=== PATIENT | male | born 1950 | race Caucasian/White ===

== ENCOUNTER → 2017-09-07 | Outpatient (CLI) | payer MEDICARE, BC ==
[2017-09-07 12:09] LABS: Blood Urea Nitrogen 14 mg/dL (9-20); Non-African American GFR(MDRD) >60 (>60 ml/min/1.73 sqM)
--- NOTE | 2017-09-07 15:54 | CT ---
EXAMINATION TYPE: CT ChestAbdPelvis w con DATE OF EXAM: 09/07/2017 COMPARISON: CT chest 07/02/2017 HISTORY: 67-year-old male follow up for lung cancer, patient coughing TECHNIQUE: Contiguous axial scanning of the test, abdomen, and pelvis performed with IV Contrast, pat ient injected with 100 mL of Omnipaque 300. Delayed images through the kidneys were obtained. Coronal /sagittal reconstructions performed. CT DLP: 1027 mGycm Automated exposure control for dose reduction was used. FINDINGS: CHEST: The heart is normal size with similar small pericardial effusion. Along the left side of the heart, t his measures 1.4 cm thick. Cardiac vessel calcifications are present and a marker for coronary artery disease. Mild to moderate atherosclerotic arch calcifications. Conventional arterial supply to anatomy. Small mediastinal lymph nodes though with a borderline enlarged 1 cm precarinal lymph node, unchanged from prior. There is moderate emphysema. In the right midlung, right lower lobe along the major fissure, there is a 1.2 cm spiculated nodule m easuring 1.0 cm, previously. Just below in the peripheral right lower lobe also abutting the major fissure, there is a spiculated 3.0 cm mass that shows significant interval decrease in size, previously measuring up to 5.3 cm. And central cavitation is present. Minimal peripheral right basilar nodularity in the subpleural region measuring 6 mm could represent s ome subpleural atelectasis and should be reassessed at follow-up. Some interstitial changes in peripheral in the right lower lobe could relate to posttreatment change. Resolution of previous right pleural effusion. The large left pleural effusion shows interval decrease in size. A small left pleural effusion remain s. 3 mm peripheral left lower lobe pulmonary nodule axial image 47. Some minimal patchy subpleural opaci ty peripheral left lower lobe, axial image 39. There seems to be persistent inferior lingular collaps e. ABDOMEN: Tiny hiatal hernia. No focal liver lesion or biliary ductal dilatation. Portal venous system is patent cholecystectomy cl ips are present. Similar mild diffuse thickening of the left adrenal gland without discrete nodularity. Kidneys, splee n, and pancreas show no gross abnormal body. Retroaortic left renal vein. Moderate atherosclerotic calcifications throughout the abdominal aorta a nd iliac arteries. No dilated small bowel, free fluid, or free air. No mesenteric or retroperitoneal lymphadenopathy jose ntified. Moderate stool in the right hemicolon. Pelvis: Mild circumference of bladder wall thickening. This could represent chronic bladder wall hypertrophy or cystitis. Clinically correlate. Prostate gland mildly enlarged at 4.5 cm wide. Pelvic phlebolith a re noted. Prominent stool in the rectum which is distended up to 5.1 cm wide. No abnormal fluid colle ction in the pelvis or pelvic lymphadenopathy seen. Bones: Degenerative changes lower lumbar spine. There is a focal lucent lesion within the T9 vertebral body. This shows a slightly sclerotic rim and is unchanged from 07/02/2017. A hemangioma is possible. There is new minimal superior endplate compression deformity at T4 as compared to 06/30/2017. No paraverteb ral soft tissue abnormality. No osseous destructive process seen. IMPRESSION: 1. RESOLUTION OF PREVIOUS RIGHT PLEURAL EFFUSION. THERE IS RESIDUAL SMALL LEFT PLEURAL EFFUSION. 2. THE DOMINANT RIGHT LOWER LOBE MASS HAS DECREASED IN SIZE FROM 5.3 CM NOW AT 3.0 CM. THE ADJACENT C ONTIGUOUS MASS HAS DRAMATICALLY DECREASED IN SIZE NOW MEASURING ONLY 1.2 CM. 3. NONSPECIFIC 6 MM SUBPLEURAL NODULARITY AT THE RIGHT BASE COULD REPRESENT SOME NODULAR ATELECTASIS AND CAN BE REASSESSED AT FOLLOW-UP. 4. ON THE LEFT, NONSPECIFIC TINY 3 MM PULMONARY NODULE AND SOME VAGUE PATCHY SUBPLEURAL DENSITY IN TH E LEFT LOWER LOBE CAN ALSO BE REASSESSED AT FOLLOW-UP. 5. CONTINUED SEGMENTAL INFERIOR LINGULAR COLLAPSE. 6. STABLE 1 CM PRECARINAL LYMPH NODE. 7. A ROUND LUCENT LESION WITHIN T9 VERTEBRAL BODY IS ALSO UNCHANGED. THIS MAY REPRESENT A HEMANGIOMA RATHER THAN A LYTIC METASTASIS.
== END | disposition home or self-care (01) ==
LOC: RADCTMAIN 11:39
PROVIDERS: ATTEND Internal Medicine Hematology & Oncology
DX: C34.31 Malignant neoplasm of lower lobe, right bronchus or lung (principal); J90 Pleural effusion, not elsewhere classified; J98.19 Other pulmonary collapse
CPT/HCPCS: 82565; 84520; 71260; 74177; 36415; Q9967

== ENCOUNTER 2017-10-07 07:09 | Day surgery (SDC) | payer MEDICARE, BC ==
[2017-10-05 10:07] VITALS: BMI 18.5
[~2017-10-07 07:09] MED LIST: LACTATED RINGERS 1,000 ML IV SCH; Pre Op ABX Message 1 EACH MISC MISCELLANE ONE
[2017-10-07 07:19] VITALS: RESP 18; TEMP 98.1
[2017-10-07] MEDS ORDERED: LACTATED RINGERS 1,000 ML IV ONE (07:19)
[2017-10-07] MEDS ORDERED: LIDOCAINE 1% 20 ML VIAL (10MG/ML) FOR IV START INTRADERMA ONE (07:26)
[2017-10-07] MEDS ORDERED: fentaNYL (PF) 50 MCG/ML 2 ML AMP ONE (07:34)
[2017-10-07] MEDS ORDERED: PROPOFOL 10 MG/ML 20 ML VIAL IV ONE (07:34)
[2017-10-07] MEDS ORDERED: LIDOCAINE 1% INJ 10MG/ML (20 ML MDV) ONE (07:34)
[2017-10-07] MEDS ORDERED: MIDAZOLAM 2 MG/2 ML VIAL ONE (07:34)
[2017-10-07 08:37] VITALS: BP 140/60; PULSE 108
[2017-10-07 08:55] LABS: Anisocytosis Slight; Basophils % (A) 1 %; Eosinophils # (A) 0.4 k/uL (0-0.7); Eosinophils % (A) 5 %; HCT 23.9 % (39.0-53.0); HGB 7.4 gm/dL (13.0-17.5); Hypochromasia Slight; Lymphocytes # (A) 1.1 k/uL (1.0-4.8); Lymphocytes % (A) 15 %; MCH 29.2 pg (25.0-35.0); MCHC 31.1 g/dL (31.0-37.0); MCV 93.9 fL (80.0-100.0); Mean Platelet Volume 6.8; Monocytes # (A) 0.3 k/uL (0-1.0); Monocytes % (A) 5 %; Neutrophils % (A) 72 %; Platelet Count 308 k/uL (150-450); RBC 2.54 m/uL (4.30-5.90); RDW 16.9 % (11.5-15.5); WBC 6.9 k/uL (3.8-10.6)
--- NOTE | 2017-10-07 09:05 | PCN ---
PROCEDURE NOTE DATE OF PROCEDURE: 10/07/2017 PREOPERATIVE DIAGNOSIS: Lung cancer and multiple myeloma. POSTOPERATIVE DIAGNOSIS: Lung cancer and multiple myeloma. ANESTHESIA: Local with IV sedation. DETAILS: Utilizing a sterile technique, the skin overlying the right iliac crest was prepared with Betadine and alcohol. After adequate sterile draping, systemic sedation and local anesthesia with 1% lidocaine, a size 11, 4 inch mySocietyshidi needle was utilized to access the periosteum with ease. A total of 14 mL of aspirate as well as 5 mm core biopsy were obtained. The patient tolerated the procedure very well. There was no immediate procedure related complications. Total blood loss less than 1 mL. RESULTS: Pending. MMODL / IJN: [id number] /
== END 2017-10-07 09:03 | disposition home or self-care (01) ==
LOC: OR 07:09
PROVIDERS: ATTEND Internal Medicine Hematology & Oncology
DX: C90.00 Multiple myeloma not having achieved remission (principal); C34.31 Malignant neoplasm of lower lobe, right bronchus or lung; D64.81 Anemia due to antineoplastic chemotherapy; J43.9 Emphysema, unspecified; E78.5 Hyperlipidemia, unspecified; I10 Essential (primary) hypertension; Z79.51 Long term (current) use of inhaled steroids; Z79.52 Long term (current) use of systemic steroids; Z79.899 Other long term (current) drug therapy; Z87.891 Personal history of nicotine dependence; Z80.0 Family history of malignant neoplasm of digestive organs
CPT/HCPCS: 85025; 38221; G0364; J2250; J2001; J3010; J2704

== ENCOUNTER 2017-10-27 15:12 | Inpatient (IN) | payer BC, MEDICARE ==
[2017-10-27] MEDS ORDERED: SODIUM CHLORIDE 0.9% 1,000 ML IV STA (15:27)
--- NOTE | 2017-10-27 15:52 | ED ---
General Adult HPI - General Chief complaint: Fall Stated complaint: Fall Time Seen by Provider: 10/27/17 15:15 Source: patient, EMS, RN notes reviewed Mode of arrival: EMS Limitations: no limitations - History of Present Illness Initial comments: 67-year-old male presents to the emergency department with a chief complaint of syncopal episode. Patient states that he got lightheaded and dizzy and the next thing he knows he was on the ground. Patient has blood cancer he also has a history of blood cancer. He states he wears oxygen. He states he does have faint seems to sometimes to time. He states he didn't hit his head. She denies any headache he denies any vomiting or nausea. He also admits to left shoulder pain. He denies any use of blood thinners. He denies any chest pain or shortness of breath. It is much like his typical syncopal episodes that he has been getting worse since he was diagnosed with the cancer. Patient denies any fever chills with this. Patient denies any recent fever, chills, shortness of breath, chest pain, back pain, abdominal pain, nausea vomiting, numbness or tingling, dysuria or hematuria, constipation or diarrhea, headaches or visual changes, or any other current symptoms. - Related Data Home Medications Medication Instructions Recorded Confirmed Atorvastatin [Lipitor] 20 mg PO DAILY 06/29/17 10/27/17 Fluticasone/Salmeterol [Advair 1 puff INHALATION RT-BID 06/29/17 10/27/17 500-50 Diskus] amLODIPine [Norvasc] 10 mg PO DAILY 06/29/17 10/27/17 Acyclovir 400 mg PO BID 10/27/17 10/27/17 Albuterol Inhaler [Ventolin Hfa 2 puff INHALATION RT-Q6H PRN 10/27/17 10/27/17 Inhaler] Bisacodyl [Dulcolax] 5 mg PO BID PRN 10/27/17 10/27/17 Citalopram Hydrobromide [CeleXA] 20 mg PO DAILY 10/27/17 10/27/17 Dexamethasone [Hexadrol] 20 mg PO Q7D 10/27/17 10/27/17 Folic Acid 1 mg PO DAILY 10/27/17 10/27/17 Multivitamins, Thera [Multivitamin 1 tab PO DAILY 10/27/17 10/27/17 (formulary)] Omeprazole [PriLOSEC] 20 mg PO DAILY 10/27/17 10/27/17 Potassium Chloride [Klor-Con 10] 10 meq PO DAILY 10/27/17 10/27/17 Tamsulosin [Flomax] 0.4 mg PO DAILY 10/27/17 10/27/17 Thiamine [Vitamin B-1] 100 mg PO DAILY 10/27/17 10/27/17 Previous Rx's Medication Instructions Recorded Ipratropium-Albuterol Nebulize 3 ml INHALATION RT-QID #120 09/13/17 [Duoneb 0.5 mg-3 mg/3 ml Soln] ampul.neb Sodium Bicarbonate Tab 650 mg PO DAILY #30 tab 09/13/17 Allergies Allergy/AdvReac Type Severity Reaction Status Date / Time Iodinated Contrast- Oral and Allergy Unknown Verified 10/27/17 16:12 IV Dye Review of Systems ROS Statement: Those systems with pertinent positive or pertinent negative responses have been documented in the HPI. ROS Other: All systems not noted in ROS Statement are negative. Past Medical History Past Medical History: Cancer, COPD, GERD/Reflux, Hyperlipidemia, Hypertension Additional Past Medical History / Comment(s): adenocarcinoma of the lung diagnosed in March 2017, restless leg, History of Any Multi-Drug Resistant Organisms: None Reported Past Surgical History: Cholecystectomy Additional Past Surgical History / Comment(s): CYST REMOVED FROM RT KNEE Past Anesthesia/Blood Transfusion Reactions: No Reported Reaction Past Psychological History: No Psychological Hx Reported Smoking Status: Former smoker Past Alcohol Use History: Occasional Past Drug Use History: None Reported - Past Family History Mother Family Medical History: COPD, Hypertension General Exam - General Exam Comments Initial Comments: General: The patient is awake and alert, in no distress, and does not appear acutely ill. Head: Patient is appear to have a 2-1/2 cm laceration to the left side of the forehead. Eye: Pupils are equal, round and reactive to light, extra-ocular movements are intact; there is normal conjunctiva bilaterally. No signs of icterus. Ears, nose, mouth and throat: There are moist mucous membranes. Neck: The neck is supple, there is no tenderness. Cardiovascular: There is a regular rate and rhythm. No murmur, rub or gallop is appreciated. Respiratory: Lungs are clear to auscultation, respirations are non-labored, breath sounds are equal. No wheezes, stridor, rales, or rhonchi. Gastrointestinal: Soft, non-distended, non-tender abdomen without masses or organomegaly noted. There is no rebound or guarding present. No CVA tenderness. Bowel sounds are unremarkable. Back: There is no tenderness to palpation in the midline. There is no obvious deformity. No rashes noted. Musculoskeletal: Normal ROM, mild tenderness to palpation in the outside of the left arm. There is no pedal edema. There is no calf tenderness or swelling. Sensation intact. Pulses equal bilaterally 2+. Neurological: CN II-XII intact, There are no obvious motor or sensory deficits. Coordination appears grossly intact. Speech is normal. Skin: Skin is warm and dry and no rashes or lesions are noted. Psychiatric: Cooperative, appropriate mood & affect, normal judgment. Limitations: no limitations Course Vital Signs 10/27/17 15:14 Temperature 98.5 F Pulse Rate 102 H Respiratory 20 Rate Blood Pressure 157/73 O2 Sat by Pulse 97 Oximetry EKG Findings - EKG Comments: EKG Findings:: Sinus tachycardia, possible left atrial enlargement, left ventricular hypertrophy, ventricular rate 103, RI interval 152, QS duration 98 Procedures - Procedures Initial comment: The skin was anesthetized with 1% lidocaine. The laceration was then cleansed with Betadine and irrigated with normal saline. The wound was inspected, and there was no evidence of injury to deep structures. No foreign body was noted in the wound. A total of 7 skin sutures were placed utilizing 6-0 nylon to a left forehead laceration of 4 cm - Orthopedic Splinting/Casting Injury #1 Side: left Upper Extremity Injury Location: shoulder Upper Extremity Immobilizer: sling/shoulder immobilizer Medical Decision Making - Medical Decision Making 67-year-old male presents to the emergency department with a chief complaint of syncopal that with head injury and fall. On further history the patient states that he receive chemo injection yesterday. He was informed he could've lightheadedness dizziness following this. He states he also does have multiple syncopal episodes due to his lung cancer and blood cancer as well. He states he does not want to stay in the hospital. He states this happens. He has no chest pain or shortness of breath. At this time he underwent suture. Care we discussed his left humerus fracture and appropriate follow-up for this and care as well. We did discuss the risk of going home. We discussed the could lead to as well as other issues. We discussed return parameters. Patient stated that he understood but he would like to leave. This time he will be leaving AGAINST MEDICAL ADVICE. He stated that he understood the risks of this. - Lab Data Result diagrams: 10/27/17 15:50 10/27/17 15:50 Lab Results 10/27/17 10/27/17 10/27/17 Range/Units 15:50 15:50 15:50 WBC 9.2 (3.8-10.6) k/uL RBC 2.50 L (4.30-5.90) m/uL Hgb 7.2 L (13.0-17.5) gm/dL Hct 23.0 L (39.0-53.0) % MCV 92.1 (80.0-100.0) fL MCH 29.0 (25.0-35.0) pg MCHC 31.5 (31.0-37.0) g/dL RDW 17.3 H (11.5-15.5) % Plt Count 293 (150-450) k/uL Neutrophils % 78 % Lymphocytes % 13 % Monocytes % 6 % Eosinophils % 1 % Basophils % 0 % Neutrophils # 7.1 (1.3-7.7) k/uL Lymphocytes # 1.2 (1.0-4.8) k/uL Monocytes # 0.5 (0-1.0) k/uL Eosinophils # 0.1 (0-0.7) k/uL Basophils # 0.0 (0-0.2) k/uL Anisocytosis Slight PT (9.0-12.0) sec INR (<1.2) APTT (22.0-30.0) sec Sodium 136 L (137-145) mmol/L Potassium 4.3 (3.5-5.1) mmol/L Chloride 103 (98-107) mmol/L Carbon Dioxide 16 L (22-30) mmol/L Anion Gap 17 mmol/L BUN 34 H (9-20) mg/dL Creatinine 1.86 H (0.66-1.25) mg/dL Est GFR (MDRD) Af Amer 44 (>60 ml/min/1.73 sqM) Est GFR (MDRD) Non-Af 37 (>60 ml/min/1.73 sqM) Glucose 71 L (74-99) mg/dL Calcium 9.3 (8.4-10.2) mg/dL Magnesium 1.8 (1.6-2.3) mg/dL Total Bilirubin 0.2 (0.2-1.3) mg/dL AST 42 (17-59) U/L ALT 34 (21-72) U/L Alkaline Phosphatase 67 (38-126) U/L Total Creatine Kinase 106 (55-170) U/L CK-MB (CK-2) 2.8 H* (0.0-2.4) ng/mL CK-MB (CK-2) Rel Index 2.6 Troponin I <0.012 (0.000-0.034) ng/mL Total Protein 10.4 H (6.3-8.2) g/dL Albumin 3.6 (3.5-5.0) g/dL 10/27/17 Range/Units 15:50 WBC (3.8-10.6) k/uL RBC (4.30-5.90) m/uL Hgb (13.0-17.5) gm/dL Hct (39.0-53.0) % MCV (80.0-100.0) fL MCH (25.0-35.0) pg MCHC (31.0-37.0) g/dL RDW (11.5-15.5) % Plt Count (150-450) k/uL Neutrophils % % Lymphocytes % % Monocytes % % Eosinophils % % Basophils % % Neutrophils # (1.3-7.7) k/uL Lymphocytes # (1.0-4.8) k/uL Monocytes # (0-1.0) k/uL Eosinophils # (0-0.7) k/uL Basophils # (0-0.2) k/uL Anisocytosis PT 10.6 (9.0-12.0) sec INR 1.1 (<1.2) APTT 19.3 L (22.0-30.0) sec Sodium (137-145) mmol/L Potassium (3.5-5.1) mmol/L Chloride (98-107) mmol/L Carbon Dioxide (22-30) mmol/L Anion Gap mmol/L BUN (9-20) mg/dL Creatinine (0.66-1.25) mg/dL Est GFR (MDRD) Af Amer (>60 ml/min/1.73 sqM) Est GFR (MDRD) Non-Af (>60 ml/min/1.73 sqM) Glucose (74-99) mg/dL Calcium (8.4-10.2) mg/dL Magnesium (1.6-2.3) mg/dL Total Bilirubin (0.2-1.3) mg/dL AST (17-59) U/L ALT (21-72) U/L Alkaline Phosphatase (38-126) U/L Total Creatine Kinase (55-170) U/L CK-MB (CK-2) (0.0-2.4) ng/mL CK-MB (CK-2) Rel Index Troponin I (0.000-0.034) ng/mL Total Protein (6.3-8.2) g/dL Albumin (3.5-5.0) g/dL Disposition Clinical Impression: Syncope, Laceration of forehead without complication, Scalp contusion, Fracture of neck of left humerus Disposition: Left Against Medical Advice Instructions: Syncope (ED), Laceration (ED) Additional Instructions: Please use medication as discussed. Please follow up with family doctor if symptoms have not improved over the next two days. Please return to the emergency room if your symptoms increase or worsen or for any other concerns. Please return to the emergency room in 5 days to have sutures removed. Please leave wound covered for the first 24-48 hours and then leave open to air after that time. Please use clean soap and water to clean the suture area to prevent scabbing over the top of your sutures. Please watch for any signs of infection which may include but not limited to increased pain, swelling, redness, fever or chills. Please return to the emergency room if any signs of infection do occur. Please return to the emergency room for any other concerns or complications. Referrals: Kenny Sepulveda DO [Doctor of Osteopathic Medicine] - 1-2 days Mahendra Tripathi MD [REFERRING] - 1-2 days Time of Disposition: 17:28
[2017-10-27 16:07] LABS: Anisocytosis Slight; Basophils % (A) 0 %; Eosinophils # (A) 0.1 k/uL (0-0.7); Eosinophils % (A) 1 %; HGB 7.2 gm/dL (13.0-17.5); Lymphocytes # (A) 1.2 k/uL (1.0-4.8); Lymphocytes % (A) 13 %; MCHC 31.5 g/dL (31.0-37.0); MCV 92.1 fL (80.0-100.0); Mean Platelet Volume 7.7; Monocytes # (A) 0.5 k/uL (0-1.0); Monocytes % (A) 6 %; Neutrophils # (A) 7.1 k/uL (1.3-7.7); Neutrophils % (A) 78 %; Platelet Count 293 k/uL (150-450); RDW 17.3 % (11.5-15.5); WBC 9.2 k/uL (3.8-10.6)
[2017-10-27 16:24] LABS: Albumin 3.6 g/dL (3.5-5.0); Calcium 9.3 mg/dL (8.4-10.2); Magnesium 1.8 mg/dL (1.6-2.3); Potassium 4.3 mmol/L (3.5-5.1); Total Bilirubin 0.2 mg/dL (0.2-1.3); Total Protein 10.4 g/dL (6.3-8.2)
--- NOTE | 2017-10-27 16:31 | CT ---
EXAMINATION TYPE: CT brain wo con DATE OF EXAM: 10/27/2017 COMPARISON: NONE INDICATION: Fall today, +LOC, left frontal injury. DLP: 943.80 mGycm, Automated exposure control for dose reduction was used. CONTRAST: None CT of the brain is performed utilizing 3 mm thick sections through the posterior fossa and 3 mm thick sections through the remaining calvarium. Study is performed within 24 hours of arrival to the hosp [facility]. No abnormal hyperdensity is present to suggest an acute intracranial hemorrhage. No mass lesion is evident. No acute infarcts are evident. Ventricles and sulci are appropriate for the patient age. Paranasal sinuses and mastoid air cells within the [id number] are clear. Subtle soft tissue swelling may be along the frontal parietal region on the left. IMPRESSIONS: 1. Air-fluid level within the right maxillary sinus. This can be posttraumatic in nature or due to acute sinusitis. 2. No acute intracranial process. 3. There may be some mild soft tissue swelling left frontal parietal region which could correspond to the location of the patient's trauma.
[2017-10-27 16:35] LABS: INR 1.1 (<1.2); Prothrombin Time 10.6 sec (9.0-12.0)
[2017-10-27 16:37] LABS: Creatine Kinase 106 U/L (55-170)
[2017-10-27 16:38] LABS: Partial Thromboplastin Time 19.3 sec (22.0-30.0)
--- NOTE | 2017-10-27 16:47 | XR ---
EXAMINATION TYPE: XR chest 2V DATE OF EXAM: 10/27/2017 COMPARISON: 09/13/2017 HISTORY: Pain TECHNIQUE: Frontal and lateral views of the chest are obtained. FINDINGS: There is some blunting of the costophrenic angles. Pulmonary vascular congestion. Heart is slightly enlarged. There are chest leads. There is some patchy infiltrate in the left lower lobe. IMPRESSION: Congestive heart failure with pleural effusions. There is some clearing of bilateral low er lobe pneumonia compared to last exam.
[2017-10-27 16:49] LABS: Troponin I <0.012 ng/mL (0.000-0.034)
--- NOTE | 2017-10-27 16:49 | XR ---
EXAMINATION TYPE: XR humerus LT DATE OF EXAM: 10/27/2017 COMPARISON: NONE HISTORY: Pain TECHNIQUE: 3 views FINDINGS: There is a slightly impacted comminuted transverse fracture of the left humeral neck. There is no dislocation. Elbow joint appears intact. IMPRESSION: Humeral neck fracture.
[2017-10-27 16:55] LABS: Creatine Kinase MB 2.8 ng/mL (0.0-2.4)
[2017-10-27] MEDS ORDERED: ONDANSETRON 4 MG/2 ML VIAL IVP PRN (17:56)
[2017-10-27] MEDS ORDERED: NALOXONE 0.4 MG/ML 1 ML VIAL IV PRN (17:56)
--- NOTE | 2017-10-27 17:56 | ED ---
Medical Decision Making - Medical Decision Making At this time patient patient has changes mind and he will be admitted to the hospital. We contacted Josephtanyatanisha who does agree to the admission. Syncope we will be admitting the patient for continued observation. Patient is cleared from the head injury by a negative CAT scan and no symptomology at this time. - Lab Data Result diagrams: 10/27/17 15:50 10/27/17 15:50 Lab Results 10/27/17 10/27/17 10/27/17 Range/Units 15:50 15:50 15:50 WBC 9.2 (3.8-10.6) k/uL RBC 2.50 L (4.30-5.90) m/uL Hgb 7.2 L (13.0-17.5) gm/dL Hct 23.0 L (39.0-53.0) % MCV 92.1 (80.0-100.0) fL MCH 29.0 (25.0-35.0) pg MCHC 31.5 (31.0-37.0) g/dL RDW 17.3 H (11.5-15.5) % Plt Count 293 (150-450) k/uL Neutrophils % 78 % Lymphocytes % 13 % Monocytes % 6 % Eosinophils % 1 % Basophils % 0 % Neutrophils # 7.1 (1.3-7.7) k/uL Lymphocytes # 1.2 (1.0-4.8) k/uL Monocytes # 0.5 (0-1.0) k/uL Eosinophils # 0.1 (0-0.7) k/uL Basophils # 0.0 (0-0.2) k/uL Anisocytosis Slight PT (9.0-12.0) sec INR (<1.2) APTT (22.0-30.0) sec Sodium 136 L (137-145) mmol/L Potassium 4.3 (3.5-5.1) mmol/L Chloride 103 (98-107) mmol/L Carbon Dioxide 16 L (22-30) mmol/L Anion Gap 17 mmol/L BUN 34 H (9-20) mg/dL Creatinine 1.86 H (0.66-1.25) mg/dL Est GFR (MDRD) Af Amer 44 (>60 ml/min/1.73 sqM) Est GFR (MDRD) Non-Af 37 (>60 ml/min/1.73 sqM) Glucose 71 L (74-99) mg/dL Calcium 9.3 (8.4-10.2) mg/dL Magnesium 1.8 (1.6-2.3) mg/dL Total Bilirubin 0.2 (0.2-1.3) mg/dL AST 42 (17-59) U/L ALT 34 (21-72) U/L Alkaline Phosphatase 67 (38-126) U/L Total Creatine Kinase 106 (55-170) U/L CK-MB (CK-2) 2.8 H* (0.0-2.4) ng/mL CK-MB (CK-2) Rel Index 2.6 Troponin I <0.012 (0.000-0.034) ng/mL Total Protein 10.4 H (6.3-8.2) g/dL Albumin 3.6 (3.5-5.0) g/dL 10/27/17 Range/Units 15:50 WBC (3.8-10.6) k/uL RBC (4.30-5.90) m/uL Hgb (13.0-17.5) gm/dL Hct (39.0-53.0) % MCV (80.0-100.0) fL MCH (25.0-35.0) pg MCHC (31.0-37.0) g/dL RDW (11.5-15.5) % Plt Count (150-450) k/uL Neutrophils % % Lymphocytes % % Monocytes % % Eosinophils % % Basophils % % Neutrophils # (1.3-7.7) k/uL Lymphocytes # (1.0-4.8) k/uL Monocytes # (0-1.0) k/uL Eosinophils # (0-0.7) k/uL Basophils # (0-0.2) k/uL Anisocytosis PT 10.6 (9.0-12.0) sec INR 1.1 (<1.2) APTT 19.3 L (22.0-30.0) sec Sodium (137-145) mmol/L Potassium (3.5-5.1) mmol/L Chloride (98-107) mmol/L Carbon Dioxide (22-30) mmol/L Anion Gap mmol/L BUN (9-20) mg/dL Creatinine (0.66-1.25) mg/dL Est GFR (MDRD) Af Amer (>60 ml/min/1.73 sqM) Est GFR (MDRD) Non-Af (>60 ml/min/1.73 sqM) Glucose (74-99) mg/dL Calcium (8.4-10.2) mg/dL Magnesium (1.6-2.3) mg/dL Total Bilirubin (0.2-1.3) mg/dL AST (17-59) U/L ALT (21-72) U/L Alkaline Phosphatase (38-126) U/L Total Creatine Kinase (55-170) U/L CK-MB (CK-2) (0.0-2.4) ng/mL CK-MB (CK-2) Rel Index Troponin I (0.000-0.034) ng/mL Total Protein (6.3-8.2) g/dL Albumin (3.5-5.0) g/dL - Radiology Data Radiology results: report reviewed, image reviewed Disposition Clinical Impression: Syncope, Laceration of forehead without complication, Scalp contusion, Fracture of neck of left humerus Disposition: ADMITTED IP TO THIS [facility] Condition: Stable Instructions: Laceration (ED), Syncope (ED) Additional Instructions: Please use medication as discussed. Please follow up with family doctor if symptoms have not improved over the next two days. Please return to the emergency room if your symptoms increase or worsen or for any other concerns. Please return to the emergency room in 5 days to have sutures removed. Please leave wound covered for the first 24-48 hours and then leave open to air after that time. Please use clean soap and water to clean the suture area to prevent scabbing over the top of your sutures. Please watch for any signs of infection which may include but not limited to increased pain, swelling, redness, fever or chills. Please return to the emergency room if any signs of infection do occur. Please return to the emergency room for any other concerns or complications. Referrals: Mahendra Tripathi MD [REFERRING] - 1-2 days Kenny Sepulveda DO [Doctor of Osteopathic Medicine] - 1-2 days Decision Date: 10/27/17 Decision Time: 17:56
[2017-10-27] MEDS ORDERED: BISACODYL 5 MG TABLET.DR PO PRN (17:57)
[2017-10-27] MEDS ORDERED: ALBUTEROL NEBULIZED 2.5 MG/3 ML INHALATION PRN (17:57)
[2017-10-27] MEDS: SYMBICORT 160-4.5 MCG INHALER INHALATION SCH (20:37)
[2017-10-27] MEDS: IPRATROPIUM-ALBUTEROL 3 ML NEB INHALATION SCH (20:37)
[2017-10-27] MEDS: HYDROcodone/APAP 5-325MG 1 EACH TAB PO PRN (21:17)
[2017-10-27] MEDS: ACYCLOVIR 200 MG CAP PO SCH (21:19)
[2017-10-27 22:34] LABS: Troponin I 0.017 ng/mL (0.000-0.034)
[2017-10-28 03:58] LABS: Albumin 3.2 g/dL (3.5-5.0); Calcium 8.5 mg/dL (8.4-10.2); Potassium 5.2 mmol/L (3.5-5.1); Total Bilirubin 0.1 mg/dL (0.2-1.3); Total Protein 9.7 g/dL (6.3-8.2)
[2017-10-28 03:59] LABS: Creatine Kinase 127 U/L (55-170)
[2017-10-28 04:00] LABS: Anisocytosis Slight; Basophils % (A) 0 %; Eosinophils # (A) 0.1 k/uL (0-0.7); Eosinophils % (A) 2 %; HCT 20.1 % (39.0-53.0); Hypochromasia Slight; Lymphocytes # (A) 0.7 k/uL (1.0-4.8); Lymphocytes % (A) 9 %; MCH 28.7 pg (25.0-35.0); MCHC 31.2 g/dL (31.0-37.0); MCV 91.9 fL (80.0-100.0); Mean Platelet Volume 7.3; Monocytes # (A) 0.4 k/uL (0-1.0); Monocytes % (A) 4 %; Neutrophils # (A) 6.9 k/uL (1.3-7.7); Neutrophils % (A) 83 %; Platelet Count 255 k/uL (150-450); RBC 2.18 m/uL (4.30-5.90); RDW 17.3 % (11.5-15.5); WBC 8.2 k/uL (3.8-10.6)
[2017-10-28 04:03] LABS: HGB 6.3 gm/dL (13.0-17.5)
[2017-10-28 04:12] LABS: Troponin I <0.012 ng/mL (0.000-0.034)
[2017-10-28 04:14] LABS: Creatine Kinase MB 2.6 ng/mL (0.0-2.4)
[2017-10-28] MEDS: HYDROcodone/APAP 5-325MG 1 EACH TAB PO PRN ×2 (05:06→10:59)
[2017-10-28] MEDS: IPRATROPIUM-ALBUTEROL 3 ML NEB INHALATION SCH ×2 (06:59→12:53)
[2017-10-28] MEDS: SYMBICORT 160-4.5 MCG INHALER INHALATION SCH (06:59)
[2017-10-28] MEDS ORDERED: PANTOPRAZOLE 40 MG TABLET PO SCH (07:30)
[2017-10-28] MEDS ORDERED: CITALOPRAM HYDROBROMIDE 20 MG TAB PO SCH (09:00)
[2017-10-28] MEDS ORDERED: TAMSULOSIN 0.4 MG CAP.ER.24H PO SCH (09:00)
[2017-10-28] MEDS ORDERED: amLODIPine 10 MG TAB PO SCH (09:00)
[2017-10-28] MEDS ORDERED: SODIUM BICARBONATE TAB 650 MG TAB PO SCH (09:00)
[2017-10-28] MEDS ORDERED: ATORVASTATIN 20 MG TAB PO SCH (09:00)
[2017-10-28] MEDS ORDERED: POTASSIUM CHLORIDE ER 10 MEQ TAB.ER.PRT PO SCH (09:00)
[2017-10-28] MEDS: ACYCLOVIR 200 MG CAP PO SCH (09:19)
--- NOTE | 2017-10-28 09:26 | P.CNOR ---
History of Present Illness - [facility] Consult date: 10/28/17 Consult reason: fracture History of present illness: Patient is a 67-year-old male who is seen and evaluated yesterday at [facility] emergency room with regards to a syncopal episode and injury to his left arm. Patient has a relatively complex recent medical history. He has a recent diagnosis of lung cancer in March 2017, he is followed by Dr. Saxena in the outpatient setting. Patient states that the last few weeks he is also been diagnosed with multiple myeloma. He states on Wednesday of this week, he received 2 different injections chemotherapy, who yesterday while at the gas station he became somewhat lightheaded and short of breath. He went to lean over on the gas pump, and fell radically on the left arm. He had immediate pain involving the left upper extremity and a small laceration to the left forehead. He was brought to [facility] for further evaluation. Initial x-rays revealed a left humeral neck fracture. The laceration was sutured by the emergency room staff. He was advised that the patient be admitted for further workup, he decided to go home. Patient then returned to the emergency room a few hours later for admission and further workup. Our orthopedic team was then consult for the left upper extremity. Patient is evaluated at bedside today, he admits to pain in the left shoulder with movement. He is utilizing the arm sling. He does note some rib pain on that left side. He denies any pain involving the right upper extremity, bilateral lower extremities. He denies any previous surgery involving his left shoulder. Review of Systems Constitutional: Reports as per [facility] Past Medical History Past Medical History: Cancer, COPD, GERD/Reflux, Hyperlipidemia, Hypertension Additional Past Medical History / Comment(s): mulitple myeloma, adenocarcinoma of the lung diagnosed in March 2017,home 02 2 liters n/c restless leg syndrome, anemia,tracheobronchits, History of Any Multi-Drug Resistant Organisms: None Reported Past Surgical History: Cholecystectomy, Tonsillectomy Additional Past Surgical History / Comment(s): CYST REMOVED FROM RT KNEE, vasectomy, rt bone marrow apiration/bx Past Anesthesia/Blood Transfusion Reactions: No Reported Reaction Additional Past Anesthesia/Blood Transfusion Reaction / Comm: past blood transfusion-stated no reaction to to it. Smoking Status: Former smoker - Past Family History Mother Family Medical History: COPD, Hypertension Father Family Medical History: Coronary Artery Disease (CAD) Additional Family Medical History / Comment(s): cabg-triple vessel, pancreatic cancer age 65 Medications and Allergies Home Medications Medication Instructions Recorded Confirmed Type Atorvastatin [Lipitor] 20 mg PO DAILY 06/29/17 10/27/17 History Fluticasone/Salmeterol [Advair 1 puff INHALATION RT-BID 06/29/17 10/27/17 History 500-50 Diskus] amLODIPine [Norvasc] 10 mg PO DAILY 06/29/17 10/27/17 History Ipratropium-Albuterol Nebulize 3 ml INHALATION RT-QID #120 09/13/17 10/27/17 Rx [Duoneb 0.5 mg-3 mg/3 ml Soln] ampul.neb Sodium Bicarbonate Tab 650 mg PO DAILY #30 tab 09/13/17 10/27/17 Rx Acyclovir 400 mg PO BID 10/27/17 10/27/17 History Albuterol Inhaler [Ventolin Hfa 2 puff INHALATION RT-Q6H PRN 10/27/17 10/27/17 History Inhaler] Bisacodyl [Dulcolax] 5 mg PO BID PRN 10/27/17 10/27/17 History Citalopram Hydrobromide [CeleXA] 20 mg PO DAILY 10/27/17 10/27/17 History Dexamethasone [Hexadrol] 20 mg PO Q7D 10/27/17 10/27/17 History Folic Acid 1 mg PO DAILY 10/27/17 10/27/17 History Multivitamins, Thera [Multivitamin 1 tab PO DAILY 10/27/17 10/27/17 History (formulary)] Omeprazole [PriLOSEC] 20 mg PO DAILY 10/27/17 10/27/17 History Potassium Chloride [Klor-Con 10] 10 meq PO DAILY 10/27/17 10/27/17 History Tamsulosin [Flomax] 0.4 mg PO DAILY 10/27/17 10/27/17 History Thiamine [Vitamin B-1] 100 mg PO DAILY 10/27/17 10/27/17 History Allergies Allergy/AdvReac Type Severity Reaction Status Date / Time Iodinated Contrast- Oral and Allergy Unknown Verified 10/27/17 16:12 IV Dye Physical Examination Left upper extremity: Patient utilizing the arm sling at this time. No open lesions or sores are visualized throughout the right upper extremity. Obvious tenderness with palpation over the anterior and lateral aspect of the upper arm. No tenderness with palpation surrounding the elbow, hand and wrist. Range of motion is intact both at the wrist and elbow. He is able to wiggle the fingers. His sensation to light touch is intact about the extremity. His radial pulses 2+. Range of motion and strength was not assessed involving the left shoulder. Results - Labs Labs: Abnormal Lab Results - Last 24 Hours (Table) 10/27/17 10/27/17 10/27/17 Range/Units 15:50 15:50 15:50 RBC 2.50 L (4.30-5.90) m/uL Hgb 7.2 L (13.0-17.5) gm/dL Hct 23.0 L (39.0-53.0) % RDW 17.3 H (11.5-15.5) % Lymphocytes # (1.0-4.8) k/uL APTT (22.0-30.0) sec Sodium 136 L (137-145) mmol/L Potassium (3.5-5.1) mmol/L Carbon Dioxide 16 L (22-30) mmol/L BUN 34 H (9-20) mg/dL Creatinine 1.86 H (0.66-1.25) mg/dL Glucose 71 L (74-99) mg/dL Total Bilirubin (0.2-1.3) mg/dL CK-MB (CK-2) 2.8 H* (0.0-2.4) ng/mL Total Protein 10.4 H (6.3-8.2) g/dL Albumin (3.5-5.0) g/dL Crossmatch 10/27/17 10/27/17 10/28/17 Range/Units 15:50 21:43 03:15 RBC (4.30-5.90) m/uL Hgb (13.0-17.5) gm/dL Hct (39.0-53.0) % RDW (11.5-15.5) % Lymphocytes # (1.0-4.8) k/uL APTT 19.3 L (22.0-30.0) sec Sodium (137-145) mmol/L Potassium (3.5-5.1) mmol/L Carbon Dioxide (22-30) mmol/L BUN (9-20) mg/dL Creatinine (0.66-1.25) mg/dL Glucose (74-99) mg/dL Total Bilirubin (0.2-1.3) mg/dL CK-MB (CK-2) 3.0 H* 2.6 H* (0.0-2.4) ng/mL Total Protein (6.3-8.2) g/dL Albumin (3.5-5.0) g/dL Crossmatch 10/28/17 10/28/17 10/28/17 Range/Units 03:15 03:15 06:43 RBC 2.18 L (4.30-5.90) m/uL Hgb 6.3 L* (13.0-17.5) gm/dL Hct 20.1 L (39.0-53.0) % RDW 17.3 H (11.5-15.5) % Lymphocytes # 0.7 L (1.0-4.8) k/uL APTT (22.0-30.0) sec Sodium (137-145) mmol/L Potassium 5.2 H (3.5-5.1) mmol/L Carbon Dioxide 21 L (22-30) mmol/L BUN 40 H (9-20) mg/dL Creatinine 1.90 H (0.66-1.25) mg/dL Glucose 102 H (74-99) mg/dL Total Bilirubin 0.1 L (0.2-1.3) mg/dL CK-MB (CK-2) (0.0-2.4) ng/mL Total Protein 9.7 H (6.3-8.2) g/dL Albumin 3.2 L (3.5-5.0) g/dL Crossmatch See Detail H & H 10/27/17 10/28/17 Range/Units 15:50 03:15 Hgb 7.2 L 6.3 L* (13.0-17.5) gm/dL Hct 23.0 L 20.1 L (39.0-53.0) % Coagulation 10/27/17 Range/Units 15:50 INR 1.1 (<1.2) Result Diagrams: 10/28/17 03:15 10/28/17 03:15 - Diagnostic results Shoulder x-ray: report reviewed, image reviewed Assessment and Plan Plan: Imaging: Multiple views of the left humerus were obtained. Images demonstrated an impacted type left humeral neck fracture. The glenohumeral joint remains intact. No other osseous abnormalities were visualized. Assessment: 1. Minimally displaced left humeral neck fracture 2. Status post fall from syncopal episode 3. Other medical comorbidities Plan: I was able to discuss this case, both physical exam findings and imaging studies with my attending Dr. Sepulveda. We would like to proceed with conservative management of this fracture, including use of an arm sling and limited activity with the left upper extremity. New arm sling was ordered Pain control, oral medication as needed Follow-up appointment scheduled in the outpatient setting for further evaluation including x-rays in about 2 weeks Discharge planning: None orthopedic standpoint the patient is stable for discharge Time with Patient: Less than 30
[2017-10-28 11:27] VITALS: BMI 18.0
[2017-10-28] MEDS ORDERED: MULTIVITAMINS, THERA 1 EACH TAB PO SCH (12:00)
[2017-10-28] MEDS ORDERED: FOLIC ACID 1 MG TAB PO SCH (12:00)
[2017-10-28] MEDS ORDERED: THIAMINE 100 MG TAB PO SCH (12:00)
--- NOTE | 2017-10-28 12:10 | P.HPIM ---
History of Present Illness 67-year-old male presents to the emergency department with a chief complaint of syncopal episode. Patient states that he got lightheaded and dizzy and the next thing he knows he was on the ground. Patient has blood cancer he also has a history of blood cancer. He states he wears oxygen. He states he does have faint seems to sometimes to time. He states he didn't hit his head. She denies any headache he denies any vomiting or nausea. He also admits to left shoulder pain. He denies any use of blood thinners. He denies any chest pain or shortness of breath. It is much like his typical syncopal episodes that he has been getting worse since he was diagnosed with the cancer. Patient denies any fever chills with this. Denied any blood in the stools. Patient is found to have severe anemia with hemoglobin going down to as low as 6 and patient is receiving blood transfusion for that his anemia is secondary to anemia of chronic disease from multiple myeloma. Patient does not have any acute GI bleed at any acute bleed at this time. Patient does have chronic kidney disease patient's creatinine few months ago was 0.9 and now his baseline creatinine is around 1.9 which is again secondary to multiple myeloma along with acute blood necrosis during his last hospitalization. Patient blood pressures normal but I wanted to stay high because of which I'm dictating the dose of amlodipine patient is found to have fracture of the right humerus for which there is no surgical intervention that is being contemplated patient had a cast to that and patient will follow with orthopedic surgery as an outpatient and patient is being discharged on no cough or pain and patient was advised to take [id number] bowel regimen if he is constipated. Patient was evaluated by oncology service and orthopedic surgery. Review of Systems REVIEW OF SYSTEMS: CONSTITUTIONAL: No fever, no malaise, no fatigue. HEENT: No recent visual problems or hearing problems. Denied any sore throat. CARDIOVASCULAR: No chest pain, orthopnea, PND, no palpitations, no syncope. PULMONARY: No shortness of breath, no cough, no hemoptysis. GASTROINTESTINAL: No diarrhea, no nausea, no vomiting, no abdominal pain. Normoactive bowel sounds. NEUROLOGICAL: No headaches, no weakness, no numbness. HEMATOLOGICAL: Denies any bleeding or petechiae. GENITOURINARY: Denies any burning micturition, frequency, or urgency. MUSCULOSKELETAL/RHEUMATOLOGICAL: Pain in the left arm ENDOCRINE: Denies any polyuria or polydipsia. The rest of the 14-point review of systems is negative. Past Medical History Past Medical History: Cancer, COPD, GERD/Reflux, Hyperlipidemia, Hypertension Additional Past Medical History / Comment(s): mulitple myeloma, adenocarcinoma of the lung diagnosed in March 2017,home 02 2 liters n/c restless leg syndrome, anemia,tracheobronchits, History of Any Multi-Drug Resistant Organisms: None Reported Past Surgical History: Cholecystectomy, Tonsillectomy Additional Past Surgical History / Comment(s): CYST REMOVED FROM RT KNEE, vasectomy, rt bone marrow apiration/bx Past Anesthesia/Blood Transfusion Reactions: No Reported Reaction Additional Past Anesthesia/Blood Transfusion Reaction / Comment(s): past blood transfusion-stated no reaction to to it. Smoking Status: Former smoker - Past Family History Mother Family Medical History: COPD, Hypertension Father Family Medical History: Coronary Artery Disease (CAD) Additional Family Medical History / Comment(s): cabg-triple vessel, pancreatic cancer age 65 Medications and Allergies Home Medications Medication Instructions Recorded Confirmed Type Atorvastatin [Lipitor] 20 mg PO DAILY 06/29/17 10/27/17 History Fluticasone/Salmeterol [Advair 1 puff INHALATION RT-BID 06/29/17 10/27/17 History 500-50 Diskus] Ipratropium-Albuterol Nebulize 3 ml INHALATION RT-QID #120 09/13/17 10/27/17 Rx [Duoneb 0.5 mg-3 mg/3 ml Soln] ampul.neb Sodium Bicarbonate Tab 650 mg PO DAILY #30 tab 09/13/17 10/27/17 Rx Acyclovir 400 mg PO BID 10/27/17 10/27/17 History Albuterol Inhaler [Ventolin Hfa 2 puff INHALATION RT-Q6H PRN 10/27/17 10/27/17 History Inhaler] Bisacodyl [Dulcolax] 5 mg PO BID PRN 10/27/17 10/27/17 History Citalopram Hydrobromide [CeleXA] 20 mg PO DAILY 10/27/17 10/27/17 History Dexamethasone [Hexadrol] 20 mg PO Q7D 10/27/17 10/27/17 History Folic Acid 1 mg PO DAILY 10/27/17 10/27/17 History Multivitamins, Thera [Multivitamin 1 tab PO DAILY 10/27/17 10/27/17 History (formulary)] Omeprazole [PriLOSEC] 20 mg PO DAILY 10/27/17 10/27/17 History Potassium Chloride [Klor-Con 10] 10 meq PO DAILY 10/27/17 10/27/17 History Tamsulosin [Flomax] 0.4 mg PO DAILY 10/27/17 10/27/17 History Thiamine [Vitamin B-1] 100 mg PO DAILY 10/27/17 10/27/17 History Hydrocodone/Acetaminophen [[place] 1 each PO Q6HR PRN #30 tab 10/28/17 Rx 5-325] amLODIPine [Norvasc] 5 mg PO DAILY #0 10/28/17 10/27/17 Rx Allergies Allergy/AdvReac Type Severity Reaction Status Date / Time Iodinated Contrast- Oral and Allergy Unknown Verified 10/27/17 16:12 IV Dye Physical Exam Vitals: Vital Signs Temp Pulse Pulse Pulse Resp BP BP 10/28/17 10:45 98.1 F 104 H 20 137/63 10/28/17 10:15 98.1 F 106 H 20 128/57 10/28/17 10:14 98.1 F 106 H 20 128/57 10/28/17 10:05 97.9 F 103 H 20 136/56 10/28/17 07:10 90 10/28/17 07:00 98.3 F 98 20 129/66 10/28/17 06:59 88 10/28/17 00:00 98 101 H 16 10/27/17 23:00 98.3 F 101 H 16 126/69 10/27/17 20:50 100 10/27/17 20:38 94 10/27/17 18:45 98.0 F 96 20 126/64 10/27/17 17:52 100 18 131/61 10/27/17 15:14 98.5 F 102 H 20 157/73 Pulse Ox 10/28/17 10:45 97 10/28/17 10:15 95 10/28/17 10:14 95 10/28/17 10:05 96 10/28/17 07:10 10/28/17 07:00 96 01/18/18 06:59 10/28/17 00:00 10/27/17 23:00 99 10/27/17 20:50 10/27/17 20:38 10/27/17 18:45 97 10/27/17 17:52 96 10/27/17 15:14 97 Intake and Output 10/27/17 10/28/17 10/28/17 22:59 06:59 14:59 Intake Total 0 Output Total 1500 Balance -1500 0 Intake: Blood Product 0 Rc As-1 Unit 0 [id number] Output: Urine 1500 Straight 1500 Other: Voiding Method Toilet Toilet # Voids 3 # Bowel Movements 1 Weight 47.627 kg 47.627 kg Patient Weight 10/29/17 06:59 Weight 47.627 kg PHYSICAL EXAMINATION: GENERAL: The patient is alert and oriented x3, not in any acute distress. Well developed, well nourished. HEENT: Pupils are round and equally reacting to light. EOMI. No scleral icterus. Does have conjunctival pallor. Normocephalic, atraumatic. No pharyngeal erythema. No thyromegaly. CARDIOVASCULAR: S1 and S2 present. No murmurs, rubs, or gallops. PULMONARY: Chest is clear to auscultation, expiratory wheezing was appreciated but as per the patient this is chronic ABDOMEN: Soft, nontender, nondistended, normoactive bowel sounds. No palpable organomegaly. MUSCULOSKELETAL: Deferred to orthopedic surgery EXTREMITIES: No cyanosis, clubbing, or pedal edema. NEUROLOGICAL: Gross neurological examination did not reveal any focal deficits. SKIN: No rashes. Results CBC & Chem 7: 10/28/17 03:15 10/28/17 03:15 Labs: Abnormal Lab Results - Last 24 Hours (Table) 10/27/17 10/27/17 10/27/17 Range/Units 15:50 15:50 15:50 RBC 2.50 L (4.30-5.90) m/uL Hgb 7.2 L (13.0-17.5) gm/dL Hct 23.0 L (39.0-53.0) % RDW 17.3 H (11.5-15.5) % Lymphocytes # (1.0-4.8) k/uL APTT (22.0-30.0) sec Sodium 136 L (137-145) mmol/L Potassium (3.5-5.1) mmol/L Carbon Dioxide 16 L (22-30) mmol/L BUN 34 H (9-20) mg/dL Creatinine 1.86 H (0.66-1.25) mg/dL Glucose 71 L (74-99) mg/dL Total Bilirubin (0.2-1.3) mg/dL CK-MB (CK-2) 2.8 H* (0.0-2.4) ng/mL Total Protein 10.4 H (6.3-8.2) g/dL Albumin (3.5-5.0) g/dL Crossmatch 10/27/17 10/27/17 10/28/17 Range/Units 15:50 21:43 03:15 RBC (4.30-5.90) m/uL Hgb (13.0-17.5) gm/dL Hct (39.0-53.0) % RDW (11.5-15.5) % Lymphocytes # (1.0-4.8) k/uL APTT 19.3 L (22.0-30.0) sec Sodium (137-145) mmol/L Potassium (3.5-5.1) mmol/L Carbon Dioxide (22-30) mmol/L BUN (9-20) mg/dL Creatinine (0.66-1.25) mg/dL Glucose (74-99) mg/dL Total Bilirubin (0.2-1.3) mg/dL CK-MB (CK-2) 3.0 H* 2.6 H* (0.0-2.4) ng/mL Total Protein (6.3-8.2) g/dL Albumin (3.5-5.0) g/dL Crossmatch 10/28/17 10/28/17 10/28/17 Range/Units 03:15 03:15 06:43 RBC 2.18 L (4.30-5.90) m/uL Hgb 6.3 L* (13.0-17.5) gm/dL Hct 20.1 L (39.0-53.0) % RDW 17.3 H (11.5-15.5) % Lymphocytes # 0.7 L (1.0-4.8) k/uL APTT (22.0-30.0) sec Sodium (137-145) mmol/L Potassium 5.2 H (3.5-5.1) mmol/L Carbon Dioxide 21 L (22-30) mmol/L BUN 40 H (9-20) mg/dL Creatinine 1.90 H (0.66-1.25) mg/dL Glucose 102 H (74-99) mg/dL Total Bilirubin 0.1 L (0.2-1.3) mg/dL CK-MB (CK-2) (0.0-2.4) ng/mL Total Protein 9.7 H (6.3-8.2) g/dL Albumin 3.2 L (3.5-5.0) g/dL Crossmatch See Detail Thrombosis Risk Factor Assmnt - Choose All That Apply Any of the Below Risk Factors Present?: Yes Each Factor Represents 1 point: Abnormal pulmonary function (COPD) Other Risk Factors: Yes Each Risk Factor Represents 2 Points: Age 61-74 years, Malignancy Other congenital or acquired thrombophilia - If yes, enter type in comment: No Thrombosis Risk Factor Assessment Total Risk Factor Score: 5 Thrombosis Risk Factor Assessment Level: High Risk Assessment and Plan Plan: -Syncopal episode secondary to severe anemia patient is receiving blood transfusion after which patient will be discharged -Anemia secondary to anemia of chronic disease from multiple myeloma -Chronic kidney disease stage IV secondary to multiple myeloma. -COPD without any acute exacerbation patient has some baseline wheezing patient is already on systemic steroids inhalational treatments which will be continued - Hypertension: Decreasing the dose of amlodipine because of above-mentioned reasons -Multiple myeloma: Management as per oncology
--- NOTE | 2017-10-28 12:11 | P.DS ---
Providers Date of admission: 10/27/17 18:16 Attending physician: Luis Sherman Consults: 10/27/17 17:56 Consult Physician Routine Consulting Provider: Kenny Sepulveda Consult Reason/Comments: left humeral neck fracture Do you want consulting provider notified?: Yes 10/28/17 04:11 Consult Physician Routine Consulting Provider: Ambrose Cervantes Consult Reason/Comments: oncology patient of dr rubalcava. pt hgb currently 6.3 Do you want consulting provider notified?: Yes, Notify in am Primary care physician: Stated None Hospital Course: Please refer to my HPI Patient Condition at Discharge: Stable Plan - Discharge Summary Discharge Rx Participant: No New Discharge Prescriptions: New Hydrocodone/Acetaminophen [C[place]ford 5-325] 1 each PO Q6HR PRN #30 tab PRN Reason: Pain Continue Fluticasone/Salmeterol [Advair 500-50 Diskus] 1 puff INHALATION RT-BID Atorvastatin [Lipitor] 20 mg PO DAILY Ipratropium-Albuterol Nebulize [Duoneb 0.5 mg-3 mg/3 ml Soln] 3 ml INHALATION RT-QID #120 ampul.neb Sodium Bicarbonate Tab 650 mg PO DAILY #30 tab Albuterol Inhaler [Ventolin Hfa Inhaler] 2 puff INHALATION RT-Q6H PRN PRN Reason: Shortness Of Breath Potassium Chloride [Klor-Con 10] 10 meq PO DAILY Omeprazole [PriLOSEC] 20 mg PO DAILY Tamsulosin [Flomax] 0.4 mg PO DAILY Multivitamins, Thera [Multivitamin (formulary)] 1 tab PO DAILY Folic Acid 1 mg PO DAILY Bisacodyl [Dulcolax] 5 mg PO BID PRN PRN Reason: Constipation Dexamethasone [Hexadrol] 20 mg PO Q7D Citalopram Hydrobromide [CeleXA] 20 mg PO DAILY Acyclovir 400 mg PO BID Thiamine [Vitamin B-1] 100 mg PO DAILY Changed amLODIPine [Norvasc] 5 mg PO DAILY #0 Discharge Medication List Atorvastatin [Lipitor] 20 mg PO DAILY 06/29/17 [History] Fluticasone/Salmeterol [Advair 500-50 Diskus] 1 puff INHALATION RT-BID 06/29/17 [History] Ipratropium-Albuterol Nebulize [Duoneb 0.5 mg-3 mg/3 ml Soln] 3 ml INHALATION RT -QID #120 ampul.neb 09/13/17 [Rx] Sodium Bicarbonate Tab 650 mg PO DAILY #30 tab 09/13/17 [Rx] Acyclovir 400 mg PO BID 10/27/17 [History] Albuterol Inhaler [Ventolin Hfa Inhaler] 2 puff INHALATION RT-Q6H PRN 10/27/17 [ History] Bisacodyl [Dulcolax] 5 mg PO BID PRN 10/27/17 [History] Citalopram Hydrobromide [CeleXA] 20 mg PO DAILY 10/27/17 [History] Dexamethasone [Hexadrol] 20 mg PO Q7D 10/27/17 [History] Folic Acid 1 mg PO DAILY 10/27/17 [History] Multivitamins, Thera [Multivitamin (formulary)] 1 tab PO DAILY 10/27/17 [History ] Omeprazole [PriLOSEC] 20 mg PO DAILY 10/27/17 [History] Potassium Chloride [Klor-Con 10] 10 meq PO DAILY 10/27/17 [History] Tamsulosin [Flomax] 0.4 mg PO DAILY 10/27/17 [History] Thiamine [Vitamin B-1] 100 mg PO DAILY 10/27/17 [History] Hydrocodone/Acetaminophen [[place]ford 5-325] 1 each PO Q6HR PRN #30 tab 10/28/17 [Rx] amLODIPine [Norvasc] 5 mg PO DAILY #0 10/28/17 [Rx] Follow up Appointment(s)/Referral(s): Tavares De La Torre MD [STAFF PHYSICIAN] - 1 Week (Patient to call Dr. De La Torre's office to schedule follow up appointment. The office has question regarding insurance. ) Kenny Sepulveda DO [Doctor of Osteopathic Medicine] - 11/10/17 1:30 pm Patient Instructions/Handouts: Hydrocodone/Acetaminophen (By mouth), Laceration (DC), Elbow Fracture (DC), Syncope (DC) Activity/Diet/Wound Care/Special Instructions: Please use medication as discussed. Please follow up with family doctor if symptoms have not improved over the next two days. Please return to the emergency room if your symptoms increase or worsen or for any other concerns. Please return to the emergency room in 5 days to have sutures removed. Please leave wound covered for the first 24-48 hours and then leave open to air after that time. Please use clean soap and water to clean the suture area to prevent scabbing over the top of your sutures. Please watch for any signs of infection which may include but not limited to increased pain, swelling, redness, fever or chills. Please return to the emergency room if any signs of infection do occur. Please return to the emergency room for any other concerns or complications. Discharge Disposition: HOME WITH HOME HEALTH SERVICES
[2017-10-28 13:04] VITALS: PULSE 96
[2017-10-28 15:12] VITALS: BP 127/69; RESP 18; TEMP 98.2
--- NOTE | 2017-10-28 19:18 | P.CONS ---
History of Present Illness - Reason for Consult Consult date: 10/28/17 Syncope and fall. Multiple myeloma and lung cancer - History of Present Illness The patient is a 67-year-old gentleman with multiple medical problems. He is well-known to our service. he is followed by Dr. Moncada in the outpatient setting. He had presented in 03/27 with mental status changes related to hypercalcemia, at [facility]. He was found to have a right lung mass and mediastinal adenopathy. Biopsy was positive for adenocarcinoma. Subsequent PET scan in early 05/27 revealed evidence of uptake in the right lung mass, mediastinal lymph nodes, as well as a left lower lobe lung mass. Biopsy of the left-sided mass also revealed adenocarcinoma. The patient was therefore felt to have stage IV disease. Biomarker testing revealed him to be PD-L1 positive at about 50%. He was therefore started on first-line Keytruda, and is status post 4 cycles, the most recent on 08/30/17 the patient had routine restaging CT scan of the chest abdomen and pelvis on 09/07/17. Creatinine on that day was 0.92. After the scan, the patient developed fairly rapid onset of confusion, slurring of speech and respiratory distress. EMS were called, and found think to be hypotensive. He was brought into the emergency room where his creatinine was found to be markedly elevated. he was started on IV hydration, and admitted to the ICU. He was subsequently transferred to the floor. He was seen in concert during that visit. He was treated for elevated calcium. It is felt that his renal insufficiency was due to acute contrast injury. The patient did improve slowly. Restaging CAT scans x- ray showed a very good partial response. The patient was subsequently discharged but continued to have elevated total protein as well as creatinine increased from baseline in the high 1 range. He therefore underwent serum protein electrophoresis studies around 09/29/17, which came back positive for a 3.6 g at a protein highly suspicious for plasma cell dyscrasia. He therefore underwent a bone marrow aspiration biopsy in which confirmed diagnosis of multiple myeloma. Treatment for her lung cancer was therefore stopped and the patient was started on Velcade and Decadron. He has received his first dose of Velcade on 10/26/17. The patient states that he was walking to his car when he suddenly felt very dizzy and lightheaded. He feels that he actually blacked out and fell to the ground. He had the left side of his body including the left forehead, left arm and left rib cage. He was brought into the hospital where he was noted to have an abrasion on the left for it. CT of the brain was negative for any bleed or edema. He was found to have a comminuted fracture of the upper left humerus. He was therefore admitted for further management. Hemoglobin admission was in the low 7 range and subsequently fell into the low 6 range. Consult was therefore placed for further evaluation and recommendations. The patient denied any obvious bleeding. Review of Systems Constitutional: Reports weakness Eyes: denies blurred vision, denies pain Ears: deny: decreased hearing, ear discharge, earache, tinnitus Ears, nose, mouth and throat: Denies headache, Denies sore throat Cardiovascular: Reports dyspnea on exertion, Reports lightheadedness, Reports syncope Respiratory: Reports dyspnea Gastrointestinal: Denies abdominal pain, Denies diarrhea, Denies nausea, Denies vomiting Genitourinary: Reports as per HPI (No specific complaints) Musculoskeletal: Reports as per HPI, Reports fractures Musculoskeletal: left: shoulder pain Integumentary: Reports wounds ( Left forehead area), Denies pruritus, Denies rash Neurological: Denies numbness, Denies weakness Psychiatric: Denies anxiety, Denies depression Endocrine: Denies fatigue, Denies weight change Hematologic/Lymphatic: Reports as per HPI Past Medical History Past Medical History: Cancer, COPD, GERD/Reflux, Hyperlipidemia, Hypertension Additional Past Medical History / Comment(s): mulitple myeloma, adenocarcinoma of the lung diagnosed in March 2017,home 02 2 liters n/c restless leg syndrome, anemia,tracheobronchits, History of Any Multi-Drug Resistant Organisms: None Reported Past Surgical History: Cholecystectomy, Tonsillectomy Additional Past Surgical History / Comment(s): CYST REMOVED FROM RT KNEE, vasectomy, rt bone marrow apiration/bx Past Anesthesia/Blood Transfusion Reactions: No Reported Reaction Additional Past Anesthesia/Blood Transfusion Reaction / Comm: past blood transfusion-stated no reaction to to it. Smoking Status: Former smoker - Past Family History Mother Family Medical History: COPD, Hypertension Father Family Medical History: Coronary Artery Disease (CAD) Additional Family Medical History / Comment(s): cabg-triple vessel, pancreatic cancer age 65 Medications and Allergies Home Medications Medication Instructions Recorded Confirmed Type Atorvastatin [Lipitor] 20 mg PO DAILY 06/29/17 10/27/17 History Fluticasone/Salmeterol [Advair 1 puff INHALATION RT-BID 06/29/17 10/27/17 History 500-50 Diskus] Ipratropium-Albuterol Nebulize 3 ml INHALATION RT-QID #120 09/13/17 10/27/17 Rx [Duoneb 0.5 mg-3 mg/3 ml Soln] ampul.neb Sodium Bicarbonate Tab 650 mg PO DAILY #30 tab 09/13/17 10/27/17 Rx Acyclovir 400 mg PO BID 10/27/17 10/27/17 History Albuterol Inhaler [Ventolin Hfa 2 puff INHALATION RT-Q6H PRN 10/27/17 10/27/17 History Inhaler] Bisacodyl [Dulcolax] 5 mg PO BID PRN 10/27/17 10/27/17 History Citalopram Hydrobromide [CeleXA] 20 mg PO DAILY 10/27/17 10/27/17 History Dexamethasone [Hexadrol] 20 mg PO Q7D 10/27/17 10/27/17 History Folic Acid 1 mg PO DAILY 10/27/17 10/27/17 History Multivitamins, Thera [Multivitamin 1 tab PO DAILY 10/27/17 10/27/17 History (formulary)] Omeprazole [PriLOSEC] 20 mg PO DAILY 10/27/17 10/27/17 History Potassium Chloride [Klor-Con 10] 10 meq PO DAILY 10/27/17 10/27/17 History Tamsulosin [Flomax] 0.4 mg PO DAILY 10/27/17 10/27/17 History Thiamine [Vitamin B-1] 100 mg PO DAILY 10/27/17 10/27/17 History Hydrocodone/Acetaminophen [[place] 1 each PO Q6HR PRN #30 tab 10/28/17 Rx 5-325] amLODIPine [Norvasc] 5 mg PO DAILY #0 10/28/17 10/27/17 Rx Allergies Allergy/AdvReac Type Severity Reaction Status Date / Time Iodinated Contrast- Oral and Allergy Unknown Verified 10/27/17 16:12 IV Dye Physical Exam Vitals: Vital Signs Temp Pulse Pulse Pulse Resp BP BP 10/28/17 15:00 98.2 F 96 18 127/69 10/28/17 13:04 96 10/28/17 12:53 94 10/28/17 12:51 98.1 F 99 20 145/72 10/28/17 10:45 98.1 F 104 H 20 137/63 10/28/17 10:15 98.1 F 106 H 20 128/57 10/28/17 10:14 98.1 F 106 H 20 128/57 10/28/17 10:05 97.9 F 103 H 20 136/56 10/28/17 07:10 90 10/28/17 07:00 98.3 F 98 20 129/66 10/28/17 06:59 88 10/28/17 00:00 98 101 H 16 10/27/17 23:00 98.3 F 101 H 16 126/69 10/27/17 20:50 100 10/27/17 20:38 94 Pulse Ox 10/28/17 15:00 97 10/28/17 13:04 10/28/17 12:53 10/28/17 12:51 96 10/28/17 10:45 97 10/28/17 10:15 95 10/28/17 10:14 95 10/28/17 10:05 96 10/28/17 07:10 10/28/17 07:00 96 10/28/17 06:59 10/28/17 00:00 10/27/17 23:00 99 10/27/17 20:50 10/27/17 20:38 Intake and Output 10/28/17 10/28/17 10/28/17 06:59 14:59 22:59 Intake Total 310 Output Total 1500 Balance -1500 310 Intake: Blood Product 310 Rc As-1 Unit 310 [id number] Output: Urine 1500 Straight 1500 Other: Voiding Method Toilet Toilet # Voids 3 # Bowel Movements 1 Weight 47.627 kg Patient Weight 10/29/17 06:59 Weight 47.627 kg - Constitutional General appearance: no acute distress - EENT Eyes: EOMI, PERRLA ENT: hearing grossly normal, normal oropharynx - Neck Neck: no lymphadenopathy Thyroid: bilateral: normal size - Respiratory Respiratory: bilateral: CTA - Cardiovascular Rhythm: regular Heart sounds: normal: S1, S2 - Gastrointestinal General gastrointestinal: normal bowel sounds, soft - Integumentary Abrasion, with scab, left forehead - Neurologic Neurologic: CNII-XII intact - Musculoskeletal Musculoskeletal: generalized weakness, left sided weakness (Left arm in sling. Limited range of motion left shoulder) - Psychiatric Psychiatric: A&O x's 3, appropriate affect Results CBC & Chem 7: 10/28/17 03:15 10/28/17 03:15 Labs: Abnormal Lab Results - Last 24 Hours (Table) 10/27/17 10/28/17 10/28/17 Range/Units 21:43 03:15 03:15 RBC 2.18 L (4.30-5.90) m/uL Hgb 6.3 L* (13.0-17.5) gm/dL Hct 20.1 L (39.0-53.0) % RDW 17.3 H (11.5-15.5) % Lymphocytes # 0.7 L (1.0-4.8) k/uL Potassium (3.5-5.1) mmol/L Carbon Dioxide (22-30) mmol/L BUN (9-20) mg/dL Creatinine (0.66-1.25) mg/dL Glucose (74-99) mg/dL Total Bilirubin (0.2-1.3) mg/dL CK-MB (CK-2) 3.0 H* 2.6 H* (0.0-2.4) ng/mL Total Protein (6.3-8.2) g/dL Albumin (3.5-5.0) g/dL Crossmatch 10/28/17 10/28/17 Range/Units 03:15 06:43 RBC (4.30-5.90) m/uL Hgb (13.0-17.5) gm/dL Hct (39.0-53.0) % RDW (11.5-15.5) % Lymphocytes # (1.0-4.8) k/uL Potassium 5.2 H (3.5-5.1) mmol/L Carbon Dioxide 21 L (22-30) mmol/L BUN 40 H (9-20) mg/dL Creatinine 1.90 H (0.66-1.25) mg/dL Glucose 102 H (74-99) mg/dL Total Bilirubin 0.1 L (0.2-1.3) mg/dL CK-MB (CK-2) (0.0-2.4) ng/mL Total Protein 9.7 H (6.3-8.2) g/dL Albumin 3.2 L (3.5-5.0) g/dL Crossmatch See Detail Comments: Report of humerus x-ray reviewed Chest x-ray: report reviewed CT Scan - head: report reviewed Assessment and Plan (1) Multiple myeloma Narrative/Plan: This is a new, somewhat unexpected diagnosis. As noted the patient was actually been treated for lung cancer. Workup for myeloma was prompted by elevated calcium despite remission of the lung cancer, as well as persistently elevated protein. With this diagnosis it was felt that the myeloma had likely cause some baseline renal damage causing further acute kidney injury due to contrast. The patient has just started treatment is noted. He denies any specific side effects related to the treatment. No surgery is planned. Therefore at this time the plan would be to continue treatment as scheduled with the next dose next week. Status: Acute Code(s): C90.00 - MULTIPLE MYELOMA NOT HAVING ACHIEVED REMISSION SNOMED Code(s): 017318224 (2) Fracture of neck of left humerus Narrative/Plan: This is due to direct trauma. Orthopedic surgery has evaluated the patient and consult the management is recommended Status: Acute Code(s): S42.212A - UNSP DISP FX OF SURGICAL NECK OF LEFT HUMERUS, INIT SNOMED Code(s): 433159948 (3) Lung cancer Narrative/Plan: The patient was treated with immunotherapy, achieving a good partial response. He is currently off treatment, as his regimen could not be continued simultaneously with the myeloma regimen, and the myeloma was much more symptomatic. He is currently being monitored for progression Status: Acute Code(s): C34.90 - MALIGNANT NEOPLASM OF UNSP PART OF UNSP BRONCHUS OR LUNG SNOMED Code(s): 288303908 (4) Anemia Narrative/Plan: This is multifactorial, due to underlying myeloma, effects of chemotherapy, as well as renal insufficiency. This was likely a contributing factor in his weakness and syncopal episode. The patient's hemoglobin is in the 6 range. He will therefore be transfused 1 unit to bring it up into the 7 range. No active bleeding noted Status: Chronic Priority: High Code(s): D64.9 - ANEMIA, UNSPECIFIED SNOMED Code(s): 527984916 (5) Syncope Narrative/Plan: This likely occurred due to a combination of generalized weakness, and anemia. The patient did not have any intracranial injury noted. He is much improved symptomatically. Status: Acute Code(s): R55 - SYNCOPE AND COLLAPSE SNOMED Code(s): 992452234 Plan: From our standpoint the patient can be discharged home whenever felt to be appropriate for the same by the admitting service and orthopedics
[2017-11-02] MEDS ORDERED: DEXAMETHASONE 4 MG TAB PO SCH (09:00)
== END 2017-10-28 15:35 | disposition home health service (06) | DRG 841 ==
LOC: EC 15:12 → 5ONC 18:16
PROVIDERS: ADMIT Internal Medicine; ATTEND Internal Medicine
PROC: 0HQ1XZZ Repair Face Skin, External Approach (ICD-10-PCS; 2017-10-27)
PROC: 30233N1 Transfusion of Nonautologous Red Blood Cells into Peripheral Vein, Percutaneous Approach (ICD-10-PCS; principal; 2017-10-28)
DX: C90.00 Multiple myeloma not having achieved remission (principal); C78.01 Secondary malignant neoplasm of right lung; N18.4 Chronic kidney disease, stage 4 (severe); C34.32 Malignant neoplasm of lower lobe, left bronchus or lung; D63.0 Anemia in neoplastic disease; E78.5 Hyperlipidemia, unspecified; S42.292A Other displaced fracture of upper end of left humerus, initial encounter for closed fracture; R07.81 Pleurodynia; S01.81XA Laceration without foreign body of other part of head, initial encounter; R55 Syncope and collapse; J44.9 Chronic obstructive pulmonary disease, unspecified; G25.81 Restless legs syndrome; I12.9 Hypertensive chronic kidney disease with stage 1 through stage 4 chronic kidney disease, or unspecified chronic kidney disease; K21.9 Gastro-esophageal reflux disease without esophagitis; Z79.899 Other long term (current) drug therapy; Z87.891 Personal history of nicotine dependence; Z91.041 Radiographic dye allergy status; Z90.49 Acquired absence of other specified parts of digestive tract; Z82.49 Family history of ischemic heart disease and other diseases of the circulatory system; Z80.0 Family history of malignant neoplasm of digestive organs; W18.30XA Fall on same level, unspecified, initial encounter; Y92.9 Unspecified place or not applicable
CPT/HCPCS: 12013; 36415; 70450; 71046; 80053; 82550; 82553; 83735; 84484; 85025; 85610; 85730; 86850; 86900; 86901; 86920; 93005; 94640; 96360; 99285

== ENCOUNTER → 2018-01-11 | Outpatient (CLI) | payer MEDICARE ==
--- NOTE | 2018-01-11 15:16 | CT ---
EXAMINATION TYPE: CT ChestAbdPelvis wo con DATE OF EXAM: 01/11/2018 INDICATION: Lung CA, observe for mets COMPARISON: 09/07/2017 CT DLP: 296.7 mGycm CONTRAST: Performed without Oral Contrast TECHNIQUE: Axial images at 5 mm thick sections. Reconstructed images in the coronal plane. Delayed images through the kidneys. FINDINGS: CT CHEST: Portion of the thyroid visualized is normal. Punctate nodular densities along the pleural margin of the anterior lateral right upper lobe. Series 4 image 9 this appears to be present previously. There is a spiculated density on lung windows measuring 0.8 cm in diameter in the superior segment ri ght lower lobe. Series 4 image 32. This was present previously and is smaller comparison. Previous la rger spiculated density has narrowed and transverse dimension is currently estimated to measure 0.9 x 2.5 cm. Series 4 image 38. This previously measured 2.9 x 2.1 cm. Small left pleural effusion is present. This is diminished from comparison. No enlarged mediastinal or hilar adenopathy is evident. Few shotty lymph nodes are in the pretracheal space and axillary regions. The ascending aorta diameter at the level of the main pulmonary artery is 3.1 cm. The main pulmonary artery diameter at the bifurcation is 2.6 cm. Coronary artery calcification is present. CT ABDOMEN: Liver: Normal Spleen: Normal Pancreas: Normal Adrenal glands: The adrenal glands are normal. Gallbladder: Surgically absent Kidneys: No masses are evident. No hydronephrosis is present. No cysts are present. No renal stone s are identified. Aorta: Vascular calcification is within the aorta. Inferior vena cava: Normal. CT PELVIS: Loops of bowel within the abdomen and pelvis are normal. Study is performed without oral contrast . Appendix: Normal as visualized. Urinary bladder: Decompressed with limited evaluation Genitourinary structures: Prostate is prominent. A few calcifications are present. Osseous structures: No suspicious lytic or sclerotic lesions. IMPRESSIONS: 1. Diminished size of 2 spiculated densities within the right lower lobe compatible with resolving kn own lung cancer. 2. Diminished small left pleural effusion.
== END | disposition home or self-care (01) ==
LOC: RADCTMAIN 13:24
PROVIDERS: ATTEND Internal Medicine Hematology & Oncology
DX: J90 Pleural effusion, not elsewhere classified (principal); J98.4 Other disorders of lung; C34.31 Malignant neoplasm of lower lobe, right bronchus or lung; R94.4 Abnormal results of kidney function studies
CPT/HCPCS: 71250; 74176

== ENCOUNTER → 2018-05-24 | Outpatient (CLI) | payer MEDICARE ==
--- NOTE | 2018-05-24 13:46 | CT ---
EXAMINATION TYPE: CT ChestAbdPelvis wo con DATE OF EXAM: 05/24/2018 COMPARISON: CT chest abdomen and pelvis January 11, 2018 and older exams. HISTORY: Lung CA diagnosed 14 months earlier completed chemotherapy May 11. CT DLP: 636 mGycm. Automated Exposure Control for Dose Reduction was Utilized. TECHNIQUE: CT scan of the thorax, abdomen and pelvis is performed without oral or IV contrast. FINDINGS: LUNGS: Moderate underlying emphysematous change is redemonstrated. There is small to moderate-sized l eft pleural effusion increased in size from prior and new small to tiny right pleural effusion. There is associated compressive atelectasis in both bases, left greater than right. There is additional bi basilar linear scarring and/or atelectasis. Some respiratory motion artifact degradation is present. No suspicious new parenchymal nodule or mass is identified. Spiculated scarlike opacity at site of pr ior neoplasm right lower lobe measures roughly 1.6 x 0.7 cm axial image 35 slightly less prominent in size from most recent CT. Superior to this 5 mm scarlike opacity is also less prominent versus most recent prior axial image 28. MEDIASTINUM: There are no new greater than 1 cm hilar or mediastinal lymph nodes. Prominent but subce ntimeter pericarinal lymph node on axial image 24 is stable from most recent prior. No cardiomegaly or pericardial effusion is seen. Coronary artery calcification is redemonstrated which is noted luli er for coronary artery disease. There is moderate calcified plaque of aorta extending into branch ves sels. OTHER: No additional significant abnormality is seen. LIVER/GB: Cholecystectomy clips are redemonstrated. There is new mild central intrahepatic biliary di latation axial image 30. No significant intrahepatic biliary dilatation is seen. No obstructing calcu dorothea is noted. PANCREAS: No significant abnormality is seen. SPLEEN: No significant abnormality is seen. ADRENALS: No significant abnormality is seen. KIDNEYS: No significant abnormality is seen. BOWEL: Evaluation bowel suboptimal as patient has little intra-abdominal fat and due to lack of enter ic contrast. No suspicious dilatation is noted. GENITAL ORGANS: Heterogeneous enlarged prostate consistent with BPH is redemonstrated. LYMPH NODES: No greater than 1cm abdominal or pelvic lymph nodes are appreciated. OSSEOUS STRUCTURES: Moderate multilevel spurring in the thoracolumbar spine is seen. OTHER: Displaced clip right pelvis is redemonstrated axial image 105 small amount of adjacent free fl uid axial image 104 is noted. Moderate to severe calcified plaque of the infrarenal abdominal aorta extending into pelvic branch ve ssels is redemonstrated. IMPRESSION: Right lower lobe spiculated nodules continue to be less prominent in size versus most rec ent prior. No new masses or adenopathy identified. Some progression in bilateral pleural effusions h owever is noted.
== END ==
LOC: RADCTMAIN 12:56
PROVIDERS: ATTEND Internal Medicine Hematology & Oncology
DX: C34.31 Malignant neoplasm of lower lobe, right bronchus or lung (principal); J90 Pleural effusion, not elsewhere classified; Z91.041 Radiographic dye allergy status
CPT/HCPCS: 71250; 74176

== ENCOUNTER → 2018-10-18 | Outpatient (CLI) | payer MEDICARE ==
--- NOTE | 2018-10-18 16:23 | CT ---
EXAMINATION TYPE: CT chest wo con DATE OF EXAM: 10/18/2018 COMPARISON: 05/24/2018 HISTORY: f/u lung ca CT DLP: 150.6 mGycm, Automated exposure control for dose reduction was used. CONTRAST: Performed injected with 0 mL of Isovue 300. TECHNIQUE: Axial images were obtained at 5 mm thick sections. Reconstructed images are reviewed on [employer] computer in the coronal plane. FINDINGS: Portion of the thyroid visualized is normal. There is a 0.6 cm spiculated area within the posterior left midlung. Series 4 image 30. This was pres ent previously and was measured at 1.6 x 0.7 cm. This appears less prominent although measurements on mediastinal windows 1.8 x 0.4 cm. Left pleural effusion is diminished in size over the interval. The scarring at the right posterior lung base is diminished over the interval the 1.5 x 3.1 cm densit y at the posterior left lung base may be slightly more prominent than prior. This could be related at electasis or a mass. No enlarged mediastinal or hilar adenopathy is evident. The ascending aorta diameter at the level o f the main pulmonary artery is 3.4 cm. The main pulmonary artery diameter at the bifurcation is 2.[address] sections are obtained through the upper abdomen. Abdomen is essentially unremarkable. There is a new area of sclerosis along the posterior lateral right rib. Series 3 image 39 bone window s. IMPRESSIONS: 1. Density adjacent to the small left pleural effusion is slightly more prominent than the comparison . This could be atelectasis or mass. 2. Stable linear pneumonitis change in the posterior right midlung. 3. Site of the previous cancer with a linear appearance in the right lower lung field or scarring at the right lower lobe appears smaller in size than the comparison.
== END | disposition home or self-care (01) ==
LOC: RADCTMAIN 15:23
PROVIDERS: ATTEND Internal Medicine Hematology & Oncology
DX: J90 Pleural effusion, not elsewhere classified (principal); J18.9 Pneumonia, unspecified organism; C34.31 Malignant neoplasm of lower lobe, right bronchus or lung
CPT/HCPCS: 71250

== ENCOUNTER → 2019-02-08 | Outpatient (CLI) | payer MEDICARE ==
--- NOTE | 2019-02-08 13:47 | CT ---
EXAMINATION TYPE: CT chest wo con DATE OF EXAM: 02/08/2019 COMPARISON: CT chest October 18, 2018 and older CTs HISTORY: Lung cancer progress study. CT DLP: 380 mGycm. Automated Exposure Control for Dose Reduction was Utilized. TECHNIQUE: CT scan of the thorax is performed without IV contrast. FINDINGS: LUNGS: Background fairly moderate emphysematous change remains present. There is stable 6 x 5 mm scar like opacity superior right lower lobe axial image 26 scarlike from most recent CT. There is continue d improvement in left-sided pleural effusion. There is stable scar like opacity adjacent to effusion axial image 45. This measures 2.6 x 1.2 cm. This is slightly more prominent or focal versus adjacent compressive atelectasis which is seen inferiorly. There is however no significant change from most re cent CT. Linear scarring left mid lung near fissure is redemonstrated. No new suspicious nodules or m asses. Additional patchy linear scarring posterior superior right lower lobe is redemonstrated. MEDIASTINUM: Lack of IV contrast is noted to limit evaluation for mediastinal and especially hilar ad enopathy. There are no definitive greater than 1 cm hilar or mediastinal lymph nodes. No cardiomega ly or pericardial effusion is seen. Coronary artery calcification is again seen which is noted marked underlying coronary artery disease. Blood pool is somewhat low density raising concern for underlyin g anemia. Correlate clinically. Moderate calcified plaque of the aorta extends into branch vessels. P rominent pulmonary arteries are redemonstrated, CT findings suggesting underlying pulmonary hypertens ion. OTHER: Subareolar gynecomastia is again seen. Stable nonspecific sclerosis right lateral rib axial im age 38 favors healing or healed fracture as additional area adjacent rib axial image 42 is present un changed from prior. IMPRESSION: Continued improvement in left-sided effusion. Stable associated compressive atelectasis a nd slightly more suspicious area more focal atelectasis versus mass. Stable scarlike opacity consiste nt with treated cancer right midlung. No new masses or adenopathy noted.
== END ==
LOC: RADCTMAIN 11:35
PROVIDERS: ATTEND Internal Medicine Hematology & Oncology
DX: J98.11 Atelectasis (principal); J90 Pleural effusion, not elsewhere classified; R91.8 Other nonspecific abnormal finding of lung field; C34.31 Malignant neoplasm of lower lobe, right bronchus or lung
CPT/HCPCS: 71250

== ENCOUNTER 2019-05-17 11:15 | Inpatient (IN) | payer MEDICARE ==
[2019-05-17] MEDS ORDERED: SODIUM CHLORIDE 0.9% 1,000 ML IV STA (11:37)
[2019-05-17 12:08] LABS: Albumin 3.8 g/dL (3.5-5.0); Calcium 7.2 mg/dL (8.4-10.2); Magnesium 2.1 mg/dL (1.6-2.3); Phosphorus 4.1 mg/dL (2.5-4.5); Potassium 5.5 mmol/L (3.5-5.1); Total Bilirubin 0.4 mg/dL (0.2-1.3); Total Protein 6.3 g/dL (6.3-8.2)
[2019-05-17 12:12] LABS: INR 0.9 (<1.2); Partial Thromboplastin Time 25.9 sec (22.0-30.0)
[2019-05-17 12:20] LABS: Anisocytosis Moderate; HGB 10.6 gm/dL (13.0-17.5); Hypochromasia Marked; MCH 31.5 pg (25.0-35.0); MCHC 30.2 g/dL (31.0-37.0); MCV 104.4 fL (80.0-100.0); Macrocytosis Marked; Mean Platelet Volume 7.8; Platelet Count 213 k/uL (150-450); RBC 3.35 m/uL (4.30-5.90); RDW 20.2 % (11.5-15.5); WBC 2.2 k/uL (3.8-10.6)
--- NOTE | 2019-05-17 12:21 | ED ---
Weakness HPI - General Chief complaint: Weakness Stated complaint: Weakness Time Seen by Provider: 05/17/19 11:20 Source: family, EMS, RN notes reviewed, old records reviewed Mode of arrival: EMS Limitations: no limitations - History of Present Illness Initial comments: This is a 61-year-old male the ER for evaluation. Patient's poor strain history obtained from family bedside and EMS. Patient does admit to some weakness complaining of diffuse pain. Patient states he has significant right arm pain from fall similar to prior fall. In the past with left arm pain and humerus fracture. Patient having severe right arm right shoulder pain. Also feeling very weak not eating or drinking well. Mild nausea no vomiting no diarrhea denies chest pain denies abdominal pain no recent fevers. No change in medications. Multiple recent hospitalizations MD Complaint: generalized weakness, lack of energy, difficulty walking -: days(s) Location: generalized Severity: moderate Severity scale (1-10): 7 Quality: aching (Right shoulder pain) Consistency: constant Improves with: none Worsens with: none Context: history of similar Associated Symptoms: loss of appetite, nausea/vomiting - Related Data Home Medications Medication Instructions Recorded Confirmed Atorvastatin [Lipitor] 20 mg PO DAILY 06/29/17 05/17/19 Fluticasone/Salmeterol [Advair 1 puff INHALATION RT-DAILY 06/29/17 05/17/19 500-50 Diskus] Albuterol Inhaler [Ventolin Hfa 2 puff INHALATION RT-Q6H PRN 10/27/17 05/17/19 Inhaler] Citalopram Hydrobromide [CeleXA] 20 mg PO DAILY 10/27/17 05/17/19 Dexamethasone [Hexadrol] 20 mg PO MO 10/27/17 05/17/19 Folic Acid 1 mg PO DAILY 10/27/17 05/17/19 Multivitamins, Thera [Multivitamin 1 tab PO DAILY 10/27/17 05/17/19 (formulary)] Omeprazole [PriLOSEC] 20 mg PO DAILY 10/27/17 05/17/19 Potassium Chloride [Klor-Con 10] 10 meq PO DAILY 10/27/17 05/17/19 Tamsulosin [Flomax] 0.4 mg PO DAILY 10/27/17 05/17/19 Thiamine [Vitamin B-1] 100 mg PO DAILY 10/27/17 05/17/19 oxyCODONE-APAP 10-325MG [Percocet 1 tab PO BID PRN 11/03/17 05/17/19 10-325 mg] Aspirin EC [Ecotrin] 325 mg PO DAILY 05/17/19 05/17/19 Calcium Carbonate 500 mg PO DAILY 05/17/19 05/17/19 Cyclophosphamide 400 mg PO DIRECTED 05/17/19 05/17/19 Ondansetron HCl [Zofran] 4 mg PO DAILY PRN 05/17/19 05/17/19 Pomalidomide [Pomalyst] 4 mg PO DIRECTED 05/17/19 05/17/19 amLODIPine [Norvasc] 10 mg PO Q48H 05/17/19 05/17/19 Previous Rx's Medication Instructions Recorded Sodium Bicarbonate Tab 650 mg PO DAILY #30 tab 09/13/17 Allergies Allergy/AdvReac Type Severity Reaction Status Date / Time Iodinated Contrast- Oral and Allergy Rash/Hives Verified 05/17/19 11:52 IV Dye Review of Systems ROS Statement: Those systems with pertinent positive or pertinent negative responses have been documented in the HPI. ROS Other: All systems not noted in ROS Statement are negative. Past Medical History Past Medical History: Cancer, COPD, GERD/Reflux, Hyperlipidemia, Hypertension Additional Past Medical History / Comment(s): mulitple myeloma, adenocarcinoma of the lung diagnosed in March 2017,home 02 2 liters n/c restless leg syndrome, anemia,tracheobronchits, History of Any Multi-Drug Resistant Organisms: None Reported Past Surgical History: Cholecystectomy, Tonsillectomy Additional Past Surgical History / Comment(s): CYST REMOVED FROM RT KNEE, vasectomy, rt bone marrow apiration/bx Past Anesthesia/Blood Transfusion Reactions: No Reported Reaction Additional Past Anesthesia/Blood Transfusion Reaction / Comment(s): past blood transfusion-stated no reaction to to it. Past Psychological History: No Psychological Hx Reported Smoking Status: Former smoker - Past Family History Mother Family Medical History: COPD, Hypertension Father Family Medical History: Coronary Artery Disease (CAD) Additional Family Medical History / Comment(s): cabg-triple vessel, pancreatic cancer age 65 General Exam Limitations: no limitations General appearance: alert, in no apparent distress Head exam: Present: atraumatic, normocephalic, normal inspection Eye exam: Present: normal appearance, PERRL, EOMI. Absent: scleral icterus, conjunctival injection, periorbital swelling ENT exam: Present: normal exam, mucous membranes moist Neck exam: Present: normal inspection. Absent: tenderness, meningismus, lymphadenopathy Respiratory exam: Present: normal lung sounds bilaterally. Absent: respiratory distress, wheezes, rales, rhonchi, stridor Cardiovascular Exam: Present: regular rate, normal rhythm, normal heart sounds. Absent: systolic murmur, diastolic murmur, rubs, gallop, clicks GI/Abdominal exam: Present: soft, normal bowel sounds. Absent: distended, tenderness, guarding, rebound, rigid Extremities exam: Present: normal inspection, full ROM, normal capillary refill. Absent: tenderness, pedal edema, joint swelling, calf tenderness Back exam: Present: normal inspection Neurological exam: Present: alert, oriented X3, CN II-XII intact Psychiatric exam: Present: normal affect, normal mood Skin exam: Present: warm, dry, intact, normal color. Absent: rash Course Vital Signs 05/17/19 05/17/19 05/17/19 11:16 11:30 12:00 Temperature 98.0 F Pulse Rate 97 93 91 Respiratory 18 16 18 Rate Blood Pressure 112/58 112/58 115/58 O2 Sat by Pulse 94 L 95 94 L Oximetry 05/17/19 05/17/19 05/17/19 12:30 13:00 13:20 Temperature Pulse Rate 90 90 85 Respiratory 18 18 18 Rate Blood Pressure 125/55 121/51 O2 Sat by Pulse 95 95 96 Oximetry - Reevaluation(s) Reevaluation #1: 05/17/19 14:35 Record review EKG Findings - EKG Comments: EKG Findings:: EKG shows sinus rhythm rate of 94, IN 156, QRS 80, QTC 452 Medical Decision Making - Medical Decision Making 61 male the ER for evaluation presents today for evaluation regarding weakness. Multiple recent falls with dehydration and renal failure. Patient also has right humerus fracture. - Lab Data Result diagrams: 05/17/19 11:40 05/17/19 11:40 Lab Results 05/17/19 05/17/19 05/17/19 Range/Units 11:40 11:40 11:40 WBC 2.2 L (3.8-10.6) k/uL RBC 3.35 L (4.30-5.90) m/uL Hgb 10.6 L (13.0-17.5) gm/dL Hct 35.0 L (39.0-53.0) % MCV 104.4 H (80.0-100.0) fL MCH 31.5 (25.0-35.0) pg MCHC 30.2 L (31.0-37.0) g/dL RDW 20.2 H (11.5-15.5) % Plt Count 213 (150-450) k/uL Hypochromasia Marked Anisocytosis Moderate Macrocytosis Marked A PT (9.0-12.0) sec INR (<1.2) APTT (22.0-30.0) sec Sodium 141 (137-145) mmol/L Potassium 5.5 H (3.5-5.1) mmol/L Chloride 109 H (98-107) mmol/L Carbon Dioxide 21 L (22-30) mmol/L Anion Gap 11 mmol/L BUN 38 H (9-20) mg/dL Creatinine 2.75 H (0.66-1.25) mg/dL Est GFR (CKD-EPI)AfAm 26 (>60 ml/min/1.73 sqM) Est GFR (CKD-EPI)NonAf 23 (>60 ml/min/1.73 sqM) Glucose 112 H (74-99) mg/dL Plasma Lactic Acid Hudson 2.5 H* (0.7-2.0) mmol/L Calcium 7.2 L (8.4-10.2) mg/dL Phosphorus 4.1 (2.5-4.5) mg/dL Magnesium 2.1 (1.6-2.3) mg/dL Total Bilirubin 0.4 (0.2-1.3) mg/dL AST 120 H (17-59) U/L ALT 106 H (21-72) U/L Alkaline Phosphatase 92 (38-126) U/L Creatine Kinase 78 (55-170) U/L Troponin I (0.000-0.034) ng/mL Total Protein 6.3 (6.3-8.2) g/dL Albumin 3.8 (3.5-5.0) g/dL TSH 3.260 (0.465-4.680) mIU/L 05/17/19 05/17/19 Range/Units 11:40 11:40 WBC (3.8-10.6) k/uL RBC (4.30-5.90) m/uL Hgb (13.0-17.5) gm/dL Hct (39.0-53.0) % MCV (80.0-100.0) fL MCH (25.0-35.0) pg MCHC (31.0-37.0) g/dL RDW (11.5-15.5) % Plt Count (150-450) k/uL Hypochromasia Anisocytosis Macrocytosis PT 10.0 (9.0-12.0) sec INR 0.9 (<1.2) APTT 25.9 (22.0-30.0) sec Sodium (137-145) mmol/L Potassium (3.5-5.1) mmol/L Chloride (98-107) mmol/L Carbon Dioxide (22-30) mmol/L Anion Gap mmol/L BUN (9-20) mg/dL Creatinine (0.66-1.25) mg/dL Est GFR (CKD-EPI)AfAm (>60 ml/min/1.73 sqM) Est GFR (CKD-EPI)NonAf (>60 ml/min/1.73 sqM) Glucose (74-99) mg/dL Plasma Lactic Acid Hudson (0.7-2.0) mmol/L Calcium (8.4-10.2) mg/dL Phosphorus (2.5-4.5) mg/dL Magnesium (1.6-2.3) mg/dL Total Bilirubin (0.2-1.3) mg/dL AST (17-59) U/L ALT (21-72) U/L Alkaline Phosphatase (38-126) U/L Creatine Kinase (55-170) U/L Troponin I <0.012 (0.000-0.034) ng/mL Total Protein (6.3-8.2) g/dL Albumin (3.5-5.0) g/dL TSH (0.465-4.680) mIU/L - Radiology Data Radiology results: report reviewed (X-ray right shoulder shows humerus fracture, CT chest abdomen pelvis is without contrast), image reviewed Disposition Clinical Impression: Weakness, Lung cancer, Closed right humeral fracture, Anemia, ARF (acute renal failure), Dehydration, Acute kidney injury, UTI (urinary tract infection) Disposition: ADMITTED IP TO THIS HOSP Condition: Fair Is patient prescribed a controlled substance at d/c from ED?: No
--- NOTE | 2019-05-17 13:10 | XR ---
Right shoulder HISTORY: Trauma and pain 3 views of the right shoulder There is a transverse proximal right humeral fracture with impaction, no dislocation. Minimal displac ement. Bone mineralization is reduced. Possible calcification along the supraspinatus tendon. impression: Impacted proximal humeral fracture.
--- NOTE | 2019-05-17 13:32 | CT ---
EXAMINATION TYPE: CT ChestAbdPelvis wo con DATE OF EXAM: 05/17/2019 INDICATION: Weakness COMPARISON: 02/08/2019 CT DLP: 456.9 mGycm CONTRAST: Performed without Oral Contrast . No IV contrast was utilized due to iodine allergy. TECHNIQUE: Axial images at 5 mm thick sections. Reconstructed images in the coronal plane. Delayed images through the kidneys. FINDINGS: CT CHEST: Portion of the thyroid visualized is normal. There is some chronic thickening of the posterior left lung base. There is a persistent nodule in the posterior lateral right lung measuring 0.3 cm. Series 201 image 24. There is an area of increased de nsity within the posterior left midlung measuring 0.5 cm. Previous nodule is similar level was not id entified. No enlarged mediastinal or hilar adenopathy is evident. The ascending aorta diameter at the level of the main pulmonary artery is 3.4 cm. The main pulmonary artery diameter at the bifurcation is 2.[address] ABDOMEN: Liver: Normal Spleen: Normal Pancreas: Normal Adrenal glands: The adrenal glands are normal. Gallbladder: Surgically absent Kidneys: No masses are evident. No hydronephrosis is present. No cysts are present. No renal stone s are identified. Aorta: Vascular calcification is within the aorta. Inferior vena cava: Normal. CT PELVIS: Loops of bowel within the abdomen and pelvis are normal. Study is without oral contrast limiting bowel evaluation. A large fecal bolus at the level the rectum. Appendix: Normal as visualized. Urinary bladder: Normal. Genitourinary structures: Prostate is unremarkable. Osseous structures: No suspicious lytic or sclerotic lesions. IMPRESSIONS: 1. No suspicious acute abnormality. 2. Fecal bolus at the level the rectum. 3. Nodularity within the lungs. Previous left midlung nodule may have resolved, new nodule at the lef t lung has developed. Right lung nodule appears stable continued monitoring is recommended.
[2019-05-17 13:39] LABS: Band Neutrophils % 1 %; Monocytes # (M) 0.62 k/uL (0-1.0); Neutrophils % (M) 53 %; Nucleated Red Blood Cells 0 /100 WBC (0-0); Total Cells Counted 100
[2019-05-17] MEDS ORDERED: SODIUM CHLORIDE 0.9% 1,000 ML IV ONE (13:50)
[2019-05-17 14:18] LABS: Appearance,Urine Clear (Clear); Bilirubin,Urine Negative (Negative); Blood,Urine Negative (Negative); Color,Urine Yellow; Glucose,Urine (UA) Negative (Negative); Ketones,Urine Negative (Negative); Leukocyte Esterase,Urine Moderate (Negative); Mucus,Urine Rare /hpf; Nitrite,Urine Positive (Negative); Protein,Urine Trace (Negative); RBC,Urine 1 /hpf (0-5); Specific Gravity,Urine 1.017 (1.001-1.035); Urobilinogen,Urine <2.0 mg/dL (<2.0); WBC,Urine 48 /hpf (0-5)
[2019-05-17] MEDS: HYDROmorphone 0.5 MG/0.5 ML SYRINGE IVP PRN (16:13)
[2019-05-17] MEDS: NYSTATIN 100,000 UNIT/ML SUSP 500,000 UNIT/5 ML CUP PO SCH ×2 (17:27→21:04)
--- NOTE | 2019-05-17 17:52 | P.CONS ---
History of Present Illness - Reason for Consult Consult date: 05/17/19 Multiple Myeloma Requesting physician: Peter Anderson - Chief Complaint Fall fracture right arm - History of Present Illness The patient is a 69-year-old gentleman with multiple medical problems. He is well-known to our service. he is followed by Dr. Rubalcava in the outpatient setting. He had presented in 03/27 with mental status changes related to hyperca lcemia, at [facility]. He was found to have a right lung mass and mediastinal adenopathy. Biopsy was positive for adenocarcinoma. Subsequent PET scan in early 05/27 revealed evidence of uptake in the right lung mass, mediastinal lymph nodes, as well as a left lower lobe lung mass. Biopsy of the left-sided mass also revealed adenocarcinoma. The patient was therefore felt to have stage IV disease. Biomarker testing revealed him to be PD-L1 positive at about 50%. He was therefore started on first-line Keytruda, and is status post 4 cycles, the most recent on 08/30/17 the patient had routine restaging CT scan of the chest abdomen and pelvis on 09/07/17. Creatinine on that day was 0.92. After the scan, the patient developed fairly rapid onset of confusion, slurring of speech and respiratory distress. EMS were called, and found think to be hypotensive. He was brought i o the emergency room where his creatinine was found to be markedly elevated. he was started on IV hydration, and admitted to the ICU. He was subsequently transferred to the floor. He was seen in concert during that visit. He was treated for elevated calcium. It is felt that his renal insufficiency was due to acute contrast injury. The patient did improve slowly. Restaging CAT scans x-ray showed a very good partial response. The patient was subsequently discharged but continued to have elevated total protein as well as creatinine increased from baseline in the high 1 range. He therefore underwent serum protein electrophoresis studies around 09/29/17, which came back positive for a 3.6 g at a protein highly suspicious for plasma cell dyscrasia. He therefore underwent a bone marrow aspiration biopsy in 10/07/17 which confirmed diagnosis of multiple myeloma. Treatment for his lung cancer was therefore stopped and the patient was started on Velcade and Decadron. He since has been on other treatments and most recently with Decadron, Pomalyst, and Cyclophosphamide PO. He presents to emergency after a fall at home from standing, states he did hit head recently with previous falls, his confusion and balance has been off, his appetite decreased, and he has had episodes of tremors that she associates with taking chemo pills. Review of Systems A 14 point review of systems was assessed and completed and are all negative except for HPI Past Medical History Past Medical History: Cancer, COPD, GERD/Reflux, Hyperlipidemia, Hypertension Additional Past Medical History / Comment(s): mulitple myeloma, adenocarcinoma of the lung diagnosed in March 2017,home 02 2 liters n/c restless leg syndrome, anemia,tracheobronchits, History of Any Multi-Drug Resistant Organisms: None Reported Past Surgical History: Cholecystectomy, Tonsillectomy Additional Past Surgical History / Comment(s): CYST REMOVED FROM RT KNEE, vasectomy, rt bone marrow apiration/bx Past Anesthesia/Blood Transfusion Reactions: No Reported Reaction Additional Past Anesthesia/Blood Transfusion Reaction / Comm: past blood transfusion-stated no reaction to to it. Past Psychological History: No Psychological Hx Reported Smoking Status: Former smoker - Past Family History Mother Family Medical History: COPD, Hypertension Father Family Medical History: Coronary Artery Disease (CAD) Additional Family Medical History / Comment(s): cabg-triple vessel, pancreatic cancer age 65 Medications and Allergies Home Medications Medication Instructions Recorded Confirmed Type Atorvastatin [Lipitor] 20 mg PO DAILY 06/29/17 05/17/19 History Fluticasone/Salmeterol [Advair 1 puff INHALATION RT-DAILY 06/29/17 05/17/19 History 500-50 Diskus] Sodium Bicarbonate Tab 650 mg PO DAILY #30 tab 09/13/17 05/17/19 Rx Albuterol Inhaler [Ventolin Hfa 2 puff INHALATION RT-Q6H PRN 10/27/17 05/17/19 History Inhaler] Citalopram Hydrobromide [CeleXA] 20 mg PO DAILY 10/27/17 05/17/19 History Dexamethasone [Hexadrol] 20 mg PO MO 10/27/17 05/17/19 History Folic Acid 1 mg PO DAILY 10/27/17 05/17/19 History Multivitamins, Thera [Multivitamin 1 tab PO DAILY 10/27/17 05/17/19 History (formulary)] Omeprazole [PriLOSEC] 20 mg PO DAILY 10/27/17 05/17/19 History Potassium Chloride [Klor-Con 10] 10 meq PO DAILY 10/27/17 05/17/19 History Tamsulosin [Flomax] 0.4 mg PO DAILY 10/27/17 05/17/19 History Thiamine [Vitamin B-1] 100 mg PO DAILY 10/27/17 05/17/19 History oxyCODONE-APAP 10-325MG [Percocet 1 tab PO BID PRN 11/03/17 05/17/19 History 10-325 mg] Aspirin EC [Ecotrin] 325 mg PO DAILY 05/17/19 05/17/19 History Calcium Carbonate 500 mg PO DAILY 05/17/19 05/17/19 History Cyclophosphamide 400 mg PO DIRECTED 05/17/19 05/17/19 History Ondansetron HCl [Zofran] 4 mg PO DAILY PRN 05/17/19 05/17/19 History Pomalidomide [Pomalyst] 4 mg PO DIRECTED 05/17/19 05/17/19 History amLODIPine [Norvasc] 10 mg PO Q48H 05/17/19 05/17/19 History Allergies Allergy/AdvReac Type Severity Reaction Status Date / Time Iodinated Contrast- Oral and Allergy Rash/Hives Verified 05/17/19 11:52 IV Dye Physical Exam Vitals: Vital Signs Temp Pulse Resp BP Pulse Ox 05/17/19 14:49 99.6 F 62 18 114/52 96 05/17/19 13:20 85 18 121/51 96 05/17/19 13:00 90 18 95 05/17/19 12:30 90 18 125/55 95 05/17/19 12:00 91 18 115/58 94 L 05/17/19 11:30 93 16 112/58 95 05/17/19 11:16 98.0 F 97 18 112/58 94 L Intake and Output 05/17/19 05/17/19 05/17/19 06:59 14:59 22:59 Output Total 700 Balance -700 Output: Urine 700 Straight 700 Other: Weight 55.792 kg General: Alert and Oriented x3, No Acute Distress, poor hhistorian, cachetic, chronic ill appearing Head: Normocytic, Atraumatic Neck: Supple Mouth: No Lesions, No Thrush Eyes: Non-sclerotic No Palpable cervical, supraclavicular, axillary adenopathy Heart: Regular Rate, Regular Rhythm Lungs: Diminishe bilateral lower lobes, No increased respiratory effort noted Abdomen: Soft, Non-Distended, Non-Tended, BSx4 Extremities: Multiple bruises all extremities Neurological: No Focal Defects: No sensory or motor deficits noted Psych: Calm and cooperative Results CBC & Chem 7: 05/17/19 11:40 05/17/19 11:40 Labs: Abnormal Lab Results - Last 24 Hours (Table) 05/17/19 05/17/19 05/17/19 Range/Units 11:40 11:40 11:40 WBC 2.2 L (3.8-10.6) k/uL RBC 3.35 L (4.30-5.90) m/uL Hgb 10.6 L (13.0-17.5) gm/dL Hct 35.0 L (39.0-53.0) % MCV 104.4 H (80.0-100.0) fL MCHC 30.2 L (31.0-37.0) g/dL RDW 20.2 H (11.5-15.5) % Neutrophils # (Manual) 1.10 L (1.3-7.7) k/uL Lymphocytes # (Manual) 0.20 L (1.0-4.8) k/uL Macrocytosis Marked A Potassium 5.5 H (3.5-5.1) mmol/L Chloride 109 H (98-107) mmol/L Carbon Dioxide 21 L (22-30) mmol/L BUN 38 H (9-20) mg/dL Creatinine 2.75 H (0.66-1.25) mg/dL Glucose 112 H (74-99) mg/dL Plasma Lactic Acid Hudson 2.5 H* (0.7-2.0) mmol/L Calcium 7.2 L (8.4-10.2) mg/dL AST 120 H (17-59) U/L ALT 106 H (21-72) U/L Urine Protein (Negative) Ur Leukocyte Esterase (Negative) Urine WBC (0-5) /hpf Urine Mucus (None) /hpf 05/17/19 Range/Units 13:55 WBC (3.8-10.6) k/uL RBC (4.30-5.90) m/uL Hgb (13.0-17.5) gm/dL Hct (39.0-53.0) % MCV (80.0-100.0) fL MCHC (31.0-37.0) g/dL RDW (11.5-15.5) % Neutrophils # (Manual) (1.3-7.7) k/uL Lymphocytes # (Manual) (1.0-4.8) k/uL Macrocytosis Potassium (3.5-5.1) mmol/L Chloride (98-107) mmol/L Carbon Dioxide (22-30) mmol/L BUN (9-20) mg/dL Creatinine (0.66-1.25) mg/dL Glucose (74-99) mg/dL Plasma Lactic Acid Hudson (0.7-2.0) mmol/L Calcium (8.4-10.2) mg/dL AST (17-59) U/L ALT (21-72) U/L Urine Protein Trace H (Negative) Ur Leukocyte Esterase Moderate H (Negative) Urine WBC 48 H (0-5) /hpf Urine Mucus Rare H (None) /hpf CT scan - abdomen: report reviewed CT scan - chest: report reviewed CT scan - pelvis: report reviewed Assessment and Plan (1) ARF (acute renal failure) Current Visit: Yes Status: Acute Code(s): N17.9 - ACUTE KIDNEY FAILURE, UNSPECIFIED SNOMED Code(s): 09375128 (2) Dehydration Current Visit: Yes Status: Acute Code(s): E86.0 - DEHYDRATION SNOMED Code(s): 01000922 (3) Multiple myeloma Current Visit: No Status: Acute Code(s): C90.00 - MULTIPLE MYELOMA NOT HAVING ACHIEVED REMISSION SNOMED Code(s): 670919280 Plan: Assessment and Recommendations: Multiple Myeloma: - Hold Pomalyst and Cyclophosphamide at this time - Primary Oncologist Dr. rubalcava - Details of history in HPI Fall From Standing: - Patient's states he has fallen multiple times over the past few weeks and has had has had will order CAT scan of the head - X-ray of the right shoulder shows impacted proximal humerus fracture Neoplastic Related Pain: - Continue Percocet PRN and PRN Dilaudid - Narcotic induced constipation - Senna S and Miralx Acute Kidney Injury: - Hyperkalemia: - Likely dehydration - Nephrology to evaluate - IV Fluids Constipation: - Bowel Regimen Ordered Leukopenia: - Secondary to Chemotherapy Normocytic Anemia: - Secondary Multiple Myeloma, Chemo, possible component of Kidney disease Decreased PO Intake: - Have Dieticien Evaluate Debility and Weakness, Chronic illness myopathy - PT/OT Evaluate and treat
[2019-05-17] MEDS: oxyCODONE-APAP 10-325MG 1 EACH TAB PO PRN (21:04)
[2019-05-17] MEDS: SENNOSIDES-DOCUSATE SODIUM 1 EACH TAB PO SCH (21:04)
[2019-05-17] MEDS ORDERED: ONDANSETRON 4 MG TAB PO PRN (21:36)
--- NOTE | 2019-05-17 22:17 | CT ---
EXAMINATION: CT brain wo con DATE AND TIME: 05/17/2019 6:30 PM CLINICAL INDICATION: [facility]; fall TECHNIQUE: Standard departmental protocol.; 1001.6; COMPARISON: 117 8 FINDINGS: The calvarium is intact. There is no intracranial hemorrhage. There is no intracranial mass or mass effect. No definite new intra-axial or extra-axial attenuation defect. Mucosal thickening and fluid is seen involving the right maxillary sinus, consistent with inflammator y changes. Remainder of the paranasal sinuses, middle ear cavities, and mastoid sinus air cells are c lear. The orbits are unremarkable. IMPRESSION: NO ACUTE PROCESS.
--- NOTE | 2019-05-18 00:14 | HP ---
HISTORY AND PHYSICAL DATE OF SERVICE: 05/17/2019 CHIEF COMPLAINT: Fall and right shoulder pain. HISTORY OF PRESENT ILLNESS: This 69-year-old gentleman with a past medical history of COPD, history of GERD, hypertension, hyperlipidemia, multiple myeloma, also history of adenocarcinoma of the lung. The patient being followed by Dr. Moncada in the outpatient setting. The patient apparently fell in the bathroom and complaining of severe pain in the right shoulder area. Patient came to [facility]. X-ray showed right humerus fracture was noted and the patient admitted for further evaluation and treatment. There is no history of fever, rigors or chills. No history of headache, loss of consciousness or seizures. PAST MEDICAL HISTORY: History of GERD, hypertension, hyperlipidemia, history of multiple myeloma, history of lung cancer. MEDICATIONS: Home medications: 1. Oxycodone Percocet 10 mg b.i.d. p.r.n. 2. Hexadrol 20 mg p.o. Wednesday. 3. Ventolin HFA 2 puffs q.6. 4. Norvasc 10 mg q.48h next vitamin B1 100 mg p.o. daily. 5. Zofran 4 mg daily p.r.n. 6. Sodium bicarb 650 mg p.o. daily. 7. Pomalidomide 4 mg status a fall p.o. a.m. b.i.d. OM id 4 mg p.r.n. 8. Cyclophosphamide 400 mg p.r.n. 9. Klor-Con 10 mg p.o. daily. 10.Prilosec 20 mg p.o. mg p.o. 11.Flomax 0.4 daily. 12.Multivitamins. 13.Folic acid 1 mg. 14.Celexa 20 mg. 15.To 551 puff daily. 16.Calcium carbonate 500 mg p.o. daily. 17.Lipitor 20 mg. 18.Ecotrin 320 mg p.o. daily. ALLERGIES: IODINATED CONTRAST DYES. FAMILY HISTORY: History of COPD, hypertension, CAD, CABG. SOCIAL HISTORY: History of smoking. No history of current smoking alcohol intake. REVIEW OF SYSTEMS: ENT: Diminished vision. CARDIOVASCULAR: No angina or palpitations. RESPIRATORY: As mentioned earlier. GI no nausea or vomiting. no dysuria. Nervous system: No mention abdomen as per musculoskeletal mentioned earlier. DERMATOLOGY mentioned endocrine no endocrine no history of diabetes hypothyroidism conscious mentioned earlier. DERMATOLOGY: Negative. RHEUMATOLOGY: Negative. PSYCHIATRY as mentioned. PHYSICAL EXAMINATION: Alert and oriented x3. Pulse 84. Blood Pressure 108/62, respiration 18, temperature 98.2, pulse ox 98% on 2 L. HEENT: Conjunctivae normal. Oral mucosa moist. NECK is no jugular venous distention. No lymph node enlargement. CARDIOVASCULAR: No stenosis pressure in the bases. A few scattered rhonchi. ABDOMEN: Soft, nontender. No mass palpable. LEGS: No edema. No swelling. NERVOUS SYSTEM: Higher functions as mentioned earlier. Moves all four limbs. No focal motor deficits. Lymphatics: No lymph nodes palpable in the neck, axilla and groin, skin no ulcers,rashes or bleeding. Joints: Movement of the right arm significant for severely painful even on slightest movement, anemia and ascites test. No sensory abnormalities. LABS: WBC 2.2, hemoglobin 10.6 the platelets are 213. Sodium 140, potassium 5.5 creatinine is 2.75, plasma lactic acid 2.5. ASSESSMENT: 1. Fall and fracture of the right humerus with severe pain. 2. Leukopenia, anemia secondary to malignancy. 3. Increased MCV. 4. History of multiple myeloma. 5. History of adenocarcinoma of the lung. 6. Hyperkalemia. 7. Renal failure, chronic renal failure stage 3 secondary to multiple myeloma, possibly. 8. Possible urinary tract infection. 9. Gastroesophageal reflux disease. 10.Chronic obstructive pulmonary disease. 11.Hypertension. 12.Hyperlipidemia. 13.History of cholecystectomy. 14.History of tonsillectomy. 15.Chronic hypoxic respiratory failure with home oxygen at 2 L nasal cannula. RECOMMENDATIONS AND DISCUSSION: This 69-year-old gentleman who presented with multiple complex medical issues, we will monitor the patient closely, continue the current management and symptomatic treatment. We will initiate pain management with IV Dilaudid and p.o. medications. Otherwise hematology/oncology consultations. Orthopedic consultations. Nephrology Consultations. Resume the home medications. Avoid nephrotoxic medications. Empiric antibiotics. Guarded prognosis because of multiple complex medical issues. Further recommendations to follow. MMODL / IJN: [id number] /
[2019-05-18] MEDS: HYDROmorphone 0.5 MG/0.5 ML SYRINGE IVP PRN ×2 (01:42→07:33)
[2019-05-18] MEDS: POLYETHYLENE GLYCOL 3350 17 GM POWD.PACK PO SCH (07:34)
[2019-05-18] MEDS: TAMSULOSIN 0.4 MG CAP.ER.24H PO SCH (07:34)
[2019-05-18] MEDS: ASPIRIN 325 MG TAB PO SCH (07:34)
[2019-05-18] MEDS: CALCIUM CARBONATE 500 MG CHEWABLE PO SCH (07:34)
[2019-05-18] MEDS: CITALOPRAM HYDROBROMIDE 20 MG TAB PO SCH (07:34)
[2019-05-18] MEDS: PANTOPRAZOLE 40 MG TABLET PO SCH (07:34)
[2019-05-18] MEDS: MULTIVITAMINS, THERA 1 EACH TAB PO SCH (07:34)
[2019-05-18 07:35] LABS: Glucose,Whole Blood 97 mg/dL (75-99)
[2019-05-18] MEDS: FOLIC ACID 1 MG TAB PO SCH (07:35)
[2019-05-18] MEDS: SODIUM BICARBONATE TAB 650 MG TAB PO SCH (07:35)
[2019-05-18] MEDS: NYSTATIN 100,000 UNIT/ML SUSP 500,000 UNIT/5 ML CUP PO SCH ×4 (07:35→21:23)
[2019-05-18] MEDS: THIAMINE 100 MG TAB PO SCH (07:35)
[2019-05-18] MEDS: amLODIPine 10 MG TAB PO SCH (07:36)
[2019-05-18] MEDS: ATORVASTATIN 20 MG TAB PO SCH (07:36)
[2019-05-18] MEDS: INSULIN ASPART (NovoLOG) 100 UNIT/ML VIAL SQ SCH ×4 (07:45→21:21)
[2019-05-18] MEDS: SYMBICORT 160-4.5 MCG INHALER INHALATION SCH ×2 (07:54→20:14)
[2019-05-18] MEDS ORDERED: ENOXAPARIN 40 MG/0.4 ML SYRINGE SQ SCH (09:00)
--- NOTE | 2019-05-18 09:12 | P.CNOR ---
History of Present Illness - [facility] Consult date: 05/18/19 Consult reason: fracture History of present illness: Patient is a 69-year-old male who was presented to [facility] yesterday with weakness, history of frequent falls and other medical problems. Apparently patient fell on Wednesday of this week while in his bathroom. Patient fell forward, he did hit his head during the fall and landed on his right upper extremity. Patient has a medical history including lung cancer along with multiple myeloma. Patient is being followed by internal medicine and hematology/oncology. We were consulted due to the right upper extremity. Patient was evaluated at bedside today, resting comfortably. He notes minimal discomfort in the right upper extremity when he doesn't move it. He is utilizing arm sling at this time. He denies any other acute orthopedic complaints at this time. Patient missed her previous fracture of the left upper extremity about 2 years ago. Patient states he normally uses a cane when ambulating. Review of Systems Constitutional: Reports as per [facility] Past Medical History Past Medical History: Cancer, COPD, GERD/Reflux, Hyperlipidemia, Hypertension Additional Past Medical History / Comment(s): mulitple myeloma, adenocarcinoma of the lung diagnosed in March 2017,home 02 2 liters n/c restless leg syndrome, anemia,tracheobronchits, History of Any Multi-Drug Resistant Organisms: None Reported Past Surgical History: Cholecystectomy, Tonsillectomy Additional Past Surgical History / Comment(s): CYST REMOVED FROM RT KNEE, vasectomy, rt bone marrow apiration/bx Past Anesthesia/Blood Transfusion Reactions: No Reported Reaction Additional Past Anesthesia/Blood Transfusion Reaction / Comm: past blood transfusion-stated no reaction to to it. Past Psychological History: No Psychological Hx Reported Smoking Status: Former smoker - Past Family History Mother Family Medical History: COPD, Hypertension Father Family Medical History: Coronary Artery Disease (CAD) Additional Family Medical History / Comment(s): cabg-triple vessel, pancreatic cancer age 65 Medications and Allergies Home Medications Medication Instructions Recorded Confirmed Type Atorvastatin [Lipitor] 20 mg PO DAILY 06/29/17 05/17/19 History Fluticasone/Salmeterol [Advair 1 puff INHALATION RT-DAILY 06/29/17 05/17/19 History 500-50 Diskus] Sodium Bicarbonate Tab 650 mg PO DAILY #30 tab 09/13/17 05/17/19 Rx Albuterol Inhaler [Ventolin Hfa 2 puff INHALATION RT-Q6H PRN 10/27/17 05/17/19 History Inhaler] Citalopram Hydrobromide [CeleXA] 20 mg PO DAILY 10/27/17 05/17/19 History Dexamethasone [Hexadrol] 20 mg PO MO 10/27/17 05/17/19 History Folic Acid 1 mg PO DAILY 10/27/17 05/17/19 History Multivitamins, Thera [Multivitamin 1 tab PO DAILY 10/27/17 05/17/19 History (formulary)] Omeprazole [PriLOSEC] 20 mg PO DAILY 10/27/17 05/17/19 History Potassium Chloride [Klor-Con 10] 10 meq PO DAILY 10/27/17 05/17/19 History Tamsulosin [Flomax] 0.4 mg PO DAILY 10/27/17 05/17/19 History Thiamine [Vitamin B-1] 100 mg PO DAILY 10/27/17 05/17/19 History oxyCODONE-APAP 10-325MG [Percocet 1 tab PO BID PRN 11/03/17 05/17/19 History 10-325 mg] Aspirin EC [Ecotrin] 325 mg PO DAILY 05/17/19 05/17/19 History Calcium Carbonate 500 mg PO DAILY 05/17/19 05/17/19 History Cyclophosphamide 400 mg PO DIRECTED 05/17/19 05/17/19 History Ondansetron HCl [Zofran] 4 mg PO DAILY PRN 05/17/19 05/17/19 History Pomalidomide [Pomalyst] 4 mg PO DIRECTED 05/17/19 05/17/19 History amLODIPine [Norvasc] 10 mg PO Q48H 05/17/19 05/17/19 History Allergies Allergy/AdvReac Type Severity Reaction Status Date / Time Iodinated Contrast- Oral and Allergy Rash/Hives Verified 05/17/19 11:52 IV Dye Physical Examination Right upper extremity: Patient is utilizing arm sling at this time. No obvious open lesions or sores present on the extremity minimal soft tissue swelling present around the shoulder. Tenderness with palpation to the proximal shoulder. Patient's fingers and make as little difficulty. Extension and flexion are restricted intact. Sensation to light touch throughout extremities intact, radial pulses 2+. Results - Labs Labs: Abnormal Lab Results - Last 24 Hours (Table) 05/17/19 05/17/19 05/17/19 Range/Units 11:40 11:40 11:40 WBC 2.2 L (3.8-10.6) k/uL RBC 3.35 L (4.30-5.90) m/uL Hgb 10.6 L (13.0-17.5) gm/dL Hct 35.0 L (39.0-53.0) % MCV 104.4 H (80.0-100.0) fL MCHC 30.2 L (31.0-37.0) g/dL RDW 20.2 H (11.5-15.5) % Neutrophils # (Manual) 1.10 L (1.3-7.7) k/uL Lymphocytes # (Manual) 0.20 L (1.0-4.8) k/uL Macrocytosis Marked A Potassium 5.5 H (3.5-5.1) mmol/L Chloride 109 H (98-107) mmol/L Carbon Dioxide 21 L (22-30) mmol/L BUN 38 H (9-20) mg/dL Creatinine 2.75 H (0.66-1.25) mg/dL Glucose 112 H (74-99) mg/dL Plasma Lactic Acid Hudson 2.5 H* (0.7-2.0) mmol/L Calcium 7.2 L (8.4-10.2) mg/dL AST 120 H (17-59) U/L ALT 106 H (21-72) U/L Urine Protein (Negative) Ur Leukocyte Esterase (Negative) Urine WBC (0-5) /hpf Urine Mucus (None) /hpf 05/17/19 Range/Units 13:55 WBC (3.8-10.6) k/uL RBC (4.30-5.90) m/uL Hgb (13.0-17.5) gm/dL Hct (39.0-53.0) % MCV (80.0-100.0) fL MCHC (31.0-37.0) g/dL RDW (11.5-15.5) % Neutrophils # (Manual) (1.3-7.7) k/uL Lymphocytes # (Manual) (1.0-4.8) k/uL Macrocytosis Potassium (3.5-5.1) mmol/L Chloride (98-107) mmol/L Carbon Dioxide (22-30) mmol/L BUN (9-20) mg/dL Creatinine (0.66-1.25) mg/dL Glucose (74-99) mg/dL Plasma Lactic Acid Hudson (0.7-2.0) mmol/L Calcium (8.4-10.2) mg/dL AST (17-59) U/L ALT (21-72) U/L Urine Protein Trace H (Negative) Ur Leukocyte Esterase Moderate H (Negative) Urine WBC 48 H (0-5) /hpf Urine Mucus Rare H (None) /hpf Microbiology - Last 24 Hours (Table) 05/17/19 13:55 Urine Culture - Preliminary Urine,Catheterized H & H 05/17/19 Range/Units 11:40 Hgb 10.6 L (13.0-17.5) gm/dL Hct 35.0 L (39.0-53.0) % Coagulation 05/17/19 Range/Units 11:40 INR 0.9 (<1.2) Result Diagrams: 05/17/19 11:40 05/17/19 11:40 - Diagnostic results Shoulder x-ray: report reviewed, image reviewed Assessment and Plan Plan: Imaging: X-rays of the right shoulder were reviewed along with report. Images demonstrated impacted right humeral head fracture. Assessment: 1. Impacted right humeral neck fracture 2. Status post fall from standing 3. Multiple medical comorbidities Plan: I was able to discuss the case with my attending Dr. Sepulveda, this including physical exam findings and imaging studies. No orthopedic surgical intervention at this time. Shoulder immobilizer will be ordered for the patient Utilize sling at all times Avoid excess use the right upper extremity Plan for follow-up in outpatient setting in 2 weeks Time with Patient: Less than 30
--- NOTE | 2019-05-18 10:03 | P.NPCON ---
History of Present Illness - Reason for Consult acute renal failure, chronic renal failure - History of Present Illness Reason for consultation: Acute kidney injury on chronic kidney disease History of present illness: Patient is a 69-year-old male seen in renal consultation for acute kidney injury on chronic kidney disease. Patient has chronic kidney disease stage III with baseline creatinine in the range of 1.3-1.5. Creatinine on admission was 2.75. Labs from today are pending. Patient fell in the bathroom and was complaining of pain in his shoulder and subsequently came to the hospital. He is noted to have a right humerus fracture. Blood pressure is stable although it's been a little bit on the lower side in the systolic 90s this admission. No vomiting or diarrhea. Denies chest pain or shortness of breath. Patient admits to taking Aleve twice daily on a daily basis. He is currently maintained on normal saline at 100 mL an hour. No history of diabetes. Patient has history of multiple myeloma and follows with oncology outpatient. He is currently maintained on chemotherapy. Patient's lactic acid was 2.5 and is down to 0.7 today. UA reveals trace protein. Vital signs are stable. General: The patient appeared well nourished and normally developed. HEENT: Head exam is unremarkable. Neck is without jugular venous distension. LUNGS: Lungs are clear to auscultation and percussion. Breath sounds decreased. HEART: Rate and Rhythm are regular. First and second heart sounds normal. No murmurs, rubs or gallops. ABDOMEN: Abdominal exam reveals normal bowel sounds. Non-tender and non- distended. No evidence of peritonitis. EXTREMITITES: No clubbing, cyanosis, or edema. Past Medical History Past Medical History: Cancer, COPD, GERD/Reflux, Hyperlipidemia, Hypertension Additional Past Medical History / Comment(s): mulitple myeloma, adenocarcinoma of the lung diagnosed in March 2017,home 02 2 liters n/c restless leg syndrome, anemia,tracheobronchits, History of Any Multi-Drug Resistant Organisms: None Reported Past Surgical History: Cholecystectomy, Tonsillectomy Additional Past Surgical History / Comment(s): CYST REMOVED FROM RT KNEE, vasectomy, rt bone marrow apiration/bx Past Anesthesia/Blood Transfusion Reactions: No Reported Reaction Additional Past Anesthesia/Blood Transfusion Reaction / Comment(s): past blood transfusion-stated no reaction to to it. Past Psychological History: No Psychological Hx Reported Smoking Status: Former smoker - Past Family History Mother Family Medical History: COPD, Hypertension Father Family Medical History: Coronary Artery Disease (CAD) Additional Family Medical History / Comment(s): cabg-triple vessel, pancreatic cancer age 65 Medications and Allergies Home Medications Medication Instructions Recorded Confirmed Type Atorvastatin [Lipitor] 20 mg PO DAILY 06/29/17 05/17/19 History Fluticasone/Salmeterol [Advair 1 puff INHALATION RT-DAILY 06/29/17 05/17/19 History 500-50 Diskus] Sodium Bicarbonate Tab 650 mg PO DAILY #30 tab 09/13/17 05/17/19 Rx Albuterol Inhaler [Ventolin Hfa 2 puff INHALATION RT-Q6H PRN 10/27/17 05/17/19 History Inhaler] Citalopram Hydrobromide [CeleXA] 20 mg PO DAILY 10/27/17 05/17/19 History Dexamethasone [Hexadrol] 20 mg PO MO 10/27/17 05/17/19 History Folic Acid 1 mg PO DAILY 10/27/17 05/17/19 History Multivitamins, Thera [Multivitamin 1 tab PO DAILY 10/27/17 05/17/19 History (formulary)] Omeprazole [PriLOSEC] 20 mg PO DAILY 10/27/17 05/17/19 History Potassium Chloride [Klor-Con 10] 10 meq PO DAILY 10/27/17 05/17/19 History Tamsulosin [Flomax] 0.4 mg PO DAILY 10/27/17 05/17/19 History Thiamine [Vitamin B-1] 100 mg PO DAILY 10/27/17 05/17/19 History oxyCODONE-APAP 10-325MG [Percocet 1 tab PO BID PRN 11/03/17 05/17/19 History 10-325 mg] Aspirin EC [Ecotrin] 325 mg PO DAILY 05/17/19 05/17/19 History Calcium Carbonate 500 mg PO DAILY 05/17/19 05/17/19 History Cyclophosphamide 400 mg PO DIRECTED 05/17/19 05/17/19 History Ondansetron HCl [Zofran] 4 mg PO DAILY PRN 05/17/19 05/17/19 History Pomalidomide [Pomalyst] 4 mg PO DIRECTED 05/17/19 05/17/19 History amLODIPine [Norvasc] 10 mg PO Q48H 05/17/19 05/17/19 History Allergies Allergy/AdvReac Type Severity Reaction Status Date / Time Iodinated Contrast- Oral and Allergy Rash/Hives Verified 05/17/19 11:52 IV Dye Physical Exam Vitals: Vital Signs Temp Pulse Pulse Resp BP BP Pulse Ox 05/18/19 05:11 97.3 F L 80 18 94/57 92 L 05/17/19 20:57 98.3 F 84 18 108/62 93 L 05/17/19 16:45 98.6 F 86 20 115/57 97 05/17/19 16:00 18 05/17/19 14:49 99.6 F 62 18 114/52 96 05/17/19 13:20 85 18 121/51 96 05/17/19 13:00 90 18 95 05/17/19 12:30 90 18 125/55 95 05/17/19 12:00 91 18 115/58 94 L 05/17/19 11:30 93 16 112/58 95 05/17/19 11:16 98.0 F 97 18 112/58 94 L Intake and Output 05/17/19 05/18/19 05/18/19 22:59 06:59 14:59 Output Total 315 Balance -315 Output: Post Void Residual 315 Other: Voiding Method Toilet # Voids 1 1 Results - Lab Results Most recent lab results Calcium 7.2 mg/dL (8.4-10.2) L 05/17/19 11:40 Phosphorus 4.1 mg/dL (2.5-4.5) 05/17/19 11:40 Magnesium 2.1 mg/dL (1.6-2.3) 05/17/19 11:40 05/17/19 11:40 05/17/19 11:40 Assessment and Plan Plan: Assessment: 1. Acute kidney injury mostly prerenal secondary to hypotension and nonsteroidals. Creatinine 2.75 on admission. Trace proteinuria noted on UA. Rule out urinary retention. 2. Chronic kidney disease stage III Baseline creatinine in the range of 1.3- 1.5. 3. Hyperkalemia secondary to acute kidney injury and metabolic acidosis. 4. Multiple myeloma maintain and chemotherapy. 5. Lactic acidosis secondary to hypotension. Improved with IV hydration. Plan: Maintain normal saline at 100 mL an hour. Check renal ultrasound. Check postvoid residual. May require Calvo catheter. Maintain oral sodium bicarbonate. Hold antihypertensives if systolic blood pressure less than 120. Follow-up cultures. Repeat electrolytes in the morning. Thank you for the consultation. I will continue to follow the patient with you during his hospital stay.
[2019-05-18 10:05] LABS: Anisocytosis Moderate; Hypochromasia Marked; MCH 31.3 pg (25.0-35.0); MCHC 28.9 g/dL (31.0-37.0); MCV 108.1 fL (80.0-100.0); Macrocytosis Marked; Mean Platelet Volume 7.6; Platelet Count 201 k/uL (150-450); Poikilocytosis Slight; RBC 2.87 m/uL (4.30-5.90); RDW 20.4 % (11.5-15.5); WBC 3.3 k/uL (3.8-10.6)
[2019-05-18 10:14] LABS: Albumin 3.2 g/dL (3.5-5.0); Magnesium 1.9 mg/dL (1.6-2.3); Potassium 5.1 mmol/L (3.5-5.1); Total Bilirubin 0.3 mg/dL (0.2-1.3); Total Protein 5.6 g/dL (6.3-8.2); Uric Acid 7.5 mg/dL (3.5-8.5)
[2019-05-18 10:25] LABS: Calcium 6.3 mg/dL (8.4-10.2)
[2019-05-18 11:13] LABS: Glucose,Whole Blood 100 mg/dL (75-99)
--- NOTE | 2019-05-18 11:18 | US ---
EXAMINATION TYPE: US kidneys/renal and bladder DATE OF EXAM: 05/18/2019 COMPARISON: CT from yesterday CLINICAL HISTORY: ryan. EXAM MEASUREMENTS: Right Kidney: 9.2 x 4.1 x 4.1 cm Left Kidney: 10.7 x 4.6 x 5.0 cm Right Kidney: No hydronephrosis or masses seen. Measuring slightly smaller than the left Left Kidney: No hydronephrosis or masses seen Bladder: wnl Bilateral Jets seen: Yes There is no evidence for hydronephrosis at this point in time. No nephrolithiasis is seen. No miguelito s are identified. The urinary bladder is anechoic. Bilateral ureteral jets are seen. IMPRESSION: No hydronephrosis evident bilaterally.
[2019-05-18 11:45] LABS: Nucleated Red Blood Cells 0 /100 WBC (0-0)
--- NOTE | 2019-05-18 11:45 | P.PN ---
Subjective Progress Note Date: 05/18/19 Principal diagnosis: Fall He is sitting in bed, no family during evaluation. Pain intermittent,worse with movement. No BM 2 days Objective - Vital Signs Vital signs: Vital Signs Temp 98.3 F 05/18/19 11:15 Pulse 85 05/18/19 11:15 Resp 20 05/18/19 11:15 BP 110/55 05/18/19 11:15 Pulse Ox 95 05/18/19 11:15 Intake & Output 05/17/19 05/18/19 05/18/19 18:59 06:59 18:59 Output Total 700 315 Balance -700 -315 Weight 55.792 kg Output: Urine 700 Straight 700 Post Void Residual 315 Other: Voiding Method Toilet Toilet # Voids 1 - Exam General: Alert and Oriented x3, No Acute Distress, poor hhistorian, cachetic, chronic ill appearing Head: Normocytic, Atraumatic Neck: Supple Mouth: No Lesions, No Thrush Eyes: Non-sclerotic No Palpable cervical, supraclavicular, axillary adenopathy Heart: Regular Rate, Regular Rhythm Lungs: Diminishe bilateral lower lobes, No increased respiratory effort noted Abdomen: Soft, Non-Distended, Non-Tended, BSx4 Extremities: Multiple bruises all extremities Neurological: No Focal Defects: No sensory or motor deficits noted Psych: Calm and cooperative - Labs CBC & Chem 7: 05/18/19 09:29 05/18/19 09:29 Labs: Abnormal Lab Results - Last 24 Hours (Table) 05/17/19 05/17/19 05/17/19 Range/Units 11:40 11:40 11:40 WBC 2.2 L (3.8-10.6) k/uL RBC 3.35 L (4.30-5.90) m/uL Hgb 10.6 L (13.0-17.5) gm/dL Hct 35.0 L (39.0-53.0) % MCV 104.4 H (80.0-100.0) fL MCHC 30.2 L (31.0-37.0) g/dL RDW 20.2 H (11.5-15.5) % Neutrophils # (Manual) 1.10 L (1.3-7.7) k/uL Lymphocytes # (Manual) 0.20 L (1.0-4.8) k/uL Macrocytosis Marked A Potassium 5.5 H (3.5-5.1) mmol/L Chloride 109 H (98-107) mmol/L Carbon Dioxide 21 L (22-30) mmol/L BUN 38 H (9-20) mg/dL Creatinine 2.75 H (0.66-1.25) mg/dL Glucose 112 H (74-99) mg/dL POC Glucose (mg/dL) (75-99) mg/dL Plasma Lactic Acid Hudson 2.5 H* (0.7-2.0) mmol/L Calcium 7.2 L (8.4-10.2) mg/dL AST 120 H (17-59) U/L ALT 106 H (21-72) U/L Total Protein (6.3-8.2) g/dL Albumin (3.5-5.0) g/dL Urine Protein (Negative) Ur Leukocyte Esterase (Negative) Urine WBC (0-5) /hpf Urine Mucus (None) /hpf 05/17/19 05/18/19 05/18/19 Range/Units 13:55 09:29 09:29 WBC 3.3 L (3.8-10.6) k/uL RBC 2.87 L (4.30-5.90) m/uL Hgb 9.0 L D (13.0-17.5) gm/dL Hct 31.0 L (39.0-53.0) % MCV 108.1 H (80.0-100.0) fL MCHC 28.9 L (31.0-37.0) g/dL RDW 20.4 H (11.5-15.5) % Neutrophils # (Manual) (1.3-7.7) k/uL Lymphocytes # (Manual) (1.0-4.8) k/uL Macrocytosis Marked A Potassium (3.5-5.1) mmol/L Chloride 112 H (98-107) mmol/L Carbon Dioxide 18 L (22-30) mmol/L BUN 31 H (9-20) mg/dL Creatinine 2.08 H (0.66-1.25) mg/dL Glucose 101 H (74-99) mg/dL POC Glucose (mg/dL) (75-99) mg/dL Plasma Lactic Acid Hudson (0.7-2.0) mmol/L Calcium 6.3 L* (8.4-10.2) mg/dL AST (17-59) U/L ALT 87 H (21-72) U/L Total Protein 5.6 L (6.3-8.2) g/dL Albumin 3.2 L (3.5-5.0) g/dL Urine Protein Trace H (Negative) Ur Leukocyte Esterase Moderate H (Negative) Urine WBC 48 H (0-5) /hpf Urine Mucus Rare H (None) /hpf 05/18/19 Range/Units 11:01 WBC (3.8-10.6) k/uL RBC (4.30-5.90) m/uL Hgb (13.0-17.5) gm/dL Hct (39.0-53.0) % MCV (80.0-100.0) fL MCHC (31.0-37.0) g/dL RDW (11.5-15.5) % Neutrophils # (Manual) (1.3-7.7) k/uL Lymphocytes # (Manual) (1.0-4.8) k/uL Macrocytosis Potassium (3.5-5.1) mmol/L Chloride (98-107) mmol/L Carbon Dioxide (22-30) mmol/L BUN (9-20) mg/dL Creatinine (0.66-1.25) mg/dL Glucose (74-99) mg/dL POC Glucose (mg/dL) 100 H (75-99) mg/dL Plasma Lactic Acid Hudson (0.7-2.0) mmol/L Calcium (8.4-10.2) mg/dL AST (17-59) U/L ALT (21-72) U/L Total Protein (6.3-8.2) g/dL Albumin (3.5-5.0) g/dL Urine Protein (Negative) Ur Leukocyte Esterase (Negative) Urine WBC (0-5) /hpf Urine Mucus (None) /hpf Microbiology - Last 24 Hours (Table) 05/17/19 13:55 Urine Culture - Preliminary Urine,Catheterized Assessment and Plan (1) ARF (acute renal failure) Current Visit: Yes Status: Acute Code(s): N17.9 - ACUTE KIDNEY FAILURE, UNSPECIFIED SNOMED Code(s): 74947050 (2) Dehydration Current Visit: Yes Status: Acute Code(s): E86.0 - DEHYDRATION SNOMED Code(s): 09112062 (3) Multiple myeloma Current Visit: No Status: Acute Code(s): C90.00 - MULTIPLE MYELOMA NOT HAVING ACHIEVED REMISSION SNOMED Code(s): 558867604 Plan: Assessment and Recommendations: Multiple Myeloma: - Hold Pomalyst and Cyclophosphamide at this time - Primary Oncologist Dr. rubalcava - Details of history in HPI Fall From Standing: - Patient's states he has fallen multiple times over the past few weeks and has had has had will order CAT scan of the head - X-ray of the right shoulder shows impacted proximal humerus fracture Neoplastic Related Pain: - Continue Percocet PRN and PRN Dilaudid - Narcotic induced constipation - Senna S and Miralx Acute Kidney Injury: - Hyperkalemia: - Likely dehydration - Nephrology to evaluate - IV Fluids Constipation: - Bowel Regimen Ordered Leukopenia: - Secondary to Chemotherapy Normocytic Anemia: - Secondary Multiple Myeloma, Chemo, possible component of Kidney disease Decreased PO Intake: - Have Dieticien Evaluate Debility and Weakness, Chronic illness myopathy - PT/OT Evaluate and treat recommend imaging of brain will need to await improved renal function Continue pain and narcotic induced constiption meds.
[2019-05-18 11:51] LABS: Band Neutrophils % 3 %; Eosinophils # (M) 0.46 k/uL (0-0.7); Lymphocytes # (M) 0.43 k/uL (1.0-4.8); Metamyelocytes % 3 %; Monocytes # (M) 0.43 k/uL (0-1.0); Neutrophils % (M) 55 %; Total Cells Counted 200
[2019-05-18 11:52] LABS: Ovalocytes Present
[2019-05-18] MEDS: oxyCODONE-APAP 10-325MG 1 EACH TAB PO PRN ×2 (12:17→16:57)
[2019-05-18] MEDS ORDERED: CALCIUM GLUCONATE 2 GM in SODIUM CHLORIDE 0.9% 100 ML IVPB ONE (14:00)
[2019-05-18 17:38] LABS: Glucose,Whole Blood 95 mg/dL (75-99)
--- NOTE | 2019-05-18 19:30 | PN ---
PROGRESS NOTE DATE OF SERVICE: 05/18/2019 This 69-year-old gentleman who was admitted with a fall and right shoulder pain, had impacted right humeral neck fracture. Orthopedic surgery has recommended no active orthopedic intervention. Conservative line of management is recommended. No chest pain. No palpitations. The patient still complains of severe pain. Calcium is 6.1. PHYSICAL EXAM: Alert and oriented x2. Pulse is 85, blood pressure 110/55, respiration 20, temperature 98.3, pulse ox 94% on 2 L. HEENT is conjunctivae normal. NECK: No JVD. RESPIRATIONS: Breath sounds diminished in the bases. No rhonchi. No crackles. ABDOMEN is soft, nontender. LEGS are no edema. Status post right humeral fracture present. LABS: WBC 3.2, hemoglobin is 9, sodium 140, potassium 5.1, glucose noted and calcium 6.3. PAST MEDICAL HISTORY: Reviewed. REVIEW OF SYSTEMS: CARDIOVASCULAR: No angina or palpitations. RESPIRATORY: As mentioned earlier. GI no nausea or vomiting. no dysuria. CENTRAL NERVOUS SYSTEM: No focal deficits. CURRENT MEDICATIONS ARE: 1. Ventolin 2.5 q.i.d. 2. Norvasc 10 mg every 48 hours. 3. Aspirin 320 mg daily. 4. Lipitor 20 mg daily. 5. Symbicort 160/4.5 b.i.d. 6. Tums daily. 7. Rocephin 1 g daily. 8. Celexa. 9. Hexadrol 20 mg p.o. Wednesday. 10.Lovenox 30 daily. 11.Folic acid. 12.Dilaudid. 13.NovoLog. 14.Multivitamins. 16.Mycostatin. 17.Zofran. 18.Percocet. 19.Protonix. 20.MiraLAX. 21.Senokot-S. 22.Sodium bicarb. 23.Flomax. 24.Vitamin B1. 25.Doses and frequency reviewed. ASSESSMENT: 1. Fall and impacted fracture of the right humeral neck with severe pain. 2. Leukopenia anemia secondary to malignancy. 3. Severe hypocalcemia. 4. Increased MCV. 5. History of multiple myeloma. 6. History of adenocarcinoma of the right lung. 7. Hyperkalemia. 8. Renal failure, chronic renal failure stage 3 secondary to multiple myeloma, possibly. 9. Possible urinary tract infection present on admission. 10.Gastroesophageal reflux disease. 11.Chronic obstructive pulmonary disease. 12.Hypertension. 13.Hyperlipidemia. 14.History of cholecystectomy. 15.History of tonsillectomy. 16.Chronic hypoxic respiratory failure on home oxygen at 2 L nasal cannula. RECOMMENDATIONS AND DISCUSSION: In this 69-year-old gentleman who presented with multiple complex medical issues, we will monitor the patient closely. Continue the current medications, management and symptomatic treatment. Otherwise, at this time, calcium gluconate 2 g has been given. Otherwise, I would recommend continue the rest of medications. Continue with empiric antibiotics. Follow the cultures. Pain management. PT/OT evaluation and social work consultation regarding the home situation. Guarded prognosis. Further recommendations to follow. MMODL / IJN: [id number] / CALLIE
[2019-05-18 20:07] LABS: Glucose,Whole Blood 94 mg/dL (75-99)
[2019-05-18] MEDS: SENNOSIDES-DOCUSATE SODIUM 1 EACH TAB PO SCH (21:23)
[2019-05-19] MEDS: oxyCODONE-APAP 10-325MG 1 EACH TAB PO PRN ×2 (01:38→12:05)
[2019-05-19 06:50] LABS: Glucose,Whole Blood 76 mg/dL (75-99)
[2019-05-19] MEDS ORDERED: IPRATROPIUM-ALBUTEROL 3 ML NEB IH STA (06:56)
[2019-05-19] MEDS: SYMBICORT 160-4.5 MCG INHALER INHALATION SCH ×2 (07:07→19:30)
--- NOTE | 2019-05-19 07:13 | XR ---
EXAMINATION TYPE: XR chest 1V portable DATE OF EXAM: 05/19/2019 COMPARISON: 10/27/2017 HISTORY: Shortness of breath with history of lung cancer TECHNIQUE: Single frontal view of the chest is obtained. FINDINGS: There is increasing confluence of a left perihilar opacity and reticular left superhilar a nd infrahilar opacity. Trace left pleural effusion remains. Increasing density of the retrocardiac ai rspace. Strand-like atelectasis scattered throughout the right lung with chronic parenchymal change. Right humeral fracture appears new from 10/27/2017. Correlate with clinical exam. Generalized osseous demineralization. Enlarged cardiomediastinal silhouette. IMPRESSION: 1. Multifocal left-sided airspace disease is concerning for multifocal pneumonia superimposed on xavier ent's known lung carcinoma. 2. Right humeral surgical neck fracture appears somewhat acute and new from the prior 10/27/2018. This is noted on the x-rays of 05/27/2019.
[2019-05-19 07:35] LABS: Anisocytosis Moderate; HCT 31.3 % (39.0-53.0); HGB 9.1 gm/dL (13.0-17.5); Hypochromasia Marked; MCH 31.2 pg (25.0-35.0); MCHC 29.2 g/dL (31.0-37.0); MCV 106.9 fL (80.0-100.0); Macrocytosis Marked; Mean Platelet Volume 7.9; Platelet Count 199 k/uL (150-450); Poikilocytosis Slight; RBC 2.92 m/uL (4.30-5.90); RDW 20.4 % (11.5-15.5); WBC 2.2 k/uL (3.8-10.6)
[2019-05-19 07:48] LABS: Calcium 6.8 mg/dL (8.4-10.2); Potassium 5.3 mmol/L (3.5-5.1); Total Bilirubin 0.6 mg/dL (0.2-1.3); Total Protein 5.4 g/dL (6.3-8.2)
[2019-05-19 07:55] LABS: Creatine Kinase 357 U/L (55-170)
[2019-05-19 08:08] LABS: Creatine Kinase MB 2.2 ng/mL (0.0-2.4); Troponin I <0.012 ng/mL (0.000-0.034)
[2019-05-19] MEDS: INSULIN ASPART (NovoLOG) 100 UNIT/ML VIAL SQ SCH ×4 (08:40→21:01)
[2019-05-19 08:50] LABS: Band Neutrophils % 2 %; Eosinophils # (M) 0.07 k/uL (0-0.7); Lymphocytes # (M) 0.35 k/uL (1.0-4.8); Monocytes # (M) 0.62 k/uL (0-1.0); Neutrophils % (M) 51 %; Nucleated Red Blood Cells 0 /100 WBC (0-0); Total Cells Counted 100
[2019-05-19] MEDS ORDERED: ENOXAPARIN 30 MG/0.3 ML SYRINGE SQ SCH (09:00)
--- NOTE | 2019-05-19 09:14 | P.PN ---
Subjective Patient is seen in follow-up for acute kidney injury on chronic kidney disease. Patient is chronic and he disease stage III with baseline creatinine in the range of 1.3-1.5. Creatinine on admission was 2.75 and is down to 1.79 today. He is maintained on IV fluids. Last night the patient became hypoxic and is currently on 15 L of high flow oxygen. He is awake and alert. Denies shortness of breath at this time. No vomiting or diarrhea. Calvo catheter was also inserted for urinary retention this morning. Vital signs are stable. General: The patient appeared well nourished and normally developed. HEENT: Head exam is unremarkable. Neck is without jugular venous distension. LUNGS: Lungs are clear to auscultation and percussion. Breath sounds decreased. HEART: Rate and Rhythm are regular. First and second heart sounds normal. No murmurs, rubs or gallops. ABDOMEN: Abdominal exam reveals normal bowel sounds. Non-tender and non-diste nded. No evidence of peritonitis. EXTREMITITES: No clubbing, cyanosis, or edema. Objective - Vital Signs Vital signs: Vital Signs Temp 98.4 F 05/19/19 04:30 Pulse 98 05/19/19 07:02 Resp 22 05/19/19 08:51 BP 94/61 05/19/19 08:51 Pulse Ox 93 L 05/19/19 08:51 Intake & Output 05/18/19 05/19/19 05/19/19 18:59 06:59 18:59 Intake Total 1450 Output Total 958 800 Balance 492 -800 Intake: Intake, IV Titration 800 Amount Sodium Chloride 0.9% 1, 800 000 ml @ 100 mls/hr IV . Q10H ONE Rx#:[id number] Oral 650 Output: Urine 520 800 Straight 800 Post Void Residual 438 Other: Voiding Method Toilet Toilet # Voids 0 - Labs CBC & Chem 7: 05/19/19 07:24 05/19/19 07:24 Labs: Abnormal Lab Results - Last 24 Hours (Table) 05/18/19 05/18/19 05/18/19 Range/Units 09:29 09:29 11:01 WBC 3.3 L (3.8-10.6) k/uL RBC 2.87 L (4.30-5.90) m/uL Hgb 9.0 L D (13.0-17.5) gm/dL Hct 31.0 L (39.0-53.0) % MCV 108.1 H (80.0-100.0) fL MCHC 28.9 L (31.0-37.0) g/dL RDW 20.4 H (11.5-15.5) % Neutrophils # (Manual) (1.3-7.7) k/uL Lymphocytes # (Manual) 0.43 L (1.0-4.8) k/uL Metamyelocytes # (Man) 0.10 H (0) k/uL Macrocytosis Marked A D-Dimer (<0.60) mg/L FEU Potassium (3.5-5.1) mmol/L Chloride 112 H (98-107) mmol/L Carbon Dioxide 18 L (22-30) mmol/L BUN 31 H (9-20) mg/dL Creatinine 2.08 H (0.66-1.25) mg/dL Glucose 101 H (74-99) mg/dL POC Glucose (mg/dL) 100 H (75-99) mg/dL Calcium 6.3 L* (8.4-10.2) mg/dL AST (17-59) U/L ALT 87 H (21-72) U/L Alkaline Phosphatase (38-126) U/L Total Creatine Kinase (55-170) U/L Total Protein 5.6 L (6.3-8.2) g/dL Albumin 3.2 L (3.5-5.0) g/dL 05/19/19 05/19/19 05/19/19 Range/Units 07:24 07:24 07:24 WBC 2.2 L (3.8-10.6) k/uL RBC 2.92 L (4.30-5.90) m/uL Hgb 9.1 L (13.0-17.5) gm/dL Hct 31.3 L (39.0-53.0) % MCV 106.9 H (80.0-100.0) fL MCHC 29.2 L (31.0-37.0) g/dL RDW 20.4 H (11.5-15.5) % Neutrophils # (Manual) 1.10 L (1.3-7.7) k/uL Lymphocytes # (Manual) 0.35 L (1.0-4.8) k/uL Metamyelocytes # (Man) (0) k/uL Macrocytosis Marked A D-Dimer (<0.60) mg/L FEU Potassium 5.3 H (3.5-5.1) mmol/L Chloride 114 H (98-107) mmol/L Carbon Dioxide (22-30) mmol/L BUN 23 H (9-20) mg/dL Creatinine 1.79 H (0.66-1.25) mg/dL Glucose (74-99) mg/dL POC Glucose (mg/dL) (75-99) mg/dL Calcium 6.8 L (8.4-10.2) mg/dL AST 179 H (17-59) U/L ALT 180 H (21-72) U/L Alkaline Phosphatase 150 H (38-126) U/L Total Creatine Kinase 357 H (55-170) U/L Total Protein 5.4 L (6.3-8.2) g/dL Albumin 3.0 L (3.5-5.0) g/dL 05/19/19 Range/Units 07:24 WBC (3.8-10.6) k/uL RBC (4.30-5.90) m/uL Hgb (13.0-17.5) gm/dL Hct (39.0-53.0) % MCV (80.0-100.0) fL MCHC (31.0-37.0) g/dL RDW (11.5-15.5) % Neutrophils # (Manual) (1.3-7.7) k/uL Lymphocytes # (Manual) (1.0-4.8) k/uL Metamyelocytes # (Man) (0) k/uL Macrocytosis D-Dimer 1.78 H (<0.60) mg/L FEU Potassium (3.5-5.1) mmol/L Chloride (98-107) mmol/L Carbon Dioxide (22-30) mmol/L BUN (9-20) mg/dL Creatinine (0.66-1.25) mg/dL Glucose (74-99) mg/dL POC Glucose (mg/dL) (75-99) mg/dL Calcium (8.4-10.2) mg/dL AST (17-59) U/L ALT (21-72) U/L Alkaline Phosphatase (38-126) U/L Total Creatine Kinase (55-170) U/L Total Protein (6.3-8.2) g/dL Albumin (3.5-5.0) g/dL Microbiology - Last 24 Hours (Table) 05/17/19 13:55 Urine Culture - Preliminary Urine,Catheterized Coagulase Negative Staph 05/17/19 19:40 Blood Culture - Preliminary Blood No Growth after 24 hours 05/17/19 19:25 Blood Culture - Preliminary Blood No Growth after 24 hours Assessment and Plan Plan: Assessment: 1. Acute kidney injury mostly prerenal secondary to hypotension and nonsteroidals. Creatinine 2.75 on admission and is down to 1.79 today. Trace proteinuria noted on UA. No hydronephrosis noted on renal ultrasound. 2. Chronic kidney disease stage III with baseline creatinine in the range of 1.3-1.5. 3. Hyperkalemia secondary to acute kidney injury and metabolic acidosis. Stable. 4. Multiple myeloma maintained on chemotherapy. 5. Lactic acidosis secondary to hypotension. Improved with IV hydration. 6. Hypocalcemia secondary to acute kidney injury. Better post replacement. Corrected calcium today is 7.6. 7. Urinary retention status post Calvo catheter placement. 8. UTI with urine culture positive for coagulase-negative staph. 9. Anemia of chronic kidney disease. Rule out iron deficiency. Plan: Decrease rate of normal saline to 75 mL an hour. Maintain oral sodium bicarbonate. Hold antihypertensives if systolic blood pressure less than 120. Add Flomax. Repeat electrolytes in the morning. Check iron studies. Low potassium diet.
[2019-05-19] MEDS ORDERED: ENOXAPARIN 40 MG/0.4 ML SYRINGE SQ ONE (11:15)
[2019-05-19 11:32] LABS: Glucose,Whole Blood 117 mg/dL (75-99)
[2019-05-19] MEDS: ASPIRIN 325 MG TAB PO SCH (12:04)
[2019-05-19] MEDS: LACTULOSE 20 GM/30 ML CUP PO PRN (12:04)
[2019-05-19] MEDS: CALCIUM CARBONATE 500 MG CHEWABLE PO SCH (12:04)
[2019-05-19] MEDS: CITALOPRAM HYDROBROMIDE 20 MG TAB PO SCH (12:05)
[2019-05-19] MEDS: ATORVASTATIN 20 MG TAB PO SCH (12:05)
[2019-05-19] MEDS: PANTOPRAZOLE 40 MG TABLET PO SCH (12:05)
[2019-05-19] MEDS: FOLIC ACID 1 MG TAB PO SCH (12:05)
[2019-05-19] MEDS: SODIUM CHLORIDE 0.9% 1,000 ML IV SCH ×2 (12:06→22:35)
[2019-05-19] MEDS: NYSTATIN 100,000 UNIT/ML SUSP 500,000 UNIT/5 ML CUP PO SCH ×4 (12:07→22:39)
[2019-05-19] MEDS: SODIUM BICARBONATE TAB 650 MG TAB PO SCH (12:11)
[2019-05-19] MEDS: POLYETHYLENE GLYCOL 3350 17 GM POWD.PACK PO SCH (12:11)
[2019-05-19] MEDS: SENNOSIDES-DOCUSATE SODIUM 1 EACH TAB PO SCH (12:11)
[2019-05-19] MEDS: MULTIVITAMINS, THERA 1 EACH TAB PO SCH (12:12)
[2019-05-19] MEDS: TAMSULOSIN 0.4 MG CAP.ER.24H PO SCH (12:12)
[2019-05-19] MEDS: THIAMINE 100 MG TAB PO SCH (12:24)
--- NOTE | 2019-05-19 15:12 | P.CNPUL ---
History of Present Illness Consult date: 05/19/19 Requesting physician: Taylor Espinoza Chief complaint: Right shoulder pain. Status post fall. History of present illness: This is a very pleasant 69-year-old gentleman with history of adenocarcinoma of the lung with good response to keep treated most recent CAT scan in February 2019 showed remission. There is limited right lower lobe scar. Left lower lobe pleural effusion. He also has a history of severe obstructive pulmonary disease with FEV1 value 47% of predicted. He is oxygen dependent. He continues to smoke. He follows with Dr. Jaffe in our office for the same. The patient has a history of multiple myeloma and had been most recently on Cytoxan. He does have hypercalcemia. He has a previous history of a left humerus fracture. He does have a history of previous alcohol abuse and anemia. He presented here to the emergency room on 05/17/2019 after sustaining a chip and fall at home and significant right arm pain. X-rays did reveal impacted humerus fracture. He had been seen by orthopedic surgeons surgical intervention as planned. Currently in a sling. This morning they called and A team on the patient for increasing shortness of breath and acute hypoxic respiratory failure. He is currently on the AirVo 60% FiO2 and 15 L flow rate. He is maintaining good O2 saturations in the upper 90s. He is currently afebrile. Hemodynamically stable. X-ray reveals multifocal left-sided airspace disease concerning for multifocal pneumonia superimposed on the patient's known lung carcinoma. Weight count 2.2. Hemoglobin 9.1. Creatinine 1.79. AST 179, ALT 180, alk phos 150. Troponin negative. Albumin 3.0. He is currently on ceftriaxone and bronchodilators. Review of Systems REVIEW OF SYSTEMS: CONSTITUTIONAL: Ongoing weight loss. EYES: Denies change in vision. EARS, NOSE, MOUTH, THROAT: Denies headaches, denies sore throat. CARDIOVASCULAR: Denies chest pain, palpitations or syncopal episodes. RESPIRATORY: Positive for shortness of breath, cough, congestion no hemoptysis. GASTROINTESTINAL: Denies change in appetite, denies abdominal pain GENITOURINARY: Denies hematuria, denies infections. MUSKULOSKELETAL: Positive right shoulder pain. INTEGUMENTARY: Denies rash, denies eczema. NEUROLOGICAL: Denies recent memory loss, no recent seizure activity. PSYCHIATRIC: Denies anxiety, denies depression. HEMATOLOGIC/LYMPHATIC: Denies anemia, denies enlarged lymph nodes. Past Medical History Past Medical History: Cancer, COPD, GERD/Reflux, Hyperlipidemia, Hypertension Additional Past Medical History / Comment(s): mulitple myeloma, adenocarcinoma of the lung diagnosed in March 2017,home 02 2 liters n/c restless leg syndrome, anemia,tracheobronchits, History of Any Multi-Drug Resistant Organisms: None Reported Past Surgical History: Cholecystectomy, Tonsillectomy Additional Past Surgical History / Comment(s): CYST REMOVED FROM RT KNEE, vasectomy, rt bone marrow apiration/bx Past Anesthesia/Blood Transfusion Reactions: No Reported Reaction Additional Past Anesthesia/Blood Transfusion Reaction / Comment(s): past blood transfusion-stated no reaction to to it. Past Psychological History: No Psychological Hx Reported Smoking Status: Former smoker - Past Family History Mother Family Medical History: COPD, Hypertension Father Family Medical History: Coronary Artery Disease (CAD) Additional Family Medical History / Comment(s): cabg-triple vessel, pancreatic cancer age 65 Medications and Allergies Home Medications Medication Instructions Recorded Confirmed Type Atorvastatin [Lipitor] 20 mg PO DAILY 06/29/17 05/17/19 History Fluticasone/Salmeterol [Advair 1 puff INHALATION RT-DAILY 06/29/17 05/17/19 History 500-50 Diskus] Sodium Bicarbonate Tab 650 mg PO DAILY #30 tab 09/13/17 05/17/19 Rx Albuterol Inhaler [Ventolin Hfa 2 puff INHALATION RT-Q6H PRN 10/27/17 05/17/19 History Inhaler] Citalopram Hydrobromide [CeleXA] 20 mg PO DAILY 10/27/17 05/17/19 History Dexamethasone [Hexadrol] 20 mg PO MO 10/27/17 05/17/19 History Folic Acid 1 mg PO DAILY 10/27/17 05/17/19 History Multivitamins, Thera [Multivitamin 1 tab PO DAILY 10/27/17 05/17/19 History (formulary)] Omeprazole [PriLOSEC] 20 mg PO DAILY 10/27/17 05/17/19 History Potassium Chloride [Klor-Con 10] 10 meq PO DAILY 10/27/17 05/17/19 History Tamsulosin [Flomax] 0.4 mg PO DAILY 10/27/17 05/17/19 History Thiamine [Vitamin B-1] 100 mg PO DAILY 10/27/17 05/17/19 History oxyCODONE-APAP 10-325MG [Percocet 1 tab PO BID PRN 11/03/17 05/17/19 History 10-325 mg] Aspirin EC [Ecotrin] 325 mg PO DAILY 05/17/19 05/17/19 History Calcium Carbonate 500 mg PO DAILY 05/17/19 05/17/19 History Cyclophosphamide 400 mg PO DIRECTED 05/17/19 05/17/19 History Ondansetron HCl [Zofran] 4 mg PO DAILY PRN 05/17/19 05/17/19 History Pomalidomide [Pomalyst] 4 mg PO DIRECTED 05/17/19 05/17/19 History amLODIPine [Norvasc] 10 mg PO Q48H 05/17/19 05/17/19 History Allergies Allergy/AdvReac Type Severity Reaction Status Date / Time Iodinated Contrast- Oral and Allergy Rash/Hives Verified 05/17/19 11:52 IV Dye Physical Exam Vitals: Vital Signs Temp Pulse Pulse Pulse Resp BP Pulse Ox 05/19/19 12:47 98.7 F 82 20 111/65 97 05/19/19 11:15 99 05/19/19 08:51 22 94/61 93 L 05/19/19 08:19 93 L 05/19/19 07:50 22 155/78 84 L 05/19/19 07:02 98 05/19/19 07:00 22 104/72 94 L 05/19/19 06:40 102 H 30 H 95/58 88 L 05/19/19 05:05 96 05/19/19 04:59 94 L 05/19/19 04:30 98.4 F 96 22 95/57 85 L 05/18/19 20:14 97 05/18/19 19:23 98.2 F 84 16 108/63 92 L 05/18/19 15:20 20 Intake and Output 05/18/19 05/19/19 05/19/19 22:59 06:59 14:59 Output Total 800 650 Balance -800 -650 Output: Urine 800 650 Straight 800 Other: Voiding Method Toilet Indwelling Catheter # Voids 0 0 GENERAL EXAM: Frail, disheveled 69-year-old gentleman. In mild respiratory dist ress. Currently on Airvo at 60% FiO2. HEAD: Normocephalic. EYES: Normal reaction of pupils, equal size. NOSE: Clear with pink turbinates. THROAT: No erythema or exudates. NECK: No masses, no JVD. CHEST: No chest wall deformity. LUNGS: Equal air entry with bilateral scattered rhonchi. CVS: S1 and S2 normal with no audible murmur, regular rhythm. ABDOMEN: No hepatosplenomegaly, normal bowel sounds, no guarding or rigidity. SPINE: No scoliosis or deformity SKIN: No rashes CENTRAL NERVOUS SYSTEM: No focal deficits, tone is normal in all 4 extremities. EXTREMITIES: Edema of the right upper extremity with ecchymosis. Currently in a sling. No significant lower extremity peripheral edema. Peripheral pulses are intact. Results - Laboratory Findings CBC and BMP: 05/19/19 07:24 05/19/19 07:24 PT/INR, D-dimer PT 10.0 sec (9.0-12.0) 05/17/19 11:40 INR 0.9 (<1.2) 05/17/19 11:40 D-Dimer 1.78 mg/L FEU (<0.60) H 05/19/19 07:24 Abnormal lab findings: Abnormal Labs 05/17/19 05/17/19 05/17/19 11:40 11:40 11:40 WBC 2.2 L RBC 3.35 L Hgb 10.6 L Hct 35.0 L MCV 104.4 H MCHC 30.2 L RDW 20.2 H Neutrophils # (Manual) 1.10 L Lymphocytes # (Manual) 0.20 L Metamyelocytes # (Man) Macrocytosis Marked A D-Dimer Potassium 5.5 H Chloride 109 H Carbon Dioxide 21 L BUN 38 H Creatinine 2.75 H Glucose 112 H POC Glucose (mg/dL) Plasma Lactic Acid Hudson 2.5 H* Calcium 7.2 L AST 120 H ALT 106 H Alkaline Phosphatase Total Creatine Kinase Total Protein Albumin Urine Protein Ur Leukocyte Esterase Urine WBC Urine Mucus 05/17/19 05/18/19 05/18/19 13:55 09:29 09:29 WBC 3.3 L RBC 2.87 L Hgb 9.0 L D Hct 31.0 L MCV 108.1 H MCHC 28.9 L RDW 20.4 H Neutrophils # (Manual) Lymphocytes # (Manual) 0.43 L Metamyelocytes # (Man) 0.10 H Macrocytosis Marked A D-Dimer Potassium Chloride 112 H Carbon Dioxide 18 L BUN 31 H Creatinine 2.08 H Glucose 101 H POC Glucose (mg/dL) Plasma Lactic Acid [place] Calcium 6.3 L* AST ALT 87 H Alkaline Phosphatase Total Creatine Kinase Total Protein 5.6 L Albumin 3.2 L Urine Protein Trace H Ur Leukocyte Esterase Moderate H Urine WBC 48 H Urine Mucus Rare H 05/18/19 05/19/19 05/19/19 11:01 07:24 07:24 WBC 2.2 L RBC 2.92 L Hgb 9.1 L Hct 31.3 L MCV 106.9 H MCHC 29.2 L RDW 20.4 H Neutrophils # (Manual) 1.10 L Lymphocytes # (Manual) 0.35 L Metamyelocytes # (Man) Macrocytosis Marked A D-Dimer Potassium 5.3 H Chloride 114 H Carbon Dioxide BUN 23 H Creatinine 1.79 H Glucose POC Glucose (mg/dL) 100 H Plasma Lactic Acid [place] Calcium 6.8 L AST 179 H ALT 180 H Alkaline Phosphatase 150 H Total Creatine Kinase Total Protein 5.4 L Albumin 3.0 L Urine Protein Ur Leukocyte Esterase Urine WBC Urine Mucus 05/19/19 05/19/19 05/19/19 07:24 07:24 11:31 WBC RBC Hgb Hct MCV MCHC RDW Neutrophils # (Manual) Lymphocytes # (Manual) Metamyelocytes # (Man) Macrocytosis D-Dimer 1.78 H Potassium Chloride Carbon Dioxide BUN Creatinine Glucose POC Glucose (mg/dL) 117 H Plasma Lactic Acid [place] Calcium AST ALT Alkaline Phosphatase Total Creatine Kinase 357 H Total Protein Albumin Urine Protein Ur Leukocyte Esterase Urine WBC Urine Mucus - Diagnostic Findings Chest x-ray: image reviewed Assessment and Plan Assessment: Impression: #1 Right humeral fracture status post trip and fall. Denies syncope. No surgical interventions planned. #2 Acute hypoxic respiratory failure secondary to suspected acute community-acquired pneumonia. #3 History of adenocarcinoma of the lung with good response treatment. #4 Severe oxygen dependent chronic obstructive pulmonary disease with FEV1 value of 47% of predicted. #5 Chronic chronic and ongoing tobacco dependence. #6 Multiple myeloma and had most recently been on Cytoxan. #7 Hypercalcemia, history of. Plan: The patient was seen and evaluated by Dr. Lackey. Chest x-ray and labs reviewed. We will continue ceftriaxone, add azithromycin. Add DuoNeb inhalations every 4 hours. Pulmicort and Perforomist inhalations every 12 hours. Continue to titrate down the FiO2 as tolerated. Continue AirVo for now. We will continue to follow and make further recommendations based on his clinical status. I, the cosigning physician, performed a history & physical examination of the patient. Lungs sounds bilateral scattered rhonchi. Maintaining good O2 saturations in the 90s on AirVo at 60% FiO2. I discussed the assessment and plan of care with my nurse practitioner, Noemy Nelson. I attest to the above consultation as dictated by her. Time with Patient: Greater than 30
--- NOTE | 2019-05-19 15:19 | P.PN ---
Subjective Progress Note Date: 05/19/19 Principal diagnosis: Fall Patient became hypoxic overnight, requiring hi flow oxygen. Pulmonary has evaluated. Unable to do contrasted CT with Creatinine. is not present duri ng evaluation. Attempted to call number listed, busy signal. Liver function increased. Ultrasound ordered Objective - Vital Signs Vital signs: Vital Signs Temp 98.7 F 05/19/19 12:47 Pulse 82 05/19/19 12:47 Resp 20 05/19/19 12:47 BP 111/65 05/19/19 12:47 Pulse Ox 97 05/19/19 12:47 Intake & Output 05/18/19 05/19/19 05/19/19 18:59 06:59 18:59 Intake Total 1450 Output Total 958 800 650 Balance 492 -800 -650 Intake: Intake, IV Titration 800 Amount Sodium Chloride 0.9% 1, 800 000 ml @ 100 mls/hr IV . Q10H ONE Rx#:[id number] Oral 650 Output: Urine 520 800 650 Straight 800 Post Void Residual 438 Other: Voiding Method Toilet Indwelling Catheter # Voids 0 - Exam General: Alert and Oriented x3, No Acute Distress, poor hhistorian, cachetic, chronic ill appearing Head: Normocytic, Atraumatic Neck: Supple Mouth: No Lesions, No Thrush Eyes: Non-sclerotic No Palpable cervical, supraclavicular, axillary adenopathy Heart: Regular Rate, Regular Rhythm Lungs: Diminishe bilateral lower lobes, increased respiratory effort noted, expiratorywheezes Abdomen: Soft, Non-Distended, Non-Tended, BSx4 Extremities: Multiple bruises all extremities Neurological: No Focal Defects: No sensory or motor deficits noted Psych: Calm and cooperative - Labs CBC & Chem 7: 05/19/19 07:24 05/19/19 07:24 Labs: Abnormal Lab Results - Last 24 Hours (Table) 05/19/19 05/19/19 05/19/19 Range/Units 07:24 07:24 07:24 WBC 2.2 L (3.8-10.6) k/uL RBC 2.92 L (4.30-5.90) m/uL Hgb 9.1 L (13.0-17.5) gm/dL Hct 31.3 L (39.0-53.0) % MCV 106.9 H (80.0-100.0) fL MCHC 29.2 L (31.0-37.0) g/dL RDW 20.4 H (11.5-15.5) % Neutrophils # (Manual) 1.10 L (1.3-7.7) k/uL Lymphocytes # (Manual) 0.35 L (1.0-4.8) k/uL Macrocytosis Marked A D-Dimer (<0.60) mg/L FEU Potassium 5.3 H (3.5-5.1) mmol/L Chloride 114 H (98-107) mmol/L BUN 23 H (9-20) mg/dL Creatinine 1.79 H (0.66-1.25) mg/dL POC Glucose (mg/dL) (75-99) mg/dL Calcium 6.8 L (8.4-10.2) mg/dL AST 179 H (17-59) U/L ALT 180 H (21-72) U/L Alkaline Phosphatase 150 H (38-126) U/L Total Creatine Kinase 357 H (55-170) U/L Total Protein 5.4 L (6.3-8.2) g/dL Albumin 3.0 L (3.5-5.0) g/dL 05/19/19 05/19/19 Range/Units 07:24 11:31 WBC (3.8-10.6) k/uL RBC (4.30-5.90) m/uL Hgb (13.0-17.5) gm/dL Hct (39.0-53.0) % MCV (80.0-100.0) fL MCHC (31.0-37.0) g/dL RDW (11.5-15.5) % Neutrophils # (Manual) (1.3-7.7) k/uL Lymphocytes # (Manual) (1.0-4.8) k/uL Macrocytosis D-Dimer 1.78 H (<0.60) mg/L FEU Potassium (3.5-5.1) mmol/L Chloride (98-107) mmol/L BUN (9-20) mg/dL Creatinine (0.66-1.25) mg/dL POC Glucose (mg/dL) 117 H (75-99) mg/dL Calcium (8.4-10.2) mg/dL AST (17-59) U/L ALT (21-72) U/L Alkaline Phosphatase (38-126) U/L Total Creatine Kinase (55-170) U/L Total Protein (6.3-8.2) g/dL Albumin (3.5-5.0) g/dL Microbiology - Last 24 Hours (Table) 05/17/19 13:55 Urine Culture - Preliminary Urine,Catheterized Coagulase Negative Staph 05/17/19 19:40 Blood Culture - Preliminary Blood No Growth after 24 hours 05/17/19 19:25 Blood Culture - Preliminary Blood No Growth after 24 hours Assessment and Plan (1) ARF (acute renal failure) Current Visit: Yes Status: Acute Code(s): N17.9 - ACUTE KIDNEY FAILURE, UNSPECIFIED SNOMED Code(s): 67753150 (2) Dehydration Current Visit: Yes Status: Acute Code(s): E86.0 - DEHYDRATION SNOMED Code(s): 03901415 (3) Multiple myeloma Current Visit: No Status: Acute Code(s): C90.00 - MULTIPLE MYELOMA NOT HAVING ACHIEVED REMISSION SNOMED Code(s): 573250089 Plan: Assessment and Recommendations: Multiple Myeloma: - Hold Pomalyst and Cyclophosphamide at this time - Primary Oncologist Dr. rubalcava - Details of history in HPI Acute Hypoxic Respiratory Failure: - Pulmonary following - Treatment for possible pneumonia Liver Transiminitis: - Ultrasound Ordered - GI to evaluate Fall From Standing: - Patient's states he has fallen multiple times over the past few weeks and has had has had will order CAT scan of the head - X-ray of the right shoulder shows impacted proximal humerus fracture Neoplastic Related Pain: - Continue Percocet PRN and PRN Dilaudid - Narcotic induced constipation - Senna S and Miralx Acute Kidney Injury: - Hyperkalemia: - Likely dehydration - Nephrology to evaluate - IV Fluids Constipation: - Bowel Regimen Ordered Leukopenia: - Secondary to Chemotherapy Normocytic Anemia: - Secondary Multiple Myeloma, Chemo, possible component of Kidney disease Decreased PO Intake: - Have Dieticien Evaluate Debility and Weakness, Chronic illness myopathy - PT/OT Evaluate and treat recommend imaging of brain will need to await improved renal function Continue pain and narcotic induced constiption meds.
[2019-05-19 15:20] LABS: Glucose,Whole Blood 99 mg/dL (75-99)
[2019-05-19 16:14] LABS: INR 0.9 (<1.2); Partial Thromboplastin Time 28.8 sec (22.0-30.0); Prothrombin Time 9.8 sec (9.0-12.0)
[2019-05-19 16:15] LABS: Uric Acid 6.5 mg/dL (3.5-8.5)
[2019-05-19 17:50] LABS: Glucose,Whole Blood 95 mg/dL (75-99)
[2019-05-19 18:08] LABS: Folate, Serum >24.0 ng/mL; Iron Saturation 18.13 (15.00-50.00)
[2019-05-19] MEDS: ALBUTEROL NEBULIZED 2.5 MG/3 ML INHALATION PRN (19:30)
[2019-05-19 19:56] LABS: Glucose,Whole Blood 85 mg/dL (75-99)
--- NOTE | 2019-05-19 21:51 | PN ---
PROGRESS NOTE DATE OF SERVICE: 05/19/2019. This 69-year-old gentleman who was admitted with a fall and impacted fracture of the right humeral neck, also had leukopenia secondary to malignancy. The patient also has severe hypocalcemia. This morning the patient had severe hypoxia and Dr. Lackey was consulted. The patient was given oxygen and the patient improved significantly. The hypoxia was suspected secondary to acute community-acquired pneumonia. The most recent chest x-ray which was personally reviewed by me showed significant lesions indicating multifocal left-sided lesions. A chest abdominal CT scan was done at the time of admission showed no suspicious acute abnormality. PAST MEDICAL HISTORY: Reviewed. REVIEW OF SYSTEMS: CARDIOVASCULAR SYSTEM: No angina or palpitations. RESPIRATION: As mentioned earlier. GI as mentioned earlier. no dysuria. Nervous systems: No focal deficits. CURRENT MEDICATIONS: Reviewed and include: 1. Ventolin 2.5 q.6h hours. 2. Norvasc 10 mg q48 hours. 3. Aspirin 320 mg daily. 4. Lipitor 20 mg daily. 5. Symbicort 160/4.5 two puffs b.i.d. 6. Tums 500 mg. 7. Rocephin 1 g daily. 8. Celexa 20 mg daily. 9. Hexadrol 20 mg p.o. Wednesday. 10.Lovenox 40 mg subcu. 11.Folic acid 1 mg daily. 12.Dilaudid 0.5 mg q.4 p.r.n. 13.Cephulac 50 mg p.o. q.i.d. 14.Multivitamin 1 p.o. daily. 15.Cyclophosphamide 400 daily. 16.Zofran. 17.Percocet 10 mg q.4. 18.MiraLAX 17 g p.o. daily. 19.Senokot-S 2 tablets p.o. daily. 20.Sodium bicarb. 21.Flomax 0.4 daily. 22.Vitamin B1 100 mg p.o. daily. PHYSICAL EXAM: Alert and oriented times three. Pulse 77. Blood pressure 112/54, respiration 20, temperature 97.4, pulse ox 96% on 50% oxygen. HEENT: Conjunctivae normal. NECK: No jugular venous distention. CARDIOVASCULAR: S1, S2 muffled. RESPIRATIONS: Breath sounds diminished in the bases. Bilateral scattered rhonchi and crackles. Left more than the right. ABDOMEN: Soft, nontender. No mass palpable. LEGS: No edema. No swelling. NERVOUS SYSTEM: No focal deficits. Mild diffuse weakness. Examination of right shoulder fracture present. LABS: Urine culture showed coagulase-negative Staph. Otherwise WBC 2.2, hemoglobin 9.1, platelets 199. Sodium 140, potassium 5.3. Creatinine is 1.79. AST and ALT noted. Lactic acid is 872. ASSESSMENT: 1. Fall and impacted fracture of the right humeral neck with severe pain. 2. Possible acute hypoxic respiratory failure secondary to pneumonia, left side multifocal, possibly community-acquired, possibly gram-negative. 3. Leukopenia and anemia secondary to malignancy. 4. Severe hypocalcemia. 5. Increased MCV. 6. History of multiple myeloma. 7. History of adenocarcinoma of the right lung. 8. Hyperkalemia. 9. Renal failure, chronic renal failure stage 3 secondary to multiple myeloma, possibly. 10.Urinary tract infection present on admission. 11.Gastroesophageal reflux disease. 12.Chronic obstructive pulmonary disease. 13.Hypertension. 14.Hyperlipidemia. 15.History of cholecystectomy. 16.History of tonsillectomy. 17.Chronic hypoxic respiratory failure on home oxygen at 2 L nasal cannula. 18.Change in mental status, possible acute metabolic encephalopathy multifactorial. RECOMMENDATIONS AND DISCUSSION: Continue current medications, management and symptomatic treatment. Continue with aggressive bronchodilator treatment. Continue with empiric antibiotics. Otherwise, continue with IV fluids per Nephrology recommendations. Otherwise overall prognosis guarded because of multiple complex medical issues. Further recommendations to follow. Continue with BiPAP and taper off. Otherwise the patient also had hypoxia CT angio could not be done and V/Q scan will be done tomorrow. Otherwise, guarded prognosis. Further recommendations to follow. MMODL / IJN: [id number] /
[2019-05-19] MEDS: HYDROmorphone 0.5 MG/0.5 ML SYRINGE IVP PRN (22:39)
[2019-05-20] MEDS: ALBUTEROL NEBULIZED 2.5 MG/3 ML INHALATION PRN ×2 (02:13→07:42)
[2019-05-20] MEDS: SODIUM CHLORIDE 0.9% 1,000 ML IV SCH ×2 (05:35→14:40)
[2019-05-20 07:12] LABS: Glucose,Whole Blood 89 mg/dL (75-99)
[2019-05-20] MEDS: SYMBICORT 160-4.5 MCG INHALER INHALATION SCH ×3 (07:42→19:27)
[2019-05-20 07:57] LABS: Anisocytosis Slight; Basophils % (A) 1 %; Eosinophils # (A) 0.2 k/uL (0-0.7); Eosinophils % (A) 8 %; HCT 26.1 % (39.0-53.0); Hypochromasia Marked; Lymphocytes # (A) 0.4 k/uL (1.0-4.8); Lymphocytes % (A) 16 %; MCH 31.1 pg (25.0-35.0); MCHC 29.2 g/dL (31.0-37.0); MCV 106.7 fL (80.0-100.0); Macrocytosis Marked; Mean Platelet Volume 7.1; Monocytes # (A) 0.2 k/uL (0-1.0); Monocytes % (A) 7 %; Neutrophils # (A) 1.6 k/uL (1.3-7.7); Neutrophils % (A) 64 %; Platelet Count 203 k/uL (150-450); RBC 2.45 m/uL (4.30-5.90); RDW 19.8 % (11.5-15.5); WBC 2.5 k/uL (3.8-10.6)
--- NOTE | 2019-05-20 07:57 | US ---
EXAMINATION TYPE: US abdomen limited DATE OF EXAM: 05/20/2019 COMPARISON: NONE CLINICAL HISTORY: Increased Liver function. EXAM MEASUREMENTS: Liver Length: 18.2 cm Gallbladder Wall: Surgically absent cm CBD: 0.7 cm Right Kidney: 9.8 x 3.3 x 3.3 cm Pancreas: Obscured by bowel gas Liver: wnl Gallbladder: Surgically absent Evidence for sonographic Bajwa's sign: No CBD: wnl Right Kidney: Cortical thinning. IMPRESSION: 1. Postcholecystectomy. 2 cortical thinning right kidney correlate for chronic medical renal disease
[2019-05-20 08:18] LABS: HGB 7.6 gm/dL (13.0-17.5)
[2019-05-20 08:27] LABS: Albumin 2.7 g/dL (3.5-5.0); Calcium 6.6 mg/dL (8.4-10.2); Magnesium 1.8 mg/dL (1.6-2.3); Total Bilirubin 0.3 mg/dL (0.2-1.3)
[2019-05-20] MEDS: THIAMINE 100 MG TAB PO SCH (09:26)
[2019-05-20] MEDS: CALCIUM CARBONATE 500 MG CHEWABLE PO SCH (09:26)
[2019-05-20] MEDS: ATORVASTATIN 20 MG TAB PO SCH (09:26)
[2019-05-20] MEDS: NYSTATIN 100,000 UNIT/ML SUSP 500,000 UNIT/5 ML CUP PO SCH ×4 (09:26→21:46)
[2019-05-20] MEDS: LACTULOSE 20 GM/30 ML CUP PO PRN ×2 (09:26→13:36)
[2019-05-20] MEDS: POLYETHYLENE GLYCOL 3350 17 GM POWD.PACK PO SCH (09:26)
[2019-05-20] MEDS: TAMSULOSIN 0.4 MG CAP.ER.24H PO SCH (09:26)
[2019-05-20] MEDS: INSULIN ASPART (NovoLOG) 100 UNIT/ML VIAL SQ SCH ×4 (09:26→20:14)
[2019-05-20] MEDS: ASPIRIN 325 MG TAB PO SCH (09:26)
[2019-05-20] MEDS: CITALOPRAM HYDROBROMIDE 20 MG TAB PO SCH (09:27)
[2019-05-20] MEDS: FOLIC ACID 1 MG TAB PO SCH (09:27)
[2019-05-20] MEDS: PANTOPRAZOLE 40 MG TABLET PO SCH (09:27)
[2019-05-20] MEDS: ENOXAPARIN 40 MG/0.4 ML SYRINGE SQ SCH (09:27)
[2019-05-20] MEDS: oxyCODONE-APAP 10-325MG 1 EACH TAB PO PRN (09:27)
[2019-05-20] MEDS: MULTIVITAMINS, THERA 1 EACH TAB PO SCH (09:28)
--- NOTE | 2019-05-20 09:34 | P.PN ---
Subjective Progress Note Date: 05/20/19 Principal diagnosis: Right humeral fracture status post fall This is a very pleasant 69-year-old gentleman with history of adenocarcinoma of the lung with good response to keep treated most recent CAT scan in February 2019 showed remission. There is limited right lower lobe scar. Left lower lobe pleural effusion. He also has a history of severe obstructive pulmonary disease with FEV1 value 47% of predicted. He is oxygen dependent. He continues to smoke. He follows with Dr. Jaffe in our office for the same. The patient has a history of multiple myeloma and had been most recently on Cytoxan. He does have hypercalcemia. He has a previous history of a left humerus fracture. He does have a history of previous alcohol abuse and anemia. He presented here to the emergency room on 05/17/2019 after sustaining a chip and fall at home and significant right arm pain. X-rays did reveal impacted humerus fracture. He had been seen by orthopedic surgeons surgical intervention as planned. Currently in a sling. This morning they called and A team on the patient for increasing shortness of breath and acute hypoxic respiratory failure. He is currently on the AirVo 60% FiO2 and 15 L flow rate. He is maintaining good O2 saturations in the upper 90s. He is currently afebrile. Hemodynamically stable. X-ray reveals multifocal left-sided airspace disease concerning for multifocal pneumonia superimposed on the patient's known lung carcinoma. Weight count 2.2. Hemoglobin 9.1. Creatinine 1.79. AST 179, ALT 180, alk phos 150. Troponin negative. Albumin 3.0. He is currently on ceftriaxone and bronchodilators. The patient is seen today 05/20/2019 in follow-up on the regular medical floor. He is currently awake and alert in no acute distress. Resting comfortably in bed. He is off the AirVo and currently on 8 L high flow nasal cannula. He denies any worsening shortness of breath, cough or congestion. Feeling back to his baseline from the pulmonary standpoint. Anxious to go home. White count 2.5. Hemoglobin 7.6. Creatinine 1.53. AST 90, ALT 160. He remains on bronchodilators, Symbicort, ceftriaxone. Abdominal ultrasound reveals cortical thinning of the right kidney, relate for chronic medical renal disease. Objective - Vital Signs Vital signs: Vital Signs Temp 100.8 F H 05/20/19 04:37 Pulse 80 05/20/19 07:58 Resp 18 05/20/19 08:00 BP 125/63 05/20/19 04:37 Pulse Ox 94 L 05/20/19 04:37 Intake & Output 05/19/19 05/20/19 05/20/19 18:59 06:59 18:59 Intake Total 90 Output Total 650 700 Balance -650 -610 Intake: Oral 90 Output: Urine 650 700 Other: Voiding Method Indwelling Catheter Indwelling Catheter Indwelling Catheter - Exam GENERAL EXAM: Frail, disheveled 69-year-old gentleman. In mild respiratory distress. Currently on Airvo at 60% FiO2. HEAD: Normocephalic. EYES: Normal reaction of pupils, equal size. NOSE: Clear with pink turbinates. THROAT: No erythema or exudates. NECK: No masses, no JVD. CHEST: No chest wall deformity. LUNGS: Equal air entry with bilateral scattered rhonchi. CVS: S1 and S2 normal with no audible murmur, regular rhythm. ABDOMEN: No hepatosplenomegaly, normal bowel sounds, no guarding or rigidity. SPINE: No scoliosis or deformity SKIN: No rashes CENTRAL NERVOUS SYSTEM: No focal deficits, tone is normal in all 4 extremities. EXTREMITIES: Edema of the right upper extremity with ecchymosis. Currently in a sling. No significant lower extremity peripheral edema. Peripheral pulses are intact. - Labs CBC & Chem 7: 05/20/19 07:43 05/20/19 07:43 Labs: Abnormal Lab Results - Last 24 Hours (Table) 05/19/19 05/19/19 05/19/19 Range/Units 09:37 09:37 11:31 WBC (3.8-10.6) k/uL RBC (4.30-5.90) m/uL Hgb (13.0-17.5) gm/dL Hct (39.0-53.0) % MCV (80.0-100.0) fL MCHC (31.0-37.0) g/dL RDW (11.5-15.5) % Macrocytosis Chloride (98-107) mmol/L Creatinine (0.66-1.25) mg/dL POC Glucose (mg/dL) 117 H (75-99) mg/dL Calcium (8.4-10.2) mg/dL Iron 33 L (65-175) ug/dL TIBC 182 L (228-460) ug/dL Ferritin 523.6 H (22.0-322.0) ng/mL AST (17-59) U/L ALT (21-72) U/L Alkaline Phosphatase (38-126) U/L Lactate Dehydrogenase (313-618) U/L Total Protein (6.3-8.2) g/dL Albumin (3.5-5.0) g/dL Vitamin B12 1091.0 H (200.0-944.0) pg/mL 05/19/19 05/20/19 05/20/19 Range/Units 15:28 07:43 07:43 WBC 2.5 L (3.8-10.6) k/uL RBC 2.45 L (4.30-5.90) m/uL Hgb 7.6 L D (13.0-17.5) gm/dL Hct 26.1 L (39.0-53.0) % MCV 106.7 H (80.0-100.0) fL MCHC 29.2 L (31.0-37.0) g/dL RDW 19.8 H (11.5-15.5) % Macrocytosis Marked A Chloride 113 H (98-107) mmol/L Creatinine 1.53 H (0.66-1.25) mg/dL POC Glucose (mg/dL) (75-99) mg/dL Calcium 6.6 L (8.4-10.2) mg/dL Iron (65-175) ug/dL TIBC (228-460) ug/dL Ferritin (22.0-322.0) ng/mL AST 90 H (17-59) U/L ALT 160 H (21-72) U/L Alkaline Phosphatase 137 H (38-126) U/L Lactate Dehydrogenase 872 H (313-618) U/L Total Protein 5.0 L (6.3-8.2) g/dL Albumin 2.7 L (3.5-5.0) g/dL Vitamin B12 (200.0-944.0) pg/mL Microbiology - Last 24 Hours (Table) 05/17/19 19:40 Blood Culture - Preliminary Blood No Growth after 48 hours 05/17/19 19:25 Blood Culture - Preliminary Blood No Growth after 48 hours Assessment and Plan Assessment: Impression: #1 Right humeral fracture status post trip and fall. Denies syncope. No surgical interventions planned. #2 Acute hypoxic respiratory failure secondary to suspected acute community- acquired pneumonia. #3 History of adenocarcinoma of the lung with good response treatment. #4 Severe oxygen dependent chronic obstructive pulmonary disease with FEV1 value of 47% of predicted. #5 Chronic chronic and ongoing tobacco dependence. #6 Multiple myeloma and had most recently been on Cytoxan. #7 Hypercalcemia, history of. Plan: The patient was seen and evaluated by Dr. Lackey. Chest x-ray and labs reviewed. We will continue ceftriaxone,azithromycin. Continue DuoNeb inhalations every 4 hours and Symbicort. Continue to titrate down the FiO2 as tolerated. Once he is down to his home oxygen level of 2-3 L/m he could be discharged home on oral antibiotics. We will continue to follow and make further recommendations based on his clinical status. I, the cosigning physician, performed a history & physical examination of the patient. Lungs sounds bilateral scattered rhonchi. Maintaining good O2 saturations in the 90s on 8 L high flow nasal cannula. I discussed the assessment and plan of care with my nurse practitioner, Noemy Nelson. I attest to the above consultation as dictated by her.
[2019-05-20 10:09] LABS: Poikilocytosis (M) Present; RBC Fragments Present
[2019-05-20] MEDS: amLODIPine 10 MG TAB PO SCH (10:21)
--- NOTE | 2019-05-20 12:20 | CONS ---
CONSULTATION DATE OF DICTATION: May 20, 2019. REQUESTING PHYSICIAN: Dr. Espinoza. REASON FOR CONSULTATION: Elevated LFTs. HISTORY OF PRESENT ILLNESS: The patient is a 69-year-old pleasant white male with history of multiple myeloma diagnosed about 2 years ago as well as adenocarcinoma of the lung, follows with Dr. Moncada on an outpatient basis. The patient is undergoing chemotherapy for multiple myeloma since the diagnosis in August of 2017. He came to the hospital after he had a fall in the bathroom and subsequently had severe right shoulder pain and was diagnosed with right humeral fracture. Orthopedics had seen the patient and presently is undergoing conservative management for the fracture. While in the hospital, was noted to have elevated LFTs and we are consulted in regards to this issue. The patient denies any abdominal pain. Reports no nausea, vomiting. He has some constipation and the patient has lower abdominal cramping and discomfort. He denies any history of jaundice or hepatitis in the past. He has history of heavy alcohol abuse for almost 50 years. He drinks at least 10 cans of beer a day. Never was diagnosed with any chronic liver disease. No family history of chronic liver disease. LABS: From April 12 that is completely within normal limits. Labs during this hospitalization show on 05/17 ALT and AST were slightly elevated at 120 and 106 respectively, which got worse yesterday with ALT and AST at 79 and 180 respectively and today they are improving at 190 and 160 respectively. Total bilirubin and alkaline phosphatase within normal limits. He was noted to have gradual drop in hemoglobin to 7.6 g/dL. PAST MEDICAL HISTORY: Significant for multiple myeloma diagnosed in August of 2017, followed by Dr. Moncada, undergoing chemotherapy, history of GERD, hypertension, hyperlipidemia, and lung cancer. MEDICATIONS: At home include oxycodone, Hexadrol, Ventolin, Norvasc, Zofran, sodium bicarb, cyclophosphamide, K-Irene, Prilosec, Flomax, multivitamin, folic acid, Celexa, calcium carbonate, Lipitor, Ecotrin. ALLERGIES: IV DYE. SOCIAL HISTORY: Heavy alcohol use as mentioned above and chronic smoking. FAMILY HISTORY: Father had COPD. Mom had hypertension and coronary artery disease. REVIEW OF SYSTEMS: Cardiopulmonary: No chest pain. No shortness of breath. GENITOURINARY: Denies any dysuria, hematuria. Musculoskeletal: Severe pain in the right shoulder and right humerus at the site of fracture. GI as mentioned above. Neurology unremarkable. Psychiatric unremarkable. ENT/vision unremarkable. CONSTITUTIONAL: Some weight loss but no fever, chills, night sweats. PHYSICAL EXAMINATION: He appears comfortable in no apparent distress. Vital signs are stable. Blood pressure is 112/86, pulse rate 82. Temperature 98.1. HEENT examination unremarkable. Conjunctivae pink. Sclerae anicteric. Oral cavity no lesions. NECK: No jugular venous distention or lymph node enlargement. CHEST: Clear to auscultation. HEART: Regular rate and rhythm. ABDOMEN: Soft. Bowel sounds are positive. No organomegaly. Liver was not palpable. EXTREMITIES no pedal edema. Multiple bruises noted. Skin no rashes. NEUROLOGIC: Alert and oriented x3. No focal deficits. LABORATORY DATA: Lab from today: WBC 2.4, hemoglobin 7.6, platelets 203. BUN and creatinine 18 and 1.5 respectively. Last AST at the time of admission to the hospital AST was 120, ALT was 106. Today AST is 90, ALT is 160, alkaline phosphatase 137, bilirubin 0.3. Ultrasound of the abdomen showed normal-appearing liver and status post cholecystectomy. IMPRESSION: 1. Elevated LFTs noted during this hospitalization. On reviewing his old medical records, labs on April 12, 2019 showed normal LFTs. The patient has no chronic liver disease in the past. He does have history of heavy alcohol abuse and drinks at least 10 beers a day for almost 45 years, he did have ultrasound of the abdomen done showed normal-appearing liver, elevated LFTs have been noted only during the hospitalization which makes it likely that it may be medication related. Possibility of underlying chronic alcoholic liver disease cannot be excluded. 2. History of multiple myeloma, undergoing chemotherapy for the last 1-1/2 years duration. 3. Right humerus fracture from recent fall. 4. History of lung cancer. RECOMMENDATIONS: 1. Obtain hepatitis serologies for A, B, E, and C. 2. Since serum transaminases are slightly improving, we will continue to monitor them closely. 3. Reviewed the ultrasound of the abdomen results with the patient. 4. Follow LFTs on a daily basis. Thank you for this consultation. MMODL / IJN: [id number] /
--- NOTE | 2019-05-20 12:26 | MR ---
EXAMINATION TYPE: MR brain wo con DATE OF EXAM: 05/20/2019 COMPARISON: CT brain 05/17/2019 HISTORY: Confusion TECHNIQUE: T1-weighted sagittal, T2, FLAIR, and diffusion axial, and T2 coronal coronal views of the brain are submitted. FINDINGS: Motion artifact limits the exam. Lack of contrast limits assessment for mass. There is no evidence of acute ischemia. [id number] generalized degenerative changes are seen. There are focal areas of abnormal signal seen within the white matter bilaterally. Mild confluent sig nal surrounding the ventricular system also noted. Findings nonspecific. Most likely in the basis of remote microvascular ischemia. Focal areas of abnormal signal in the sherwin suggestive of remote ischem ia. Changes of chronic sinusitis and mastoiditis on the right noted. There is no mass effect. Craniocervical junction maintained. Sella turcica has a normal appearance. IMPRESSION: 1. No acute intracranial process 2. Degenerative and nonspecific white matter changes. Most likely secondary to remote microvascular i schemia. 3. Sinusitis and right mastoiditis. 4. Heterogeneous pattern to the clivus. This is a nonspecific finding. Could been the basis of demine ralization. No overt destructive changes. Early metastases not excluded.
--- NOTE | 2019-05-20 13:29 | NM ---
EXAMINATION TYPE: NM pul vent and perfuse DATE OF EXAM: 05/20/2019 COMPARISON: 05/19/2019 HISTORY: Shortness of breath TECHNIQUE: Utilizing inhalation of 65.0 mCi Tc 99m DTPA aerosol and intravenous injection of 3.28 mC i of Tc 99m MAA, ventilation and perfusion images are acquired post injection in multiple projections . FINDINGS: Exam is severely limited due to Little or no uptake within the lungs on ventilation images with centr al clumping of radiotracer. Multiple defects are seen including a triple match involving the left low er lobe. IMPRESSION: Severely limited exam due to limitation with the ventilation images. There is a perfusion defect with in the left upper and lower lobe corresponding to the x-ray abnormality. Findings are consistent with an intermediate probability for pulmonary embolism.
[2019-05-20] MEDS: AZITHROMYCIN 500 MG TAB PO SCH (13:36)
[2019-05-20] MEDS: SODIUM BICARBONATE TAB 650 MG TAB PO SCH (13:36)
--- NOTE | 2019-05-20 13:46 | P.PN ---
Subjective Progress Note Date: 05/20/19 Principal diagnosis: This 69-year-old male with multiple myeloma as well as lung cancer is being followed up because of acute kidney injury. This was deemed from nonsteroidals and volume depletion. He was on IV fluids. Creatinine is improving. He feels fairly well denies any shortness of breath. Urine output is maintained last 24 hours was 17 50 mL. Creatinine is getting better Patient is a 69-year-old male seen in renal consultation for acute kidney injury on chronic kidney disease. Patient has chronic kidney disease stage III with baseline creatinine in the range of 1.3-1.5. Creatinine on admission was 2.75. Labs from today are pending. Patient fell in the bathroom and was complaining of pain in his shoulder and subsequently came to the hospital. He is noted to have a right humerus fracture. Blood pressure is stable although it's been a little bit on the lower side in the systolic 90s this admission. No vomiting or diarrhea. Denies chest pain or shortness of breath. Patient admits to taking Aleve twice daily on a daily basis. He is currently maintained on normal saline at 100 mL an hour. No history of diabetes. Patient has history of multiple myeloma and follows with oncology outpatient. He is currently maintained on chemotherapy. Patient's lactic acid was 2.5 and is down to 0.7 today. UA reveals trace protein. The patient is a 69-year-old gentleman with multiple medical problems. He had presented in 03/27 with mental status changes related to hypercalcemia, at [facility]. He was found to have a right lung mass and mediastinal adenopathy. Biopsy was positive for adenocarcinoma. Subsequent PET scan in early 05/27 revealed evidence of uptake in the right lung mass, mediastinal lymph nodes, as well as a left lower lobe lung mass. Biopsy of the left-sided mass also revealed adenocarcinoma. The patient was therefore felt to have stage IV disease. Biomarker testing revealed him to be PD-L1 positive at about 50%. He was therefore started on first-line Keytruda, and is status post 4 cycles, the most recent on 08/30/17. He is also known with multiple myeloma Objective - Vital Signs Vital signs: Vital Signs Temp 100.8 F H 05/20/19 04:37 Pulse 80 05/20/19 07:58 Resp 19 05/20/19 09:36 BP 125/63 05/20/19 04:37 Pulse Ox 81 L 05/20/19 09:36 Intake & Output 05/19/19 05/20/19 05/20/19 18:59 06:59 18:59 Intake Total 90 Output Total 650 700 Balance -650 -610 Intake: Oral 90 Output: Urine 650 700 Other: Voiding Method Indwelling Catheter Indwelling Catheter Indwelling Catheter On examination he has a sling on his right arm because of fall and fracture. He is awake alert comfortable HEENT exam no JVP neck is supple no facial asymmetry Lungs are clear to auscultation good air entry bilaterally Heart sounds are unremarkable for any murmur rub gallop Abdomen soft nontender nondistended Extremity exam reveals trace to minimal edema Neurologically awake alert oriented - Labs CBC & Chem 7: 05/20/19 07:43 05/20/19 07:43 Labs: Abnormal Lab Results - Last 24 Hours (Table) 05/19/19 05/19/19 05/19/19 Range/Units 09:37 09:37 15:28 WBC (3.8-10.6) k/uL RBC (4.30-5.90) m/uL Hgb (13.0-17.5) gm/dL Hct (39.0-53.0) % MCV (80.0-100.0) fL MCHC (31.0-37.0) g/dL RDW (11.5-15.5) % Lymphocytes # (1.0-4.8) k/uL Macrocytosis Chloride (98-107) mmol/L Creatinine (0.66-1.25) mg/dL Calcium (8.4-10.2) mg/dL Iron 33 L (65-175) ug/dL TIBC 182 L (228-460) ug/dL Ferritin 523.6 H (22.0-322.0) ng/mL AST (17-59) U/L ALT (21-72) U/L Alkaline Phosphatase (38-126) U/L Lactate Dehydrogenase 872 H (313-618) U/L Total Protein (6.3-8.2) g/dL Albumin (3.5-5.0) g/dL Vitamin B12 1091.0 H (200.0-944.0) pg/mL 05/20/19 05/20/19 Range/Units 07:43 07:43 WBC 2.5 L (3.8-10.6) k/uL RBC 2.45 L (4.30-5.90) m/uL Hgb 7.6 L D (13.0-17.5) gm/dL Hct 26.1 L (39.0-53.0) % MCV 106.7 H (80.0-100.0) fL MCHC 29.2 L (31.0-37.0) g/dL RDW 19.8 H (11.5-15.5) % Lymphocytes # 0.4 L (1.0-4.8) k/uL Macrocytosis Marked A Chloride 113 H (98-107) mmol/L Creatinine 1.53 H (0.66-1.25) mg/dL Calcium 6.6 L (8.4-10.2) mg/dL Iron (65-175) ug/dL TIBC (228-460) ug/dL Ferritin (22.0-322.0) ng/mL AST 90 H (17-59) U/L ALT 160 H (21-72) U/L Alkaline Phosphatase 137 H (38-126) U/L Lactate Dehydrogenase (313-618) U/L Total Protein 5.0 L (6.3-8.2) g/dL Albumin 2.7 L (3.5-5.0) g/dL Vitamin B12 (200.0-944.0) pg/mL Microbiology - Last 24 Hours (Table) 05/17/19 19:40 Blood Culture - Preliminary Blood No Growth after 48 hours 05/17/19 19:25 Blood Culture - Preliminary Blood No Growth after 48 hours Assessment and Plan Plan: Impression 1. Acute kidney injury, secondary to prerenal from hypotension and nonsteroidals. Creatinine continues to improve, is down to 1.5 this morning. 2. Chronic kidney disease stage III. Baseline creatinine 1.5 3. Urinary retention with a Calvo catheter. 4. Hyperkalemia resolved 5. Non-gap acidosis better bicarb is 23. 6. Anemia of chronic illness. 7. History of multiple myeloma and lung cancer. Recommendation 1. Reduce IV fluids to KVO 2. Monitor labs 3. We will continue to follow
[2019-05-20] MEDS: IPRATROPIUM-ALBUTEROL 3 ML NEB INHALATION SCH ×3 (14:02→19:28)
[2019-05-20] MEDS: SODIUM CHLORIDE 0.9% 500 ML 500 ML IV SCH (17:19)
[2019-05-20 17:25] LABS: Glucose,Whole Blood 93 mg/dL (75-99)
[2019-05-20] MEDS: PIPERACILLIN-TAZOBACTAM 3.375 GM in SODIUM CHLORIDE 0.9% 100 ML IVPB SCH ×2 (17:56→23:48)
[2019-05-20] MEDS: oxyCODONE-APAP 5-325MG 1 EACH TAB PO PRN (17:57)
--- NOTE | 2019-05-20 19:47 | P.PN ---
Subjective Progress Note Date: 05/20/19 Principal diagnosis: Fall Liver function and hypoxia improved. Ultrasound scheduled today Objective - Vital Signs Vital signs: Vital Signs Temp 98.2 F 05/20/19 15:07 Pulse 78 05/20/19 15:17 Resp 18 05/20/19 15:17 BP 114/56 05/20/19 15:07 Pulse Ox 99 05/20/19 15:07 Intake & Output 05/20/19 05/20/19 05/21/19 06:59 18:59 06:59 Intake Total 90 1200 Output Total 700 700 Balance -610 500 Intake: Intake, IV Titration 650 Amount Sodium Chloride 0.9% 1, 650 000 ml @ 75 mls/hr IV . [id number] KENY Rx#:[id number] Oral 90 550 Output: Urine 700 700 Other: Voiding Method Indwelling Catheter Indwelling Catheter # Voids 2 - Exam General: Alert and Oriented x3, No Acute Distress, poor hhistorian, cachetic, chronic ill appearing Head: Normocytic, Atraumatic Neck: Supple Mouth: No Lesions, No Thrush Eyes: Non-sclerotic No Palpable cervical, supraclavicular, axillary adenopathy Heart: Regular Rate, Regular Rhythm Lungs: Diminishe bilateral lower lobes, increased respiratory effort noted, expiratorywheezes Abdomen: Soft, Non-Distended, Non-Tended, BSx4 Extremities: Multiple bruises all extremities Neurological: No Focal Defects: No sensory or motor deficits noted Psych: Calm and cooperative - Labs CBC & Chem 7: 05/20/19 07:43 05/20/19 07:43 Labs: Abnormal Lab Results - Last 24 Hours (Table) 05/20/19 05/20/19 Range/Units 07:43 07:43 WBC 2.5 L (3.8-10.6) k/uL RBC 2.45 L (4.30-5.90) m/uL Hgb 7.6 L D (13.0-17.5) gm/dL Hct 26.1 L (39.0-53.0) % MCV 106.7 H (80.0-100.0) fL MCHC 29.2 L (31.0-37.0) g/dL RDW 19.8 H (11.5-15.5) % Lymphocytes # 0.4 L (1.0-4.8) k/uL Macrocytosis Marked A Chloride 113 H (98-107) mmol/L Creatinine 1.53 H (0.66-1.25) mg/dL Calcium 6.6 L (8.4-10.2) mg/dL AST 90 H (17-59) U/L ALT 160 H (21-72) U/L Alkaline Phosphatase 137 H (38-126) U/L Total Protein 5.0 L (6.3-8.2) g/dL Albumin 2.7 L (3.5-5.0) g/dL Microbiology - Last 24 Hours (Table) 05/17/19 19:40 Blood Culture - Preliminary Blood No Growth after 48 hours 05/17/19 19:25 Blood Culture - Preliminary Blood No Growth after 48 hours Assessment and Plan (1) ARF (acute renal failure) Current Visit: Yes Status: Acute Code(s): N17.9 - ACUTE KIDNEY FAILURE, UNSPECIFIED SNOMED Code(s): 53782096 (2) Dehydration Current Visit: Yes Status: Acute Code(s): E86.0 - DEHYDRATION SNOMED Code(s): 74015425 (3) Multiple myeloma Current Visit: No Status: Acute Code(s): C90.00 - MULTIPLE MYELOMA NOT HAVING ACHIEVED REMISSION SNOMED Code(s): 280127905 Plan: Assessment and Recommendations: Multiple Myeloma: - Hold Pomalyst and Cyclophosphamide at this time - Primary Oncologist Dr. rubalcava - Details of history in HPI Acute Hypoxic Respiratory Failure: - Pulmonary following - Treatment for possible pneumonia Liver Transiminitis: - Ultrasound Ordered - GI to evaluate Fall From Standing: - Patient's states he has fallen multiple times over the past few weeks and has had has had will order CAT scan of the head - X-ray of the right shoulder shows impacted proximal humerus fracture Neoplastic Related Pain: - Continue Percocet PRN and PRN Dilaudid - Narcotic induced constipation - Senna S and Miralx Acute Kidney Injury: - Hyperkalemia: - Likely dehydration - Nephrology to evaluate - IV Fluids Constipation: - Bowel Regimen Ordered Leukopenia: - Secondary to Chemotherapy Normocytic Anemia: - Secondary Multiple Myeloma, Chemo, possible component of Kidney disease Decreased PO Intake: - Have Dieticien Evaluate Debility and Weakness, Chronic illness myopathy - PT/OT Evaluate and treat recommend imaging of brain will need to await improved renal function Continue pain and narcotic induced constiption meds. - Will review MRI Brain and Ultrasound - COntinue monitor breathing and CBC, CMP
[2019-05-20 20:15] LABS: Glucose,Whole Blood 113 mg/dL (75-99)
--- NOTE | 2019-05-20 20:38 | PN ---
PROGRESS NOTE DATE OF SERVICE: 05/20/2019 This 69-year-old gentleman with a past medical history of multiple medical problems admitted with fall and fracture right humeral neck with severe pain. Patient has multiple medical issues including acute hypoxic respiratory failure and leukopenia, anemia and severe hypocalcemia. The patient also had abdominal ultrasound today which showed post cholecystectomy and cortical thinning. The patient was also seen by Gastroenterology and Nephrology as well. Gastroenterology thought the elevated LFTs are thought to be related to medications and nephrology saw the patient and recommended to continue with current medications. Brain MRI was also done which showed no acute intracranial process and degenerate nonspecific changes also noted. The V/Q scan was showing limited exam, possibly intermediate with corresponding defects. PAST MEDICAL HISTORY: Reviewed. REVIEW OF SYSTEMS: Cardiovascular system: No angina or palpitations. RESPIRATORY: As mentioned earlier. GASTROINTESTINAL: As mentioned earlier. no dysuria. CENTRAL NERVOUS SYSTEM: No numbness or weakness. CURRENT MEDICATIONS ARE: 1. Ventolin 2.5 q.6h p.r.n. 2. DuoNeb q.i.d. and p.r.n. 3. Aspirin 320 mg. 4. Lipitor 20 mg. 5. Zithromax 500 mg p.o. daily. 6. Symbicort 160/4.5 two puffs b.i.d. 7. Tums. 8. Rocephin 1 g daily. 9. Celexa 20 mg daily. 10.Hexadrol. 11.Lovenox 40 mg subcu daily. 12.Folic acid. 13.Dilaudid. 14.Cephulac. 15.Multivitamins. 16.Zinc. 17.Zofran. 18.Percocet. 19.Protonix. 20.MiraLAX. 21.Senna. 22.Flomax. 23.Vitamin B1. 24.Doses are reviewed. PHYSICAL EXAM: Patient is alert and oriented times three. Pulse 81. Blood pressure 114/53, respirations 18, temperature 98.2, pulse ox 98% on 8 L. HEENT are conjunctivae normal. NECK: No JVD. CARDIOVASCULAR: S1, S2 muffled. RESPIRATORY: Breath sounds diminished in the bases. Scattered rhonchi and crackles. ABDOMEN: Soft, nontender. LEGS are no edema. No swelling. CENTRAL NERVOUS SYSTEM: No focal deficits. Examination of the right arm fracture. LAB STUDIES: WBC 2.5, hemoglobin 7.2, platelets are 203, AST/ALT noted. ASSESSMENT: 1. Fall and impacted fracture of the right humeral neck, severe pain. 2. Acute hypoxic respiratory failure secondary to possible pneumonia left-sided, possibly gram-negative pneumonia superimposed on malignancy. 3. Leukopenia, anemia secondary to malignancy. 4. Severe hypocalcemia. 5. Increased MCV. 6. History of multiple myeloma. 7. History of adenocarcinoma of the right lung. 8. Acute renal failure possibly prerenal acute tubular necrosis. 9. Hyperkalemia. 10.Renal failure, chronic renal failure stage 3 secondary to multiple myeloma, possibly. 11.Urinary tract infection present on admission. 12.Gastroesophageal reflux disease. 13.Chronic obstructive pulmonary disease. 14.Hypertension. 15.Hyperlipidemia. 16.History of cholecystectomy. 17.History of tonsillectomy. 18.History of chronic hypoxic respiratory failure on home O2 nasal cannula. 19.Change in mental status, possible metabolic encephalopathy, acute, multifactorial. 20.Gait dysfunction. 21.NO CODE, NO CPR, NO VENT. RECOMMENDATIONS AND DISCUSSION: In this 69-year-old gentleman who presented with multiple complex medical issues, we will monitor the patient closely, continue the current medications, management and symptomatic treatment. The patient is on broad-spectrum IV antibiotics. I would recommend change Rocephin to Zosyn. Otherwise, I would also recommend bronchodilators. PT/OT evaluation. The patient has multiple complex medical issues. I recommend possible ECF rehab also. Multiple consultants are following the patient closely as mentioned earlier and prognosis remains extremely guarded. Further recommendations to follow. MMODL / IJN: [id number] /
[2019-05-20] MEDS: SENNOSIDES-DOCUSATE SODIUM 1 EACH TAB PO SCH (21:25)
[2019-05-21 07:19] LABS: Glucose,Whole Blood 92 mg/dL (75-99)
[2019-05-21] MEDS: INSULIN ASPART (NovoLOG) 100 UNIT/ML VIAL SQ SCH ×4 (07:49→21:21)
[2019-05-21] MEDS: PANTOPRAZOLE 40 MG TABLET PO SCH (08:14)
[2019-05-21] MEDS: PIPERACILLIN-TAZOBACTAM 3.375 GM in SODIUM CHLORIDE 0.9% 100 ML IVPB SCH ×3 (08:14→23:52)
[2019-05-21] MEDS: ASPIRIN 325 MG TAB PO SCH (08:15)
[2019-05-21] MEDS: FOLIC ACID 1 MG TAB PO SCH (08:15)
[2019-05-21] MEDS: CALCIUM CARBONATE 500 MG CHEWABLE PO SCH (08:15)
[2019-05-21] MEDS: ATORVASTATIN 20 MG TAB PO SCH (08:15)
[2019-05-21] MEDS: ENOXAPARIN 40 MG/0.4 ML SYRINGE SQ SCH (08:15)
[2019-05-21] MEDS: AZITHROMYCIN 500 MG TAB PO SCH (08:15)
[2019-05-21] MEDS: CITALOPRAM HYDROBROMIDE 20 MG TAB PO SCH (08:15)
[2019-05-21] MEDS: THIAMINE 100 MG TAB PO SCH (08:16)
[2019-05-21] MEDS: NYSTATIN 100,000 UNIT/ML SUSP 500,000 UNIT/5 ML CUP PO SCH ×4 (08:16→21:25)
[2019-05-21] MEDS: SODIUM BICARBONATE TAB 650 MG TAB PO SCH (08:16)
[2019-05-21] MEDS: TAMSULOSIN 0.4 MG CAP.ER.24H PO SCH (08:16)
[2019-05-21] MEDS: POLYETHYLENE GLYCOL 3350 17 GM POWD.PACK PO SCH (08:16)
[2019-05-21] MEDS: MULTIVITAMINS, THERA 1 EACH TAB PO SCH (08:16)
[2019-05-21] MEDS: oxyCODONE-APAP 5-325MG 1 EACH TAB PO PRN (08:28)
[2019-05-21 08:35] LABS: Anisocytosis Moderate; HCT 25.7 % (39.0-53.0); HGB 7.6 gm/dL (13.0-17.5); Hypochromasia Marked; MCH 30.8 pg (25.0-35.0); MCHC 29.7 g/dL (31.0-37.0); MCV 103.9 fL (80.0-100.0); Macrocytosis Marked; Mean Platelet Volume 8.3; Platelet Count 235 k/uL (150-450); Poikilocytosis Slight; RBC 2.47 m/uL (4.30-5.90); RDW 20.2 % (11.5-15.5); WBC 2.8 k/uL (3.8-10.6)
[2019-05-21] MEDS: IPRATROPIUM-ALBUTEROL 3 ML NEB INHALATION SCH ×4 (08:48→19:28)
[2019-05-21] MEDS: SYMBICORT 160-4.5 MCG INHALER INHALATION SCH ×3 (08:48→19:31)
[2019-05-21 09:15] LABS: Albumin 2.6 g/dL (3.5-5.0); Calcium 6.7 mg/dL (8.4-10.2); Potassium 5.5 mmol/L (3.5-5.1); Total Bilirubin 0.4 mg/dL (0.2-1.3)
--- NOTE | 2019-05-21 09:42 | PN ---
PROGRESS NOTE Patient is a 63-year-old pleasant white male with history of multiple myeloma, lung cancer, presently on chemotherapy, admitted to the hospital with right humerus fracture. While in the hospital, was noted to have elevated liver enzymes and hence he was seen in consultation yesterday. The patient denies any abdominal pain. He reports no nausea, vomiting. The patient has some pain in the right upper arm area at the site of fracture. Labs from yesterday showed hepatitis serologies for A, B, and C to be negative. PHYSICAL EXAMINATION: Vital signs are stable. Blood pressure is 117/51, pulse rate 76, temperature 97. HEENT: Examination unremarkable. Conjunctivae pink. Sclerae anicteric. Oral cavity no lesions. NECK: No JVD or lymph node enlargement. CHEST: Clear to auscultation. HEART: Regular rate and rhythm. ABDOMEN: Soft, it was nontender, nondistended. Bowel sounds are positive. No organomegaly. EXTREMITIES: Swelling in the right arm, right arm sling. Scattered bruises through the upper extremities. LABS: From today WBC 2.8, hemoglobin 7.6, platelets 235, and CMP still pending. IMPRESSION: 1. Mild elevation of serum transaminases noted during this hospitalization. Serum transaminases about a month ago are all within normal limits. Most likely dealing with medication induced hepatitis but over the last 3 days LFTs are gradually improving. Hepatitis serologies for A, B, and C negative. Ultrasound of the abdomen showed a normal-appearing liver and prior history of cholecystectomy. 2. History of multiple myeloma diagnosed one and half years ago presently undergoing chemotherapy and follows with Dr. Moncada. 3. Anemia with gradual drop in hemoglobin, but clinically no evidence of active bleeding. Hemoglobin stable at 7.6 g/dL. 4. Urinary tract infection, presently on broad-spectrum antibiotics with IV Zosyn. 5. Leukopenia/anemia. RECOMMENDATIONS: In regard to the elevated LFTs, since they are gradually improving at this time, we will continue with conservative approach with close monitoring and no additional investigations needed. Hopefully, once antibiotic regimen is over his serum transaminases will gradually improve, which can be followed on outpatient basis. Awaiting labs from this morning. At this time we will follow the patient closely during the hospital stay. Thank you for this consultation. MMODL / IJN: [id number] /
--- NOTE | 2019-05-21 10:09 | P.PN ---
Subjective Progress Note Date: 05/21/19 Principal diagnosis: Right humeral fracture status post fall This is a very pleasant 69-year-old gentleman with history of adenocarcinoma of the lung with good response to keep treated most recent CAT scan in February 2019 showed remission. There is limited right lower lobe scar. Left lower lobe pleural effusion. He also has a history of severe obstructive pulmonary disease with FEV1 value 47% of predicted. He is oxygen dependent. He continues to smoke. He follows with Dr. Jaffe in our office for the same. The patient has a history of multiple myeloma and had been most recently on Cytoxan. He does have hypercalcemia. He has a previous history of a left humerus fracture. He does have a history of previous alcohol abuse and anemia. He presented here to the emergency room on 05/17/2019 after sustaining a chip and fall at home and significant right arm pain. X-rays did reveal impacted humerus fracture. He had been seen by orthopedic surgeons surgical intervention as planned. Currently in a sling. This morning they called and A team on the patient for increasing shortness of breath and acute hypoxic respiratory failure. He is currently on the AirVo 60% FiO2 and 15 L flow rate. He is maintaining good O2 saturations in the upper 90s. He is currently afebrile. Hemodynamically stable. X-ray reveals multifocal left-sided airspace disease concerning for multifocal pneumonia superimposed on the patient's known lung carcinoma. Weight count 2.2. Hemoglobin 9.1. Creatinine 1.79. AST 179, ALT 180, alk phos 150. Troponin negative. Albumin 3.0. He is currently on ceftriaxone and bronchodilators. The patient is seen today 05/20/2019 in follow-up on the regular medical floor. He is currently awake and alert in no acute distress. Resting comfortably in bed. He is off the AirVo and currently on 8 L high flow nasal cannula. He denies any worsening shortness of breath, cough or congestion. Feeling back to his baseline from the pulmonary standpoint. Anxious to go home. White count 2.5. Hemoglobin 7.6. Creatinine 1.53. AST 90, ALT 160. He remains on bronchodilators, Symbicort, ceftriaxone. Abdominal ultrasound reveals cortical thinning of the right kidney, relate for chronic medical renal disease. The patient is seen today 05/21/2019 in follow-up on the regular medical floor. He is currently sitting up in a chair at the bedside. Awake and alert in no acute distress. He is breathing easier today as compared to yesterday. Currently down to 5 L high flow nasal cannula and maintaining O2 saturations up to 100%. He is afebrile. Hemodynamically stable. We'll culture reveals no growth. White count 2.8. Hemoglobin 7.6. Creatinine 1.41. Remains on Zosyn. Objective - Vital Signs Vital signs: Vital Signs Temp 97.0 F L 05/21/19 05:00 Pulse 76 05/21/19 05:00 Resp 16 05/21/19 05:00 BP 117/51 05/21/19 05:00 Pulse Ox 100 05/21/19 05:00 Intake & Output 05/20/19 05/21/19 05/21/19 18:59 06:59 18:59 Intake Total 1200 420 Output Total 700 850 Balance 500 -430 Intake: Intake, IV Titration 650 100 Amount Piperacillin-Tazobactam 3 100 .375 gm In Sodium Chloride 0.9% 100 ml @ 25 mls/hr IVPB Q8HR KENY Rx# :[id number] Sodium Chloride 0.9% 1, 650 000 ml @ 75 mls/hr IV . [id number] KENY Rx#:[id number] Oral 550 320 Output: Urine 700 850 Other: Voiding Method Indwelling Catheter Indwelling Catheter # Voids 2 # Bowel Movements 1 - Exam GENERAL EXAM: Frail, disheveled 69-year-old gentleman. In no acute respiratory distress. Currently on 5 L high flow nasal cannula. HEAD: Normocephalic. EYES: Normal reaction of pupils, equal size. NOSE: Clear with pink turbinates. THROAT: No erythema or exudates. NECK: No masses, no JVD. CHEST: No chest wall deformity. LUNGS: Equal air entry with bilateral scattered rhonchi. CVS: S1 and S2 normal with no audible murmur, regular rhythm. ABDOMEN: No hepatosplenomegaly, normal bowel sounds, no guarding or rigidity. SPINE: No scoliosis or deformity SKIN: No rashes CENTRAL NERVOUS SYSTEM: No focal deficits, tone is normal in all 4 extremities. EXTREMITIES: Edema of the right upper extremity with ecchymosis. Currently in a sling. No significant lower extremity peripheral edema. Peripheral pulses are intact. - Labs CBC & Chem 7: 05/21/19 07:42 05/21/19 07:42 Labs: Abnormal Lab Results - Last 24 Hours (Table) 05/20/19 05/20/19 05/21/19 Range/Units 07:43 20:13 07:42 WBC 2.5 L 2.8 L (3.8-10.6) k/uL RBC 2.45 L 2.47 L (4.30-5.90) m/uL Hgb 7.6 L D 7.6 L (13.0-17.5) gm/dL Hct 26.1 L 25.7 L (39.0-53.0) % MCV 106.7 H 103.9 H (80.0-100.0) fL MCHC 29.2 L 29.7 L (31.0-37.0) g/dL RDW 19.8 H 20.2 H (11.5-15.5) % Lymphocytes # 0.4 L (1.0-4.8) k/uL Macrocytosis Marked A Marked A Potassium (3.5-5.1) mmol/L Chloride (98-107) mmol/L Creatinine (0.66-1.25) mg/dL POC Glucose (mg/dL) 113 H (75-99) mg/dL Calcium (8.4-10.2) mg/dL ALT (21-72) U/L Total Protein (6.3-8.2) g/dL Albumin (3.5-5.0) g/dL 05/21/19 Range/Units 07:42 WBC (3.8-10.6) k/uL RBC (4.30-5.90) m/uL Hgb (13.0-17.5) gm/dL Hct (39.0-53.0) % MCV (80.0-100.0) fL MCHC (31.0-37.0) g/dL RDW (11.5-15.5) % Lymphocytes # (1.0-4.8) k/uL Macrocytosis Potassium 5.5 H (3.5-5.1) mmol/L Chloride 117 H (98-107) mmol/L Creatinine 1.41 H (0.66-1.25) mg/dL POC Glucose (mg/dL) (75-99) mg/dL Calcium 6.7 L (8.4-10.2) mg/dL ALT 114 H (21-72) U/L Total Protein 5.0 L (6.3-8.2) g/dL Albumin 2.6 L (3.5-5.0) g/dL Microbiology - Last 24 Hours (Table) 05/17/19 19:40 Blood Culture - Preliminary Blood No Growth after 72 hours 05/17/19 19:25 Blood Culture - Preliminary Blood No Growth after 72 hours Assessment and Plan Assessment: Impression: #1 Right humeral fracture status post trip and fall. Denies syncope. No surgical interventions planned. #2 Acute hypoxic respiratory failure secondary to suspected acute community- acquired pneumonia versus aspiration. #3 History of adenocarcinoma of the lung with good response treatment. #4 Severe oxygen dependent chronic obstructive pulmonary disease with FEV1 value of 47% of predicted. #5 Chronic chronic and ongoing tobacco dependence. #6 Multiple myeloma and had most recently been on Cytoxan. #7 Hypercalcemia, history of. Plan: The patient was seen and evaluated by Dr. Lackey. Labs reviewed. He is now on Zosyn. Continue DuoNeb inhalations every 4 hours and Symbicort. Continue to titrate down the FiO2 as tolerated. Once he is down to his home oxygen level of 2-3 L/m he could be discharged home on oral antibiotics. We will continue to follow and make further recommendations based on his clinical status. I, the cosigning physician, performed a history & physical examination of the patient. Lungs sounds bilateral scattered rhonchi. Maintaining good O2 saturations in the 90s on 5 L high flow nasal cannula. I discussed the assessment and plan of care with my nurse practitioner, Noemy Nelson. I attest to the above consultation as dictated by her.
[2019-05-21 10:17] LABS: Basophils # (M) 0.03 k/uL (0-0.2); Eosinophils # (M) 0.45 k/uL (0-0.7); Lymphocytes # (M) 0.31 k/uL (1.0-4.8); Monocytes # (M) 0.45 k/uL (0-1.0); Neutrophils % (M) 56 %; Nucleated Red Blood Cells 0 /100 WBC (0-0); Total Cells Counted 100
[2019-05-21 10:24] LABS: Anisocytosis Slight; HCT 29.1 % (39.0-53.0); HGB 8.4 gm/dL (13.0-17.5); Hypochromasia Marked; MCH 30.6 pg (25.0-35.0); MCHC 28.8 g/dL (31.0-37.0); MCV 106.4 fL (80.0-100.0); Macrocytosis Marked; Mean Platelet Volume 7.3; Platelet Count 244 k/uL (150-450); RBC 2.73 m/uL (4.30-5.90); WBC 2.9 k/uL (3.8-10.6)
[2019-05-21 10:32] LABS: Calcium 6.9 mg/dL (8.4-10.2); Potassium 5.1 mmol/L (3.5-5.1); Total Bilirubin 0.4 mg/dL (0.2-1.3); Total Protein 5.6 g/dL (6.3-8.2)
[2019-05-21 11:10] LABS: Basophils # (M) 0.03 k/uL (0-0.2); Eosinophils # (M) 0.49 k/uL (0-0.7); Lymphocytes # (M) 0.26 k/uL (1.0-4.8); Monocytes # (M) 0.61 k/uL (0-1.0); Neutrophils % (M) 52 %; Nucleated Red Blood Cells 0 /100 WBC (0-0); Total Cells Counted 100
--- NOTE | 2019-05-21 11:17 | P.PN ---
Subjective Progress Note Date: 05/21/19 Principal diagnosis: Is doing fairly well wants to go home.. He denies any complaints at all. Denies any nausea vomiting headache fever chills cough shortness of breath. Appetite is fair. He has generalized weakness though. He is being followed up for acute kidney injury and chronic kidney disease. History of present illness ; This 69-year-old male with multiple myeloma as well as lung cancer is being followed up because of acute kidney injury. This was deemed from nonsteroidals and volume depletion. He was on IV fluids. Creatinine is improving. He feels fairly well denies any shortness of breath. Urine output is maintained last 24 hours was 17 50 mL. Creatinine is getting better Patient is a 69-year-old male seen in renal consultation for acute kidney injury on chronic kidney disease. Patient has chronic kidney disease stage III with baseline creatinine in the range of 1.3-1.5. Creatinine on admission was 2.75. Labs from today are pending. Patient fell in the bathroom and was complaining of pain in his shoulder and subsequently came to the hospital. He is noted to have a right humerus fracture. Blood pressure is stable although it's been a little bit on the lower side in the systolic 90s this admission. No vomiting or diarrhea. Denies chest pain or shortness of breath. Patient admits to taking Aleve twice daily on a daily basis. He is currently maintained on normal saline at 100 mL an hour. No history of diabetes. Patient has history of multiple myeloma and follows with oncology outpatient. He is currently maintained on chemotherapy. Patient's lactic acid was 2.5 and is down to 0.7 today. UA reveals trace protein. The patient is a 69-year-old gentleman with multiple medical problems. He had presented in 03/27 with mental status changes related to hypercalcemia, at [facility]. He was found to have a right lung mass and mediastinal adenopathy. Biopsy was positive for adenocarcinoma. Subsequent PET scan in early 05/27 revealed evidence of uptake in the right lung mass, mediastinal lymph nodes, as well as a left lower lobe lung mass. Biopsy of the left-sided mass also revealed adenocarcinoma. The patient was therefore felt to have stage IV disease. Biomarker testing revealed him to be PD-L1 positive at about 50%. He was therefore started on first-line Keytruda, and is status post 4 cycles, the most recent on 08/30/17. He is also known with multiple myeloma Objective - Vital Signs Vital signs: Vital Signs Temp 97.0 F L 05/21/19 05:00 Pulse 76 05/21/19 05:00 Resp 16 05/21/19 05:00 BP 117/51 05/21/19 05:00 Pulse Ox 100 05/21/19 05:00 Intake & Output 05/20/19 05/21/19 05/21/19 18:59 06:59 18:59 Intake Total 1200 420 Output Total 700 850 Balance 500 -430 Intake: Intake, IV Titration 650 100 Amount Piperacillin-Tazobactam 3 100 .375 gm In Sodium Chloride 0.9% 100 ml @ 25 mls/hr IVPB Q8HR KENY Rx# :[id number] Sodium Chloride 0.9% 1, 650 000 ml @ 75 mls/hr IV . [id number] KENY Rx#:[id number] Oral 550 320 Output: Urine 700 850 Other: Voiding Method Indwelling Catheter Indwelling Catheter Indwelling Catheter # Voids 2 # Bowel Movements 1 On examination awake alert oriented comfortable but generalized weakness HEENT exam no JVP neck is supple no facial asymmetry Lungs are clear to auscultation good air entry bilaterally Heart sounds are unremarkable no murmur rub gallop Abdomen soft nontender Extreme exam was no edema Neurologically awake alert oriented - Labs CBC & Chem 7: 05/21/19 09:51 05/21/19 09:51 Labs: Abnormal Lab Results - Last 24 Hours (Table) 05/20/19 05/21/19 05/21/19 Range/Units 20:13 07:42 07:42 WBC 2.8 L (3.8-10.6) k/uL RBC 2.47 L (4.30-5.90) m/uL Hgb 7.6 L (13.0-17.5) gm/dL Hct 25.7 L (39.0-53.0) % MCV 103.9 H (80.0-100.0) fL MCHC 29.7 L (31.0-37.0) g/dL RDW 20.2 H (11.5-15.5) % Lymphocytes # (Manual) 0.31 L (1.0-4.8) k/uL Macrocytosis Marked A Potassium 5.5 H (3.5-5.1) mmol/L Chloride 117 H (98-107) mmol/L Creatinine 1.41 H (0.66-1.25) mg/dL POC Glucose (mg/dL) 113 H (75-99) mg/dL Calcium 6.7 L (8.4-10.2) mg/dL ALT 114 H (21-72) U/L Alkaline Phosphatase (38-126) U/L Total Protein 5.0 L (6.3-8.2) g/dL Albumin 2.6 L (3.5-5.0) g/dL 05/21/19 05/21/19 Range/Units 09:51 09:51 WBC 2.9 L (3.8-10.6) k/uL RBC 2.73 L (4.30-5.90) m/uL Hgb 8.4 L (13.0-17.5) gm/dL Hct 29.1 L (39.0-53.0) % MCV 106.4 H (80.0-100.0) fL MCHC 28.8 L (31.0-37.0) g/dL RDW 20.0 H (11.5-15.5) % Lymphocytes # (Manual) (1.0-4.8) k/uL Macrocytosis Marked A Potassium (3.5-5.1) mmol/L Chloride 115 H (98-107) mmol/L Creatinine 1.47 H (0.66-1.25) mg/dL POC Glucose (mg/dL) (75-99) mg/dL Calcium 6.9 L (8.4-10.2) mg/dL ALT 125 H (21-72) U/L Alkaline Phosphatase 138 H (38-126) U/L Total Protein 5.6 L (6.3-8.2) g/dL Albumin 3.0 L (3.5-5.0) g/dL Microbiology - Last 24 Hours (Table) 05/17/19 19:40 Blood Culture - Preliminary Blood No Growth after 72 hours 05/17/19 19:25 Blood Culture - Preliminary Blood No Growth after 72 hours Assessment and Plan Plan: Impression 1. Acute kidney injury, secondary to prerenal from hypotension and nonster oidals. Creatinine continues to improve, is down to 1.47 this morning. 2. Chronic kidney disease stage III. Baseline creatinine 1.5 3. Urinary retention with a Calvo catheter. 4. Hyperkalemia resolved 5. Non-gap acidosis better bicarb is 23. 6. Anemia of chronic illness. Hemoglobin is 8.4 up from 7.6 7. History of multiple myeloma and lung cancer. Recommendation 1. Patient can be discharged, Primary physician. 2. We'll need to be closely followed up.
[2019-05-21] MEDS: SODIUM CHLORIDE 0.9% 500 ML 500 ML IV SCH (15:31)
[2019-05-21 17:20] LABS: Glucose,Whole Blood 112 mg/dL (75-99)
[2019-05-21 17:52] LABS: Glucose,Whole Blood 106 mg/dL (75-99)
--- NOTE | 2019-05-21 20:51 | PN ---
PROGRESS NOTE DATE OF SERVICE: 05/21/2019 This 69-year-old gentleman admitted with right humerus fracture and fall also had also had multiple myeloma. The patient also had acute hypoxic respiratory failure. Patient closely monitored at this time. The patient evaluated for home O2. At this time, the patient has multiple abnormalities also. The patient also complaining of severe pain. The patient also has significant gait dysfunction and debility. Patient is able to walk to the commode with significant help also. The brother who lives in [place], reports to me that the patient has very poor social support with 2 unreliable adults living with the patient at home. The patient is at high risk of fall. PAST MEDICAL HISTORY: Reviewed. REVIEW OF SYSTEMS: CARDIOVASCULAR SYSTEM: No angina. RESPIRATORY: As mentioned earlier. GI: As mentioned earlier. : No dysuria. NERVOUS SYSTEM: As mentioned earlier. CURRENT MEDICATIONS: 1. Ventolin 2.5 q.6h p.r.n. 2. Aspirin 325 mg p.o. daily. 3. Lipitor 20 mg p.o. daily. 4. Zithromax 500 mg p.o. daily. 5. Symbicort 160/4.5 two puffs b.i.d. 6. Tums p.r.n. 7. Celexa 20 mg p.o. daily. 8. Lexapro 20 mg as scheduled. 9. Lovenox 40 mg subcu daily. 10.Folic acid 1 mg. 11.Dilaudid 0.5 mg q.4 p.r.n. 12.Cephulac 15 mg q.i.d. p.r.n. 13.Multivitamins 1 p.o. daily. 14.Mycostatin. 15.Zofran. 16.Percocet. 17.Protonix. 18.Zosyn 3.375 IV q.8h. 19.MiraLAX 17 g daily. 20.Senokot-S 2 tablets p.o. daily. 21.Flomax 0.4. 22.Vitamin B1 100 mg p.o. daily. PHYSICAL EXAM: Patient is alert, oriented x3. Pulse 76, blood pressure 117/52, respiration 16, temperature 97 degrees, pulse ox 100 percent on 5 L. HEENT: Conjunctivae normal. Oral mucosa moist. NECK: No jugular venous distention. No carotid bruit. No lymph node enlargement. CARDIOVASCULAR: S1, S2. RESPIRATORY: Breath sounds diminished in the bases. A few scattered rhonchi and crackles. ABDOMEN: Soft, nontender. No mass palpable. LEGS: No edema. No swelling. Examination of the right humerus, status post fracture in a sling. LABS: WBC 2.9, hemoglobin is 8.4, platelets 244. Sodium 142, potassium 5.1, chloride is 115. Calcium 6.9, alkaline phosphatase is 125. ASSESSMENT: 1. Fall and impacted fracture of the right humeral neck with severe pain. 2. Acute hypoxic respiratory failure secondary to possible pneumonia, left-sided, possibly gram-negative pneumonia superimposed on malignancy. 3. Leukopenia, anemia secondary to malignancy. 4. Severe hypocalcemia. 5. Increased MCV. 6. History of multiple myeloma. 7. Gait dysfunction. 8. History of adenocarcinoma of the right lung. 9. Acute renal failure possibly prerenal acute tubular necrosis. 10.Hyperkalemia. 11.Renal failure acute on chronic renal failure stage 3 secondary to multiple myeloma, possibly. 12.Urinary tract infection present on admission. 13.Gastroesophageal reflux disease. 14.Chronic obstructive pulmonary disease. 15.Hypertension. 16.Hyperlipidemia. 17.History of cholecystectomy. 18.History of tonsillectomy. 19.History of chronic hypoxic respiratory failure on home O2 nasal cannula. 20.Change in mental status, metabolic encephalopathy, multifactorial. 21.Gait dysfunction. 22.NO CODE, NO CPR, NO VENT. RECOMMENDATIONS AND DISCUSSION: In this 69-year-old gentleman who presented with multiple medical issues, is being closely monitored at this time. I recommend to continue the current medications, however, discharge home poses significant problems in this very unstable individual with significant multiple comorbidities as mentioned earlier. The patient is very unstable on his gait and the patient is extremely weak and slightly confused at times. I would strongly recommend ECF rehab for continued monitoring because of the excess risk of fall and very poor social support and the fact that his brother who is with him is living in [place]. Otherwise, we will continue the rest of the medications. We will continue to monitor the oxygen. Patient also might need home O2. Continue the antibiotics. Continue the rest of the medications. The overall prognosis is extremely guarded because of multiple complex medical issues and further recommendations to follow. The patient is on IV Zosyn at this time as mentioned earlier. I would recommend PT, OT and director social service also to evaluate the patient for possible ECF rehab. Further recommendations to follow. MMODL / IJN: [id number] /
[2019-05-21 21:13] LABS: Glucose,Whole Blood 129 mg/dL (75-99)
[2019-05-21] MEDS: SENNOSIDES-DOCUSATE SODIUM 1 EACH TAB PO SCH (21:25)
[2019-05-22] MEDS: oxyCODONE-APAP 5-325MG 1 EACH TAB PO PRN ×3 (01:39→20:16)
[2019-05-22 07:12] LABS: Glucose,Whole Blood 91 mg/dL (75-99)
[2019-05-22] MEDS: INSULIN ASPART (NovoLOG) 100 UNIT/ML VIAL SQ SCH ×4 (07:15→20:12)
[2019-05-22] MEDS: ENOXAPARIN 40 MG/0.4 ML SYRINGE SQ SCH (07:47)
[2019-05-22] MEDS: TAMSULOSIN 0.4 MG CAP.ER.24H PO SCH (07:47)
[2019-05-22] MEDS: CALCIUM CARBONATE 500 MG CHEWABLE PO SCH (07:48)
[2019-05-22] MEDS: SODIUM BICARBONATE TAB 650 MG TAB PO SCH (07:48)
[2019-05-22] MEDS: NYSTATIN 100,000 UNIT/ML SUSP 500,000 UNIT/5 ML CUP PO SCH ×4 (07:48→20:11)
[2019-05-22] MEDS: AZITHROMYCIN 500 MG TAB PO SCH (07:48)
[2019-05-22] MEDS: MULTIVITAMINS, THERA 1 EACH TAB PO SCH (07:48)
[2019-05-22] MEDS: ATORVASTATIN 20 MG TAB PO SCH (07:48)
[2019-05-22] MEDS: POLYETHYLENE GLYCOL 3350 17 GM POWD.PACK PO SCH ×2 (07:48→07:52)
[2019-05-22] MEDS: CITALOPRAM HYDROBROMIDE 20 MG TAB PO SCH (07:48)
[2019-05-22] MEDS: ASPIRIN 325 MG TAB PO SCH (07:48)
[2019-05-22] MEDS: THIAMINE 100 MG TAB PO SCH (07:48)
[2019-05-22] MEDS: PANTOPRAZOLE 40 MG TABLET PO SCH (07:49)
[2019-05-22] MEDS: PIPERACILLIN-TAZOBACTAM 3.375 GM in SODIUM CHLORIDE 0.9% 100 ML IVPB SCH ×2 (07:49→15:18)
[2019-05-22] MEDS: FOLIC ACID 1 MG TAB PO SCH (07:49)
[2019-05-22] MEDS: SYMBICORT 160-4.5 MCG INHALER INHALATION SCH ×2 (08:10→19:29)
[2019-05-22] MEDS: IPRATROPIUM-ALBUTEROL 3 ML NEB INHALATION SCH ×4 (08:10→19:29)
[2019-05-22] MEDS ORDERED: DEXAMETHASONE 4 MG TAB PO SCH (09:00)
[2019-05-22 09:03] LABS: Anisocytosis Slight; HCT 25.7 % (39.0-53.0); HGB 7.5 gm/dL (13.0-17.5); Hypochromasia Marked; MCH 30.4 pg (25.0-35.0); MCV 104.9 fL (80.0-100.0); Macrocytosis Marked; Mean Platelet Volume 7.8; Platelet Count 279 k/uL (150-450); RBC 2.45 m/uL (4.30-5.90); RDW 19.9 % (11.5-15.5); WBC 2.7 k/uL (3.8-10.6)
[2019-05-22 09:09] LABS: Albumin 2.6 g/dL (3.5-5.0); Calcium 6.9 mg/dL (8.4-10.2); Potassium 4.9 mmol/L (3.5-5.1); Total Bilirubin 0.3 mg/dL (0.2-1.3)
--- NOTE | 2019-05-22 09:28 | P.PN ---
Subjective Patient is seen in follow-up for acute kidney injury on chronic kidney disease. Patient is chronic and he disease stage III with baseline creatinine in the range of 1.3-1.5. Creatinine on admission was 2.75 and is now back to baseline. Patient is off IV fluids. Calvo catheter was discontinued this morning. Vital signs are stable. General: The patient appeared well nourished and normally developed. HEENT: Head exam is unremarkable. Neck is without jugular venous distension. LUNGS: Lungs are clear to auscultation and percussion. Breath sounds decreased. HEART: Rate and Rhythm are regular. First and second heart sounds normal. No murmurs, rubs or gallops. ABDOMEN: Abdominal exam reveals normal bowel sounds. Non-tender and non-distende d. No evidence of peritonitis. EXTREMITITES: No clubbing, cyanosis, or edema. Objective - Vital Signs Vital signs: Vital Signs Temp 98.2 F 05/22/19 07:43 Pulse 80 05/22/19 08:24 Resp 18 05/22/19 07:43 BP 134/66 05/22/19 07:43 Pulse Ox 90 L 05/22/19 07:43 Intake & Output 05/21/19 05/22/19 05/22/19 18:59 06:59 18:59 Output Total 1075 500 Balance -1075 -500 Output: Urine 1075 500 Straight 500 Other: Voiding Method Indwelling Catheter Indwelling Catheter # Voids 2 # Bowel Movements 2 - Labs CBC & Chem 7: 05/21/19 09:51 05/22/19 08:34 Labs: Abnormal Lab Results - Last 24 Hours (Table) 05/21/19 05/21/19 05/21/19 Range/Units 07:42 09:51 09:51 WBC 2.9 L (3.8-10.6) k/uL RBC 2.73 L (4.30-5.90) m/uL Hgb 8.4 L (13.0-17.5) gm/dL Hct 29.1 L (39.0-53.0) % MCV 106.4 H (80.0-100.0) fL MCHC 28.8 L (31.0-37.0) g/dL RDW 20.0 H (11.5-15.5) % Lymphocytes # (Manual) 0.31 L 0.26 L (1.0-4.8) k/uL Macrocytosis Marked A Chloride 115 H (98-107) mmol/L Creatinine 1.47 H (0.66-1.25) mg/dL Glucose (74-99) mg/dL POC Glucose (mg/dL) (75-99) mg/dL Calcium 6.9 L (8.4-10.2) mg/dL ALT 125 H (21-72) U/L Alkaline Phosphatase 138 H (38-126) U/L Total Protein 5.6 L (6.3-8.2) g/dL Albumin 3.0 L (3.5-5.0) g/dL 05/21/19 05/21/19 05/21/19 Range/Units 11:25 17:18 21:01 WBC (3.8-10.6) k/uL RBC (4.30-5.90) m/uL Hgb (13.0-17.5) gm/dL Hct (39.0-53.0) % MCV (80.0-100.0) fL MCHC (31.0-37.0) g/dL RDW (11.5-15.5) % Lymphocytes # (Manual) (1.0-4.8) k/uL Macrocytosis Chloride (98-107) mmol/L Creatinine (0.66-1.25) mg/dL Glucose (74-99) mg/dL POC Glucose (mg/dL) 106 H 112 H 129 H (75-99) mg/dL Calcium (8.4-10.2) mg/dL ALT (21-72) U/L Alkaline Phosphatase (38-126) U/L Total Protein (6.3-8.2) g/dL Albumin (3.5-5.0) g/dL 05/22/19 Range/Units 08:34 WBC (3.8-10.6) k/uL RBC (4.30-5.90) m/uL Hgb (13.0-17.5) gm/dL Hct (39.0-53.0) % MCV (80.0-100.0) fL MCHC (31.0-37.0) g/dL RDW (11.5-15.5) % Lymphocytes # (Manual) (1.0-4.8) k/uL Macrocytosis Chloride 115 H (98-107) mmol/L Creatinine 1.48 H (0.66-1.25) mg/dL Glucose 108 H (74-99) mg/dL POC Glucose (mg/dL) (75-99) mg/dL Calcium 6.9 L (8.4-10.2) mg/dL ALT 81 H (21-72) U/L Alkaline Phosphatase (38-126) U/L Total Protein 5.0 L (6.3-8.2) g/dL Albumin 2.6 L (3.5-5.0) g/dL Microbiology - Last 24 Hours (Table) 05/17/19 19:40 Blood Culture - Preliminary Blood No Growth after 96 hours 05/17/19 19:25 Blood Culture - Preliminary Blood No Growth after 96 hours 05/17/19 13:55 Urine Culture - Final Urine,Catheterized Staphylococcus epidermidis Assessment and Plan Plan: Assessment: 1. Acute kidney injury mostly prerenal secondary to hypotension and nonsteroidals. Creatinine 2.75 on admission and is now back to baseline. Trace proteinuria noted on UA. No hydronephrosis noted on renal ultrasound. 2. Chronic kidney disease stage III with baseline creatinine in the range of 1.3-1.5. 3. Hyperkalemia secondary to acute kidney injury and metabolic acidosis. Improved. 4. Multiple myeloma maintained on chemotherapy. 5. Lactic acidosis secondary to hypotension. Improved with IV hydration. 6. Hypocalcemia secondary to acute kidney injury. Better post replacement. Corrected calcium today is 8.3. 7. Urinary retention - Calvo catheter removed this morning. 8. UTI with urine culture positive for staph epi. 9. Anemia of chronic kidney disease. Iron deficiency noted. Plan: Remains off IV fluids. Encouraged oral intake. Maintain oral sodium bicarbonate. Hold antihypertensives if systolic blood pressure less than 120. Maintain Flomax. Monitor serial postvoid residuals. IV iron 3 doses. Continue to monitor renal function and urine output.
[2019-05-22] MEDS ORDERED: SODIUM FERRIC GLUCONAT-SUCROSE 125 MG in SODIUM CHLORIDE 0.9% 100 ML IVPB SCH (09:30)
[2019-05-22 10:35] LABS: Band Neutrophils % 2 %; Eosinophils # (M) 0.68 k/uL (0-0.7); Lymphocytes # (M) 0.11 k/uL (1.0-4.8); Monocytes # (M) 0.59 k/uL (0-1.0); Neutrophils % (M) 47 %; Nucleated Red Blood Cells 0 /100 WBC (0-0); Total Cells Counted 100
[2019-05-22 10:37] LABS: Ovalocytes Present; Poikilocytosis (M) Present
[2019-05-22 11:20] LABS: Glucose,Whole Blood 113 mg/dL (75-99)
--- NOTE | 2019-05-22 11:25 | P.CONS ---
History of Present Illness - Chief Complaint Walking difficulty - History of Present Illness I had the opportunity to see patient for inpatient rehab consultation with regard to walking difficulty. He was admitted to [facility] May 17 history of fall going down steps and right arm or shoulder pain. Seen by orthopedics who notes right humeral neck fracture. History of left humerus fracture. Seen by nephrology for acute renal failure and dehydration. Seen by Dr. Guan for acute respiratory failure. PT reports supervision for transfer and minimal assistance for gait 2 feet with roller walker. OT reports minimal assistance for upper dressing, moderate assistance for lower dressing, minimal moderate assistance for bathing and minimal assistance for toileting and transfers. Head CT negative. Chest x-ray with left airspace disease. Perfusion scan with defects left upper and lower lobe consistent with moderate mobility PE. Abdominal ultrasound status post cholecystectomy and right renal cortical thinning. Brain MRI with nonspecific white matter change and sinusitis. Previous functional history as elicited patient: 69-year-old right-handed white male who is lives with and her 2 sons. does the cooking and and sons do the laundry. Patient dependent driving, standing shower and gait with standard cane. Denies tobacco or alcohol. Dr. Yariel Gray is regular doctor. Family history father with cancer and mother with COPD. Review of Systems Review of systems: ENT: Denies sneezes or discharge. Eyes: Denies discharge or photophobia. Cardiac: Denies chest pain or palpitation. Pulmonary: Denies cough or shortness of breath. Gastrointestinal: Denies nausea, emesis, constipation, diarrhea. Genitourinary: Denies discharge or frequency. Musculoskeletal: Right arm and shoulder discomfort. Neurologic: Denies motor or sensory change. Endocrine: Denies shakes or sweats. Oncology: Denies cancers. Dermatologic: Denies rash, itching, pruritus. ALLERGY/immunology: Denies sneezes, rashes. Past Medical History Past Medical History: Cancer, COPD, GERD/Reflux, Hyperlipidemia, Hypertension Additional Past Medical History / Comment(s): mulitple myeloma, adenocarcinoma of the lung diagnosed in March 2017,home 02 2 liters n/c restless leg syndrome, anemia,tracheobronchits, History of Any Multi-Drug Resistant Organisms: None Reported Past Surgical History: Cholecystectomy, Tonsillectomy Additional Past Surgical History / Comment(s): CYST REMOVED FROM RT KNEE, vasectomy, rt bone marrow apiration/bx Past Anesthesia/Blood Transfusion Reactions: No Reported Reaction Additional Past Anesthesia/Blood Transfusion Reaction / Comm: past blood transfu justine-stated no reaction to to it. Past Psychological History: No Psychological Hx Reported Smoking Status: Former smoker - Past Family History Mother Family Medical History: COPD, Hypertension Father Family Medical History: Coronary Artery Disease (CAD) Additional Family Medical History / Comment(s): cabg-triple vessel, pancreatic cancer age 65 Medications and Allergies Home Medications Medication Instructions Recorded Confirmed Type Atorvastatin [Lipitor] 20 mg PO DAILY 06/29/17 05/17/19 History Fluticasone/Salmeterol [Advair 1 puff INHALATION RT-DAILY 06/29/17 05/17/19 Hi story 500-50 Diskus] Sodium Bicarbonate Tab 650 mg PO DAILY #30 tab 09/13/17 05/17/19 Rx Albuterol Inhaler [Ventolin Hfa 2 puff INHALATION RT-Q6H PRN 10/27/17 05/17/19 History Inhaler] Citalopram Hydrobromide [CeleXA] 20 mg PO DAILY 10/27/17 05/17/19 History Dexamethasone [Hexadrol] 20 mg PO MO 10/27/17 05/17/19 History Folic Acid 1 mg PO DAILY 10/27/17 05/17/19 History Multivitamins, Thera [Multivitamin 1 tab PO DAILY 10/27/17 05/17/19 History (formulary)] Omeprazole [PriLOSEC] 20 mg PO DAILY 10/27/17 05/17/19 History Potassium Chloride [Klor-Con 10] 10 meq PO DAILY 10/27/17 05/17/19 History Tamsulosin [Flomax] 0.4 mg PO DAILY 10/27/17 05/17/19 History Thiamine [Vitamin B-1] 100 mg PO DAILY 10/27/17 05/17/19 History oxyCODONE-APAP 10-325MG [Percocet 1 tab PO BID PRN 11/03/17 05/17/19 History 10-325 mg] Aspirin EC [Ecotrin] 325 mg PO DAILY 05/17/19 05/17/19 History Calcium Carbonate 500 mg PO DAILY 05/17/19 05/17/19 History Cyclophosphamide 400 mg PO DIRECTED 05/17/19 05/17/19 History Ondansetron HCl [Zofran] 4 mg PO DAILY PRN 05/17/19 05/17/19 History Pomalidomide [Pomalyst] 4 mg PO DIRECTED 05/17/19 05/17/19 History amLODIPine [Norvasc] 10 mg PO Q48H 05/17/19 05/17/19 History Allergies Allergy/AdvReac Type Severity Reaction Status Date / Time Iodinated Contrast- Oral and Allergy Rash/Hives Verified 05/17/19 11:52 IV Dye Physical Exam Vitals: Vital Signs Temp Pulse Pulse Pulse Resp BP Pulse Ox 05/22/19 08:24 80 05/22/19 08:10 84 05/22/19 07:43 98.2 F 94 18 134/66 90 L 05/21/19 21:00 98.2 F 80 16 120/60 99 05/21/19 19:44 76 05/21/19 19:30 74 05/21/19 16:20 72 05/21/19 16:07 68 05/21/19 15:32 98.1 F 72 18 107/58 98 05/21/19 12:04 72 05/21/19 11:52 72 Intake and Output 05/21/19 05/22/19 05/22/19 22:59 06:59 14:59 Output Total 275 500 Balance -275 -500 Output: Urine 275 500 Straight 500 Other: Voiding Method Indwelling Catheter # Voids 2 2 1 # Bowel Movements 2 2 Skin: Atrophic, intact. General: Medium build and comfortable appearance. Head: Normocephalic, atraumatic. Eyes: Symmetric. Pupils equal round. Ears: Symmetric. Hearing within normal limits. Mouth: Clear. Neck: Supple. Carotid without bruit. Cardiac: Regular rate and rhythm. Lungs: Clear anteriorly and posteriorly. Abdomen: Soft active nontender. Extremities: Normal tone. Neurological: Mental status: Alert, cooperative, pleasant. Cranial nerves: Symmetric facial tone and trapezius. Motor: Active movement both legs and left arm. Right arm in sling but demo nstrates active grasp. Sensation: Intact throughout. DTRs: Symmetric and equal throughout. Mobility: Seen and examined on commode. Results CBC & Chem 7: 05/22/19 08:34 05/22/19 08:34 Labs: Abnormal Lab Results - Last 24 Hours (Table) 05/21/19 05/21/19 05/21/19 Range/Units 11:25 17:18 21:01 WBC (3.8-10.6) k/uL RBC (4.30-5.90) m/uL Hgb (13.0-17.5) gm/dL Hct (39.0-53.0) % MCV (80.0-100.0) fL MCHC (31.0-37.0) g/dL RDW (11.5-15.5) % Lymphocytes # (Manual) (1.0-4.8) k/uL Macrocytosis Chloride (98-107) mmol/L Creatinine (0.66-1.25) mg/dL Glucose (74-99) mg/dL POC Glucose (mg/dL) 106 H 112 H 129 H (75-99) mg/dL Calcium (8.4-10.2) mg/dL ALT (21-72) U/L Total Protein (6.3-8.2) g/dL Albumin (3.5-5.0) g/dL 05/22/19 05/22/19 Range/Units 08:34 08:34 WBC 2.7 L (3.8-10.6) k/uL RBC 2.45 L (4.30-5.90) m/uL Hgb 7.5 L (13.0-17.5) gm/dL Hct 25.7 L (39.0-53.0) % MCV 104.9 H (80.0-100.0) fL MCHC 29.0 L (31.0-37.0) g/dL RDW 19.9 H (11.5-15.5) % Lymphocytes # (Manual) 0.11 L (1.0-4.8) k/uL Macrocytosis Marked A Chloride 115 H (98-107) mmol/L Creatinine 1.48 H (0.66-1.25) mg/dL Glucose 108 H (74-99) mg/dL POC Glucose (mg/dL) (75-99) mg/dL Calcium 6.9 L (8.4-10.2) mg/dL ALT 81 H (21-72) U/L Total Protein 5.0 L (6.3-8.2) g/dL Albumin 2.6 L (3.5-5.0) g/dL Microbiology - Last 24 Hours (Table) 05/17/19 19:40 Blood Culture - Preliminary Blood No Growth after 96 hours 05/17/19 19:25 Blood Culture - Preliminary Blood No Growth after 96 hours 05/17/19 13:55 Urine Culture - Final Urine,Catheterized Staphylococcus epidermidis Assessment and Plan (1) ARF (acute renal failure) Current Visit: Yes Status: Acute Code(s): N17.9 - ACUTE KIDNEY FAILURE, UNSPECIFIED SNOMED Code(s): 48209303 (2) Closed right humeral fracture Current Visit: Yes Status: Acute Code(s): S42.301A - UNSP FRACTURE OF SHAFT OF HUMERUS, RIGHT ARM, INIT SNOMED Code(s): 23424469 Plan: Impression 1 walking difficulty 2 right humeral neck fracture 3 acute hypoxic respiratory failure 4. Hypertension. 5. COPD. 6. History of cancer. Comments and plan: PT and OT are ongoing. Patient inconsistent participate with therapy last week. We'll follow participation with therapy this week. He seems motivated for inpatient rehab.
[2019-05-22] MEDS: CYCLOPHOSPHAMIDE 50 MG PO SCH (11:46)
--- NOTE | 2019-05-22 14:29 | P.PN ---
Subjective Progress Note Date: 05/22/19 Principal diagnosis: Right humeral fracture status post fall This is a very pleasant 69-year-old gentleman with history of adenocarcinoma of the lung with good response to keep treated most recent CAT scan in February 2019 showed remission. There is limited right lower lobe scar. Left lower lobe pleural effusion. He also has a history of severe obstructive pulmonary disease with FEV1 value 47% of predicted. He is oxygen dependent. He continues to smoke. He follows with Dr. Jaffe in our office for the same. The patient has a history of multiple myeloma and had been most recently on Cytoxan. He does have hypercalcemia. He has a previous history of a left humerus fracture. He does have a history of previous alcohol abuse and anemia. He presented here to the emergency room on 05/17/2019 after sustaining a chip and fall at home and significant right arm pain. X-rays did reveal impacted humerus fracture. He had been seen by orthopedic surgeons surgical intervention as planned. Currently in a sling. This morning they called and A team on the patient for increasing shortness of breath and acute hypoxic respiratory failure. He is currently on the AirVo 60% FiO2 and 15 L flow rate. He is maintaining good O2 saturations in the upper 90s. He is currently afebrile. Hemodynamically stable. X-ray reveals multifocal left-sided airspace disease concerning for multifocal pneumonia superimposed on the patient's known lung carcinoma. Weight count 2.2. Hemoglobin 9.1. Creatinine 1.79. AST 179, ALT 180, alk phos 150. Troponin negative. Albumin 3.0. He is currently on ceftriaxone and bronchodilators. The patient is seen today 05/20/2019 in follow-up on the regular medical floor. He is currently awake and alert in no acute distress. Resting comfortably in bed. He is off the AirVo and currently on 8 L high flow nasal cannula. He denies any worsening shortness of breath, cough or congestion. Feeling back to his baseline from the pulmonary standpoint. Anxious to go home. White count 2.5. Hemoglobin 7.6. Creatinine 1.53. AST 90, ALT 160. He remains on bronchodilators, Symbicort, ceftriaxone. Abdominal ultrasound reveals cortical thinning of the right kidney, relate for chronic medical renal disease. The patient is seen today 05/21/2019 in follow-up on the regular medical floor. He is currently sitting up in a chair at the bedside. Awake and alert in no acute distress. He is breathing easier today as compared to yesterday. Currently down to 5 L high flow nasal cannula and maintaining O2 saturations up to 100%. He is afebrile. Hemodynamically stable. We'll culture reveals no growth. White count 2.8. Hemoglobin 7.6. Creatinine 1.41. Remains on Zosyn. The patient is seen today 05/22/2019 in follow-up on the regular medical floor. He is currently resting comfortably in bed. Awake and alert in no acute distre ss. Breathing easier today as compared to yesterday. Maintaining good O2 saturations up to 100% on 2 L/m per nasal cannula. He is afebrile. Hemodynamically stable. Blood culture reveals no growth. White count 2.7. Hemoglobin 7.5. Creatinine 1.48. He remains on DuoNeb inhalations, Symbicort. Antibiotics form of Zosyn and azithromycin. Lovenox for DVT prophylaxis. Objective - Vital Signs Vital signs: Vital Signs Temp 98.1 F 05/22/19 11:52 Pulse 76 05/22/19 12:16 Resp 18 05/22/19 11:52 BP 143/63 05/22/19 11:52 Pulse Ox 100 05/22/19 11:52 Intake & Output 05/21/19 05/22/19 05/22/19 18:59 06:59 18:59 Output Total 1075 500 Balance -1075 -500 Output: Urine 1075 500 Straight 500 Other: Voiding Method Indwelling Catheter Indwelling Catheter # Voids 2 1 # Bowel Movements 2 2 - Exam GENERAL EXAM: Frail, disheveled 69-year-old gentleman. In no acute respiratory distress. On 2 L/m per nasal cannula HEAD: Normocephalic. EYES: Normal reaction of pupils, equal size. NOSE: Clear with pink turbinates. THROAT: No erythema or exudates. NECK: No masses, no JVD. CHEST: No chest wall deformity. LUNGS: Equal air entry with bilateral scattered rhonchi. CVS: S1 and S2 normal with no audible murmur, regular rhythm. ABDOMEN: No hepatosplenomegaly, normal bowel sounds, no guarding or rigidity. SPINE: No scoliosis or deformity SKIN: No rashes CENTRAL NERVOUS SYSTEM: No focal deficits, tone is normal in all 4 extremities. EXTREMITIES: Edema of the right upper extremity with ecchymosis. Currently in a sling. No significant lower extremity peripheral edema. Peripheral pulses are intact. - Labs CBC & Chem 7: 05/22/19 08:34 05/22/19 08:34 Labs: Abnormal Lab Results - Last 24 Hours (Table) 05/21/19 05/21/19 05/21/19 Range/Units 11:25 17:18 21:01 WBC (3.8-10.6) k/uL RBC (4.30-5.90) m/uL Hgb (13.0-17.5) gm/dL Hct (39.0-53.0) % MCV (80.0-100.0) fL MCHC (31.0-37.0) g/dL RDW (11.5-15.5) % Lymphocytes # (Manual) (1.0-4.8) k/uL Macrocytosis Chloride (98-107) mmol/L Creatinine (0.66-1.25) mg/dL Glucose (74-99) mg/dL POC Glucose (mg/dL) 106 H 112 H 129 H (75-99) mg/dL Calcium (8.4-10.2) mg/dL ALT (21-72) U/L Total Protein (6.3-8.2) g/dL Albumin (3.5-5.0) g/dL 05/22/19 05/22/19 05/22/19 Range/Units 08:34 08:34 11:17 WBC 2.7 L (3.8-10.6) k/uL RBC 2.45 L (4.30-5.90) m/uL Hgb 7.5 L (13.0-17.5) gm/dL Hct 25.7 L (39.0-53.0) % MCV 104.9 H (80.0-100.0) fL MCHC 29.0 L (31.0-37.0) g/dL RDW 19.9 H (11.5-15.5) % Lymphocytes # (Manual) 0.11 L (1.0-4.8) k/uL Macrocytosis Marked A Chloride 115 H (98-107) mmol/L Creatinine 1.48 H (0.66-1.25) mg/dL Glucose 108 H (74-99) mg/dL POC Glucose (mg/dL) 113 H (75-99) mg/dL Calcium 6.9 L (8.4-10.2) mg/dL ALT 81 H (21-72) U/L Total Protein 5.0 L (6.3-8.2) g/dL Albumin 2.6 L (3.5-5.0) g/dL Microbiology - Last 24 Hours (Table) 05/17/19 19:40 Blood Culture - Preliminary Blood No Growth after 96 hours 05/17/19 19:25 Blood Culture - Preliminary Blood No Growth after 96 hours 05/17/19 13:55 Urine Culture - Final Urine,Catheterized Staphylococcus epidermidis Assessment and Plan Assessment: Impression: #1 Right humeral fracture status post trip and fall. Denies syncope. No surgical interventions planned. #2 Acute hypoxic respiratory failure secondary to suspected acute community- acquired pneumonia versus aspiration. #3 History of adenocarcinoma of the lung with good response treatment. #4 Severe oxygen dependent chronic obstructive pulmonary disease with FEV1 value of 47% of predicted. #5 Chronic chronic and ongoing tobacco dependence. #6 Multiple myeloma and had most recently been on Cytoxan. #7 Hypercalcemia, history of. Plan: The patient was seen and evaluated by . Labs reviewed. The plan is for subacute rehabilitation post discharge. He is cleared for discharge from the pulmonary standpoint. Continue DuoNeb inhalations every 4 hours and Symbicort. Complete a course of antibiotics. He will follow up with Dr. Jaffe in our office in 1-2 weeks' time. I, the cosigning physician, performed a history & physical examination of the patient. Lungs sounds bilateral scattered rhonchi. Maintaining good O2 saturations in the 90s on 2 L/m per nasal cannula. I discussed the assessment and plan of care with my nurse practitioner, Noemy Nelson. I attest to the above consultation as dictated by her.
[2019-05-22] MEDS: SODIUM CHLORIDE 0.9% 500 ML 500 ML IV SCH (15:18)
--- NOTE | 2019-05-22 15:39 | P.PN ---
Subjective Progress Note Date: 05/22/19 Principal diagnosis: Humeral fracture. History of multiple myeloma and lung cancer. Patient is currently on treatment for multiple myeloma. In follow-up today patient is doing well, he has a sling on his right arm, he is going to be going to [facility]. Objective - Vital Signs Vital signs: Vital Signs Temp 98.1 F 05/22/19 11:52 Pulse 76 05/22/19 12:16 Resp 18 05/22/19 11:52 BP 143/63 05/22/19 11:52 Pulse Ox 100 05/22/19 11:52 Intake & Output 05/21/19 05/22/19 05/22/19 18:59 06:59 18:59 Output Total 1075 500 Balance -1075 -500 Output: Urine 1075 500 Straight 500 Other: Voiding Method Indwelling Catheter Indwelling Catheter # Voids 2 2 # Bowel Movements 2 2 - Constitutional General appearance: Present: cooperative, no acute distress, thin - EENT Eyes: Present: anicteric sclerae, EOMI ENT: Present: hearing grossly normal - Respiratory Details: Respirations even and unlabored - Cardiovascular Details: Skin warm and dry, no peripheral swelling - Gastrointestinal General gastrointestinal: Present: normal bowel sounds, soft - Neurologic Neurologic: Present: CNII-XII intact - Musculoskeletal Musculoskeletal Comment(s): Right arm sling Musculoskeletal: Present: generalized weakness - Psychiatric Psychiatric: Present: A&O x's 3, appropriate affect, intact judgment & insight - Labs CBC & Chem 7: 05/22/19 08:34 05/22/19 08:34 Labs: Abnormal Lab Results - Last 24 Hours (Table) 05/21/19 05/21/19 05/21/19 Range/Units 11:25 17:18 21:01 WBC (3.8-10.6) k/uL RBC (4.30-5.90) m/uL Hgb (13.0-17.5) gm/dL Hct (39.0-53.0) % MCV (80.0-100.0) fL MCHC (31.0-37.0) g/dL RDW (11.5-15.5) % Lymphocytes # (Manual) (1.0-4.8) k/uL Macrocytosis Chloride (98-107) mmol/L Creatinine (0.66-1.25) mg/dL Glucose (74-99) mg/dL POC Glucose (mg/dL) 106 H 112 H 129 H (75-99) mg/dL Calcium (8.4-10.2) mg/dL ALT (21-72) U/L Total Protein (6.3-8.2) g/dL Albumin (3.5-5.0) g/dL 05/22/19 05/22/19 05/22/19 Range/Units 08:34 08:34 11:17 WBC 2.7 L (3.8-10.6) k/uL RBC 2.45 L (4.30-5.90) m/uL Hgb 7.5 L (13.0-17.5) gm/dL Hct 25.7 L (39.0-53.0) % MCV 104.9 H (80.0-100.0) fL MCHC 29.0 L (31.0-37.0) g/dL RDW 19.9 H (11.5-15.5) % Lymphocytes # (Manual) 0.11 L (1.0-4.8) k/uL Macrocytosis Marked A Chloride 115 H (98-107) mmol/L Creatinine 1.48 H (0.66-1.25) mg/dL Glucose 108 H (74-99) mg/dL POC Glucose (mg/dL) 113 H (75-99) mg/dL Calcium 6.9 L (8.4-10.2) mg/dL ALT 81 H (21-72) U/L Total Protein 5.0 L (6.3-8.2) g/dL Albumin 2.6 L (3.5-5.0) g/dL Microbiology - Last 24 Hours (Table) 05/17/19 19:40 Blood Culture - Preliminary Blood No Growth after 96 hours 05/17/19 19:25 Blood Culture - Preliminary Blood No Growth after 96 hours 05/17/19 13:55 Urine Culture - Final Urine,Catheterized Staphylococcus epidermidis Assessment and Plan (1) Closed right humeral fracture Narrative/Plan: Defer management of the same to Orthopedics as there is going to be no surgical correction. Patient is going to participate in rehabilitation Current Visit: Yes Status: Acute Priority: High Code(s): S42.301A - UNSP FRACTURE OF SHAFT OF HUMERUS, RIGHT ARM, INIT SNOMED Code(s): 91848882 (2) Multiple myeloma Narrative/Plan: Patient currently on treatment for the same with oral Cytoxan, Turk list and dexamethasone. Patient will continue on the dexamethasone and hold Turk list and Cytoxan while in rehabilitation. Patient's last M protein level was 0.64 on April 17. This was improved from 0.74 previously. Current Visit: Yes Status: Chronic Priority: Medium Code(s): C90.00 - MULTIPLE MYELOMA NOT HAVING ACHIEVED REMISSION SNOMED Code(s): 061439653 (3) Non-small cell lung cancer (NSCLC) Narrative/Plan: Patient has been intermittently treated with immunotherapy with good results. Patient is currently not on treatment for his stage IV non-small cell lung cancer. Current Visit: Yes Status: Chronic Priority: Medium Code(s): C34.90 - MALIGNANT NEOPLASM OF UNSP PART OF UNSP BRONCHUS OR LUNG SNOMED Code(s): 372140178 Plan: Patient will follow up with Dr. Moncada after rehabilitation to resume treatment. Based on which ever disease is progressing that is the disease that gets treated acutely.
[2019-05-22 17:34] LABS: Glucose,Whole Blood 239 mg/dL (75-99)
--- NOTE | 2019-05-22 17:52 | PN ---
PROGRESS NOTE DATE OF SERVICE: 05/22/2019 This 69-year-old gentleman who was admitted with right humerus fracture also had multiple myeloma. The patient also has significant difficulties in walking also. At this time, the patient is willing to undergo chemotherapy, but however, Hematology/Oncology is also planning chemotherapy as well. Because of that reason, Dr. Vuong's consultation has been recommended for inpatient rehab. Dr. Vuong saw the patient and is evaluating the patient. PAST MEDICAL HISTORY: Reviewed. REVIEW OF SYSTEMS: Cardiovascular system: No angina or palpitations. RESPIRATORY: As mentioned earlier. GI: As mentioned earlier. no dysuria. NERVOUS SYSTEM: As mentioned earlier. CURRENT MEDICATIONS: Reviewed and include: 1. Ventolin 2.5 q.6h p.r.n. 2. DuoNeb q.i.d. and p.r.n. 3. Aspirin 320 mg p.o. daily. 4. Lipitor 20 mg daily. 5. Zithromax 500 mg b.i.d. 6. Symbicort 160/4.5 two puffs b.i.d. 7. Tums 500 mg p.o. daily. 8. Celexa 20 mg p.o. daily. 9. Hexadrol 20 mg p.o. 10.Lovenox 40 mg subcu daily. 11.Iron sodium gluconate. 12.Folic acid 1 mg b.i.d. 13.Dilaudid 0.5 mg q.4 p.r.n. 14.Cephulac 50 mg q.i.d. p.r.n. 15.Multivitamins one p.o. daily. 16.Mycostatin. 17.Zofran. 18.Percocet. 19.Protonix. 20.Zosyn 3.375 IV q.8h. 21.MiraLAX. 22.Senokot-S. 23.Flomax. 24.Vitamin B1. PHYSICAL EXAM: Patient is alert, oriented x3. The pulse is 66, blood pressure 143/63, respiration 18, temperature 98.1. Pulse ox 100 percent on 2 L. HEENT is conjunctivae normal. NECK: No JVD. CARDIOVASCULAR: S1, S2 muffled. RESPIRATIONS: Breath sounds diminished in the bases. Bilateral scattered rhonchi and crackles. ABDOMEN: Soft, nontender. LEGS: No edema. No swelling. CENTRAL NERVOUS SYSTEM: No focal deficits. CENTRAL NERVOUS SYSTEM: Examination of right hand humerus fracture present. LABS: WBC 2.7, hemoglobin 7.5, sodium 143, potassium 4.9. Albumin is 2.6. ASSESSMENT: 1. Fall and impacted fracture of the right humeral neck with severe pain. 2. Acute hypoxic respiratory failure secondary to possible pneumonia, left-sided, possibly gram-negative pneumonia, superimposed on malignancy. 3. Leukopenia, anemia secondary to malignancy. 4. Gait dysfunction. 5. Severe hypocalcemia. 6. Increased MCV. 7. History of multiple myeloma. 8. Gait dysfunction. 9. History of adenocarcinoma of the right lung. 10.Acute renal failure possibly prerenal acute tubular necrosis. 11.Hyperkalemia. 12.Renal failure, acute on chronic renal failure stage 3 secondary to multiple myeloma, possibly. 13.Urinary tract infection present on admission. 14.Gastroesophageal reflux disease. 15.Chronic obstructive pulmonary disease. 16.Hypertension. 17.Hyperlipidemia. 18.History of cholecystectomy. 19.History of tonsillectomy. 20.History of chronic hypoxic respiratory failure on home O2 nasal cannula. 21.Change in mental status, metabolic encephalopathy, multifactorial. 22.Gait dysfunction. 23.NO CODE, NO CPR, NO VENT. RECOMMENDATION AND DISCUSSION: This 69-year-old gentleman who presented with multiple medical problems, had significant weakness and unstable instability. The patient had multiple myeloma admitted with fall and fracture. I would recommend rehab at this time. Inpatient rehab with Dr. Vuong as a possibility. 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 Continue the rest of the medications. Follow closely with multiple consultants. Prognosis extremely guarded because of multiple complex medical issues. Further recommendations to follow. MMODL / IJN: [id number] /
[2019-05-22 19:51] LABS: Glucose,Whole Blood 254 mg/dL (75-99)
[2019-05-22] MEDS: SENNOSIDES-DOCUSATE SODIUM 1 EACH TAB PO SCH (20:11)
[2019-05-23] MEDS: PIPERACILLIN-TAZOBACTAM 3.375 GM in SODIUM CHLORIDE 0.9% 100 ML IVPB SCH ×4 (00:14→23:40)
[2019-05-23] MEDS: IPRATROPIUM-ALBUTEROL 3 ML NEB INHALATION SCH ×4 (07:10→19:00)
[2019-05-23] MEDS: SYMBICORT 160-4.5 MCG INHALER INHALATION SCH ×2 (07:10→19:00)
[2019-05-23 07:15] LABS: Glucose,Whole Blood 111 mg/dL (75-99)
[2019-05-23] MEDS: INSULIN ASPART (NovoLOG) 100 UNIT/ML VIAL SQ SCH ×4 (07:23→19:57)
[2019-05-23] MEDS: ENOXAPARIN 40 MG/0.4 ML SYRINGE SQ SCH (07:25)
[2019-05-23] MEDS: ATORVASTATIN 20 MG TAB PO SCH (07:26)
[2019-05-23] MEDS: THIAMINE 100 MG TAB PO SCH (07:26)
[2019-05-23] MEDS: MULTIVITAMINS, THERA 1 EACH TAB PO SCH (07:26)
[2019-05-23] MEDS: CITALOPRAM HYDROBROMIDE 20 MG TAB PO SCH (07:26)
[2019-05-23] MEDS: NYSTATIN 100,000 UNIT/ML SUSP 500,000 UNIT/5 ML CUP PO SCH ×4 (07:26→21:46)
[2019-05-23] MEDS: SODIUM BICARBONATE TAB 650 MG TAB PO SCH ×2 (07:26→21:46)
[2019-05-23] MEDS: ASPIRIN 325 MG TAB PO SCH (07:26)
[2019-05-23] MEDS: FOLIC ACID 1 MG TAB PO SCH (07:26)
[2019-05-23] MEDS: PANTOPRAZOLE 40 MG TABLET PO SCH (07:26)
[2019-05-23] MEDS: TAMSULOSIN 0.4 MG CAP.ER.24H PO SCH (07:26)
[2019-05-23] MEDS: CALCIUM CARBONATE 500 MG CHEWABLE PO SCH (07:26)
[2019-05-23] MEDS: AZITHROMYCIN 500 MG TAB PO SCH (07:26)
[2019-05-23] MEDS: POLYETHYLENE GLYCOL 3350 17 GM POWD.PACK PO SCH (07:27)
[2019-05-23] MEDS: CYCLOPHOSPHAMIDE 50 MG PO SCH (07:27)
[2019-05-23 09:24] LABS: Calcium 7.5 mg/dL (8.4-10.2); Magnesium 1.6 mg/dL (1.6-2.3); Potassium 5.5 mmol/L (3.5-5.1)
--- NOTE | 2019-05-23 09:49 | P.PN ---
Subjective Progress Note Date: 05/23/19 Principal diagnosis: Right humeral fracture status post fall This is a very pleasant 69-year-old gentleman with history of adenocarcinoma of the lung with good response to keep treated most recent CAT scan in February 2019 showed remission. There is limited right lower lobe scar. Left lower lobe pleural effusion. He also has a history of severe obstructive pulmonary disease with FEV1 value 47% of predicted. He is oxygen dependent. He continues to smoke. He follows with Dr. Jaffe in our office for the same. The patient has a history of multiple myeloma and had been most recently on Cytoxan. He does have hypercalcemia. He has a previous history of a left humerus fracture. He does have a history of previous alcohol abuse and anemia. He presented here to the emergency room on 05/17/2019 after sustaining a chip and fall at home and significant right arm pain. X-rays did reveal impacted humerus fracture. He had been seen by orthopedic surgeons surgical intervention as planned. Currently in a sling. This morning they called and A team on the patient for increasing shortness of breath and acute hypoxic respiratory failure. He is currently on the AirVo 60% FiO2 and 15 L flow rate. He is maintaining good O2 saturations in the upper 90s. He is currently afebrile. Hemodynamically stable. X-ray reveals multifocal left-sided airspace disease concerning for multifocal pneumonia superimposed on the patient's known lung carcinoma. Weight count 2.2. Hemoglobin 9.1. Creatinine 1.79. AST 179, ALT 180, alk phos 150. Troponin negative. Albumin 3.0. He is currently on ceftriaxone and bronchodilators. The patient is seen today 05/20/2019 in follow-up on the regular medical floor. He is currently awake and alert in no acute distress. Resting comfortably in bed. He is off the AirVo and currently on 8 L high flow nasal cannula. He denies any worsening shortness of breath, cough or congestion. Feeling back to his baseline from the pulmonary standpoint. Anxious to go home. White count 2.5. Hemoglobin 7.6. Creatinine 1.53. AST 90, ALT 160. He remains on bronchodilators, Symbicort, ceftriaxone. Abdominal ultrasound reveals cortical thinning of the right kidney, relate for chronic medical renal disease. The patient is seen today 05/21/2019 in follow-up on the regular medical floor. He is currently sitting up in a chair at the bedside. Awake and alert in no acute distress. He is breathing easier today as compared to yesterday. Currently down to 5 L high flow nasal cannula and maintaining O2 saturations up to 100%. He is afebrile. Hemodynamically stable. We'll culture reveals no growth. White count 2.8. Hemoglobin 7.6. Creatinine 1.41. Remains on Zosyn. The patient is seen today 05/22/2019 in follow-up on the regular medical floor. He is currently resting comfortably in bed. Awake and alert in no acute distre ss. Breathing easier today as compared to yesterday. Maintaining good O2 saturations up to 100% on 2 L/m per nasal cannula. He is afebrile. Hemodynamically stable. Blood culture reveals no growth. White count 2.7. Hemoglobin 7.5. Creatinine 1.48. He remains on DuoNeb inhalations, Symbicort. Antibiotics form of Zosyn and azithromycin. Lovenox for DVT prophylaxis. The patient is seen today 05/23/2018 in follow-up on the regular medical floor. He is awake and alert in no acute distress. He is back to his baseline as far as his pulmonary status is concerned. His oxygen requirements are down to 2 L/m per nasal cannula and maintaining O2 saturations up to 100%. He's been afebrile. Sodium 143. Potassium 5.5. Bicarb 21. Chloride 116. Creatinine 1.17. Objective - Vital Signs Vital signs: Vital Signs Temp 97.6 F 05/23/19 05:00 Pulse 88 05/23/19 07:25 Resp 18 05/23/19 05:00 BP 179/78 05/23/19 05:00 Pulse Ox 100 05/23/19 05:00 Intake & Output 05/22/19 05/23/19 05/23/19 18:59 06:59 18:59 Intake Total 880 Output Total 500 Balance -500 880 Intake: Oral 880 Output: Urine 500 Straight 500 Other: Voiding Method Toilet Toilet # Voids 2 2 # Bowel Movements 2 - Exam GENERAL EXAM: Frail, disheveled 69-year-old gentleman. On 2 L/m per nasal cannula HEAD: Normocephalic. EYES: Normal reaction of pupils, equal size. NOSE: Clear with pink turbinates. THROAT: No erythema or exudates. NECK: No masses, no JVD. CHEST: No chest wall deformity. LUNGS: Equal air entry with bilateral scattered rhonchi. CVS: S1 and S2 normal with no audible murmur, regular rhythm. ABDOMEN: No hepatosplenomegaly, normal bowel sounds, no guarding or rigidity. SPINE: No scoliosis or deformity SKIN: No rashes CENTRAL NERVOUS SYSTEM: No focal deficits, tone is normal in all 4 extremities. EXTREMITIES: Edema of the right upper extremity with ecchymosis. Currently in a sling. No significant lower extremity peripheral edema. Peripheral pulses are intact. - Labs CBC & Chem 7: 05/22/19 08:34 05/23/19 07:18 Labs: Abnormal Lab Results - Last 24 Hours (Table) 05/19/19 05/22/19 05/22/19 Range/Units 09:37 08:34 11:17 Lymphocytes # (Manual) 0.11 L (1.0-4.8) k/uL Potassium (3.5-5.1) mmol/L Chloride (98-107) mmol/L Carbon Dioxide (22-30) mmol/L Glucose (74-99) mg/dL POC Glucose (mg/dL) 113 H (75-99) mg/dL Calcium (8.4-10.2) mg/dL Methylmalonic Acid 0.84 H (<0.40) umol/L 05/22/19 05/22/19 05/23/19 Range/Units 17:32 19:44 06:59 Lymphocytes # (Manual) (1.0-4.8) k/uL Potassium (3.5-5.1) mmol/L Chloride (98-107) mmol/L Carbon Dioxide (22-30) mmol/L Glucose (74-99) mg/dL POC Glucose (mg/dL) 239 H 254 H 111 H (75-99) mg/dL Calcium (8.4-10.2) mg/dL Methylmalonic Acid (<0.40) umol/L 05/23/19 Range/Units 07:18 Lymphocytes # (Manual) (1.0-4.8) k/uL Potassium 5.5 H (3.5-5.1) mmol/L Chloride 116 H (98-107) mmol/L Carbon Dioxide 21 L (22-30) mmol/L Glucose 101 H (74-99) mg/dL POC Glucose (mg/dL) (75-99) mg/dL Calcium 7.5 L (8.4-10.2) mg/dL Methylmalonic Acid (<0.40) umol/L Microbiology - Last 24 Hours (Table) 05/17/19 19:40 Blood Culture - Preliminary Blood No Growth after 120 hours 05/17/19 19:25 Blood Culture - Preliminary Blood No Growth after 120 hours Assessment and Plan Assessment: Impression: #1 Right humeral fracture status post trip and fall. Denies syncope. No surgical interventions planned. #2 Acute hypoxic respiratory failure secondary to suspected acute community- acquired pneumonia versus aspiration. Recovered. #3 History of adenocarcinoma of the lung with good response treatment. #4 Severe oxygen dependent chronic obstructive pulmonary disease with FEV1 value of 47% of predicted. #5 Chronic chronic and ongoing tobacco dependence. #6 Multiple myeloma and had most recently been on Cytoxan. #7 Hypercalcemia, history of. Plan: The patient was seen and evaluated by . He is cleared for discharge from the pulmonary standpoint. Continue DuoNeb inhalations every 4 hours and Symbicort. Complete a course of antibiotics. He will follow up with Dr. Jaffe in our office in 1-2 weeks' time. I, the cosigning physician, performed a history & physical examination of the patient. Lungs sounds bilateral scattered rhonchi. Maintaining good O2 saturations in the 90s on 2 L/m per nasal cannula. I discussed the assessment and plan of care with my nurse practitioner, Noemy Nelson. I attest to the above consultation as dictated by her.
[2019-05-23] MEDS ORDERED: INSULIN REGULAR 100 UNIT/ML VIAL IV ONE (10:08)
[2019-05-23] MEDS ORDERED: DEXTROSE 50% SYRINGE 50 ML IVP STA (10:08)
--- NOTE | 2019-05-23 10:09 | P.PN ---
Subjective Patient is seen in follow-up for acute kidney injury on chronic kidney disease. Patient is chronic and he disease stage III with baseline creatinine in the range of 1.3-1.5. Creatinine on admission was 2.75 and is now back to baseline. Patient is off IV fluids. Calvo catheter was discontinued on May 22. He has been voiding on his own. Vital signs are stable. General: The patient appeared well nourished and normally developed. HEENT: Head exam is unremarkable. Neck is without jugular venous distension. LUNGS: Lungs are clear to auscultation and percussion. Breath sounds decreased. HEART: Rate and Rhythm are regular. First and second heart sounds normal. No murmurs, rubs or gallops. ABDOMEN: Abdominal exam reveals normal bowel sounds. Non-tender and non- distended. No evidence of peritonitis. EXTREMITITES: No clubbing, cyanosis, or edema. Objective - Vital Signs Vital signs: Vital Signs Temp 97.6 F 05/23/19 05:00 Pulse 88 05/23/19 07:25 Resp 18 05/23/19 05:00 BP 179/78 05/23/19 05:00 Pulse Ox 100 05/23/19 05:00 Intake & Output 05/22/19 05/23/19 05/23/19 18:59 06:59 18:59 Intake Total 880 Output Total 500 Balance -500 880 Intake: Oral 880 Output: Urine 500 Straight 500 Other: Voiding Method Toilet Toilet # Voids 2 2 # Bowel Movements 2 - Labs CBC & Chem 7: 05/22/19 08:34 05/23/19 07:18 Labs: Abnormal Lab Results - Last 24 Hours (Table) 05/19/19 05/22/19 05/22/19 Range/Units 09:37 08:34 11:17 Lymphocytes # (Manual) 0.11 L (1.0-4.8) k/uL Potassium (3.5-5.1) mmol/L Chloride (98-107) mmol/L Carbon Dioxide (22-30) mmol/L Glucose (74-99) mg/dL POC Glucose (mg/dL) 113 H (75-99) mg/dL Calcium (8.4-10.2) mg/dL Methylmalonic Acid 0.84 H (<0.40) umol/L 05/22/19 05/22/19 05/23/19 Range/Units 17:32 19:44 06:59 Lymphocytes # (Manual) (1.0-4.8) k/uL Potassium (3.5-5.1) mmol/L Chloride (98-107) mmol/L Carbon Dioxide (22-30) mmol/L Glucose (74-99) mg/dL POC Glucose (mg/dL) 239 H 254 H 111 H (75-99) mg/dL Calcium (8.4-10.2) mg/dL Methylmalonic Acid (<0.40) umol/L 05/23/19 Range/Units 07:18 Lymphocytes # (Manual) (1.0-4.8) k/uL Potassium 5.5 H (3.5-5.1) mmol/L Chloride 116 H (98-107) mmol/L Carbon Dioxide 21 L (22-30) mmol/L Glucose 101 H (74-99) mg/dL POC Glucose (mg/dL) (75-99) mg/dL Calcium 7.5 L (8.4-10.2) mg/dL Methylmalonic Acid (<0.40) umol/L Microbiology - Last 24 Hours (Table) 05/17/19 19:40 Blood Culture - Preliminary Blood No Growth after 120 hours 05/17/19 19:25 Blood Culture - Preliminary Blood No Growth after 120 hours Assessment and Plan Plan: Assessment: 1. Acute kidney injury mostly prerenal secondary to hypotension and nonsteroidals. Creatinine 2.75 on admission and is now back to baseline. Trace proteinuria noted on UA. No hydronephrosis noted on renal ultrasound. 2. Chronic kidney disease stage III with baseline creatinine in the range of 1.3-1.5. 3. Hyperkalemia secondary to acute kidney injury and metabolic acidosis. Improved. 4. Multiple myeloma maintained on chemotherapy. 5. Lactic acidosis secondary to hypotension. Improved with IV hydration. 6. Hypocalcemia secondary to acute kidney injury. Better post replacement. Corrected calcium now in the normal range. 7. Urinary retention - Calvo catheter removed May 22. 8. UTI with urine culture positive for staph epi. 9. Anemia of chronic kidney disease. Iron deficiency noted. Plan: Remains off IV fluids. Encouraged oral intake. Increase dose of oral sodium bicarbonate. Maintain Flomax. IV iron 3 doses. Second dose today. Continue to monitor renal function and urine output. Low potassium diet.
[2019-05-23] MEDS ORDERED: DEXTROSE 10 % IN WATER 250 ML IV ONE (10:10)
[2019-05-23] MEDS: SODIUM FERRIC GLUCONAT-SUCROSE 125 MG in SODIUM CHLORIDE 0.9% 100 ML IVPB SCH (11:38)
[2019-05-23 11:55] LABS: Glucose,Whole Blood 102 mg/dL (75-99)
--- NOTE | 2019-05-23 12:14 | PN ---
PROGRESS NOTE DATE OF SERVICE: 05/23/2019 This 69-year-old gentleman who was admitted with fall and impacted fracture of the right humerus also had multiple medical issues. Patient also had gait instability. Patient has acute respiratory failure. The patient is slated to go to the [facility]. The public health social worker is initiating the preauthorization process. No chest pain. No palpitations. No fever. PHYSICAL EXAMINATION: On exam, alert and oriented x2. Pulse is 64, blood pressure 179/78, respiration 18, temperature 97.6, pulse ox 100% on 2 L. HEENT: Conjunctivae normal. NECK: No jugular venous distention. CARDIOVASCULAR: S1, S2 muffled. RESPIRATORY: Breath sounds diminished at the bases. A few scattered rhonchi and crackles. ABDOMEN: Soft, nontender. LEGS: No edema, no swelling. NERVOUS SYSTEM: No focal deficits. LABS: Sodium 143, potassium 5.5. ASSESSMENT: 1. Fall and impacted fracture of the right humeral neck with severe pain. 2. Acute hypoxic respiratory failure secondary to possible pneumonia left-sided possibly gram-negative pneumonia superimposed on malignancy. 3. Leukopenia, anemia secondary to malignancy. 4. Gait dysfunction. 5. Severe hypocalcemia. 6. Increased MCV. 7. History of multiple myeloma. 8. History of adenocarcinoma of the right lung. 9. Acute renal failure possibly prerenal acute tubular necrosis. 10.Hyperkalemia. 11.Renal failure acute on chronic stage 3 with possibly secondary to multiple myeloma, possibly. 12.Urinary tract infection, present on admission. 13.Gastroesophageal reflux disease. 14.Chronic obstructive pulmonary disease. 15.Hypertension. 16.Hyperlipidemia. 17.History of cholecystectomy. 18.History of tonsillectomy. 19.History of chronic hypoxic respiratory failure on home O2 nasal cannula. 20.Change in mental status, metabolic encephalopathy, multifactorial. 21.Gait dysfunction. 22.NO CODE, NO CPR, NO VENT. RECOMMENDATIONS AND DISCUSSION: Recommend to continue current medications, continues with monitoring and symptomatic treatment. Otherwise monitor closely. PT, OT evaluation. Otherwise, possible rehab once the preauthorization process is complete. MMODL / IJN: [id number] / MTDD
[2019-05-23] MEDS: MAGNESIUM SULFATE-D5W PMX 1 GM in DEXTROSE/WATER 1 100ML.BAG IVPB SCH ×2 (13:54→14:59)
[2019-05-23] MEDS: oxyCODONE-APAP 5-325MG 1 EACH TAB PO PRN (14:58)
[2019-05-23 17:06] LABS: Glucose,Whole Blood 125 mg/dL (75-99)
[2019-05-23] MEDS: SODIUM CHLORIDE 0.9% 500 ML 500 ML IV SCH (17:37)
[2019-05-23 19:50] LABS: Glucose,Whole Blood 113 mg/dL (75-99)
[2019-05-23] MEDS: SENNOSIDES-DOCUSATE SODIUM 1 EACH TAB PO SCH (21:46)
[2019-05-24 07:05] LABS: Glucose,Whole Blood 88 mg/dL (75-99)
[2019-05-24] MEDS: INSULIN ASPART (NovoLOG) 100 UNIT/ML VIAL SQ SCH ×2 (07:36→11:47)
[2019-05-24] MEDS: SYMBICORT 160-4.5 MCG INHALER INHALATION SCH (08:15)
[2019-05-24] MEDS: IPRATROPIUM-ALBUTEROL 3 ML NEB INHALATION SCH ×2 (08:15→11:44)
[2019-05-24] MEDS: POLYETHYLENE GLYCOL 3350 17 GM POWD.PACK PO SCH (08:50)
[2019-05-24] MEDS: NYSTATIN 100,000 UNIT/ML SUSP 500,000 UNIT/5 ML CUP PO SCH ×2 (08:51→12:43)
[2019-05-24] MEDS: AZITHROMYCIN 500 MG TAB PO SCH (08:51)
[2019-05-24] MEDS: CALCIUM CARBONATE 500 MG CHEWABLE PO SCH (08:51)
[2019-05-24] MEDS: THIAMINE 100 MG TAB PO SCH (08:51)
[2019-05-24] MEDS: ATORVASTATIN 20 MG TAB PO SCH (08:51)
[2019-05-24] MEDS: PANTOPRAZOLE 40 MG TABLET PO SCH (08:51)
[2019-05-24] MEDS: TAMSULOSIN 0.4 MG CAP.ER.24H PO SCH (08:51)
[2019-05-24] MEDS: ENOXAPARIN 40 MG/0.4 ML SYRINGE SQ SCH (08:51)
[2019-05-24] MEDS: ASPIRIN 325 MG TAB PO SCH (08:51)
[2019-05-24] MEDS: FOLIC ACID 1 MG TAB PO SCH (08:52)
[2019-05-24] MEDS: CITALOPRAM HYDROBROMIDE 20 MG TAB PO SCH (08:52)
[2019-05-24] MEDS: PIPERACILLIN-TAZOBACTAM 3.375 GM in SODIUM CHLORIDE 0.9% 100 ML IVPB SCH (08:52)
[2019-05-24] MEDS: MULTIVITAMINS, THERA 1 EACH TAB PO SCH (08:53)
[2019-05-24] MEDS: SODIUM BICARBONATE TAB 650 MG TAB PO SCH (08:53)
[2019-05-24] MEDS: oxyCODONE-APAP 5-325MG 1 EACH TAB PO PRN ×2 (09:01→12:47)
[2019-05-24] MEDS: CYCLOPHOSPHAMIDE 50 MG PO SCH (09:42)
[2019-05-24 10:11] LABS: Magnesium 1.8 mg/dL (1.6-2.3); Potassium 5.5 mmol/L (3.5-5.1)
--- NOTE | 2019-05-24 10:51 | PN ---
PROGRESS NOTE Patient is seen for followup for acute kidney injury. His renal function is improved with creatinine down to 1.2 from 2.75 mg/dL on initial admission. There are plans for possible discharge today. PHYSICAL EXAMINATION: On examination, blood pressure was 147/66, heart rate is 72 per minute, patient is afebrile. Examination of the heart S1, S2. Examination of the lungs, bilateral breath sounds are heard. Abdomen is soft, nontender. Exam of the lower extremities shows trace edema right lower extremity. Left foot is currently . LABS: Show sodium 140, potassium 5.5, chloride 116, CO2 is 18, BUN 17, serum creatinine 1.23. ASSESSMENT: 1. Acute kidney injury, acute tubular necrosis currently improving. 2. Mild hyperkalemia noted on labs today. Patient is not on any medications to predispose to hyperkalemia. His blood sugar is not significantly elevated. He should be maintained on a low-potassium diet and continue with the sodium bicarb, which will help with the metabolic acid with it, which will help with the hyperkalemia as well. 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 3. Chronic kidney disease stage 3 secondary to diabetic nephropathy. 4. Multiple myeloma, maintained on chemotherapy. 5. Lactic acidosis, currently improved. PLAN: Continue to avoid use of nonsteroidal anti-inflammatory agents. Continue with sodium bicarb. Maintain patient on low-potassium diet. Repeat labs in about 2 days if the patient is discharged today. He may need Kayexalate as outpatient. The patient will need to follow up as outpatient in about one week's time post discharge. MMSONIA / LIZ: [id number] /
[2019-05-24 10:54] VITALS: BMI 21.1
[2019-05-24 11:48] LABS: Glucose,Whole Blood 87 mg/dL (75-99)
[2019-05-24 12:19] VITALS: BP 144/84; PULSE 89; RESP 16; TEMP 97.8
[2019-05-24] MEDS: SODIUM FERRIC GLUCONAT-SUCROSE 125 MG in SODIUM CHLORIDE 0.9% 100 ML IVPB SCH (12:43)
--- NOTE | 2019-05-24 14:38 | P.PN ---
Subjective Progress Note Date: 05/24/19 Principal diagnosis: Right humeral fracture status post fall This is a very pleasant 69-year-old gentleman with history of adenocarcinoma of the lung with good response to keep treated most recent CAT scan in February 2019 showed remission. There is limited right lower lobe scar. Left lower lobe pleural effusion. He also has a history of severe obstructive pulmonary disease with FEV1 value 47% of predicted. He is oxygen dependent. He continues to smoke. He follows with Dr. Jaffe in our office for the same. The patient has a history of multiple myeloma and had been most recently on Cytoxan. He does have hypercalcemia. He has a previous history of a left humerus fracture. He does have a history of previous alcohol abuse and anemia. He presented here to the emergency room on 05/17/2019 after sustaining a chip and fall at home and significant right arm pain. X-rays did reveal impacted humerus fracture. He had been seen by orthopedic surgeons surgical intervention as planned. Currently in a sling. This morning they called and A team on the patient for increasing shortness of breath and acute hypoxic respiratory failure. He is currently on the AirVo 60% FiO2 and 15 L flow rate. He is maintaining good O2 saturations in the upper 90s. He is currently afebrile. Hemodynamically stable. X-ray reveals multifocal left-sided airspace disease concerning for multifocal pneumonia superimposed on the patient's known lung carcinoma. Weight count 2.2. Hemoglobin 9.1. Creatinine 1.79. AST 179, ALT 180, alk phos 150. Troponin negative. Albumin 3.0. He is currently on ceftriaxone and bronchodilators. The patient is seen today 05/20/2019 in follow-up on the regular medical floor. He is currently awake and alert in no acute distress. Resting comfortably in bed. He is off the AirVo and currently on 8 L high flow nasal cannula. He denies any worsening shortness of breath, cough or congestion. Feeling back to his baseline from the pulmonary standpoint. Anxious to go home. White count 2.5. Hemoglobin 7.6. Creatinine 1.53. AST 90, ALT 160. He remains on bronchodilators, Symbicort, ceftriaxone. Abdominal ultrasound reveals cortical thinning of the right kidney, relate for chronic medical renal disease. The patient is seen today 05/21/2019 in follow-up on the regular medical floor. He is currently sitting up in a chair at the bedside. Awake and alert in no acute distress. He is breathing easier today as compared to yesterday. Currently down to 5 L high flow nasal cannula and maintaining O2 saturations up to 100%. He is afebrile. Hemodynamically stable. We'll culture reveals no growth. White count 2.8. Hemoglobin 7.6. Creatinine 1.41. Remains on Zosyn. The patient is seen today 05/22/2019 in follow-up on the regular medical floor. He is currently resting comfortably in bed. Awake and alert in no acute distre ss. Breathing easier today as compared to yesterday. Maintaining good O2 saturations up to 100% on 2 L/m per nasal cannula. He is afebrile. Hemodynamically stable. Blood culture reveals no growth. White count 2.7. Hemoglobin 7.5. Creatinine 1.48. He remains on DuoNeb inhalations, Symbicort. Antibiotics form of Zosyn and azithromycin. Lovenox for DVT prophylaxis. The patient is seen today 05/23/2018 in follow-up on the regular medical floor. He is awake and alert in no acute distress. He is back to his baseline as far as his pulmonary status is concerned. His oxygen requirements are down to 2 L/m per nasal cannula and maintaining O2 saturations up to 100%. He's been afebrile. Sodium 143. Potassium 5.5. Bicarb 21. Chloride 116. Creatinine 1.17. The patient is seen today 05/24/2019 in follow-up on the regular medical floor. He is currently resting comfortably in bed. Awake and alert in no acute distress. His breathing is back to baseline. 90% on 2 L nasal cannula. Afebrile. Hemodynamically stable. Sodium 142. Potassium 5.5. Chloride 116. Bicarb 18. Creatinine 1.23. He remains on Zosyn and azithromycin. Remains on Symbicort and DuoNeb inhalations. He is currently receiving IV iron. Objective - Vital Signs Vital signs: Vital Signs Temp 97.8 F 05/24/19 12:17 Pulse 89 05/24/19 12:17 Resp 16 05/24/19 12:17 BP 144/84 05/24/19 12:17 Pulse Ox 98 05/24/19 12:17 Intake & Output 05/23/19 05/24/19 05/24/19 18:59 06:59 18:59 Intake Total 240 1020 Output Total 400 Balance 240 620 Weight 55.792 kg Intake: Intake, IV Titration 400 Amount Piperacillin-Tazobactam 3 200 .375 gm In Sodium Chloride 0.9% 100 ml @ 25 mls/hr IVPB Q8HR KENY Rx# :[id number] Sodium Chloride 0.9% 500 200 ml 500 ml @ 20 mls/hr IV .Q24H KENY Rx#:[id number] Oral 240 620 Output: Urine 400 Other: Voiding Method Toilet Toilet Toilet # Voids 3 3 # Bowel Movements 1 - Exam GENERAL EXAM: Frail, disheveled 69-year-old gentleman. Alert and oriented 3. On 2 L/m per nasal cannula HEAD: Normocephalic. EYES: Normal reaction of pupils, equal size. NOSE: Clear with pink turbinates. THROAT: No erythema or exudates. NECK: No masses, no JVD. CHEST: No chest wall deformity. LUNGS: Equal air entry with bilateral scattered rhonchi. CVS: S1 and S2 normal with no audible murmur, regular rhythm. ABDOMEN: No hepatosplenomegaly, normal bowel sounds, no guarding or rigidity. SPINE: No scoliosis or deformity SKIN: No rashes CENTRAL NERVOUS SYSTEM: No focal deficits, tone is normal in all 4 extremities. EXTREMITIES: Edema of the right upper extremity with ecchymosis. Currently in a sling. No significant lower extremity peripheral edema. Peripheral pulses are intact. - Labs CBC & Chem 7: 05/22/19 08:34 05/24/19 09:01 Labs: Abnormal Lab Results - Last 24 Hours (Table) 05/23/19 05/23/19 05/24/19 Range/Units 17:05 19:49 09:01 Potassium 5.5 H (3.5-5.1) mmol/L Chloride 116 H (98-107) mmol/L Carbon Dioxide 18 L (22-30) mmol/L POC Glucose (mg/dL) 125 H 113 H (75-99) mg/dL Calcium 8.0 L (8.4-10.2) mg/dL Microbiology - Last 24 Hours (Table) 05/17/19 19:40 Blood Culture - Final Blood No Growth after 144 hours 05/17/19 19:25 Blood Culture - Final Blood No Growth after 144 hours Assessment and Plan Assessment: Impression: #1 Right humeral fracture status post trip and fall. Denies syncope. No surgical interventions planned. #2 Acute hypoxic respiratory failure secondary to suspected acute community- acquired pneumonia versus aspiration. Recovered. #3 History of adenocarcinoma of the lung with good response treatment. #4 Severe oxygen dependent chronic obstructive pulmonary disease with FEV1 value of 47% of predicted. #5 Chronic chronic and ongoing tobacco dependence. #6 Multiple myeloma and had most recently been on Cytoxan. #7 Hypercalcemia, history of. Plan: The patient was seen and evaluated by . The plan is for discharge to [facility]. He is cleared from the pulmonary standpoint. Continue DuoNeb inhalations every 4 hours and Symbicort. Complete a course of antibioti cs. He will follow up with Dr. Jaffe in our office in 1-2 weeks' time. I, the cosigning physician, performed a history & physical examination of the patient. Lungs sounds bilateral scattered rhonchi. Maintaining good O2 saturations in the 90s on 2 L/m per nasal cannula. I discussed the assessment and plan of care with my nurse practitioner, Noemy Nelson. I attest to the above consultation as dictated by her.
--- NOTE | 2019-05-24 14:44 | P.DS ---
Providers Date of admission: 05/17/19 13:51 Expected date of discharge: 05/24/19 Attending physician: Taylor Espinoza Consults: 05/17/19 13:50 Consult Physician Routine Consulting Provider: Catia Moncada Consult Reason/Comments: known Do you want consulting provider notified?: Yes 05/17/19 14:12 Consult Physician Routine Consulting Provider: Kenny Sepulveda Consult Reason/Comments: known Do you want consulting provider notified?: Yes 05/17/19 17:53 Consult Physician Routine Consulting Provider: Gamaliel Gutiérrez Consult Reason/Comments: JOSEPH Do you want consulting provider notified?: Yes 05/19/19 07:49 Consult Physician Routine Consulting Provider: Jayy Lackey Consult Reason/Comments: lung cancer, respiratory distress Do you want consulting provider notified?: Yes 05/22/19 10:23 Consult Physician Routine Consulting Provider: Skyler Vuong Consult Reason/Comments: IPR Do you want consulting provider notified?: Yes Primary care physician: Stated None Hospital Course: Final diagnosis Fall an impacted fracture of the right humeral neck with severe pain Acute hypoxic respiratory failure secondary to possible pneumonia left-sided possibly gram-negative pneumonia superimposed on malignancy Leukopenia, anemia secondary to malignancy Gait dysfunction Severe hypocalcemia Increased MCV History of multiple myeloma History of adenocarcinoma of the right lung Acute renal failure possible prerenal acute tubular necrosis Hyperkalemia Renal failure acute on chronic stage III with possibly secondary to multiple myeloma Urinary tract infection, present on admission Gastroesophageal reflux disease Chronic obstructive pulmonary disease Hypertension Hyperlipidemia History of cholecystectomy History of tonsillectomy History of chronic hypoxic respiratory failure on home O2 nasal cannula Change in mental status metabolic encephalopathy, multifactorial No code, no CPR, no vent Discharge disposition Patient is being discharged in a stable condition with guarded prognosis to [facility]. Time taken 30 minutes. Patient will follow-up with Dr. Moncada once discharged from the rehab facility to resume chemo medication. Patient is to have a recheck of BMP to monitor potassium in 2-3 days. History of present illness This is a 69-year-old male who was admitted with a fall an impacted fracture of the right humerus and also had multiple complex medical issues. Patient was having gait dysfunction and is requiring some rehabilitation. Patient denies any chest pain, shortness of breath, or palpitations at this time. Patient is O2 dependent on 2-3 L oxygen via nasal cannula at home as well. Patient does use a cane for walking. Patient denies any nausea or vomiting and is tolerating diet well. Patient is to continue on a low potassium, heart healthy diet. Patient is afebrile at this time. Patient will go home on oral antibiotics for the next 5 days. Patient is agreeable to the rehab facility at this time. Patient is currently stable with much improvement. Discussed with the patient about following up with Dr. Moncada upon discharge and verbalizes understanding. On exam vital signs are stable. Blood pressure is 144/84, heart rate is 89, respirations are 16, temp is 97.8F, oxygen saturation is 98% on 2 L. Cardio S1 and S2 are muffled. Respiratory system shows diminished lung sounds with a few scattered rhonchi noted. There is some mild expiratory wheezing noted on exam. Abdomen is soft and nontender. Nervous system shows no focal deficits with mild diffuse weakness. Please refer to medication reconciliation sheet for a list of medications. Patient Condition at Discharge: Fair Plan - Discharge Summary Discharge Rx Participant: Yes New Discharge Prescriptions: New Ipratropium-Albuterol Nebulize [Duoneb 0.5 mg-3 mg/3 ml Soln] 3 ml INHALATION RT-QID ampul.neb Nystatin 100,000 Unit/ml Susp [Mycostatin Oral Susp] 500,000 unit PO QID 5 Days cup Sodium Bicarbonate Tab 650 mg PO BID tab Albuterol Nebulized [Ventolin Nebulized] 2.5 mg INHALATION RT-Q6H PRN nebu PRN Reason: Shortness Of Breath Amoxicillin/Potassium Clav [Augmentin 875-125 Tablet] 1 tab PO Q12HR 5 Days #10 tab Continue Fluticasone/Salmeterol [Advair 500-50 Diskus] 1 puff INHALATION RT-DAILY Atorvastatin [Lipitor] 20 mg PO DAILY Albuterol Inhaler [Ventolin Hfa Inhaler] 2 puff INHALATION RT-Q6H PRN PRN Reason: Shortness Of Breath Omeprazole [PriLOSEC] 20 mg PO DAILY Tamsulosin [Flomax] 0.4 mg PO DAILY Multivitamins, Thera [Multivitamin (formulary)] 1 tab PO DAILY Folic Acid 1 mg PO DAILY Dexamethasone [Hexadrol] 20 mg PO MO Citalopram Hydrobromide [CeleXA] 20 mg PO DAILY Thiamine [Vitamin B-1] 100 mg PO DAILY Cyclophosphamide 400 mg PO DIRECTED amLODIPine [Norvasc] 10 mg PO Q48H Ondansetron HCl [Zofran] 4 mg PO DAILY PRN PRN Reason: Nausea Calcium Carbonate 500 mg PO DAILY Aspirin EC [Ecotrin] 325 mg PO DAILY oxyCODONE-APAP 10-325MG [Percocet 10-325 mg] 1 tab PO BID PRN #4 tab PRN Reason: Pain Discontinued Sodium Bicarbonate Tab 650 mg PO DAILY #30 tab Potassium Chloride [Klor-Con 10] 10 meq PO DAILY Pomalidomide [Pomalyst] 4 mg PO DIRECTED Discharge Medication List Atorvastatin [Lipitor] 20 mg PO DAILY 06/29/17 [History] Fluticasone/Salmeterol [Advair 500-50 Diskus] 1 puff INHALATION RT-DAILY 06/29/17 [History] Albuterol Inhaler [Ventolin Hfa Inhaler] 2 puff INHALATION RT-Q6H PRN 10/27/17 [History] Citalopram Hydrobromide [CeleXA] 20 mg PO DAILY 10/27/17 [History] Dexamethasone [Hexadrol] 20 mg PO MO 10/27/17 [History] Folic Acid 1 mg PO DAILY 10/27/17 [History] Multivitamins, Thera [Multivitamin (formulary)] 1 tab PO DAILY 10/27/17 [History] Omeprazole [PriLOSEC] 20 mg PO DAILY 10/27/17 [History] Tamsulosin [Flomax] 0.4 mg PO DAILY 10/27/17 [History] Thiamine [Vitamin B-1] 100 mg PO DAILY 10/27/17 [History] Aspirin EC [Ecotrin] 325 mg PO DAILY 05/17/19 [History] Calcium Carbonate 500 mg PO DAILY 05/17/19 [History] Cyclophosphamide 400 mg PO DIRECTED 05/17/19 [History] Ondansetron HCl [Zofran] 4 mg PO DAILY PRN 05/17/19 [History] amLODIPine [Norvasc] 10 mg PO Q48H 05/17/19 [History] Albuterol Nebulized [Ventolin Nebulized] 2.5 mg INHALATION RT-Q6H PRN nebu 05/24/19 [Rx] Amoxicillin/Potassium Clav [Augmentin 875-125 Tablet] 1 tab PO Q12HR 5 Days #10 tab 05/24/19 [Rx] Ipratropium-Albuterol Nebulize [Duoneb 0.5 mg-3 mg/3 ml Soln] 3 ml INHALATION RT-QID ampul.neb 05/24/19 [Rx] Nystatin 100,000 Unit/ml Susp [Mycostatin Oral Susp] 500,000 unit PO QID 5 Days cup 05/24/19 [Rx] Sodium Bicarbonate Tab 650 mg PO BID tab 05/24/19 [Rx] oxyCODONE-APAP 10-325MG [Percocet 10-325 mg] 1 tab PO BID PRN #4 tab 05/24/19 [Rx] Follow up Appointment(s)/Referral(s): [facility] [NON-STAFF] - 1-2 Days None,Stated [Primary Care Provider] - 1-2 days Catia Moncada MD [STAFF PHYSICIAN] - 2 Weeks Ambulatory/Diagnostic Orders: Basic Metabolic Panel [LAB.AMB] Time Frame: 2 Days, Location: None Selected Activity/Diet/Wound Care/Special Instructions: [facility] will see you in 24-48hrs after discharge. They can be contacted at [phone] Patient is going to [facility] continue low potassium diet recheck BMP in 2-3 days Follow up with Dr. Moncada after discharge from [facility] Follow up with primary care provider upon discharge from [facility] as well. Discharge Disposition: TRANSFER TO [facility]/F
== END 2019-05-24 16:00 | DRG 562 ==
LOC: EC 11:15 → 3NMEDONC 13:51
PROVIDERS: ADMIT Hospitalist; ATTEND Hospitalist
DX: S42.211A Unspecified displaced fracture of surgical neck of right humerus, initial encounter for closed fracture (principal); N17.0 Acute kidney failure with tubular necrosis; J96.21 Acute and chronic respiratory failure with hypoxia; G93.41 Metabolic encephalopathy; J15.6 Pneumonia due to other Gram-negative bacteria; G72.81 Critical illness myopathy; C90.00 Multiple myeloma not having achieved remission; N39.0 Urinary tract infection, site not specified; E87.2 Acidosis; R64 Cachexia; J44.0 Chronic obstructive pulmonary disease with (acute) lower respiratory infection; J44.1 Chronic obstructive pulmonary disease with (acute) exacerbation; I95.9 Hypotension, unspecified; E83.51 Hypocalcemia; E11.22 Type 2 diabetes mellitus with diabetic chronic kidney disease; E87.5 Hyperkalemia; N18.3 Chronic kidney disease, stage 3 (moderate); K75.9 Inflammatory liver disease, unspecified; I12.9 Hypertensive chronic kidney disease with stage 1 through stage 4 chronic kidney disease, or unspecified chronic kidney disease; G89.3 Neoplasm related pain (acute) (chronic); D63.0 Anemia in neoplastic disease; D63.1 Anemia in chronic kidney disease; E86.0 Dehydration; R29.6 Repeated falls; E61.1 Iron deficiency; K59.03 Drug induced constipation; T40.605A Adverse effect of unspecified narcotics, initial encounter; G25.81 Restless legs syndrome; E78.5 Hyperlipidemia, unspecified; K21.9 Gastro-esophageal reflux disease without esophagitis; D72.819 Decreased white blood cell count, unspecified; R25.1 Tremor, unspecified; R47.81 Slurred speech; F10.11 Alcohol abuse, in remission; Z99.81 Dependence on supplemental oxygen; Z68.21 Body mass index [BMI] 21.0-21.9, adult; Z79.82 Long term (current) use of aspirin; Z79.51 Long term (current) use of inhaled steroids; Z79.52 Long term (current) use of systemic steroids; Z79.899 Other long term (current) drug therapy; Z91.81 History of falling; Z90.49 Acquired absence of other specified parts of digestive tract; Z85.118 Personal history of other malignant neoplasm of bronchus and lung; Z87.891 Personal history of nicotine dependence; Z98.52 Vasectomy status; Z98.890 Other specified postprocedural states; Z91.041 Radiographic dye allergy status; Z82.5 Family history of asthma and other chronic lower respiratory diseases; Z82.49 Family history of ischemic heart disease and other diseases of the circulatory system; Z80.0 Family history of malignant neoplasm of digestive organs; Z95.1 Presence of aortocoronary bypass graft; W01.10XA Fall on same level from slipping, tripping and stumbling with subsequent striking against unspecified object, initial encounter; Y92.002 Bathroom of unspecified non-institutional (private) residence as the place of occurrence of the external cause; Z63.8 Other specified problems related to primary support group
CPT/HCPCS: 36415; 70450; 70551; 71045; 71250; 74176; 76705; 76770; 78582; 80048; 80053; 80074; 81001; 82550; 82553; 82607; 82728; 82746; 83540; 83550; 83605; 83615; 83735; 83921; 84100; 84132; 84443; 84484; 84550; 85025; 85379; 85610; 85730; 87040; 87077; 87086; 87186; 93005; 94640; 94760; 96360; 99285

== ENCOUNTER → 2019-09-06 | Outpatient (CLI) | payer MEDICARE ==
--- NOTE | 2019-09-06 14:00 | CT ---
EXAMINATION TYPE: CT chest wo con DATE OF EXAM: 09/06/2019 COMPARISON: 05/16/2019 HISTORY: Lung CA CT DLP: 235.6 mGycm, Automated exposure control for dose reduction was used. CONTRAST: Performed injected with 0 mL of Isovue 300. TECHNIQUE: Axial images were obtained at 5 mm thick sections. Reconstructed images are reviewed on viavoo computer in the coronal plane. FINDINGS: Portion of the thyroid visualized is normal. There is an irregular density within the posterior right midlung measuring 0.8 cm. Series 4 image 27. This area appears larger than the comparison of 0.6 cm. There is some thickening along the major fissure greater near the lung base at the lingula. Some pneu monitis changes are again present within the right peripheral and lower lung field. There is an irregular pleural-based density at the posterior left lung base measuring 3.0 x 0.9 cm. S eries 4 image 45. This was present previously. Left midlung nodular density present previously is not identified currently. No enlarged mediastinal or hilar adenopathy is evident. The ascending aorta diameter at the level o f the main pulmonary artery is 3.2 cm. The main pulmonary artery diameter at the bifurcation is 2.6 cm. Mild coronary artery calcifications present. Small pericardial effusion is present. Limited CT sections are obtained through the upper abdomen. There may be some mild thickening of the left adrenal gland measuring 0.8 cm transverse. IMPRESSIONS: 1. Slight enlargement of a irregular nodular density posterior lateral right lung. 2. Stable appearance of pneumonitis changes right lower lobe and new irregular pleural-based density posterior left lung
== END | disposition home or self-care (01) ==
LOC: RADCTMAIN 13:16
PROVIDERS: ATTEND Internal Medicine Hematology & Oncology
DX: C34.31 Malignant neoplasm of lower lobe, right bronchus or lung (principal); J18.9 Pneumonia, unspecified organism
CPT/HCPCS: 71250

== ENCOUNTER → 2020-03-11 | Outpatient (CLI) | payer MEDICARE ==
--- NOTE | 2020-03-11 10:36 | CT ---
EXAMINATION TYPE: CT chest wo con DATE OF EXAM: 03/11/2020 COMPARISON: Chest CT September 06, 2019 and older CTs HISTORY: multiple myeloma, lung cancer CT DLP: 203 mGycm. Automated Exposure Control for Dose Reduction was Utilized. TECHNIQUE: CT scan of the thorax is performed without IV contrast. FINDINGS: LUNGS: Background fairly moderate emphysematous change is redemonstrated. There is fairly stable 9 x 7 mm scarlike opacity superior aspect right lower lobe axial image 31 from prior studies. There is tr harry left pleural fluid collection with adjacent left basilar compressive atelectasis not significantl y changed from most recent CT. There is persistent focal mild to moderate left basilar linear scarrin g anterior to this. Linear scarring left mid lung near fissure is redemonstrated. No new suspicious n odules or masses. Additional patchy linear scarring posterior superior right lower lobe is redemonstr ated. Mild to moderate focal linear scarring and/or atelectasis right lower lobe is redemonstrated. F airly stable 6 mm scar scarlike opacity right middle lobe laterally axial image 38. No suspicious new or enlarging nodules or masses. MEDIASTINUM: Lack of IV contrast is noted to limit evaluation for mediastinal and especially hilar ad enopathy. There are no definitive greater than 1 cm hilar or mediastinal lymph nodes. Small to modera te-sized pericardial effusion is slightly more prominent from most recent study up to 9 mm axial imag e 49. Moderate coronary artery calcification is redemonstrated which is noted marker for underlying c oronary artery disease. Moderate calcified plaque of the aorta extends into branch vessels. OTHER: Cholecystectomy clips are present. Stable focal round lytic lesion right T9 vertebral coronal image 54. Suspicious but stable left lytic midsternal lesion coronal image 8. Stable sclerotic right lateral mid to lower rib lesions and coronal image 56 and 49 presumed healing nondisplaced fractures. Bilateral subareolar gynecomastia redemonstrated. IMPRESSION: Stable post treatment changes to right mid to lower lung neoplasm. Stable tiny residual l eft pleural fluid collection. Additional chronic changes without suspicious new or enlarging mass. Sm all to moderate-sized pericardial effusion noted on current study shows continued enlargement from mo st recent CTs.
== END | disposition home or self-care (01) ==
LOC: RADCTMAIN 08:59
PROVIDERS: ATTEND Internal Medicine Hematology & Oncology
DX: I31.3 Pericardial effusion (noninflammatory) (principal); C34.31 Malignant neoplasm of lower lobe, right bronchus or lung; C90.00 Multiple myeloma not having achieved remission; Z91.041 Radiographic dye allergy status
CPT/HCPCS: 71250

== ENCOUNTER → 2020-06-18 | Outpatient (CLI) | payer MEDICARE ==
--- NOTE | 2020-06-18 14:33 | CT ---
EXAMINATION TYPE: CT chest wo con DATE OF EXAM: 06/18/2020 COMPARISON: 03/11/2020 HISTORY: Lung cancer, multiple myeloma CT DLP: 268 mGycm, Automated exposure control for dose reduction was used. CONTRAST: Performed injected with 0 mL of Isovue 300. TECHNIQUE: Axial images were obtained at 5 mm thick sections. Reconstructed images are reviewed on [employer] computer in the coronal plane. FINDINGS: Portion of the thyroid visualized is normal. There is a 0.2 cm peripheral anterior right nodule series 4 image 8. This is stable present previousl y. There is a spiculated 0.7 x 1.0 cm density in the superior segment right lower lobe. Series 4 image 3 2. This was present previously and appears stable. There is an area of pneumonitis along the major fissure on the left. Example image series 4 image 34. This was present previously There is some vague pneumonitis change in the right lower lobe. Series 4 image 41. This may be new. There is stranding and thickening along the posterior left lung margin. Series 4 image 47 is visualiz ed proximal by 1.8 x 0.6 cm. This is diminished from comparison. Emphysematous changes are present. No enlarged mediastinal or hilar adenopathy is evident. The ascending aorta diameter at the level o f the main pulmonary artery is 3.1 cm. The main pulmonary artery diameter at the bifurcation is 2.7 cm. There is a small to moderate pericardial effusion. Minimal coronary artery calcification is prese nt. Limited CT sections are obtained through the upper abdomen. There is mild thickening of the left adre nal gland measuring 1.0 cm. IMPRESSIONS: 1. Essentially stable lung findings discussed above. Continued monitoring is recommended with an jen tional CT chest in 6 months.
== END | disposition home or self-care (01) ==
LOC: RADCTMAIN 09:09
PROVIDERS: ATTEND Internal Medicine Hematology & Oncology
DX: C34.31 Malignant neoplasm of lower lobe, right bronchus or lung (principal); Z91.048 Other nonmedicinal substance allergy status
CPT/HCPCS: 71250

== ENCOUNTER 2020-09-20 03:05 | Inpatient (IN) | payer MEDICARE ==
[2020-09-20] MEDS ORDERED: SODIUM CHLORIDE 0.9% 1,000 ML IV STA (03:12)
--- NOTE | 2020-09-20 03:20 | ED ---
Fall HPI - General Stated Complaint: Fall Time Seen by Provider: 09/20/20 03:12 Source: patient, EMS, RN notes reviewed, old records reviewed Mode of arrival: EMS - History of Present Illness Initial Comments: This is a 68-year-old male DF for status post fall. Patient states he had a mechanical fall denies headache was complaining of right-sided pain right shoulder pain right arm pain. Occasional headaches but mild nausea no vomiting no diarrhea patient does have known history of lung cancer with shortness of breath. No chest pain. No abdominal pain. No other complaints MD Complaint: fall -: minutes(s) Fall From: standing When Fall Occurred: 1 hour [employer] Fall Witnessed: no Place Fall Occurred: home Loss of Consciousness: none Prolonged Down Time?: no Symptoms Prior to Fall: none Location: head Location - Extremities: Right: Shoulder, Arm Severity: moderate Severity scale (1-10): 5 Quality: aching Context: tripped/slipped Associated Symptoms: denies - Related Data Home Medications Medication Instructions Recorded Confirmed Atorvastatin [Lipitor] 20 mg PO DAILY 06/29/17 09/20/20 Citalopram Hydrobromide [CeleXA] 20 mg PO DAILY 10/27/17 09/20/20 Folic Acid 1 mg PO DAILY 10/27/17 09/20/20 Multivitamins, Thera [Multivitamin 1 tab PO DAILY 10/27/17 09/20/20 (formulary)] Tamsulosin [Flomax] 0.4 mg PO DAILY 10/27/17 09/20/20 Thiamine [Vitamin B-1] 100 mg PO DAILY 10/27/17 09/20/20 Aspirin EC [Ecotrin] 325 mg PO DAILY 05/17/19 09/20/20 Ondansetron HCl [Zofran] 4 mg PO DAILY PRN 05/17/19 09/20/20 Diazepam [Valium] 5 mg PO TID 11/08/19 09/20/20 Budesonide/Formoterol Fumarate 2 puff INHALATION RT-BID 09/20/20 09/20/20 [Symbicort 160-4.5 Mcg Inhaler] Calcium Carbonate [Calcium] 600 mg PO BID 09/20/20 09/20/20 Melatonin 10 mg PO HS 09/20/20 09/20/20 Omeprazole [PriLOSEC] 40 mg PO DAILY 09/20/20 09/20/20 Sodium Bicarbonate Tab 650 mg PO DAILY 09/20/20 09/20/20 bisacodyL [Dulcolax] 5 mg PO BID PRN 09/20/20 09/20/20 Previous Rx's Medication Instructions Recorded oxyCODONE-APAP 10-325MG [Percocet 1 tab PO BID PRN #4 tab 05/24/19 10-325 mg] Dexamethasone [Decadron] 4 mg PO QID #53 tablet 09/24/20 Allergies Allergy/AdvReac Type Severity Reaction Status Date / Time Iodinated Contrast Media Allergy Rash/Hives Verified 09/20/20 09:15 [Iodinated Contrast- Oral and IV Dye] Review of Systems ROS Statement: Those systems with pertinent positive or pertinent negative responses have been documented in the HPI. ROS Other: All systems not noted in ROS Statement are negative. Past Medical History Past Medical History: Cancer, COPD, GERD/Reflux, Hyperlipidemia, Hypertension, Respiratory Disorder Additional Past Medical History / Comment(s): mulitple myeloma, adenocarcinoma of the lung diagnosed in March 2017,home 02 2 liters n/c restless leg syndrome, anemia,tracheobronchits, History of Any Multi-Drug Resistant Organisms: None Reported Past Surgical History: Cholecystectomy, Tonsillectomy Additional Past Surgical History / Comment(s): CYST REMOVED FROM RT KNEE, vasectomy, rt bone marrow apiration/bx Past Anesthesia/Blood Transfusion Reactions: No Reported Reaction Additional Past Anesthesia/Blood Transfusion Reaction / Comment(s): past blood transfusion-stated no reaction to to it. Past Psychological History: No Psychological Hx Reported Smoking Status: Former smoker Past Alcohol Use History: None Reported Past Drug Use History: None Reported - Past Family History Mother Family Medical History: COPD, Hypertension Father Family Medical History: Coronary Artery Disease (CAD) Additional Family Medical History / Comment(s): cabg-triple vessel, pancreatic cancer age 65 General Exam Limitations: no limitations General appearance: alert, in no apparent distress Head exam: Present: atraumatic, normocephalic, normal inspection Eye exam: Present: normal appearance, PERRL, EOMI. Absent: scleral icterus, conjunctival injection, periorbital swelling ENT exam: Present: normal exam, mucous membranes moist Neck exam: Present: normal inspection. Absent: tenderness, meningismus, lymphadenopathy Respiratory exam: Present: normal lung sounds bilaterally. Absent: respiratory distress, wheezes, rales, rhonchi, stridor Cardiovascular Exam: Present: regular rate, normal rhythm, normal heart sounds. Absent: systolic murmur, diastolic murmur, rubs, gallop, clicks GI/Abdominal exam: Present: soft, normal bowel sounds. Absent: distended, tenderness, guarding, rebound, rigid Extremities exam: Present: normal inspection, full ROM, normal capillary refill. Absent: tenderness, pedal edema, joint swelling, calf tenderness Back exam: Present: normal inspection Neurological exam: Present: alert, oriented X3, CN II-XII intact Psychiatric exam: Present: normal affect, normal mood Skin exam: Present: warm, dry, intact, normal color. Absent: rash Course Vital Signs 09/20/20 09/20/20 09/20/20 03:07 04:35 05:09 Temperature 98.6 F Pulse Rate 72 69 68 Pulse Rate [ Left] Respiratory 18 19 19 Rate Blood Pressure 115/57 123/54 126/47 Blood Pressure [Left Arm] O2 Sat by Pulse 100 96 94 L Oximetry 09/20/20 09/20/20 09/20/20 06:05 07:15 17:55 Temperature 98.3 F 98.1 F Pulse Rate 65 71 Pulse Rate [ 73 Left] Respiratory 19 18 18 Rate Blood Pressure 152/59 152/59 Blood Pressure 155/68 [Left Arm] O2 Sat by Pulse 97 99 95 Oximetry - Reevaluation(s) Reevaluation #1: Medical records reviewed Patient has resolution to improvement of pain and of of symptoms here in the ER Patient informed of results results, questions are answered Patient [place] for oncology as well as evaluation of right humerus fracture Medical Decision Making - Medical Decision Making 70 male to the ER with fall patient does have lung cancer brain metastasis and right humerus fracture. Patient otherwise has no complaints or changes. Patient be admitted for oncology to see - Lab Data Result diagrams: 09/23/20 04:51 09/23/20 04:51 Lab Results 09/20/20 09/20/20 09/20/20 Range/Units 03:25 03:25 03:25 WBC 6.0 (3.8-10.6) k/uL RBC 2.82 L (4.30-5.90) m/uL Hgb 9.1 L (13.0-17.5) gm/dL Hct 27.9 L (39.0-53.0) % MCV 98.9 (80.0-100.0) fL MCH 32.3 (25.0-35.0) pg MCHC 32.6 (31.0-37.0) g/dL RDW 13.0 (11.5-15.5) % Plt Count 229 (150-450) k/uL MPV 8.0 Neutrophils % 74 % Lymphocytes % 15 % Monocytes % 6 % Eosinophils % 4 % Basophils % 1 % Neutrophils # 4.4 (1.3-7.7) k/uL Lymphocytes # 0.9 L (1.0-4.8) k/uL Monocytes # 0.3 (0-1.0) k/uL Eosinophils # 0.2 (0-0.7) k/uL Basophils # 0.0 (0-0.2) k/uL PT (9.0-12.0) sec INR (<1.2) APTT (22.0-30.0) sec Sodium 138 (137-145) mmol/L Potassium 5.9 H (3.5-5.1) mmol/L Chloride 106 (98-107) mmol/L Carbon Dioxide 28 (22-30) mmol/L Anion Gap 4 mmol/L BUN 27 H (9-20) mg/dL Creatinine 1.42 H (0.66-1.25) mg/dL Est GFR (CKD-EPI)AfAm 58 (>60 ml/min/1.73 sqM) Est GFR (CKD-EPI)NonAf 50 (>60 ml/min/1.73 sqM) Glucose 97 (74-99) mg/dL Plasma Lactic Acid Hudson 1.1 (0.7-2.0) mmol/L Calcium 9.8 (8.4-10.2) mg/dL Phosphorus 4.6 H (2.5-4.5) mg/dL Magnesium 1.6 (1.6-2.3) mg/dL Total Bilirubin 1.3 (0.2-1.3) mg/dL AST 34 (17-59) U/L ALT 16 (4-49) U/L Alkaline Phosphatase 41 (38-126) U/L Troponin I (0.000-0.034) ng/mL Total Protein 7.3 (6.3-8.2) g/dL Albumin 3.8 (3.5-5.0) g/dL 09/20/20 09/20/20 Range/Units 03:25 04:32 WBC (3.8-10.6) k/uL RBC (4.30-5.90) m/uL Hgb (13.0-17.5) gm/dL Hct (39.0-53.0) % MCV (80.0-100.0) fL MCH (25.0-35.0) pg MCHC (31.0-37.0) g/dL RDW (11.5-15.5) % Plt Count (150-450) k/uL MPV Neutrophils % % Lymphocytes % % Monocytes % % Eosinophils % % Basophils % % Neutrophils # (1.3-7.7) k/uL Lymphocytes # (1.0-4.8) k/uL Monocytes # (0-1.0) k/uL Eosinophils # (0-0.7) k/uL Basophils # (0-0.2) k/uL PT 10.2 (9.0-12.0) sec INR 1.0 (<1.2) APTT 19.5 L (22.0-30.0) sec Sodium (137-145) mmol/L Potassium (3.5-5.1) mmol/L Chloride (98-107) mmol/L Carbon Dioxide (22-30) mmol/L Anion Gap mmol/L BUN (9-20) mg/dL Creatinine (0.66-1.25) mg/dL Est GFR (CKD-EPI)AfAm (>60 ml/min/1.73 sqM) Est GFR (CKD-EPI)NonAf (>60 ml/min/1.73 sqM) Glucose (74-99) mg/dL Plasma Lactic Acid Hudson (0.7-2.0) mmol/L Calcium (8.4-10.2) mg/dL Phosphorus (2.5-4.5) mg/dL Magnesium (1.6-2.3) mg/dL Total Bilirubin (0.2-1.3) mg/dL AST (17-59) U/L ALT (4-49) U/L Alkaline Phosphatase (38-126) U/L Troponin I 0.012 (0.000-0.034) ng/mL Total Protein (6.3-8.2) g/dL Albumin (3.5-5.0) g/dL - EKG Data -: EKG Interpreted by Me (EKG shows sinus rhythm 70 care 170 QRS 96 QTc 460) - Radiology Data Radiology results: report reviewed (Chest x-ray is unchanged CT brain does show lung metastasis to brain), image reviewed Disposition Clinical Impression: Stage 4 malignant neoplasm of lung, Lung cancer, Fall, Right humeral fracture, Brain metastasis Disposition: ADMITTED IP TO THIS HOSP Condition: Stable Is patient prescribed a controlled substance at d/c from ED?: No
[2020-09-20 03:42] LABS: Basophils % (A) 1 %; Eosinophils # (A) 0.2 k/uL (0-0.7); Eosinophils % (A) 4 %; HCT 27.9 % (39.0-53.0); HGB 9.1 gm/dL (13.0-17.5); Lymphocytes # (A) 0.9 k/uL (1.0-4.8); Lymphocytes % (A) 15 %; MCH 32.3 pg (25.0-35.0); MCHC 32.6 g/dL (31.0-37.0); MCV 98.9 fL (80.0-100.0); Monocytes # (A) 0.3 k/uL (0-1.0); Monocytes % (A) 6 %; Neutrophils # (A) 4.4 k/uL (1.3-7.7); Neutrophils % (A) 74 %; Platelet Count 229 k/uL (150-450); RBC 2.82 m/uL (4.30-5.90)
[2020-09-20 03:53] LABS: Albumin 3.8 g/dL (3.5-5.0); Calcium 9.8 mg/dL (8.4-10.2); Magnesium 1.6 mg/dL (1.6-2.3); Phosphorus 4.6 mg/dL (2.5-4.5); Total Bilirubin 1.3 mg/dL (0.2-1.3); Total Protein 7.3 g/dL (6.3-8.2)
[2020-09-20 03:57] LABS: Potassium 5.9 mmol/L (3.5-5.1)
--- NOTE | 2020-09-20 04:02 | CT ---
EXAM: CT Head Without Intravenous Contrast CLINICAL HISTORY: ITS.REASON CT Reason: fall TECHNIQUE: Axial computed tomography images of the head/brain without intravenous contrast. CTDI is 1014 mGy and DLP is 45.2 mGy-cm. This CT exam was performed using one or more of the following dose reduction techniques: automated exposure control, adjustment of the mA and/or kV according to patient size, and/or use of iterative reconstruction technique. COMPARISON: 05/17/2019, MRI dated 05/20/2019 FINDINGS: Brain: Left parietal lobe hypodense mass measuring up to 3.5 cm with extensive surrounding vasogenic edema, new from 2019 ([id number]). No acute intracranial hemorrhage. Lugo-white differentiation is preserved throughout the cerebral hemispheres. Mild bilateral basal ganglia calcifications. Ventricles: Local mass-effect on the atrium and right occipital horn of the lateral ventricle. No ventriculomegaly. Bones/joints: Unremarkable. No acute fracture. Soft tissues: Unremarkable. Sinuses: Opacification of the right maxillary sinus. Remainder of the paranasal sinuses are clear. Mastoid air cells: Unremarkable as visualized. No mastoid effusion. IMPRESSION: 1. Left parietal lobe hypodense mass measuring up to 3.5 cm with extensive surrounding vasogenic edema, new from 2019, suspicious for metastasis. MRI may be obtained to determine extent of intracranial disease. 2. Local mass-effect on the left parietal lobe sulci and the atrium of the right lateral ventricle. No midline shift or herniation. 3. No acute intracranial hemorrhage. No hydrocephalus. 4. Right maxillary sinus opacification which may be due to sinusitis. EXAM: CT Cervical Spine Without Intravenous Contrast CLINICAL HISTORY: ITS.REASON CT Reason: fall TECHNIQUE: Axial computed tomography images of the cervical spine without intravenous contrast. CTDI is 8.57 mGy and DLP is 232.8 mGy-cm. This CT exam was performed using one or more of the following dose reduction techniques: automated exposure control, adjustment of the mA and/or kV according to patient size, and/or use of iterative reconstruction technique. COMPARISON: none available FINDINGS: Vertebrae: No acute fractures. Minimal anterolisthesis of C3 on C4. Discs/spinal canal/neural foramina: Multilevel degenerative disc disease, most prominent at C4-C5 with disc space narrowing and anterior osteophytes. Ossification of the posterior longitudinal ligament at C5 resulting in moderate spinal canal narrowing. Multilevel bilateral foraminal narrowing throughout the mid and lower cervical spine, with severe left foraminal narrowing at C3-C4 on the left and severe bilateral foraminal narrowing at C4-C5, C5-C6 and C6-C7. Soft tissues: Moderate centrilobular emphysema. Dense calcific atherosclerotic carotid plaque of the bilateral carotid bulbs. IMPRESSION: 1. No CT evidence of acute traumatic injury to the cervical spine. 2. Multilevel degenerative disc disease and facet arthropathy of the cervical spine resulting in severe left foraminal narrowing at C3-C4 on the left and severe bilateral foraminal narrowing at C4-C5, C5-C6 and C6- C7. <MYCVCSECTION> Communications: 09/20/20 03:55 Call Doctor Regarding Other, called Dr. Douglass on 09/20 03:54 (-05:00)
--- NOTE | 2020-09-20 04:04 | XR ---
EXAM: XR Pelvis, 1 or 2 Views CLINICAL HISTORY: ITS.REASON XR Reason: fall TECHNIQUE: Frontal view of the pelvis. COMPARISON: none available FINDINGS: Bones/joints: Unremarkable. No acute fracture. No dislocation. Degenerative disc disease of the lower lumbar spine. Soft tissues: Unremarkable. Phleboliths in the pelvis. Moderate fecal burden throughout the colon. IMPRESSION: Normal pelvis x-ray.
--- NOTE | 2020-09-20 04:06 | XR ---
ADDENDUM - Added by Jose Alejandro Romo M.D. on 09/20/2020 4:10 AM (-08:00) Mildly displaced right posterior fifth and sixth rib deformities, more clearly visualized on concurrent right humeral radiographs performed on same date. EXAM: XR Chest, 1 View CLINICAL HISTORY: ITS.REASON XR Reason: fall TECHNIQUE: Frontal view of the chest. COMPARISON: none available FINDINGS: Lungs: Hazy right upper lobe opacity with volume loss new from 2019. No pleural effusions or pneumothorax. Pleural space: Unremarkable. No pneumothorax. Heart: Unremarkable. No cardiomegaly. Mediastinum: Unremarkable. Bones/joints: Unremarkable. IMPRESSION: Hazy right upper lobe opacity with volume loss and elevation of the right hemidiaphragm which may be due to atelectasis, scar, or consolidation.
[2020-09-20] MEDS ORDERED: DEXAMETHASONE SOD PHOSPHATE 10 MG/ML 1 ML VIAL IV STA (04:09)
--- NOTE | 2020-09-20 04:09 | XR ---
EXAM: XR Right Humerus, 2 or More Views CLINICAL HISTORY: ITS.REASON XR Reason: fall TECHNIQUE: Frontal and lateral views of the right humerus. COMPARISON: none available FINDINGS: Bones/joints: Angulated impaction fracture of the right humeral head. No glenohumeral dislocation. Soft tissues: Unremarkable. IMPRESSION: 1. Angulated impaction fracture of the right humeral head. 2. Mildly displaced right posterior fifth and sixth rib deformities.
[2020-09-20] MEDS: DEXAMETHASONE SOD PHOSPHATE 4 MG/ML 1 ML VIAL IV SCH ×5 (04:36→23:03)
[2020-09-20 05:21] LABS: Prothrombin Time 10.2 sec (9.0-12.0)
[2020-09-20 06:09] LABS: Partial Thromboplastin Time 19.5 sec (22.0-30.0)
[2020-09-20] MEDS ORDERED: LORazepam 2 MG/ML INJ IV STA (06:47)
[2020-09-20] MEDS ORDERED: ONDANSETRON 4 MG/2 ML VIAL IVP STA (06:47)
[2020-09-20] MEDS ORDERED: LORazepam 2 MG/ML INJ IV PRN (06:47)
[2020-09-20] MEDS ORDERED: MORPHINE SULFATE 4 MG/ML SYRINGE IVP STA (06:47)
[2020-09-20] MEDS ORDERED: MORPHINE SULFATE 4 MG/ML SYRINGE IVP PRN (06:47)
[2020-09-20] MEDS ORDERED: ONDANSETRON 4 MG/2 ML VIAL IVP PRN (06:47)
--- NOTE | 2020-09-20 13:08 | P.CNOR ---
History of Present Illness - [facility] Consult date: 09/20/20 Consult reason: fracture (Right proximal humerus fracture) History of present illness: This is a 70-year-old male with history of metastatic lung cancer. He had a fall early this morning and presented to the emergency department. On examination x-ray he was found to have a humeral neck fracture. He also reportedly lacerated his ear and scalp. He is being admitted to internal medicine and we're consulted for orthopedic evaluation. Past Medical History Past Medical History: Cancer, COPD, GERD/Reflux, Hyperlipidemia, Hypertension, Respiratory Disorder Additional Past Medical History / Comment(s): mulitple myeloma, adenocarcinoma of the lung diagnosed in March 2017,home 02 2 liters n/c restless leg syndrome, anemia,tracheobronchits, History of Any Multi-Drug Resistant Organisms: None Reported Past Surgical History: Cholecystectomy, Tonsillectomy Additional Past Surgical History / Comment(s): CYST REMOVED FROM RT KNEE, vasectomy, rt bone marrow apiration/bx Past Anesthesia/Blood Transfusion Reactions: No Reported Reaction Additional Past Anesthesia/Blood Transfusion Reaction / Comm: past blood trans fusion-stated no reaction to to it. Past Psychological History: No Psychological Hx Reported Smoking Status: Former smoker Past Alcohol Use History: None Reported Past Drug Use History: None Reported - Past Family History Mother Family Medical History: COPD, Hypertension Father Family Medical History: Coronary Artery Disease (CAD) Additional Family Medical History / Comment(s): cabg-triple vessel, pancreatic cancer age 65 Medications and Allergies Home Medications Medication Instructions Recorded Confirmed Type Atorvastatin [Lipitor] 20 mg PO DAILY 06/29/17 09/20/20 History Citalopram Hydrobromide [CeleXA] 20 mg PO DAILY 10/27/17 09/20/20 History Folic Acid 1 mg PO DAILY 10/27/17 09/20/20 History Multivitamins, Thera [Multivitamin 1 tab PO DAILY 10/27/17 09/20/20 History (formulary)] Tamsulosin [Flomax] 0.4 mg PO DAILY 10/27/17 09/20/20 History Thiamine [Vitamin B-1] 100 mg PO DAILY 10/27/17 09/20/20 History Aspirin EC [Ecotrin] 325 mg PO DAILY 05/17/19 09/20/20 History Ondansetron HCl [Zofran] 4 mg PO DAILY PRN 05/17/19 09/20/20 History oxyCODONE-APAP 10-325MG [Percocet 1 tab PO BID PRN #4 tab 05/24/19 09/20/20 Rx 10-325 mg] Diazepam [Valium] 5 mg PO TID 11/08/19 09/20/20 History Budesonide/Formoterol Fumarate 2 puff INHALATION RT-BID 09/20/20 09/20/20 History [Symbicort 160-4.5 Mcg Inhaler] Calcium Carbonate [Calcium] 600 mg PO BID 09/20/20 09/20/20 History Melatonin 10 mg PO HS 09/20/20 09/20/20 History Omeprazole [PriLOSEC] 40 mg PO DAILY 09/20/20 09/20/20 History Sodium Bicarbonate Tab 650 mg PO DAILY 09/20/20 09/20/20 History bisacodyL [Dulcolax] 5 mg PO BID PRN 09/20/20 09/20/20 History Allergies Allergy/AdvReac Type Severity Reaction Status Date / Time Iodinated Contrast Media Allergy Rash/Hives Verified 09/20/20 09:15 [Iodinated Contrast- Oral and IV Dye] Physical Examination This is a pleasant 60-year-old male in no acute distress. He is alert and oriented at this time. Exam of the head and neck reveal A large bandage to the ear and forehead. He has fairly good cervical spine motion without difficulty or pain. No pain on palpation about the cervical spine or paraspinal suture. Exam of the right upper extremity reveals no erythema or ecchymosis. There is minimal soft tissue swelling about the shoulder. He is able to move the shoulder somewhat with minimal pain. There is minimal pain with palpation about the proximal humerus. He has full elbow, wrist and finger motion. Neurovascular status to the right upper extremity is intact. Results X-rays reveal a slightly shortened, impacted humeral neck fracture. There is no obvious intra-articular Component and no obvious bony lesion or mass. - Labs Labs: Abnormal Lab Results - Last 24 Hours (Table) 09/20/20 09/20/20 09/20/20 Range/Units 03:25 03:25 04:32 RBC 2.82 L (4.30-5.90) m/uL Hgb 9.1 L (13.0-17.5) gm/dL Hct 27.9 L (39.0-53.0) % Lymphocytes # 0.9 L (1.0-4.8) k/uL APTT 19.5 L (22.0-30.0) sec Potassium 5.9 H (3.5-5.1) mmol/L BUN 27 H (9-20) mg/dL Creatinine 1.42 H (0.66-1.25) mg/dL Phosphorus 4.6 H (2.5-4.5) mg/dL H & H 09/20/20 Range/Units 03:25 Hgb 9.1 L (13.0-17.5) gm/dL Hct 27.9 L (39.0-53.0) % Coagulation 09/20/20 Range/Units 04:32 INR 1.0 (<1.2) Result Diagrams: 09/20/20 03:25 09/20/20 03:25 Assessment and Plan (1) Brain metastasis Current Visit: Yes Status: Acute Code(s): C79.31 - SECONDARY MALIGNANT NEOPLASM OF BRAIN SNOMED Code(s): 86856955 (2) Fall Current Visit: Yes Status: Acute Code(s): W19.XXXA - UNSPECIFIED FALL, INITIAL ENCOUNTER SNOMED Code(s): 4613893 (3) Lung cancer Current Visit: Yes Status: Acute Code(s): C34.90 - MALIGNANT NEOPLASM OF UNSP PART OF UNSP BRONCHUS OR LUNG SNOMED Code(s): 452143142 (4) Fracture of neck of left humerus Current Visit: No Status: Acute Code(s): S42.212A - UNSP DISP FX OF SURGICAL NECK OF LEFT HUMERUS, INIT SNOMED Code(s): 853986989 (5) Laceration of forehead without complication Current Visit: No Status: Acute Code(s): S01.81XA - LACERATION W/O FOREIGN BODY OF OTH PART OF HEAD, INIT ENCNTR SNOMED Code(s): 251761930 Plan: Name clinical and x-ray findings are discussed with the patient. Treatment options were discussed including conservative management in a sling versus surgical intervention. The impacted fracture are generally relatively stable. With his medical history is recommended we opt for conservative treatment. He will remain in the sling and allow the arm dangle. He is to follow up for x- rays in 10-14 days.
--- NOTE | 2020-09-20 15:26 | P.HPIM ---
History of Present Illness H&P Date: 09/20/20 Italo Pinzon is a 70-year-old male with history of metastatic lung cancer. Who presented to [facility] emergency room after sustaining a fall and having evidence of right humeral neck fracture, and lacerated ear and scalp. Patient also had evidence of mildly displaced right posterior fifth and sixth ribs. Patient was evaluated in the emergency room his vital examination on presentation revealed a temperature of 98.6 pulse 72 respiration 18 blood pressure 115/57 pulse ox 100% on room air his white blood count was 6.0 hemoglobin 9.1 platelet count 229 sodium 138 potassium 5.9 BUN 27 creatinine 1.42 computed tomography scan of the head and neck was done and revealed left parietal lobe hypodense mass measuring 3.5 cm with extensive surrounding vasogenic edema Since 2019 exam. Otherwise there was no evidence of intracranial bleeding and no CT evidence of acute traumatic injury of the neck. Patient was admitted to medical floor orthopedic surgery consultation and oncology consultation were requested. On review of systems patient is alert confused in mild distress he is complaining of pain in the right side of his chest site of the rib fractures, otherwise he denies any complaints at this time there is no fever or chills no headache or dizziness no chest pain no shortness of breath no cough no nausea or vomiting no abdominal pain no diarrhea and no urinary symptoms Past Medical History Past Medical History: Cancer, COPD, GERD/Reflux, Hyperlipidemia, Hypertension, Respiratory Disorder Additional Past Medical History / Comment(s): mulitple myeloma, adenocarcinoma of the lung diagnosed in March 2017,home 02 2 liters n/c restless leg syndrome, anemia,tracheobronchits, History of Any Multi-Drug Resistant Organisms: None Reported Past Surgical History: Cholecystectomy, Tonsillectomy Additional Past Surgical History / Comment(s): CYST REMOVED FROM RT KNEE, vasectomy, rt bone marrow apiration/bx Past Anesthesia/Blood Transfusion Reactions: No Reported Reaction Additional Past Anesthesia/Blood Transfusion Reaction / Comment(s): past blood transfusion-stated no reaction to to it. Past Psychological History: No Psychological Hx Reported Smoking Status: Former smoker Past Alcohol Use History: None Reported Past Drug Use History: None Reported - Past Family History Mother Family Medical History: COPD, Hypertension Father Family Medical History: Coronary Artery Disease (CAD) Additional Family Medical History / Comment(s): cabg-triple vessel, pancreatic cancer age 65 Medications and Allergies Home Medications Medication Instructions Recorded Confirmed Type Atorvastatin [Lipitor] 20 mg PO DAILY 06/29/17 09/20/20 History Citalopram Hydrobromide [CeleXA] 20 mg PO DAILY 10/27/17 09/20/20 History Folic Acid 1 mg PO DAILY 10/27/17 09/20/20 History Multivitamins, Thera [Multivitamin 1 tab PO DAILY 10/27/17 09/20/20 History (formulary)] Tamsulosin [Flomax] 0.4 mg PO DAILY 10/27/17 09/20/20 History Thiamine [Vitamin B-1] 100 mg PO DAILY 10/27/17 09/20/20 History Aspirin EC [Ecotrin] 325 mg PO DAILY 05/17/19 09/20/20 History Ondansetron HCl [Zofran] 4 mg PO DAILY PRN 05/17/19 09/20/20 History oxyCODONE-APAP 10-325MG [Percocet 1 tab PO BID PRN #4 tab 05/24/19 09/20/20 Rx 10-325 mg] Diazepam [Valium] 5 mg PO TID 11/08/19 09/20/20 History Budesonide/Formoterol Fumarate 2 puff INHALATION RT-BID 09/20/20 09/20/20 History [Symbicort 160-4.5 Mcg Inhaler] Calcium Carbonate [Calcium] 600 mg PO BID 09/20/20 09/20/20 History Melatonin 10 mg PO HS 09/20/20 09/20/20 History Omeprazole [PriLOSEC] 40 mg PO DAILY 09/20/20 09/20/20 History Sodium Bicarbonate Tab 650 mg PO DAILY 09/20/20 09/20/20 History bisacodyL [Dulcolax] 5 mg PO BID PRN 09/20/20 09/20/20 History Allergies Allergy/AdvReac Type Severity Reaction Status Date / Time Iodinated Contrast Media Allergy Rash/Hives Verified 09/20/20 09:15 [Iodinated Contrast- Oral and IV Dye] Physical Exam Vitals: Vital Signs Temp Pulse Resp BP Pulse Ox 09/20/20 07:15 71 18 152/59 99 09/20/20 06:05 98.3 F 65 19 152/59 97 09/20/20 05:09 68 19 126/47 94 L 12/11/20 04:35 69 19 123/54 96 09/20/20 03:07 98.6 F 72 18 115/57 100 Intake and Output 09/20/20 09/20/20 09/20/20 06:59 14:59 22:59 Other: Weight 52.617 kg In general patient is alert, confused in minimal distress due to pain and discomfort HEENT head normocephalic and atraumatic Neck is supple no JVD no goiter no lymphadenopathy Chest exam reveals a few scattered rhonchi no wheezing Cardiac exam reveals regular heart sounds S1 and S2 no gallops no murmurs Abdomen is soft nontender no organomegaly with normal bowel sounds Extremity exam reveals no edema no cyanosis or clubbing Results CBC & Chem 7: 09/20/20 03:25 09/20/20 03:25 Labs: Abnormal Lab Results - Last 24 Hours (Table) 09/20/20 09/20/20 09/20/20 Range/Units 03:25 03:25 04:32 RBC 2.82 L (4.30-5.90) m/uL Hgb 9.1 L (13.0-17.5) gm/dL Hct 27.9 L (39.0-53.0) % Lymphocytes # 0.9 L (1.0-4.8) k/uL APTT 19.5 L (22.0-30.0) sec Potassium 5.9 H (3.5-5.1) mmol/L BUN 27 H (9-20) mg/dL Creatinine 1.42 H (0.66-1.25) mg/dL Phosphorus 4.6 H (2.5-4.5) mg/dL Assessment and Plan Plan: 1. Fall with multiple traumatic injuries including head and ear laceration, right sided fifth and sixth rib fractures, and right humeral head fracture 2. Evidence of metastatic disease to the brain 3. Known history of underlying adenocarcinoma lung cancer, diagnosed in March 2017 4. Acute kidney injury with evidence of elevated BUN and creatinine 5. Underlying history of COPD 6. Underlying history of gastroesophageal reflux disease 7. Underlying history of hypertension 8. Underlying history of hyperlipidemia 9. Underlying history of multiple myeloma 10. Underlying history of restless leg syndrome 11. Underlying history of anemia 12. Underlying history of chronic hypoxic respiratory failure maintained on home oxygen At this time plan is to admit patient to medical floor Orthopedic surgery consultation and oncology consultation requested Patient was started on IV fluids for gentle hydrations will recheck kidney function in a.m.
--- NOTE | 2020-09-20 18:00 | MR ---
EXAMINATION TYPE: MR brain wo/w con DATE OF EXAM: 09/20/2020 COMPARISON: 05/20/2019 HISTORY: Further evaluation of metastatic brain lesion CONTRAST: Standard multiplanar, multisequence MRI departmental protocol utilizing 5 mL intravenous Gadavist elena olinium contrast. There is a 3 cm rounded mixed signal mass in the left occipital lobe at the burgess-white matter junctio n. There is significant surrounding white matter edema. There is effacement of the occipital horn of the left lateral ventricle. There is no midline shift. There is no evidence of a posterior fossa mass . The corpus callosum appears intact. Diffusion images show no evidence of cortical infarct. Sella turc ica appears normal. There is irregular ring enhancement at the margins of the occipital lobe mass. Th ere is a ring of very low signal around the mass on the T2 images that could be hemosiderin. The brai nstem appears intact. IMPRESSION: Large mixed signal ring enhancing mass in the left occipital lobe with surrounding edema. This is con sistent with hemorrhagic metastatic disease. No other lesion identified. Abnormality is a change comp ared to old exam. Primary brain tumor also possible.
--- NOTE | 2020-09-20 21:18 | P.CONS ---
History of Present Illness - Reason for Consult Consult date: 09/20/20 New Brain Mass - Hx: MM and Lung ca Requesting physician: Peter Anderson - Chief Complaint Fall - History of Present Illness This is a very nice patient who is well known to our practice, primary oncologist Dr. Moncada he originally presented to [facility] on 03/22/17 with acute change in mental status, he was found to have hypercalcemia (calcium level was 16), which was corrected, as part of his work up, CT scan of chest revealed 3.7 cm RLL and 1 cm LLL lung mass, CT scan of abdomen/pelvis were negative, brain MRI was negative. He was discharged home and underwent CT guided biopsy of RLL lung mass on 04/08/17, pathology revealed poorly differentiated adenocarcinoma consistent with adenocarcinoma. On 05/13/2017,PET scan revealed suspicious uptake in 4.6cm RLL mass and right hilar nodes and 1.3cm LLL mass. On 05/26/2017,biopsy of LLL nodule was also positive for poorly differentiated adenocarcinoma of the lung PDL-1 was 50% positive,EGFR/ALK,ROS were negative. He started keytruda on 06/28/2017. On 09/07/2017,repeat CT scan revealed significant improvement in his disease,however,he had acute renal failure secondary to IV contrast,which improved. Since his total protein was persistently elevated and had acute kidney injury,SPEP and immunufixation were done on 09/29/2017 which revealed M-protein of 3.6gm/dl, of IgG 4323 mg/dl,free lambda level of 2739 mg/L,ratio of 0,creatinine 2.3 Bone marrow biopsy done on 10/07/2017 revealed 40% monoclonal plasma cell,normal cytogenetics. Since he acheived a good response to keytruda,it was held on 09/21/2017 to proceed with treatment for his multiple myeloma He started weekly velcade/decadron on 10/26/2017. On 12/13/2017,M-protein was down to 2.35 On 01/11/2018,repeat CT scan of chest revealed no progression of lung cancer,in fact slight improvement compared to prior one. On 01/24/2019,M-protein was 1.99gm/dl,kappa/lambda ratio was 0.07,CMP revealed creatinine 1.6 On 02/16/2018,M-protein was 1.96 mg/dl,IgG was 2220mg/dl,creatinine was 1.4 On 03/22/2018,M-protein was 1.2 mg/dl,IgG was 1770 mg/dl, In Mid March/2018,myeloma treatment was held and he resumed keytruda on 03/29/[address] scan of chest/abdomen/pelvis on 05/24/2018 revealed stable disease,slight worsening of left pleural effusion. On 05/31/2018,SPEP and immunofixation revealed M-protein up to 3.25gm/dl,IgG 4730 mg/dl,creatinine 1.8,kappa/lambda ratio was 0.0026. Keytruda for his lung cancer was held. He was started on second line treatment for his myeloma in June/2018,with pomalyst/cytoxan/dex. On 07/21/2018,SPEP revealed M-protein of 2.27gm/dl,IgG 2420mg/dl,kappa/lambda ratio 0.003,creatinine 1.3, On 08/18/2018,M-protein was down to 1.7gm/dl,IgG 2140mg/dl,creatinine 1.5 On 09/20/2018,M-protein was 1.29gm/dl,IgG 1630mg/dl,creatinine 1.6,kappa/lambda ratio 0.007 On 10/18/2018,repeat CT scan of chest revealed no pregression of his lung cancer On 11/02/2018,M-protein was 1.1,kappa/lambda ratio was 0.02,IgG was 1312 mg/dl On 12/06/2018,M-protein was 1.2gm/dl,free lambda level was 158mg/dl,kappa/lambda ratio 0.007. On 02/08/2019,repeat CT scan of chest revealed no evidence of progression of his lung cancer. On 01/05/2019,SPEP and immunofixation revealed M-spike of 1.36 gm/dl IgG l ambda,serum free lambda level was 64.6mg/dl,kappa/lambda ratio of 0.012,IgG level of 1980mg/dl,his creatinine was 1.6. On 02/16/2019,M-protein was 0.75mg/dl,IgG 1090mg/dl,kappa/lambda ratio 0.01,calcium 7.9 and creatinine 1.6 On 03/16/2019,SPEP and immunofixation revealed IgG lambda M-spike 0.74gm/dl,IgG level 1040mg/dl,free lambda level 47.9mg/dl,ratio 0.02 . On 04/13/2019,Seeley/lambda ratio was 0.017,no obvious monoclonal protein on SPEP,creatinine 1.7. On 05/17/[address] scan of chest/abdomen/pelvis revealed no progression of lung cancer. On 06/14/2019,SPEP and immunofixtaion revealed very small IgG Lambda protein,Lambda level was 75mg/dl,IgG 1470 mg/dl,he was off treatment for a month since he fell and broke right arm. On 07/20/2019,SPEP and immunofixation revealed IgG lambda M-spike of 1.07gm/dl,IgG 1480 mg/dl,free lambda 70 mg/dl,kappa/lambda ratio 0.01,stable creatinine. On 08/14/2019,SPEP and immunofixation revealed IgG Lambda protien,M-spike 0.84gm/dl,free lambda 88mg/dl,ratio 0.011. On 09/06/2019,repeat Ct scan of chest revealed stable disease. On 09/15/2019,M-protein was o,61 gm/dl,IgG 877mg/dl,lambda level 71.9mg/dl,ratio 0.01 On 11/01/2019,M-protein was 0.47gm/dl,serum IgG 652mg/dl. Cytoxan/pomalyst/dex were held in due to significant pancytopenia a nd weakness,he did have transfusion with PRBC and had IV ferahemen. He resumed pomalyst/dex on 12/05/2019. On 02/14/2020,repeat myeloma panel revealed no evidence of progression. On 03/11/2020,repeat CT scan of chest/abdomen/pelvis revealed no evidence of progression in regard to his lung cancer. Pomalyst/dec was held on 02/20/2020 due to significant neutropenia,progressive weakness. On 02/13/2020,SPEP and immunofixation revealed IgG Lambda M-spike of 0.63,serum IgG 1070mg/dl,kappa/lambda ratio 0.02. On 04/11/2020,M-protein was 1.1 gm/dl,kappa/lambda ratio 0.017. On 05/23/2020,M-protein was 1.16 gm/dl,IgG 1560mg/dl,kappa/lambda ratio 0.016. On 06/18/2020,repeat CT scan of chest revealed no evidence of progression of his lung cancer. On 07/02/2020,M-protein was 1.2,kappa/lambda ratio 0.0122 He has been off therapy for approx 5 months, He presents after fall today. CT brain reveals single 3cm front lesion concerning for metastatic disease. Radiation oncology was consulted as well and offered patient to be transferred for neurosurgery evaluation, at this time patient has refused. There is concern of metastatic disease from known lung cancer that has remained in remission for the past few years. Dexamethasone has been started with PPI. Review of Systems All systems: negative Constitutional: Reports as per HPI Past Medical History Past Medical History: Cancer, COPD, GERD/Reflux, Hyperlipidemia, Hypertension, Respiratory Disorder Additional Past Medical History / Comment(s): mulitple myeloma, adenocarcinoma of the lung diagnosed in March 2017,home 02 2 liters n/c restless leg syndrome, anemia,tracheobronchits, History of Any Multi-Drug Resistant Organisms: None Reported Past Surgical History: Cholecystectomy, Tonsillectomy Additional Past Surgical History / Comment(s): CYST REMOVED FROM RT KNEE, vasectomy, rt bone marrow apiration/bx Past Anesthesia/Blood Transfusion Reactions: No Reported Reaction Additional Past Anesthesia/Blood Transfusion Reaction / Comm: past blood transfusion-stated no reaction to to it. Past Psychological History: No Psychological Hx Reported Smoking Status: Former smoker Past Alcohol Use History: None Reported Past Drug Use History: None Reported - Past Family History Mother Family Medical History: COPD, Hypertension Father Family Medical History: Coronary Artery Disease (CAD) Additional Family Medical History / Comment(s): cabg-triple vessel, pancreatic cancer age 65 Medications and Allergies Home Medications Medication Instructions Recorded Confirmed Type Atorvastatin [Lipitor] 20 mg PO DAILY 06/29/17 09/20/20 History Citalopram Hydrobromide [CeleXA] 20 mg PO DAILY 10/27/17 09/20/20 History Folic Acid 1 mg PO DAILY 10/27/17 09/20/20 History Multivitamins, Thera [Multivitamin 1 tab PO DAILY 10/27/17 09/20/20 History (formulary)] Tamsulosin [Flomax] 0.4 mg PO DAILY 10/27/17 09/20/20 History Thiamine [Vitamin B-1] 100 mg PO DAILY 10/27/17 09/20/20 History Aspirin EC [Ecotrin] 325 mg PO DAILY 05/17/19 09/20/20 History Ondansetron HCl [Zofran] 4 mg PO DAILY PRN 05/17/19 09/20/20 History oxyCODONE-APAP 10-325MG [Percocet 1 tab PO BID PRN #4 tab 05/24/19 09/20/20 Rx 10-325 mg] Diazepam [Valium] 5 mg PO TID 11/08/19 09/20/20 History Budesonide/Formoterol Fumarate 2 puff INHALATION RT-BID 09/20/20 09/20/20 History [Symbicort 160-4.5 Mcg Inhaler] Calcium Carbonate [Calcium] 600 mg PO BID 09/20/20 09/20/20 History Melatonin 10 mg PO HS 09/20/20 09/20/20 History Omeprazole [PriLOSEC] 40 mg PO DAILY 09/20/20 09/20/20 History Sodium Bicarbonate Tab 650 mg PO DAILY 09/20/20 09/20/20 History bisacodyL [Dulcolax] 5 mg PO BID PRN 09/20/20 09/20/20 History Allergies Allergy/AdvReac Type Severity Reaction Status Date / Time Iodinated Contrast Media Allergy Rash/Hives Verified 09/20/20 09:15 [Iodinated Contrast- Oral and IV Dye] Physical Exam Vitals: Vital Signs Temp Pulse Resp BP Pulse Ox 09/20/20 07:15 71 18 152/59 99 09/20/20 06:05 98.3 F 65 19 152/59 97 09/20/20 05:09 68 19 126/47 94 L 09/20/20 04:35 69 19 123/54 96 09/20/20 03:07 98.6 F 72 18 115/57 100 Intake and Output 09/19/20 09/20/20 09/20/20 22:59 06:59 14:59 Other: Weight 52.617 kg - Constitutional General appearance: cooperative, thin - EENT Eyes: EOMI, PERRLA ENT: hard of hearing, NA/AT, normal oropharynx - Neck Neck: normal ROM - Respiratory Respiratory: bilateral: diminished - Cardiovascular Rhythm: regular - Gastrointestinal General gastrointestinal: normal bowel sounds, soft - Integumentary Integumentary: pale - Neurologic non-focal - Musculoskeletal Musculoskeletal: generalized weakness, strength equal bilaterally - Psychiatric poor historian Psychiatric: A&O x's 3 Results CBC & Chem 7: 09/20/20 03:25 09/20/20 03:25 Labs: Abnormal Lab Results - Last 24 Hours (Table) 09/20/20 09/20/20 09/20/20 Range/Units 03:25 03:25 04:32 RBC 2.82 L (4.30-5.90) m/uL Hgb 9.1 L (13.0-17.5) gm/dL Hct 27.9 L (39.0-53.0) % Lymphocytes # 0.9 L (1.0-4.8) k/uL APTT 19.5 L (22.0-30.0) sec Potassium 5.9 H (3.5-5.1) mmol/L BUN 27 H (9-20) mg/dL Creatinine 1.42 H (0.66-1.25) mg/dL Phosphorus 4.6 H (2.5-4.5) mg/dL CT Scan - head: report reviewed Assessment and Plan (1) Acute on chronic renal insufficiency Current Visit: Yes Status: Acute Code(s): N28.9 - DISORDER OF KIDNEY AND URETER, UNSPECIFIED; N18.9 - CHRONIC KIDNEY DISEASE, UNSPECIFIED SNOMED Code(s): 228089736 (2) Brain metastasis Current Visit: Yes Status: Acute Code(s): C79.31 - SECONDARY MALIGNANT NEOPLASM OF BRAIN SNOMED Code(s): 11728168 (3) Fall Current Visit: Yes Status: Acute Code(s): W19.XXXA - UNSPECIFIED FALL, INITIAL ENCOUNTER SNOMED Code(s): 2540413 (4) Lung cancer Current Visit: Yes Status: Acute Code(s): C34.90 - MALIGNANT NEOPLASM OF UNSP PART OF UNSP BRONCHUS OR LUNG SNOMED Code(s): 259213204 (5) Right humeral fracture Current Visit: Yes Status: Acute Code(s): S42.301A - UNSP FRACTURE OF SHAFT OF HUMERUS, RIGHT ARM, INIT SNOMED Code(s): 57579734 (6) Multiple myeloma Current Visit: No Status: Chronic Priority: Medium Code(s): C90.00 - MULTIPLE MYELOMA NOT HAVING ACHIEVED REMISSION SNOMED Code(s): 449520145 Plan: - Radiation evaluation - Discussed with Radiation oncology - Patient is refusing further evaluation to tertiary care at this time - Continue Dex/ppi - Restaging without contrast ordered.
[2020-09-20] MEDS: PANTOPRAZOLE 40 MG/10 ML VIAL IVP SCH (22:56)
[2020-09-21 02:10] LABS: Appearance,Urine Clear (Clear); Bilirubin,Urine Negative (Negative); Blood,Urine Negative (Negative); Color,Urine Light Yellow; Glucose,Urine (UA) Negative (Negative); Ketones,Urine Negative (Negative); Leukocyte Esterase,Urine Negative (Negative); Nitrite,Urine Negative (Negative); Protein,Urine Negative (Negative); Specific Gravity,Urine 1.017 (1.001-1.035); Urobilinogen,Urine <2.0 mg/dL (<2.0)
[2020-09-21] MEDS: DEXAMETHASONE SOD PHOSPHATE 4 MG/ML 1 ML VIAL IV SCH ×2 (07:11→16:15)
[2020-09-21 07:24] LABS: Basophils % (A) 0 %; Eosinophils % (A) 0 %; HCT 26.9 % (39.0-53.0); HGB 9.2 gm/dL (13.0-17.5); Lymphocytes # (A) 0.4 k/uL (1.0-4.8); Lymphocytes % (A) 6 %; MCH 33.6 pg (25.0-35.0); MCHC 34.2 g/dL (31.0-37.0); Mean Platelet Volume 7.7; Monocytes # (A) 0.3 k/uL (0-1.0); Monocytes % (A) 4 %; Neutrophils # (A) 6.3 k/uL (1.3-7.7); Neutrophils % (A) 89 %; Platelet Count 230 k/uL (150-450); RBC 2.74 m/uL (4.30-5.90); RDW 12.3 % (11.5-15.5); WBC 7.1 k/uL (3.8-10.6)
--- NOTE | 2020-09-21 08:06 | P.CONS ---
History of Present Illness - Reason for Consult Consult date: 09/20/20 new brain lesion, fall Requesting physician: Catia Moncada - Chief Complaint unsteady on feet, falls - History of Present Illness The patient is a 70 year old male diagnosed with metastatic adenocarcinoma of the left lung in 05/2017, PDL1+ 50%. He was also diagnosed with multiple myeloma. He initially was treated with immunotherapy and has had quite impressive control of his pulmonary malignancy. He has been on a couple of different myeloma regimens and recently had these put on hold as his myeloma was in remission. He now presents however due to a fall and new finding of a 3.5 cm brain lesion in the left parietal lobe. The patient reports for the past 2-3 weeks he has felt unsteady with ambulation. He admits he has had a few falls but without significant injury. He states that yesterday he got up to walk to the restroom and he fell hard after just 1-2 steps. Imaging showed a fracture of the right humeral head and a CT of the head/C-spine showed no fracture. However, the CT did show a 3.5 cm left parietal lobe lesion new from prior imaging. MRI performed revealed this lesion to be solitary - likely a metastatic lesion with some internal hemorrhage. There is surrounding vasogenic edema. The patient reports he has not had difficulty with headaches or nausea. He does seem to have some word-finding difficulties during our discussion. He has not had any recent systemic therapy for his lung malignancy and has been on hold for his myeloma as he has responded well. Review of Systems Constitutional: Denies chills, Denies fever Eyes: denies blurred vision Ears, nose, mouth and throat: Denies ant. neck pain, Denies headache Cardiovascular: Reports dyspnea on exertion, Denies chest pain Respiratory: Reports cough, Reports dyspnea Gastrointestinal: Denies abdominal pain, Denies change in bowel habits Genitourinary: Denies dysuria Musculoskeletal: Reports muscle weakness Neurological: Reports aphasia, Reports balance difficulties, Reports head injury, Denies confusion, Denies convulsions, Denies double vision, Denies motor disturbance Psychiatric: Denies anxiety, Denies confusion Past Medical History Past Medical History: Cancer, COPD, GERD/Reflux, Hyperlipidemia, Hypertension, Respiratory Disorder Additional Past Medical History / Comment(s): mulitple myeloma, adenocarcinoma of the lung diagnosed in March 2017, (unknown which lung effected) home 02 2 liters nasal cannula restless leg syndrome, anemia,tracheobronchits, History of Any Multi-Drug Resistant Organisms: None Reported Past Surgical History: Cholecystectomy, Tonsillectomy Additional Past Surgical History / Comment(s): CYST REMOVED FROM RT KNEE, vasectomy, rt bone marrow apiration/bx Past Anesthesia/Blood Transfusion Reactions: No Reported Reaction Additional Past Anesthesia/Blood Transfusion Reaction / Comm: past blood transfusion-stated no reaction to to it. Past Psychological History: No Psychological Hx Reported Additional Psychological History / Comment(s): pt lives with brad in a 2 story home that has 3 steps. recieves home care services thru [facility] out of [place]. has home 02 -2 liters n/c atc, nebulizer, shower chair. pt served to the [employer] for 7 years. 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 Smoking Status: Former smoker Past Alcohol Use History: None Reported Additional Past Alcohol Use History / Comment(s): started smoking at age 14(1963),QUIT SMOKING 08/2017, was smoking 2 ppd. Past Drug Use History: None Reported - Past Family History Mother Family Medical History: COPD, Hypertension Father Family Medical History: Coronary Artery Disease (CAD) Additional Family Medical History / Comment(s): cabg-triple vessel, pancreatic cancer age 65 Medications and Allergies Home Medications Medication Instructions Recorded Confirmed Type Atorvastatin [Lipitor] 20 mg PO DAILY 06/29/17 09/20/20 History Citalopram Hydrobromide [CeleXA] 20 mg PO DAILY 10/27/17 09/20/20 History Folic Acid 1 mg PO DAILY 10/27/17 09/20/20 History Multivitamins, Thera [Multivitamin 1 tab PO DAILY 10/27/17 09/20/20 History (formulary)] Tamsulosin [Flomax] 0.4 mg PO DAILY 10/27/17 09/20/20 History Thiamine [Vitamin B-1] 100 mg PO DAILY 10/27/17 09/20/20 History Aspirin EC [Ecotrin] 325 mg PO DAILY 05/17/19 09/20/20 History Ondansetron HCl [Zofran] 4 mg PO DAILY PRN 05/17/19 09/20/20 History oxyCODONE-APAP 10-325MG [Percocet 1 tab PO BID PRN #4 tab 05/24/19 09/20/20 Rx 10-325 mg] Diazepam [Valium] 5 mg PO TID 11/08/19 09/20/20 History Budesonide/Formoterol Fumarate 2 puff INHALATION RT-BID 09/20/20 09/20/20 History [Symbicort 160-4.5 Mcg Inhaler] Calcium Carbonate [Calcium] 600 mg PO BID 09/20/20 09/20/20 History Melatonin 10 mg PO HS 09/20/20 09/20/20 History Omeprazole [PriLOSEC] 40 mg PO DAILY 09/20/20 09/20/20 History Sodium Bicarbonate Tab 650 mg PO DAILY 09/20/20 09/20/20 History bisacodyL [Dulcolax] 5 mg PO BID PRN 09/20/20 09/20/20 History Allergies Allergy/AdvReac Type Severity Reaction Status Date / Time Iodinated Contrast Media Allergy Rash/Hives Verified 09/20/20 09:15 [Iodinated Contrast- Oral and IV Dye] Physical Exam Vitals: Vital Signs Temp Pulse Resp BP Pulse Ox 09/21/20 02:00 98.1 F 65 14 184/73 97 09/20/20 20:30 98.6 F 68 20 135/58 95 09/20/20 20:15 20 09/20/20 19:10 98.0 F 89 16 130/69 93 L 09/20/20 17:55 98.1 F 73 18 155/68 95 Intake and Output 09/20/20 09/21/20 09/21/20 22:59 06:59 14:59 Intake Total 420 Balance 420 Intake: Oral 420 Other: # Voids 3 1 # Bowel Movements 0 Weight 52.617 kg - Constitutional General appearance: disheveled, no acute distress, thin - EENT Eyes: EOMI, PERRLA ENT: hearing grossly normal - Neck Neck: no lymphadenopathy - Respiratory Respiratory: bilateral: CTA - Cardiovascular Rhythm: regular - Gastrointestinal General gastrointestinal: no distended, no tenderness - Integumentary Integumentary: no cellulitis, no jaundiced - Neurologic Neurologic: CNII-XII intact - Musculoskeletal Musculoskeletal: generalized weakness, strength equal bilaterally - Psychiatric Psychiatric: A&O x's 3, appropriate affect Results CBC & Chem 7: 09/21/20 06:42 09/20/20 03:25 Labs: Abnormal Lab Results - Last 24 Hours (Table) 09/21/20 Range/Units 06:42 RBC 2.74 L (4.30-5.90) m/uL Hgb 9.2 L (13.0-17.5) gm/dL Hct 26.9 L (39.0-53.0) % Lymphocytes # 0.4 L (1.0-4.8) k/uL MRI - head: report reviewed, image reviewed Assessment and Plan Assessment: The patient is a 70 year old male diagnosed with metastatic adenocarcinoma of the left lung in 05/2017, PDL1+ 50%. He was also diagnosed with multiple myeloma. He initially was treated with immunotherapy and has had quite impressive control of his pulmonary malignancy. He has been on a couple of different myeloma regimens and recently had these put on hold as his myeloma was in remission. He now presents however due to a fall and new finding of a 3.5 cm lesion in the left parietal lobe. Plan: 1. Solitary brain metastases: Highly likely related to the patient's history of adenocarcinoma of the lung. No other apparent lesions. Discussed case with Dr. Moncada - he felt the patient was likely not a good candidate medically for neurosurgical resection. I discussed possible radiosurgery with the patient - he is admittedly reluctant. I recommend admission with Decadron - 4 mg TID to improve the vasogenic edema. Also add GI prophylaxis. I will discuss possible radiotherapy with the patient more in the coming days, will see if he improves symptomatically with steroids. This lesion likely contributed to his unsteadiness with walking and some word finding difficulties. 2. NSCLC: Patient has had a history of non-small cell lung cancer which has been largely in remission based on recent imaging and he has not had any systemic therapy. Most recent imaging from June revealed no disease progression - agree with repeat CT of C/A/P to re-assess. Dr. Moncada does not feel patient should be on hospice as his disease has been largely controlled even with new brain disease. 3. Multiple Myeloma: Most recent bloodwork per Dr. Moncada shows disease to have responded well. Shoulder fracture may be pathologic? Orthopedics following - conservative management for now. Time with Patient: Greater than 30
[2020-09-21] MEDS: PANTOPRAZOLE 40 MG/10 ML VIAL IVP SCH ×2 (08:10→20:42)
--- NOTE | 2020-09-21 08:28 | CT ---
EXAMINATION TYPE: CT ChestAbdPelvis wo con DATE OF EXAM: 09/21/2020 INDICATION: Generalized pain and weakness COMPARISON: 06/18/2020 CT DLP: 403.5 mGycm CONTRAST: Performed without Oral Contrast. No intravenous contrast. TECHNIQUE: Axial images at 5 mm thick sections. Reconstructed images in the coronal plane. Delayed images through the kidneys. FINDINGS: CT CHEST: Portion of the thyroid visualized is normal. There is a 0.8 cm irregular nodularity superior segment right lower lobe. Series 4 image 34 this was present previously. There is some mild groundglass opacity along the major fissure within the lingula. Some mild posterior lung atelectasis may be at the lung bases.r some thickening along the posterior l eft lung base was present previously measured approximately 1 cm. Example image series 3 image 48. No enlarged mediastinal or hilar adenopathy is evident. The ascending aorta diameter at the level of the main pulmonary artery is 3.5 cm. The main pulmonary artery diameter at the bifurcation is 2.6 cm. Coronary artery calcification is present. A moderate p ericardial effusion is present. CT ABDOMEN: Liver: Normal Spleen: Normal Pancreas: Normal Adrenal glands: The adrenal glands are normal. Gallbladder: Surgically absent Kidneys: No masses are evident. No hydronephrosis is present. No cysts are present. No renal stone s are evident. Aorta: Vascular calcification is within the aorta. Inferior vena cava: Normal. CT PELVIS: Loops of bowel within the abdomen and pelvis are normal. Study is without oral contrast limiting bowel evaluation Appendix: Not identified. No suspicious dilated tubular structure inflammatory changes evident. Urinary bladder: Distended Genitourinary structures: Prostate has mild prominence Osseous structures: No suspicious lytic or sclerotic lesions. Old right rib fractures are evident. IMPRESSIONS: 1. Moderate pericardial effusion slightly increased from comparison. 2. Stable nodule right lower lung field. 3. Mild groundglass opacity near the major fissure within the lingula appears stable from comparison. 4. Mild stable posterior left lung thickening.
--- NOTE | 2020-09-21 10:58 | P.PN ---
Progress Note - Text Progress Note Date: 09/21/20 The films are reviewed and the patient is seen at bedside. He says that his shoulder injury and happened a year and a half ago and it is stable. He denies any new problems currently. He had a fall and there is evidence of proximal humerus fracture. I agree with the dictation from Lizzie Davis to continue his sling and allow his arm to hang. He can follow-up as an outpatient from orthopedic standpoint. We do not plan any further imaging or intervention on this hospital admission.
--- NOTE | 2020-09-21 11:20 | XR ---
EXAMINATION TYPE: XR chest 1V portable DATE OF EXAM: 09/21/2020 COMPARISON: 09/20/2020 INDICATION: Follow-up rib fracture TECHNIQUE: Single frontal view of the chest is obtained. FINDINGS: The heart size is normal. The pulmonary vasculature is normal. No pneumothorax is evident. Some subtle rib deformity along the posterior lateral appears to be the sixth and seventh ribs is aga in present. Right humeral neck fractures not excluded IMPRESSION: 1. No pneumothorax. Right-sided rib deformities are stable.
--- NOTE | 2020-09-21 12:13 | P.PN ---
Subjective Progress Note Date: 09/21/20 Italo Pinzon is a 70-year-old male with history of metastatic lung cancer. Who presented to [facility] emergency room after sustaining a fall and having evidence of right humeral neck fracture, and lacerated ear and scalp. Patient also had evidence of mildly displaced right posterior fifth and sixth ribs. Patient was evaluated in the emergency room his vital examination on p resentation revealed a temperature of 98.6 pulse 72 respiration 18 blood pressure 115/57 pulse ox 100% on room air his white blood count was 6.0 hemoglobin 9.1 platelet count 229 sodium 138 potassium 5.9 BUN 27 creatinine 1.42 computed tomography scan of the head and neck was done and revealed left parietal lobe hypodense mass measuring 3.5 cm with extensive surrounding vasogenic edema Since 2019 exam. Otherwise there was no evidence of intracranial bleeding and no CT evidence of acute traumatic injury of the neck. Patient was admitted to medical floor orthopedic surgery consultation and oncology consultation were requested. On review of systems patient is alert confused in mild distress he is complaining of pain in the right side of his chest site of the rib fractures, otherwise he denies any complaints at this time there is no fever or chills no headache or dizziness no chest pain no shortness of breath no cough no nausea or vomiting no abdominal pain no diarrhea and no urinary symptoms On 09/21/2020 patient was seen and examined on the medical floor he is alert and oriented 3 in no apparent distress, patient presented to emergency room after sustaining a fall, he was found to have 2 rib fractures on the right, he was also found to have a metastatic lesion in the brain likely related to his adenocarcinoma of the lung, patient was admitted to medical floor oncology and radiation oncology consultation requested, patient is complaining of some pain in his right side of the chest site of fractured ribs otherwise he denies any complaints at this time. Objective - Vital Signs Vital signs: Vital Signs Temp 98.2 F 09/21/20 08:00 Pulse 61 09/21/20 08:00 Resp 18 09/21/20 08:00 BP 174/68 09/21/20 08:00 Pulse Ox 100 09/21/20 08:00 Intake & Output 09/20/20 09/21/20 09/21/20 18:59 06:59 18:59 Intake Total 240 180 Balance 240 180 Weight 52.617 kg Intake: Oral 240 180 Other: # Voids 3 1 # Bowel Movements 0 - Exam In general patient is alert, confused in minimal distress due to pain and discom fort HEENT head normocephalic and atraumatic Neck is supple no JVD no goiter no lymphadenopathy Chest exam reveals a few scattered rhonchi no wheezing Cardiac exam reveals regular heart sounds S1 and S2 no gallops no murmurs Abdomen is soft nontender no organomegaly with normal bowel sounds Extremity exam reveals no edema no cyanosis or clubbing - Labs CBC & Chem 7: 09/21/20 06:42 09/20/20 03:25 Labs: Abnormal Lab Results - Last 24 Hours (Table) 09/21/20 Range/Units 06:42 RBC 2.74 L (4.30-5.90) m/uL Hgb 9.2 L (13.0-17.5) gm/dL Hct 26.9 L (39.0-53.0) % Lymphocytes # 0.4 L (1.0-4.8) k/uL Assessment and Plan Plan: 1. Fall with multiple traumatic injuries including head and ear laceration, right sided fifth and sixth rib fractures, and right humeral head fracture 2. Evidence of metastatic disease to the brain 3. Known history of underlying adenocarcinoma lung cancer, diagnosed in March 2017 4. Acute kidney injury with evidence of elevated BUN and creatinine 5. Underlying history of COPD 6. Underlying history of gastroesophageal reflux disease 7. Underlying history of hypertension 8. Underlying history of hyperlipidemia 9. Underlying history of multiple myeloma 10. Underlying history of restless leg syndrome 11. Underlying history of anemia 12. Underlying history of chronic hypoxic respiratory failure maintained on ho me oxygen At this time plan is to admit patient to medical floor Orthopedic surgery consultation and oncology consultation requested Patient was started on IV fluids for gentle hydrations will recheck kidney function in a.m.
[2020-09-21 13:12] LABS: % Iron Saturation 41.05 (15.00-50.00)
[2020-09-21 13:13] LABS: African American GFR (CKD) 54.3 (60.0-200.0); Albumin 3.6 g/dL (3.80-4.90); Albumin/Globulin Ratio 1.57 (1.60-3.17); Anion Gap 7.5 mmol/L (4.00-12.00); BUN/Creat Ratio 21.33 Ratio (12.00-20.00); Calcium 9.7 mg/dL (8.7-10.3); Carbon Dioxide 25.5 mmol/L (21.6-31.8); Globulin 2.3 g/dL (1.6-3.3); Non-African American GFR(CKD) 46.8 (60.0-200.0); Potassium 4.7 mmol/L (3.5-5.5); Total Bilirubin 0.2 mg/dL (0.2-1.2); Total Protein 5.9 g/dL (6.2-8.2)
[2020-09-21] MEDS ORDERED: oxyCODONE-APAP 10-325MG 1 EACH TAB PO PRN (16:50)
--- NOTE | 2020-09-21 19:25 | NM ---
EXAMINATION TYPE: NM pul vent and perfuse DATE OF EXAM: 09/21/2020 COMPARISON: Same-day chest radiograph and CT. VQ scan 05/20/2019. HISTORY: Shortness of breath. TECHNIQUE: Utilizing inhalation of 35.1 mCi Tc 99m DTPA aerosol and intravenous injection of 5.3 mCi of Tc 99m MAA, ventilation and perfusion images are acquired post injection in multiple projections. FINDINGS: There is increased central radiotracer uptake on the ventilation and perfusion images, consistent wit h clumping. There is bilateral heterogeneous ventilation uptake, may relate to air trapping. There is moderate sized matched perfusion defect in the right midlung, corresponding to platelike ate lectasis on radiograph. Additional few small bilateral matched perfusion defects are present. No definite mismatched perfusion defects. IMPRESSION: Low to intermediate probability. Central radiotracer clumping present
--- NOTE | 2020-09-21 21:11 | P.PN ---
Subjective Progress Note Date: 09/21/20 Principal diagnosis: Falls Patient seen and examined today, he is in good spirits. He still complains of increased chest pain with inspiration therefore a VQ scan has been ordered to further evaluate PE. Patient has been given option of neurosurgery and him and his significant other Jelm decline this time but would like to follow up with Dr. lee for radiation. This is likely metastatic Lung Cancer as this was the diagnosis of stage 4 years prior. We will plan PET scan as outpatient Objective - Vital Signs Vital signs: Vital Signs Temp 97.9 F 09/21/20 14:00 Pulse 73 09/21/20 14:00 Resp 17 09/21/20 14:00 BP 144/68 09/21/20 14:00 Pulse Ox 97 09/21/20 14:00 Intake & Output 09/20/20 09/21/20 09/21/20 18:59 06:59 18:59 Intake Total 240 180 Balance 240 180 Weight 52.617 kg Intake: Oral 240 180 Other: # Voids 3 1 # Bowel Movements 0 - Exam - Constitutional General appearance: cooperative, thin - EENT Eyes: EOMI, PERRLA ENT: hard of hearing, NA/AT, normal oropharynx - Neck Neck: normal ROM - Respiratory Respiratory: bilateral: diminished - Cardiovascular Rhythm: regular - Gastrointestinal General gastrointestinal: normal bowel sounds, soft - Integumentary Integumentary: pale - Neurologic non-focal - Musculoskeletal Musculoskeletal: generalized weakness, strength equal bilaterally - Psychiatric poor historian Psychiatric: A&O x's 3 - Labs CBC & Chem 7: 09/21/20 06:42 09/21/20 06:42 Labs: Abnormal Lab Results - Last 24 Hours (Table) 09/21/20 09/21/20 09/21/20 Range/Units 06:42 06:42 06:42 RBC 2.74 L (4.30-5.90) m/uL Hgb 9.2 L (13.0-17.5) gm/dL Hct 26.9 L (39.0-53.0) % Lymphocytes # 0.4 L (1.0-4.8) k/uL BUN 32.0 H (9.0-27.0) mg/dL Est GFR (CKD-EPI)AfAm 54.3 L (60.0-200.0) Est GFR (CKD-EPI)NonAf 46.8 L (60.0-200.0) BUN/Creatinine Ratio 21.33 H (12.00-20.00) Ratio Glucose 116 H (70-110) mg/dL Ferritin 838.0 H (22.0-322.0) ng/mL Lactate Dehydrogenase 112 L (120-246) U/L Total Protein 5.9 L (6.2-8.2) g/dL Total Protein (PEP) 6.0 L (6.2-8.2) g/dL Albumin 3.60 L (3.80-4.90) g/dL Albumin/Globulin Ratio 1.57 L (1.60-3.17) g/dL Assessment and Plan (1) Acute on chronic renal insufficiency Current Visit: Yes Status: Acute Code(s): N28.9 - DISORDER OF KIDNEY AND URETER, UNSPECIFIED; N18.9 - CHRONIC KIDNEY DISEASE, UNSPECIFIED SNOMED Code(s): 689233703 (2) Brain metastasis Current Visit: Yes Status: Acute Code(s): C79.31 - SECONDARY MALIGNANT NEOPLASM OF BRAIN SNOMED Code(s): 23626516 (3) Fall Current Visit: Yes Status: Acute Code(s): W19.XXXA - UNSPECIFIED FALL, INITIAL ENCOUNTER SNOMED Code(s): 8196317 (4) Lung cancer Current Visit: Yes Status: Acute Code(s): C34.90 - MALIGNANT NEOPLASM OF UNSP PART OF UNSP BRONCHUS OR LUNG SNOMED Code(s): 834598626 (5) Right humeral fracture Current Visit: Yes Status: Acute Code(s): S42.301A - UNSP FRACTURE OF SHAFT OF HUMERUS, RIGHT ARM, INIT SNOMED Code(s): 97368163 (6) Multiple myeloma Current Visit: No Status: Chronic Priority: Medium Code(s): C90.00 - MULTIPLE MYELOMA NOT HAVING ACHIEVED REMISSION SNOMED Code(s): 828697253 Plan: - Radiation evaluation recommended possible transfer for neurosurgery. Patient has refused transfer and potential surgery, he also is hesitant for radiation, although today more open to this. - Discussed with Radiation oncology - Patient is refusing further evaluation to tertiary care at this time - Continue Dex/ppi - Restaging CT without definitive recurrence, PET as outpatient - VQ to assess PE - Discussed with RN and patients advocate olive
[2020-09-22] MEDS: DEXAMETHASONE SOD PHOSPHATE 4 MG/ML 1 ML VIAL IV SCH ×5 (00:24→21:31)
[2020-09-22] MEDS: PANTOPRAZOLE 40 MG/10 ML VIAL IVP SCH (09:00)
[2020-09-22] MEDS ORDERED: bisacodyL 5 MG TABLET.DR PO PRN (09:48)
[2020-09-22] MEDS ORDERED: diazePAM 5 MG TAB PO PRN (09:51)
--- NOTE | 2020-09-22 10:38 | P.PN ---
Subjective Progress Note Date: 09/22/20 Italo Pinzon is a 70-year-old male with history of metastatic lung cancer. Who presented to [facility] emergency room after sustaining a fall and having evidence of right humeral neck fracture, and lacerated ear and scalp. Patient also had evidence of mildly displaced right posterior fifth and sixth ribs. Patient was evaluated in the emergency room his vital examination on p resentation revealed a temperature of 98.6 pulse 72 respiration 18 blood pressure 115/57 pulse ox 100% on room air his white blood count was 6.0 hemoglobin 9.1 platelet count 229 sodium 138 potassium 5.9 BUN 27 creatinine 1.42 computed tomography scan of the head and neck was done and revealed left parietal lobe hypodense mass measuring 3.5 cm with extensive surrounding vasogenic edema Since 2019 exam. Otherwise there was no evidence of intracranial bleeding and no CT evidence of acute traumatic injury of the neck. Patient was admitted to medical floor orthopedic surgery consultation and oncology consultation were requested. On review of systems patient is alert confused in mild distress he is complaining of pain in the right side of his chest site of the rib fractures, otherwise he denies any complaints at this time there is no fever or chills no headache or dizziness no chest pain no shortness of breath no cough no nausea or vomiting no abdominal pain no diarrhea and no urinary symptoms On 09/21/2020 patient was seen and examined on the medical floor he is alert and oriented 3 in no apparent distress, patient presented to emergency room after sustaining a fall, he was found to have 2 rib fractures on the right, he was also found to have a metastatic lesion in the brain likely related to his adenocarcinoma of the lung, patient was admitted to medical floor oncology and radiation oncology consultation requested, patient is complaining of some pain in his right side of the chest site of fractured ribs otherwise he denies any complaints at this time. On 09/22/2020 patient is alert and oriented 3 less confused than yesterday. Patient being followed by oncology services. Per oncology service is radiation evaluation recommended possible transfer for neurosurgery by patient family refused. She also evaluated by Dr. Carl. Discussed case with oncology nurse practitioner recommend patient stay 1 more day to organize outpatient radiation and plan of care. At this time patient denies chest pain or shortness breath. Patient denies nausea vomiting or diarrhea. Denies any urinary frequency Objective - Vital Signs Vital signs: Vital Signs Temp 97.5 F L 09/22/20 08:00 Pulse 56 L 09/22/20 08:00 Resp 16 09/22/20 08:00 BP 184/68 09/22/20 08:00 Pulse Ox 100 09/22/20 08:00 Intake & Output 09/21/20 09/22/20 09/22/20 18:59 06:59 18:59 Intake Total 100 Balance 100 Intake: Oral 100 Other: # Voids 2 2 # Bowel Movements 1 - Exam In general patient is alert, confused in minimal distress due to pain and discomfort HEENT head normocephalic and atraumatic Neck is supple no JVD no goiter no lymphadenopathy Chest exam reveals a few scattered rhonchi no wheezing Cardiac exam reveals regular heart sounds S1 and S2 no gallops no murmurs Abdomen is soft nontender no organomegaly with normal bowel sounds Extremity exam reveals no edema no cyanosis or clubbing - Labs CBC & Chem 7: 09/21/20 06:42 09/21/20 06:42 Labs: Abnormal Lab Results - Last 24 Hours (Table) 09/21/20 09/21/20 Range/Units 06:42 06:42 BUN 32.0 H (9.0-27.0) mg/dL Est GFR (CKD-EPI)AfAm 54.3 L (60.0-200.0) Est GFR (CKD-EPI)NonAf 46.8 L (60.0-200.0) BUN/Creatinine Ratio 21.33 H (12.00-20.00) Ratio Glucose 116 H (70-110) mg/dL Ferritin 838.0 H (22.0-322.0) ng/mL Lactate Dehydrogenase 112 L (120-246) U/L Total Protein 5.9 L (6.2-8.2) g/dL Total Protein (PEP) 6.0 L (6.2-8.2) g/dL Albumin 3.60 L (3.80-4.90) g/dL Albumin/Globulin Ratio 1.57 L (1.60-3.17) g/dL Assessment and Plan Plan: 1. Fall with multiple traumatic injuries including head and ear laceration, right sided fifth and sixth rib fractures, and right humeral head fracture. Patient was evaluated by orthopedic services. The recommending conservative treatment remain in sling. Follow-up x-ray in 14 days. 2. 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 Patient is on dexamethasone. Patient was evaluated by oncology services recommended possible transfer to neurosurgery by patient and family refused. Radiation oncology has been consulted awaiting plans 3. Known history of underlying adenocarcinoma lung cancer, diagnosed in March 2017 4. Acute kidney injury with evidence of elevated BUN and creatinine. Continue gentle hydration recheck in a.m. 5. Underlying history of COPD 6. Underlying history of gastroesophageal reflux disease 7. Underlying history of hypertension 8. Underlying history of hyperlipidemia 9. Underlying history of multiple myeloma 10. Underlying history of restless leg syndrome 11. Underlying history of anemia 12. Underlying history of chronic hypoxic respiratory failure maintained on home oxygen At this time plan is to admit patient to medical floor Patient declined transfer to tertiary hospital for neurosurgery consult per oncology VQ scan completed showing low to intermediate probability for PE Outpatient radiation to be arranged PT OT consulted
[2020-09-22 11:28] LABS: Immunoglobulin M <16.9 mg/dL (40.0-280.0)
[2020-09-22 11:51] LABS: Free Kappa Lt Chain Qnt, Serum 0.25 mg/dL (0.33-1.94)
[2020-09-22] MEDS: CITALOPRAM HYDROBROMIDE 20 MG TAB PO SCH (12:11)
[2020-09-22] MEDS: SODIUM CHLORIDE 0.9% 1,000 ML IV SCH (15:08)
[2020-09-22] MEDS: amLODIPine 5 MG TAB PO SCH (15:09)
[2020-09-22] MEDS ORDERED: diazePAM 5 MG TAB PO SCH (16:00)
[2020-09-22] MEDS: SYMBICORT 160-4.5 MCG INHALER INHALATION SCH ×2 (20:57→21:05)
[2020-09-22] MEDS: MELATONIN 5 MG TABLET PO SCH (21:31)
[2020-09-22] MEDS: CALCIUM CARBONATE 500 MG CHEWABLE PO SCH (21:31)
[2020-09-23] MEDS: DEXAMETHASONE SOD PHOSPHATE 4 MG/ML 1 ML VIAL IV SCH ×5 (01:38→23:33)
[2020-09-23 05:09] LABS: Basophils % (A) 0 %; Eosinophils % (A) 0 %; HGB 9.4 gm/dL (13.0-17.5); Lymphocytes # (A) 0.3 k/uL (1.0-4.8); Lymphocytes % (A) 4 %; MCH 33.1 pg (25.0-35.0); MCHC 33.5 g/dL (31.0-37.0); MCV 98.8 fL (80.0-100.0); Mean Platelet Volume 7.9; Monocytes # (A) 0.2 k/uL (0-1.0); Monocytes % (A) 3 %; Neutrophils # (A) 5.6 k/uL (1.3-7.7); Neutrophils % (A) 92 %; Platelet Count 229 k/uL (150-450); RBC 2.84 m/uL (4.30-5.90); RDW 12.4 % (11.5-15.5); WBC 6.1 k/uL (3.8-10.6)
[2020-09-23] MEDS: PANTOPRAZOLE 40 MG TABLET PO SCH (07:53)
[2020-09-23] MEDS: SODIUM CHLORIDE 0.9% 1,000 ML IV SCH (08:19)
[2020-09-23] MEDS: CALCIUM CARBONATE 500 MG CHEWABLE PO SCH ×2 (08:21→20:20)
[2020-09-23] MEDS: amLODIPine 5 MG TAB PO SCH (08:21)
[2020-09-23] MEDS: CITALOPRAM HYDROBROMIDE 20 MG TAB PO SCH (08:21)
[2020-09-23] MEDS: ATORVASTATIN 20 MG TAB PO SCH (08:21)
[2020-09-23] MEDS: ASPIRIN 325 MG TAB PO SCH (08:21)
[2020-09-23] MEDS: SODIUM BICARBONATE TAB 650 MG TAB PO SCH (08:22)
[2020-09-23] MEDS: THIAMINE 100 MG TAB PO SCH (08:23)
[2020-09-23] MEDS: TAMSULOSIN 0.4 MG CAP.ER.24H PO SCH (08:23)
[2020-09-23] MEDS: FOLIC ACID 1 MG TAB PO SCH (08:29)
[2020-09-23] MEDS: MULTIVITAMINS, THERA 1 EACH TAB PO SCH (08:29)
[2020-09-23] MEDS: SYMBICORT 160-4.5 MCG INHALER INHALATION SCH ×2 (09:05→19:43)
[2020-09-23 09:27] LABS: African American GFR (CKD) 54.3 (60.0-200.0); Albumin 3.6 g/dL (3.80-4.90); Albumin/Globulin Ratio 1.64 (1.60-3.17); Anion Gap 6.8 mmol/L (4.00-12.00); Calcium 8.7 mg/dL (8.7-10.3); Carbon Dioxide 27.2 mmol/L (21.6-31.8); Globulin 2.2 g/dL (1.6-3.3); Non-African American GFR(CKD) 46.8 (60.0-200.0); Potassium 4.7 mmol/L (3.5-5.5); Total Bilirubin 0.2 mg/dL (0.3-1.2); Total Protein 5.8 g/dL (6.2-8.2)
[2020-09-23 14:33] LABS: Albumin 3.41 g/dL (3.80-4.90); Gamma Globulin 1.22 g/dL (0.70-1.50)
--- NOTE | 2020-09-23 15:32 | P.PN ---
Subjective Progress Note Date: 09/23/20 Principal diagnosis: fall, confusion In f/u today pt is irritable during discussion. He denies any neuro symptoms other then difficulty thinking clearly, and being very forgetful. No HUERTA, N, or pain. Objective - Vital Signs Vital signs: Vital Signs Temp 97.3 F L 09/23/20 08:00 Pulse 60 09/23/20 08:00 Resp 16 09/23/20 08:00 BP 134/71 09/23/20 08:00 Pulse Ox 95 09/23/20 09:05 Intake & Output 09/22/20 09/23/20 09/23/20 18:59 06:59 18:59 Intake Total 600 Output Total 400 Balance 200 Intake: Intake, IV Titration 600 Amount Sodium Chloride 0.9% 1, 600 000 ml @ 50 mls/hr IV . Q20H KENY Rx#:[id number] Output: Urine 400 Other: # Voids 2 - Constitutional General appearance: Present: cooperative, no acute distress, thin - EENT Eyes: Present: anicteric sclerae, EOMI ENT: Present: hearing grossly normal - Respiratory Respiratory: bilateral: CTA - Cardiovascular Heart sounds: normal: S1, S2 Abnormal Heart Sounds: Absent: systolic murmur, diastolic murmur, rub, S3 Gallop, S4 Gallop, click, other - Peripheral edema leg Peripheral Edema: bilateral: None - Gastrointestinal General gastrointestinal: Present: normal bowel sounds, soft. Absent: absent bowel sounds, decreased bowel sounds, distended, hepatomegaly, hyperactive bowel sounds, organomegaly, rigid, scaphoid, splenomegaly, tenderness, umbilical hernia, ventral hernia - Neurologic Neurologic Comment(s): grossly intact, cognition/mood/memory are notably affected - Musculoskeletal Musculoskeletal: Present: generalized weakness - Psychiatric Psychiatric Comment(s): pt exhibits anger at times, states confusion, lack of understanding Psychiatric: Present: A&O x's 3 - Labs CBC & Chem 7: 09/23/20 04:51 09/23/20 04:51 Labs: Abnormal Lab Results - Last 24 Hours (Table) 09/21/20 09/23/20 09/23/20 Range/Units 06:42 04:51 04:51 RBC 2.84 L (4.30-5.90) m/uL Hgb 9.4 L (13.0-17.5) gm/dL Hct 28.0 L (39.0-53.0) % Lymphocytes # 0.3 L (1.0-4.8) k/uL BUN 42.0 H (9.0-27.0) mg/dL Est GFR (CKD-EPI)AfAm 54.3 L (60.0-200.0) Est GFR (CKD-EPI)NonAf 46.8 L (60.0-200.0) BUN/Creatinine Ratio 28.00 H (12.00-20.00) Ratio Glucose 135 H (70-110) mg/dL Total Bilirubin 0.2 L (0.3-1.2) mg/dL AST 10 L (14-35) U/L Total Protein 5.8 L (6.2-8.2) g/dL Albumin 3.60 L (3.80-4.90) g/dL IgA 31.0 L (60.0-350.0) mg/dL IgM <16.9 L (40.0-280.0) mg/dL Free [place] LC, Quant 0.25 L (0.33-1.94) mg/dL Free [place] LC, Quant 22.90 H (0.57-2.63) mg/dL Assessment and Plan (1) Brain metastasis Current Visit: Yes Status: Acute Priority: High Code(s): C79.31 - SECONDARY MALIGNANT NEOPLASM OF BRAIN SNOMED Code(s): 94171717 (2) Fall Current Visit: Yes Status: Acute Priority: High Code(s): W19.XXXA - UNSPECIFIED FALL, INITIAL ENCOUNTER SNOMED Code(s): 3428110 (3) Multiple myeloma Current Visit: No Status: Chronic Priority: Medium Code(s): C90.00 - MULTIPLE MYELOMA NOT HAVING ACHIEVED REMISSION SNOMED Code(s): 695559346 (4) Non-small cell lung cancer (NSCLC) Current Visit: No Status: Chronic Priority: Medium Code(s): C34.90 - MALIGNANT NEOPLASM OF UNSP PART OF UNSP BRONCHUS OR LUNG SNOMED Code(s): 152377108 Plan: Pt has been treated intermittently over the last several years for myeloma and lung cancer, doing rather well. The lesion in the brain is concerning for metastatic disease, new primary cannot be completely excluded. Pt and Primary Onc do not feel pt is a good candidate for surgery to the brain mass. Recommendation is for local treatment to the brain with SRS, pt being seen by Rad Onc. Today though, pt did not remember discussing treatment to the brain. I did speak to Dr. Seymour re the case, he will attempt to connect with the pt again. I have family contact info and will try as well. Without treatment to the brain pt symptoms will progress. Without origin of brain mass prognosis will be more difficult to ascertain but, cognitively pt is doing poorly. Cont steroids and PPI. Attests: I have performed H&P and developed impression and plan of care of patient, discussed with dictator. I agree with dictated note, documented as a scribe.
--- NOTE | 2020-09-23 18:29 | P.PN ---
Subjective Progress Note Date: 09/23/20 Italo Pinzon is a 70-year-old male with history of metastatic lung cancer. Who presented to [facility] emergency room after sustaining a fall and having evidence of right humeral neck fracture, and lacerated ear and scalp. Patient also had evidence of mildly displaced right posterior fifth and sixth ribs. Patient was evaluated in the emergency room his vital examination on p resentation revealed a temperature of 98.6 pulse 72 respiration 18 blood pressure 115/57 pulse ox 100% on room air his white blood count was 6.0 hemoglobin 9.1 platelet count 229 sodium 138 potassium 5.9 BUN 27 creatinine 1.42 computed tomography scan of the head and neck was done and revealed left parietal lobe hypodense mass measuring 3.5 cm with extensive surrounding vasogenic edema Since 2019 exam. Otherwise there was no evidence of intracranial bleeding and no CT evidence of acute traumatic injury of the neck. Patient was admitted to medical floor orthopedic surgery consultation and oncology consultation were requested. On review of systems patient is alert confused in mild distress he is complaining of pain in the right side of his chest site of the rib fractures, otherwise he denies any complaints at this time there is no fever or chills no headache or dizziness no chest pain no shortness of breath no cough no nausea or vomiting no abdominal pain no diarrhea and no urinary symptoms On 09/21/2020 patient was seen and examined on the medical floor he is alert and oriented 3 in no apparent distress, patient presented to emergency room after sustaining a fall, he was found to have 2 rib fractures on the right, he was also found to have a metastatic lesion in the brain likely related to his adenocarcinoma of the lung, patient was admitted to medical floor oncology and radiation oncology consultation requested, patient is complaining of some pain in his right side of the chest site of fractured ribs otherwise he denies any complaints at this time. On 09/22/2020 patient is alert and oriented 3 less confused than yesterday. Patient being followed by oncology services. Per oncology service is radiation evaluation recommended possible transfer for neurosurgery by patient family refused. She also evaluated by Dr. Carl. Discussed case with oncology nurse practitioner recommend patient stay 1 more day to organize outpatient radiation and plan of care. At this time patient denies chest pain or shortness breath. Patient denies nausea vomiting or diarrhea. Denies any urinary frequency On 09/23/2020 patient was seen and examined on the medical floor he is alert slightly confused in no apparent distress there is no fever or chills no headache or dizziness no chest pain no shortness of breath no cough no nausea or vomiting no abdominal pain no diarrhea and no urinary symptoms at this time patient understand that he has evidence of cancer in the brain we are awaiting for further input from oncology and radiation oncology Objective - Vital Signs Vital signs: Vital Signs Temp 97.9 F 09/23/20 14:00 Pulse 56 L 09/23/20 14:00 Resp 16 09/23/20 14:00 BP 124/56 09/23/20 14:00 Pulse Ox 100 09/23/20 14:00 Intake & Output 09/22/20 09/23/20 09/23/20 18:59 06:59 18:59 Intake Total 600 Output Total 400 Balance 200 Intake: Intake, IV Titration 600 Amount Sodium Chloride 0.9% 1, 600 000 ml @ 50 mls/hr IV . Q20H KENY Rx#:[id number] Output: Urine 400 Other: # Voids 2 - Exam In general patient is alert, confused in minimal distress due to pain and discomfort HEENT head normocephalic and atraumatic Neck is supple no JVD no goiter no lymphadenopathy Chest exam reveals a few scattered rhonchi no wheezing Cardiac exam reveals regular heart sounds S1 and S2 no gallops no murmurs Abdomen is soft nontender no organomegaly with normal bowel sounds Extremity exam reveals no edema no cyanosis or clubbing - Labs CBC & Chem 7: 09/23/20 04:51 09/23/20 04:51 Labs: Abnormal Lab Results - Last 24 Hours (Table) 09/21/20 09/23/20 09/23/20 Range/Units 06:42 04:51 04:51 RBC 2.84 L (4.30-5.90) m/uL Hgb 9.4 L (13.0-17.5) gm/dL Hct 28.0 L (39.0-53.0) % Lymphocytes # 0.3 L (1.0-4.8) k/uL BUN 42.0 H (9.0-27.0) mg/dL Est GFR (CKD-EPI)AfAm 54.3 L (60.0-200.0) Est GFR (CKD-EPI)NonAf 46.8 L (60.0-200.0) BUN/Creatinine Ratio 28.00 H (12.00-20.00) Ratio Glucose 135 H (70-110) mg/dL Total Bilirubin 0.2 L (0.3-1.2) mg/dL AST 10 L (14-35) U/L Total Protein 5.8 L (6.2-8.2) g/dL Albumin 3.60 L (3.80-4.90) g/dL Albumin (PEP) 3.41 L (3.80-4.90) g/dL Beta Globulins 0.44 L (0.60-1.30) g/dL Assessment and Plan Plan: 1. Fall with multiple traumatic injuries including head and ear laceration, right sided fifth and sixth rib fractures, and right humeral head fracture. Patient was evaluated by orthopedic services. The recommending conservative treatment remain in sling. Follow-up x-ray in 14 days. 2. 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 Patient is on dexamethasone. Patient was evaluated by oncology services recommended possible transfer to neurosurgery by patient and family refused. Radiation oncology has been consulted awaiting plans 3. Known history of underlying adenocarcinoma lung cancer, diagnosed in March 2017 4. Acute kidney injury with evidence of elevated BUN and creatinine. Continue gentle hydration recheck in a.m. 5. Underlying history of COPD 6. Underlying history of gastroesophageal reflux disease 7. Underlying history of hypertension 8. Underlying history of hyperlipidemia 9. Underlying history of multiple myeloma 10. Underlying history of restless leg syndrome 11. Underlying history of anemia 12. Underlying history of chronic hypoxic respiratory failure maintained on home oxygen At this time plan is to admit patient to medical floor Patient declined transfer to tertiary hospital for neurosurgery consult per oncology VQ scan completed showing low to intermediate probability for PE Outpatient radiation to be arranged PT OT consulted
[2020-09-23] MEDS: MELATONIN 5 MG TABLET PO SCH (20:20)
[2020-09-24] MEDS: SODIUM CHLORIDE 0.9% 1,000 ML IV SCH (02:51)
[2020-09-24] MEDS: DEXAMETHASONE SOD PHOSPHATE 4 MG/ML 1 ML VIAL IV SCH ×3 (06:01→18:57)
[2020-09-24] MEDS: SYMBICORT 160-4.5 MCG INHALER INHALATION SCH ×2 (07:15→19:38)
[2020-09-24] MEDS: THIAMINE 100 MG TAB PO SCH (08:04)
[2020-09-24] MEDS: ASPIRIN 325 MG TAB PO SCH (08:04)
[2020-09-24] MEDS: CITALOPRAM HYDROBROMIDE 20 MG TAB PO SCH (08:04)
[2020-09-24] MEDS: FOLIC ACID 1 MG TAB PO SCH (08:04)
[2020-09-24] MEDS: CALCIUM CARBONATE 500 MG CHEWABLE PO SCH ×2 (08:04→19:47)
[2020-09-24] MEDS: PANTOPRAZOLE 40 MG TABLET PO SCH (08:04)
[2020-09-24] MEDS: SODIUM BICARBONATE TAB 650 MG TAB PO SCH (08:05)
[2020-09-24] MEDS: TAMSULOSIN 0.4 MG CAP.ER.24H PO SCH (08:05)
[2020-09-24] MEDS: MULTIVITAMINS, THERA 1 EACH TAB PO SCH (08:05)
[2020-09-24] MEDS: ATORVASTATIN 20 MG TAB PO SCH (08:05)
--- NOTE | 2020-09-24 09:47 | P.PN ---
Subjective Progress Note Date: 09/23/20 Principal diagnosis: brain metastasis, fall Since my initial consultation with the patient, he states he is doing well overall. He reports that he has had a big improvement in his dizziness and feels more steady. He has been able to ambulate with a walker without difficulty. Objective - Vital Signs Vital signs: Vital Signs Temp 98.1 F 09/24/20 07:08 Pulse 58 L 09/24/20 07:08 Resp 22 09/24/20 07:08 BP 171/69 09/24/20 07:08 Pulse Ox 99 09/24/20 07:08 Intake & Output 09/23/20 09/24/20 09/24/20 18:59 06:59 18:59 Other: Voiding Method Toilet # Voids 1 - Constitutional General appearance: Present: no acute distress - EENT Eyes: Present: EOMI, PERRLA ENT: Present: hearing grossly normal - Neck Neck: Absent: lymphadenopathy - Respiratory Respiratory: bilateral: CTA - Cardiovascular Rhythm: regular - Neurologic Neurologic: Present: CNII-XII intact. Absent: focal deficits - Musculoskeletal Musculoskeletal: Present: strength equal bilaterally - Psychiatric Psychiatric: Present: A&O x's 3, appropriate affect - Labs CBC & Chem 7: 09/23/20 04:51 09/23/20 04:51 Labs: Abnormal Lab Results - Last 24 Hours (Table) 09/21/20 09/21/20 Range/Units 06:42 06:42 Albumin (PEP) 3.41 L (3.80-4.90) g/dL Beta Globulins 0.44 L (0.60-1.30) g/dL Methylmalonic Acid 1.67 H (<0.40) umol/L Assessment and Plan Assessment: The patient is a 70-year-old male with a history of metastatic adenocarcinoma the lung diagnosed over 3 years ago. He was diagnosed synchronous with myeloma. His lung cancer has largely been in remission with the use of immunotherapy intermittently. The patient presents now with a single brain metastasis. Plan: 1. Brain metastasis: I discussed with the patient that I felt his best treatment option would be radiosurgery delivered in 3 fractions. The patient is feeling better today than he did at the time of my initial consultation, and he expressed that he is interested in undergoing this therapy. I did explain this was discussed with medical oncology, and Dr. Moncada is in agreement with this plan. I explained the patient would first undergo CT simulation for treatment planning. Treatment will be delivered over 3 fractions on consecutive days. I discussed that potential side effects of this treatment include, but are not limited to; fatigue, scalp irritation, reversible alopecia, headache, nausea, vomiting and even focal neurologic signs. I discussed with the patient that there is a risk of radionecrosis in the future. I discussed however that the local control rates with radiosurgery are good even considering his moderately large lesion size. We will bring the patient down for CT simulation on the morning of September 24, and we will look to start his treatment the following week. It typically takes a few days for radiosurgery planning to be complete, and this should not hold up his discharge. The patient should be sent home on dexamethasone, at least 4 mg twice a day and I will taper his dose as an outpatient. Time with Patient: Less than 30
[2020-09-24] MEDS: amLODIPine 5 MG TAB PO SCH (11:08)
--- NOTE | 2020-09-24 14:09 | P.PN ---
Subjective Progress Note Date: 09/24/20 Principal diagnosis: fall, confusion, mass in brain In f/u today pt is less irritable, acting more like himself. No additional neuro symptoms to report. No HUERTA, N, or pain. Objective - Vital Signs Vital signs: Vital Signs Temp 98.1 F 09/24/20 07:08 Pulse 58 L 09/24/20 07:08 Resp 22 09/24/20 07:08 BP 171/69 09/24/20 07:08 Pulse Ox 99 09/24/20 07:08 Intake & Output 09/23/20 09/24/20 09/24/20 18:59 06:59 18:59 Other: Voiding Method Toilet # Voids 1 - Constitutional General appearance: Present: cooperative, no acute distress, thin - EENT Eyes: Present: anicteric sclerae, EOMI ENT: Present: hearing grossly normal - Respiratory Details: resp even and unlabored - Psychiatric Psychiatric: Present: A&O x's 3, appropriate affect, intact judgment & insight (forgetful, confuses information easily, able to reorient) - Labs CBC & Chem 7: 09/23/20 04:51 09/23/20 04:51 Labs: Abnormal Lab Results - Last 24 Hours (Table) 09/21/20 09/21/20 Range/Units 06:42 06:42 Albumin (PEP) 3.41 L (3.80-4.90) g/dL Beta Globulins 0.44 L (0.60-1.30) g/dL Methylmalonic Acid 1.67 H (<0.40) umol/L Assessment and Plan (1) Brain metastasis Current Visit: Yes Status: Acute Priority: High Code(s): C79.31 - SECONDARY MALIGNANT NEOPLASM OF BRAIN SNOMED Code(s): 89691256 (2) Fall Current Visit: Yes Status: Acute Priority: High Code(s): W19.XXXA - UNSPECIFIED FALL, INITIAL ENCOUNTER SNOMED Code(s): 0135645 (3) Multiple myeloma Current Visit: No Status: Chronic Priority: Medium Code(s): C90.00 - MULTIPLE MYELOMA NOT HAVING ACHIEVED REMISSION SNOMED Code(s): 652552778 (4) Non-small cell lung cancer (NSCLC) Current Visit: No Status: Chronic Priority: Medium Code(s): C34.90 - MALIGNANT NEOPLASM OF UNSP PART OF UNSP BRONCHUS OR LUNG SNOMED Code(s): 581376935 Plan: Pt has been treated intermittently over the last several years for myeloma and lung cancer, doing rather well. Patient has agreed to local treatment with radiation therapy to the brain mass. Agree with plan. Cont steroids and PPI. Myeoma labs are stable when compared to previous. No evidence to suggest progression of lung cancer in the chest, abd, pelvis. Pt will f/u with Dr. Moncada after XRT to the brain is complete Attests: I have performed H&P and developed impression and plan of care of patient, discussed with dictator. I agree with dictated note, documented as a scribe.
--- NOTE | 2020-09-24 18:57 | P.DS ---
Providers Date of admission: 09/20/20 04:47 Expected date of discharge: 09/24/20 Attending physician: Babak Huggins Consults: 09/20/20 04:47 Consult Physician Routine Consulting Provider: Catia Moncada Consult Reason/Comments: ca,brain mets Do you want consulting provider notified?: Yes 09/20/20 14:40 Consult Physician Routine Consulting Provider: Jose Antonio Seymour Consult Reason/Comments: New metastatic brain lesion Do you want consulting provider notified?: Yes Primary care physician: Babak Bhavna [facility] Course: Diagnosis on discharge: 1. Fall with multiple traumatic injuries including head and ear laceration, right sided fifth and sixth rib fractures, and right humeral head fracture. Patient was evaluated by orthopedic services. The recommending conservative treatment remain in sling. Follow-up x-ray in 14 days. 2. 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 Patient is on dexamethasone. Patient was evaluated by oncology services recommended possible transfer to neurosurgery by patient and family refused. Radiation oncology has been consulted awaiting plans 3. Known history of underlying adenocarcinoma lung cancer, diagnosed in March 2017 4. Acute kidney injury with evidence of elevated BUN and creatinine. Continue gentle hydration recheck in a.m. 5. Underlying history of COPD 6. Underlying history of gastroesophageal reflux disease 7. Underlying history of hypertension 8. Underlying history of hyperlipidemia 9. Underlying history of multiple myeloma 10. Underlying history of restless leg syndrome 11. Underlying history of anemia 12. Underlying history of chronic hypoxic respiratory failure maintained on home oxygen Hospital course: Italo Pinzon is a 70-year-old male with history of metastatic lung cancer. Who presented to [facility] emergency room after sustaining a fall and having evidence of right humeral neck fracture, and lacerated ear and scalp. Patient also had evidence of mildly displaced right posterior fifth and sixth ribs. Patient was evaluated in the emergency room his vital examination on presentation revealed a temperature of 98.6 pulse 72 respiration 18 blood pressure 115/57 pulse ox 100% on room air his white blood count was 6.0 hemoglobin 9.1 platelet count 229 sodium 138 potassium 5.9 BUN 27 creatinine 1.42 computed tomography scan of the head and neck was done and revealed left parietal lobe hypodense mass measuring 3.5 cm with extensive surrounding vasogenic edema Since 2019 exam. Otherwise there was no evidence of intracranial bleeding and no CT evidence of acute traumatic injury of the neck. Patient was admitted to medical floor orthopedic surgery consultation and oncology consultation were requested. On review of systems patient is alert confused in mild distress he is complaining of pain in the right side of his chest site of the rib fractures, otherwise he denies any complaints at this time there is no fever or chills no headache or dizziness no chest pain no shortness of breath no cough no nausea or vomiting no abdominal pain no diarrhea and no urinary symptoms On 09/21/2020 patient was seen and examined on the medical floor he is alert and oriented 3 in no apparent distress, patient presented to emergency room after sustaining a fall, he was found to have 2 rib fractures on the right, he was also found to have a metastatic lesion in the brain likely related to his adenocarcinoma of the lung, patient was admitted to medical floor oncology and radiation oncology consultation requested, patient is complaining of some pain in his right side of the chest site of fractured ribs otherwise he denies any complaints at this time. On 09/22/2020 patient is alert and oriented 3 less confused than yesterday. Patient being followed by oncology services. Per oncology service is radiation evaluation recommended possible transfer for neurosurgery by patient family refused. She also evaluated by Dr. Carl. Discussed case with oncology nurse practitioner recommend patient stay 1 more day to organize outpatient radiation and plan of care. At this time patient denies chest pain or shortness breath. Patient denies nausea vomiting or diarrhea. Denies any urinary frequency On 09/23/2020 patient was seen and examined on the medical floor he is alert slightly confused in no apparent distress there is no fever or chills no headache or dizziness no chest pain no shortness of breath no cough no nausea or vomiting no abdominal pain no diarrhea and no urinary symptoms at this time patient understand that he has evidence of cancer in the brain we are awaiting for further input from oncology and radiation oncology 09/24/2020 patient was seen and examined on the medical floor he is alert and oriented 3 in no apparent distress there is no fever or chills no headache or dizziness no chest pain no shortness of breath no cough no nausea or vomiting no abdominal pain no diarrhea and no urinary symptoms he was evaluated by oncology and radiation oncology and was cleared for discharge discharge prescription for Decadron was provided patient will follow-up as outpatient for radiation treatment to the brain Patient Condition at Discharge: Serious Plan - Discharge Summary Discharge Rx Participant: No New Discharge Prescriptions: New Dexamethasone [Decadron] 4 mg PO QID #53 tablet Continue Atorvastatin [Lipitor] 20 mg PO DAILY Tamsulosin [Flomax] 0.4 mg PO DAILY Multivitamins, Thera [Multivitamin (formulary)] 1 tab PO DAILY Folic Acid 1 mg PO DAILY Citalopram Hydrobromide [CeleXA] 20 mg PO DAILY Thiamine [Vitamin B-1] 100 mg PO DAILY Ondansetron HCl [Zofran] 4 mg PO DAILY PRN PRN Reason: Nausea Aspirin EC [Ecotrin] 325 mg PO DAILY oxyCODONE-APAP 10-325MG [Percocet 10-325 mg] 1 tab PO BID PRN #4 tab PRN Reason: Pain Diazepam [Valium] 5 mg PO TID Budesonide/Formoterol Fumarate [Symbicort 160-4.5 Mcg Inhaler] 2 puff INHALATION RT-BID bisacodyL [Dulcolax] 5 mg PO BID PRN PRN Reason: Constipation Melatonin 10 mg PO HS Calcium Carbonate [Calcium] 600 mg PO BID Sodium Bicarbonate Tab 650 mg PO DAILY Omeprazole [PriLOSEC] 40 mg PO DAILY Discharge Medication List Atorvastatin [Lipitor] 20 mg PO DAILY 06/29/17 [History] Citalopram Hydrobromide [CeleXA] 20 mg PO DAILY 10/27/17 [History] Folic Acid 1 mg PO DAILY 10/27/17 [History] Multivitamins, Thera [Multivitamin (formulary)] 1 tab PO DAILY 10/27/17 [History] Tamsulosin [Flomax] 0.4 mg PO DAILY 10/27/17 [History] Thiamine [Vitamin B-1] 100 mg PO DAILY 10/27/17 [History] Aspirin EC [Ecotrin] 325 mg PO DAILY 05/17/19 [History] Ondansetron HCl [Zofran] 4 mg PO DAILY PRN 05/17/19 [History] oxyCODONE-APAP 10-325MG [Percocet 10-325 mg] 1 tab PO BID PRN #4 tab 05/24/19 [Rx] Diazepam [Valium] 5 mg PO TID 11/08/19 [History] Budesonide/Formoterol Fumarate [Symbicort 160-4.5 Mcg Inhaler] 2 puff INHALATION RT-BID 09/20/20 [History] Calcium Carbonate [Calcium] 600 mg PO BID 09/20/20 [History] Melatonin 10 mg PO HS 09/20/20 [History] Omeprazole [PriLOSEC] 40 mg PO DAILY 09/20/20 [History] Sodium Bicarbonate Tab 650 mg PO DAILY 09/20/20 [History] bisacodyL [Dulcolax] 5 mg PO BID PRN 09/20/20 [History] Dexamethasone [Decadron] 4 mg PO QID #53 tablet 09/24/20 [Rx] Follow up Appointment(s)/Referral(s): Nursing[facility] [NON-STAFF] - 1-2 Days [facility] [NON-STAFF] - Babak Huggins MD [Primary Care Provider] - 1-2 days [facility] [NON-STAFF] - As Needed Catia Moncada MD [STAFF PHYSICIAN] - 10/15/20 12:15 pm Activity/Diet/Wound Care/Special Instructions: Tapering Dex Rx sent to [facility], [place], [facility] 09/24/20. 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
[2020-09-24 19:36] VITALS: BP 143/68; RESP 17; TEMP 98.5
[2020-09-24 23:27] VITALS: PULSE 73
== END 2020-09-24 20:12 | disposition home or self-care (01) | DRG 562 ==
LOC: EC 03:05 → 5NMEDONC 04:47
PROVIDERS: ADMIT Internal Medicine; ATTEND Internal Medicine
DX: S42.301A Unspecified fracture of shaft of humerus, right arm, initial encounter for closed fracture (principal); G93.6 Cerebral edema; S22.41XA Multiple fractures of ribs, right side, initial encounter for closed fracture; J96.11 Chronic respiratory failure with hypoxia; N17.9 Acute kidney failure, unspecified; C79.31 Secondary malignant neoplasm of brain; C34.90 Malignant neoplasm of unspecified part of unspecified bronchus or lung; C90.01 Multiple myeloma in remission; D61.818 Other pancytopenia; W18.30XA Fall on same level, unspecified, initial encounter; J44.9 Chronic obstructive pulmonary disease, unspecified; I12.9 Hypertensive chronic kidney disease with stage 1 through stage 4 chronic kidney disease, or unspecified chronic kidney disease; E78.5 Hyperlipidemia, unspecified; G25.81 Restless legs syndrome; K21.9 Gastro-esophageal reflux disease without esophagitis; S01.81XA Laceration without foreign body of other part of head, initial encounter; S01.319A Laceration without foreign body of unspecified ear, initial encounter; Z79.899 Other long term (current) drug therapy; Z79.82 Long term (current) use of aspirin; Z79.51 Long term (current) use of inhaled steroids; Z91.041 Radiographic dye allergy status; Z87.891 Personal history of nicotine dependence; Z85.118 Personal history of other malignant neoplasm of bronchus and lung; Z82.5 Family history of asthma and other chronic lower respiratory diseases; Z82.49 Family history of ischemic heart disease and other diseases of the circulatory system; Z80.0 Family history of malignant neoplasm of digestive organs; Z90.49 Acquired absence of other specified parts of digestive tract; Z90.89 Acquired absence of other organs; Z98.890 Other specified postprocedural states; Y92.009 Unspecified place in unspecified non-institutional (private) residence as the place of occurrence of the external cause
CPT/HCPCS: 36415; 70450; 70553; 71045; 71250; 72125; 72170; 74176; 77334; 78582; 80053; 81003; 82607; 82728; 82784; 83540; 83550; 83605; 83615; 83735; 83883; 83921; 84100; 84165; 84484; 85025; 85610; 85730; 86334; 93005; 94640; 94760; 96361; 96374; 96375; 96376; 99285

== ENCOUNTER 2020-10-21 12:31 | Emergency (ER) | payer MEDICARE ==
[2020-10-21] MEDS ORDERED: IPRATROPIUM-ALBUTEROL 3 ML NEB INHALATION STA (12:51)
--- NOTE | 2020-10-21 12:55 | ED ---
General Adult HPI - General Chief complaint: Shortness of Breath Stated complaint: Lethargic Time Seen by Provider: 10/21/20 12:42 Source: patient, EMS, RN notes reviewed, old records reviewed Mode of arrival: EMS Limitations: physical limitation - History of Present Illness Initial comments: Patient is a pleasant 70-year-old male presenting to the emergency department with complaints of concern for difficulty in breathing, possible pneumonia. Patient states he feels fine and has no complaints. Patient states he does live at home alone and is able to take care of himself. Patient denies any shortness of breath. Patient does admit to having a mild cough however this is chronic and unchanged. Patient does have history of lung cancer and multiple myeloma and is under care of Dr. Moncada for this. - Related Data Home Medications Medication Instructions Recorded Confirmed Atorvastatin [Lipitor] 20 mg PO DAILY 06/29/17 10/21/20 Citalopram Hydrobromide [CeleXA] 20 mg PO DAILY 10/27/17 10/21/20 Folic Acid 1 mg PO DAILY 10/27/17 10/21/20 Multivitamins, Thera [Multivitamin 1 tab PO DAILY 10/27/17 10/21/20 (formulary)] Tamsulosin [Flomax] 0.4 mg PO DAILY 10/27/17 10/21/20 Thiamine [Vitamin B-1] 100 mg PO DAILY 10/27/17 10/21/20 Aspirin EC [Ecotrin] 325 mg PO DAILY 05/17/19 10/21/20 Ondansetron HCl [Zofran] 4 mg PO DAILY PRN 05/17/19 10/21/20 Diazepam [Valium] 5 mg PO TID 11/08/19 10/21/20 Budesonide/Formoterol Fumarate 2 puff INHALATION RT-BID 09/20/20 10/21/20 [Symbicort 160-4.5 Mcg Inhaler] Calcium Carbonate [Calcium] 600 mg PO BID 09/20/20 10/21/20 Melatonin 10 mg PO HS 09/20/20 10/21/20 Omeprazole [PriLOSEC] 40 mg PO DAILY 09/20/20 10/21/20 Sodium Bicarbonate Tab 650 mg PO DAILY 09/20/20 10/21/20 bisacodyL [Dulcolax] 5 mg PO BID PRN 09/20/20 10/21/20 Dexamethasone [Decadron] See Taper PO QID 10/21/20 10/21/20 oxyCODONE-APAP 10-325MG [Percocet 1 tab PO QID PRN 10/21/20 10/21/20 10-325 mg] Allergies Allergy/AdvReac Type Severity Reaction Status Date / Time Iodinated Contrast Media Allergy Rash/Hives Verified 10/21/20 12:39 [Iodinated Contrast- Oral and IV Dye] Review of Systems ROS Statement: Those systems with pertinent positive or pertinent negative responses have been documented in the HPI. ROS Other: All systems not noted in ROS Statement are negative. Constitutional: Denies: fever Eyes: Denies: eye pain ENT: Denies: ear pain Respiratory: Reports: cough. Denies: dyspnea Cardiovascular: Denies: chest pain Endocrine: Denies: fatigue (Patient denies) Gastrointestinal: Denies: abdominal pain Genitourinary: Denies: dysuria Musculoskeletal: Denies: back pain Skin: Denies: rash Neurological: Denies: weakness Past Medical History Past Medical History: Cancer, COPD, GERD/Reflux, Hyperlipidemia, Hypertension, Respiratory Disorder Additional Past Medical History / Comment(s): mulitple myeloma, adenocarcinoma of the lung diagnosed in March 2017,home 02 2 liters n/c restless leg syndrome, anemia,tracheobronchits, History of Any Multi-Drug Resistant Organisms: None Reported Past Surgical History: Cholecystectomy, Tonsillectomy Additional Past Surgical History / Comment(s): CYST REMOVED FROM RT KNEE, v asectomy, rt bone marrow apiration/bx Past Anesthesia/Blood Transfusion Reactions: No Reported Reaction Additional Past Anesthesia/Blood Transfusion Reaction / Comment(s): past blood transfusion-stated no reaction to to it. Past Psychological History: No Psychological Hx Reported Smoking Status: Former smoker Past Alcohol Use History: None Reported Past Drug Use History: None Reported - Past Family History Mother Family Medical History: COPD, Hypertension Father Family Medical History: Coronary Artery Disease (CAD) Additional Family Medical History / Comment(s): cabg-triple vessel, pancreatic cancer age 65 General Exam Limitations: physical limitation General appearance: alert, in no apparent distress Head exam: Present: atraumatic Eye exam: Present: normal appearance, PERRL Neck exam: Present: normal inspection Respiratory exam: Present: wheezes Cardiovascular Exam: Present: regular rate, normal rhythm GI/Abdominal exam: Present: soft. Absent: tenderness Extremities exam: Present: normal inspection. Absent: pedal edema, calf tenderness Neurological exam: Present: alert Expanded Neurological exam: Present: protecting the airway Motor strength exam: RUE: 4, LUE: 4, RLE: 4, LLE: 4 Eye Response: (4) open spontaneously Motor Response: (6) obeys commands Verbal Response: (5) oriented Psychiatric exam: Present: flat affect Skin exam: Present: normal color Course Vital Signs 10/21/20 10/21/20 10/21/20 12:32 13:48 14:16 Temperature 98.2 F Pulse Rate 92 85 Respiratory 20 Rate Blood Pressure 136/79 O2 Sat by Pulse 93 L 100 Oximetry 10/21/20 10/21/20 10/21/20 14:19 14:30 15:00 Temperature Pulse Rate 86 79 79 Respiratory 18 8 L 8 L Rate Blood Pressure 128/74 128/74 139/66 O2 Sat by Pulse 99 99 99 Oximetry - Reevaluation(s) Reevaluation #1: 10/21/20 14:13 Patient reevaluated and resting comfortably in bed. Discussion had with patient regarding CODE STATUS. Patient states he does not want to be coded. No CPR. No intubation. Patient states he has previously thought of this and had discussions with family. EKG Findings - EKG Comments: EKG Findings:: Normal sinus rhythm 86. IA 154. QRS 92. QT 384. QTC 49. Normal axis. Normal QRS. No acute ST change. Medical Decision Making - Medical Decision Making She was reevaluated and is drowsy but arousable to voice. Patient without complaints. Respiratory therapists did have concern regarding patient going up Following nebulizer treatment. Patient still denies dyspnea at this time. Patient appears to be breathing well. Case was crusted with Dr. Huggins who is familiar with this patient and will admit with consult for oncology and Dr. Duarte. - Lab Data Result diagrams: 10/21/20 13:32 10/21/20 13:32 Lab Results 10/21/20 10/21/20 10/21/20 Range/Units 13:32 13:32 13:32 WBC 3.7 L (3.8-10.6) k/uL RBC 3.07 L (4.30-5.90) m/uL Hgb 10.1 L (13.0-17.5) gm/dL Hct 30.2 L (39.0-53.0) % MCV 98.5 (80.0-100.0) fL MCH 32.9 (25.0-35.0) pg MCHC 33.4 (31.0-37.0) g/dL RDW 12.8 (11.5-15.5) % Plt Count 177 (150-450) k/uL MPV 6.9 Neutrophils % 85 % Lymphocytes % 6 % Monocytes % 5 % Eosinophils % 2 % Basophils % 0 % Neutrophils # 3.1 (1.3-7.7) k/uL Lymphocytes # 0.2 L (1.0-4.8) k/uL Monocytes # 0.2 (0-1.0) k/uL Eosinophils # 0.1 (0-0.7) k/uL Basophils # 0.0 (0-0.2) k/uL PT 9.4 (9.0-12.0) sec INR 0.9 (<1.2) APTT 20.5 L (22.0-30.0) sec Sodium 136 L (137-145) mmol/L Potassium 5.4 H (3.5-5.1) mmol/L Chloride 100 (98-107) mmol/L Carbon Dioxide 28 (22-30) mmol/L Anion Gap 8 mmol/L BUN 31 H (9-20) mg/dL Creatinine 1.59 H (0.66-1.25) mg/dL Est GFR (CKD-EPI)AfAm 51 (>60 ml/min/1.73 sqM) Est GFR (CKD-EPI)NonAf 44 (>60 ml/min/1.73 sqM) Glucose 108 H (74-99) mg/dL Plasma Lactic Acid Hudson (0.7-2.0) mmol/L Calcium 9.7 (8.4-10.2) mg/dL Total Bilirubin 0.5 (0.2-1.3) mg/dL AST 18 (17-59) U/L ALT 28 (4-49) U/L Alkaline Phosphatase 94 (38-126) U/L Troponin I (0.000-0.034) ng/mL NT-Pro-B Natriuret Pep pg/mL Total Protein 6.9 (6.3-8.2) g/dL Albumin 3.9 (3.5-5.0) g/dL Coronavirus (PCR) (Not Detectd) 10/21/20 10/21/20 10/21/20 Range/Units 13:32 13:32 13:32 WBC (3.8-10.6) k/uL RBC (4.30-5.90) m/uL Hgb (13.0-17.5) gm/dL Hct (39.0-53.0) % MCV (80.0-100.0) fL MCH (25.0-35.0) pg MCHC (31.0-37.0) g/dL RDW (11.5-15.5) % Plt Count (150-450) k/uL MPV Neutrophils % % Lymphocytes % % Monocytes % % Eosinophils % % Basophils % % Neutrophils # (1.3-7.7) k/uL Lymphocytes # (1.0-4.8) k/uL Monocytes # (0-1.0) k/uL Eosinophils # (0-0.7) k/uL Basophils # (0-0.2) k/uL PT (9.0-12.0) sec INR (<1.2) APTT (22.0-30.0) sec Sodium (137-145) mmol/L Potassium (3.5-5.1) mmol/L Chloride (98-107) mmol/L Carbon Dioxide (22-30) mmol/L Anion Gap mmol/L BUN (9-20) mg/dL Creatinine (0.66-1.25) mg/dL Est GFR (CKD-EPI)AfAm (>60 ml/min/1.73 sqM) Est GFR (CKD-EPI)NonAf (>60 ml/min/1.73 sqM) Glucose (74-99) mg/dL Plasma Lactic Acid Hudson 1.0 (0.7-2.0) mmol/L Calcium (8.4-10.2) mg/dL Total Bilirubin (0.2-1.3) mg/dL AST (17-59) U/L ALT (4-49) U/L Alkaline Phosphatase (38-126) U/L Troponin I <0.012 (0.000-0.034) ng/mL NT-Pro-B Natriuret Pep 388 pg/mL Total Protein (6.3-8.2) g/dL Albumin (3.5-5.0) g/dL Coronavirus (PCR) (Not Detectd) 10/21/20 Range/Units 14:16 WBC (3.8-10.6) k/uL RBC (4.30-5.90) m/uL Hgb (13.0-17.5) gm/dL Hct (39.0-53.0) % MCV (80.0-100.0) fL MCH (25.0-35.0) pg MCHC (31.0-37.0) g/dL RDW (11.5-15.5) % Plt Count (150-450) k/uL MPV Neutrophils % % Lymphocytes % % Monocytes % % Eosinophils % % Basophils % % Neutrophils # (1.3-7.7) k/uL Lymphocytes # (1.0-4.8) k/uL Monocytes # (0-1.0) k/uL Eosinophils # (0-0.7) k/uL Basophils # (0-0.2) k/uL PT (9.0-12.0) sec INR (<1.2) APTT (22.0-30.0) sec Sodium (137-145) mmol/L Potassium (3.5-5.1) mmol/L Chloride (98-107) mmol/L Carbon Dioxide (22-30) mmol/L Anion Gap mmol/L BUN (9-20) mg/dL Creatinine (0.66-1.25) mg/dL Est GFR (CKD-EPI)AfAm (>60 ml/min/1.73 sqM) Est GFR (CKD-EPI)NonAf (>60 ml/min/1.73 sqM) Glucose (74-99) mg/dL Plasma Lactic Acid Hudson (0.7-2.0) mmol/L Calcium (8.4-10.2) mg/dL Total Bilirubin (0.2-1.3) mg/dL AST (17-59) U/L ALT (4-49) U/L Alkaline Phosphatase (38-126) U/L Troponin I (0.000-0.034) ng/mL NT-Pro-B Natriuret Pep pg/mL Total Protein (6.3-8.2) g/dL Albumin (3.5-5.0) g/dL Coronavirus (PCR) Not Detected (Not Detectd) - Radiology Data Radiology results: image reviewed (Chest x-ray shows no acute process) Disposition Clinical Impression: Dyspnea, Apneic episode, Stage 4 malignant neoplasm of lung Disposition: ADMITTED IP TO THIS HOSP Condition: Serious Is patient prescribed a controlled substance at d/c from ED?: No Referrals: None,Stated [Primary Care Provider] - 1-2 days Decision Time: 15:12
[2020-10-21 14:12] LABS: Basophils % (A) 0 %; Eosinophils # (A) 0.1 k/uL (0-0.7); Eosinophils % (A) 2 %; HCT 30.2 % (39.0-53.0); HGB 10.1 gm/dL (13.0-17.5); Lymphocytes # (A) 0.2 k/uL (1.0-4.8); Lymphocytes % (A) 6 %; MCH 32.9 pg (25.0-35.0); MCHC 33.4 g/dL (31.0-37.0); MCV 98.5 fL (80.0-100.0); Mean Platelet Volume 6.9; Monocytes # (A) 0.2 k/uL (0-1.0); Monocytes % (A) 5 %; Neutrophils # (A) 3.1 k/uL (1.3-7.7); Neutrophils % (A) 85 %; Platelet Count 177 k/uL (150-450); RBC 3.07 m/uL (4.30-5.90); RDW 12.8 % (11.5-15.5); WBC 3.7 k/uL (3.8-10.6)
--- NOTE | 2020-10-21 14:29 | XR ---
EXAMINATION TYPE: XR chest 2V DATE OF EXAM: 10/21/2020 COMPARISON: Chest CT September 21, 2020 and older studies. HISTORY: Weakness and difficulty in breathing. TECHNIQUE: Frontal and lateral views of the chest are obtained. FINDINGS: There is chronic emphysematous and pulmonary parenchymal changes without suspicious new fo irene air space opacity, pleural effusion, or pneumothorax seen. The cardiac silhouette size is stable and within normal limits with atherosclerotic change in the aortic knob. Old posterior right fifth a nd sixth rib fractures are seen. Osseous structures are demineralized. IMPRESSION: Chronic changes without acute pulmonary process.
[2020-10-21 14:30] LABS: INR 0.9 (<1.2); Prothrombin Time 9.4 sec (9.0-12.0)
[2020-10-21 14:36] LABS: Albumin 3.9 g/dL (3.5-5.0); Calcium 9.7 mg/dL (8.4-10.2); Partial Thromboplastin Time 20.5 sec (22.0-30.0); Potassium 5.4 mmol/L (3.5-5.1); Total Bilirubin 0.5 mg/dL (0.2-1.3); Total Protein 6.9 g/dL (6.3-8.2)
[2020-10-21] MEDS ORDERED: NALOXONE 0.4 MG/ML 1 ML VIAL IV PRN (15:12)
[2020-10-21] MEDS ORDERED: IPRATROPIUM-ALBUTEROL 3 ML NEB INHALATION PRN (15:14)
[2020-10-21] MEDS ORDERED: SODIUM CHLORIDE 0.9% 1,000 ML IV SCH (15:15)
[2020-10-21] MEDS ORDERED: IPRATROPIUM-ALBUTEROL 3 ML NEB INHALATION SCH (16:00)
[2020-10-21] MEDS ORDERED: oxyCODONE-APAP 10-325MG 1 EACH TAB PO PRN (17:56)
[2020-10-21] MEDS ORDERED: bisacodyL 5 MG TABLET.DR PO PRN (17:56)
[2020-10-21] MEDS ORDERED: ONDANSETRON 4 MG TAB PO PRN (17:56)
[2020-10-21] MEDS ORDERED: dexAMETHasone 4 MG TAB PO SCH (18:00)
--- NOTE | 2020-10-21 18:04 | P.HPIM ---
History of Present Illness H&P Date: 10/21/20 Italo Pinzon is a 70-year-old male, who presented to [facility] due to confusion and mental status changes, patient was evaluated in the emergency room his vital exam reveals a temperature of 98.2 pulse 92 respiration 20 pressure 136/79 pulse ox 93% on room air, his laboratory data revealed a white blood count of 3.7 hemoglobin 10.1 platelet count 177 sodium 136 potassium 5.4 BUN 31 creatinine 1.59 chest x-ray revealed chronic changes without acute pulmonary process, EKG was within normal limits Covid 19 testing was negative, patient was admitted to 24-hour observation computed tomography scan of the brain was ordered ammonia level was ordered urine analysis with culture was o rdered to assess cause of his mental status changes. Patient has a known history of lung cancer he also has a known history of multiple myeloma he is followed by Dr. Moncada, he also has a known history of COPD, hyperlipidemia, and benign prostatic hypertrophy. On review of systems patient is alert confused in no apparent distress he is and able to participate with any information he was unable to answer any of my questions he does not seems to be in pain or in distress. Past Medical History Past Medical History: Cancer, COPD, GERD/Reflux, Hyperlipidemia, Hypertension, Respiratory Disorder Additional Past Medical History / Comment(s): mulitple myeloma, adenocarcinoma of the lung diagnosed in March 2017,home 02 2 liters n/c restless leg syndrome, anemia,tracheobronchits, History of Any Multi-Drug Resistant Organisms: None Reported Past Surgical History: Cholecystectomy, Tonsillectomy Additional Past Surgical History / Comment(s): CYST REMOVED FROM RT KNEE, vasectomy, rt bone marrow apiration/bx Past Anesthesia/Blood Transfusion Reactions: No Reported Reaction Additional Past Anesthesia/Blood Transfusion Reaction / Comment(s): past blood transfusion-stated no reaction to to it. Past Psychological History: No Psychological Hx Reported Smoking Status: Former smoker Past Alcohol Use History: None Reported Past Drug Use History: None Reported - Past Family History Mother Family Medical History: COPD, Hypertension Father Family Medical History: Coronary Artery Disease (CAD) Additional Family Medical History / Comment(s): cabg-triple vessel, pancreatic cancer age 65 Medications and Allergies Home Medications Medication Instructions Recorded Confirmed Type Atorvastatin [Lipitor] 20 mg PO DAILY 06/29/17 10/21/20 History Citalopram Hydrobromide [CeleXA] 20 mg PO DAILY 10/27/17 10/21/20 History Folic Acid 1 mg PO DAILY 10/27/17 10/21/20 History Multivitamins, Thera [Multivitamin 1 tab PO DAILY 10/27/17 10/21/20 History (formulary)] Tamsulosin [Flomax] 0.4 mg PO DAILY 10/27/17 10/21/20 History Thiamine [Vitamin B-1] 100 mg PO DAILY 10/27/17 10/21/20 History Aspirin EC [Ecotrin] 325 mg PO DAILY 05/17/19 10/21/20 History Ondansetron HCl [Zofran] 4 mg PO DAILY PRN 05/17/19 10/21/20 History Diazepam [Valium] 5 mg PO TID 11/08/19 10/21/20 History Budesonide/Formoterol Fumarate 2 puff INHALATION RT-BID 09/20/20 10/21/20 History [Symbicort 160-4.5 Mcg Inhaler] Calcium Carbonate [Calcium] 600 mg PO BID 09/20/20 10/21/20 History Melatonin 10 mg PO HS 09/20/20 10/21/20 History Omeprazole [PriLOSEC] 40 mg PO DAILY 09/20/20 10/21/20 History Sodium Bicarbonate Tab 650 mg PO DAILY 09/20/20 10/21/20 History bisacodyL [Dulcolax] 5 mg PO BID PRN 09/20/20 10/21/20 History Dexamethasone [Decadron] See Taper PO QID 10/21/20 10/21/20 History oxyCODONE-APAP 10-325MG [Percocet 1 tab PO QID PRN 10/21/20 10/21/20 History 10-325 mg] Allergies Allergy/AdvReac Type Severity Reaction Status Date / Time Iodinated Contrast Media Allergy Rash/Hives Verified 10/21/20 12:39 [Iodinated Contrast- Oral and IV Dye] Physical Exam Vitals: Vital Signs Temp Pulse Resp BP Pulse Ox 10/21/20 16:42 20 10/21/20 16:30 85 10 L 139/61 10/21/20 16:00 80 10 L 136/65 10/21/20 15:30 79 10 L 130/68 10/21/20 15:00 79 8 L 139/66 99 10/21/20 14:30 79 8 L 128/74 99 10/21/20 14:19 86 18 128/74 99 10/21/20 14:16 100 10/21/20 13:48 85 10/21/20 12:32 98.2 F 92 20 136/79 93 L Intake and Output 10/21/20 10/21/20 10/21/20 06:59 14:59 22:59 Other: Weight 52.163 kg In general patient is alert, confused in no apparent distress HEENT head normocephalic and atraumatic Neck is supple no JVD no goiter no lymphadenopathy Chest exam reveals a few scattered rhonchi no wheezing Cardiac exam reveals regular heart sounds no gallops no murmurs Abdomen is soft nontender no organomegaly with normal bowel sounds Extremity exam reveals no edema no cyanosis or clubbing Neurological examination reveals no gross focal deficits Results CBC & Chem 7: 10/21/20 13:32 10/21/20 13:32 Labs: Abnormal Lab Results - Last 24 Hours (Table) 10/21/20 10/21/20 10/21/20 Range/Units 13:32 13:32 13:32 WBC 3.7 L (3.8-10.6) k/uL RBC 3.07 L (4.30-5.90) m/uL Hgb 10.1 L (13.0-17.5) gm/dL Hct 30.2 L (39.0-53.0) % Lymphocytes # 0.2 L (1.0-4.8) k/uL APTT 20.5 L (22.0-30.0) sec Sodium 136 L (137-145) mmol/L Potassium 5.4 H (3.5-5.1) mmol/L BUN 31 H (9-20) mg/dL Creatinine 1.59 H (0.66-1.25) mg/dL Glucose 108 H (74-99) mg/dL Assessment and Plan Plan: 1. Severe mental status changes, patient is confused and unable to give any information, this is a significant change from his baseline, at this time will check stat computed tomography scan of the brain without contrast, will check an ammonia level, will check urine analysis to rule out any urinary tract infection, will consult neurology. 2. Dehydration with acute kidney injury BUN elevated at 31 creatinine elevated at 1.59 with hydrate patient gently 3. Underlying history of lung cancer followed by Dr. Moncada, patient unable to tell me when his last treatment was, Will consult oncology for follow-up 4. Underlying history of multiple myeloma 5. Underlying history of COPD 6. Underlying history of hyperlipidemia 7. Underlying history of gastroesophageal reflux disease 8. Underlying history of benign prostatic hypertrophy. At this time patient is admitted to 24-hour observation Would start gentle hydration Check CT scan of the brain check urine analysis check ammonia level Consult oncology neurology and pulmonary Prognosis is guarded due to underlying malignancy and significant mental status changes on presentation Will follow closely
--- NOTE | 2020-10-21 18:47 | CT ---
EXAMINATION TYPE: CT brain wo con DATE OF EXAM: 10/21/2020 COMPARISON: 09/20/2020. HISTORY: Mental status changes. CT DLP: 1119.4 mGycm Automated exposure control for dose reduction was used. FINDINGS: There is new 4.5 x 2.9 cm intraparenchymal hemorrhage in the left parietal lobe, related to known und erlying lesion. There is moderate surrounding vasogenic edema. There is mild 2 mm rightward midline s hift. Stable appearance of the ventricles without hydrocephalus. There is complete opacification of the right maxillary sinus. The calvarium is intact. IMPRESSION: NEW MODERATE VOLUME LEFT PARIETAL LOBE IPH, RELATED TO KNOWN UNDERLYING MASS. MILD 2 MM RIGHTWARD MIDLINE SHIFT. FINDINGS WERE REPORTED TO CARING ER PHYSICIAN BY ME AT TIME OF DICTATION.
[2020-10-21 19:49] VITALS: TEMP 98.7
[2020-10-21] MEDS ORDERED: SYMBICORT 160-4.5 MCG INHALER INHALATION SCH (20:00)
[2020-10-21 20:44] VITALS: BP 148/82; PULSE 110; RESP 20
[2020-10-21] MEDS ORDERED: CALCIUM CARBONATE 500 MG CHEWABLE PO SCH (21:00)
[2020-10-21] MEDS ORDERED: MELATONIN 5 MG TABLET PO SCH (21:00)
[2020-10-21] MEDS ORDERED: diazePAM 5 MG TAB PO SCH (22:00)
[2020-10-22] MEDS ORDERED: PANTOPRAZOLE 40 MG TABLET PO SCH (07:30)
[2020-10-22] MEDS ORDERED: MULTIVITAMINS, THERA 1 EACH TAB PO SCH (09:00)
[2020-10-22] MEDS ORDERED: SODIUM BICARBONATE TAB 650 MG TAB PO SCH (09:00)
[2020-10-22] MEDS ORDERED: ASPIRIN 325 MG TAB PO SCH (09:00)
[2020-10-22] MEDS ORDERED: CITALOPRAM HYDROBROMIDE 20 MG TAB PO SCH (09:00)
[2020-10-22] MEDS ORDERED: TAMSULOSIN 0.4 MG CAP.ER.24H PO SCH (09:00)
[2020-10-22] MEDS ORDERED: ATORVASTATIN 20 MG TAB PO SCH (09:00)
[2020-10-22] MEDS ORDERED: THIAMINE 100 MG TAB PO SCH (09:00)
[2020-10-22] MEDS ORDERED: FOLIC ACID 1 MG TAB PO SCH (09:00)
== END 2020-10-21 20:51 | disposition other institution (70) ==
LOC: EC 12:31 → UNDOADMOB 15:12 → 5NMEDONC 15:12 → INTOOBSV 15:12 → 5NMEDONC 18:40 → EC 20:51
DX: C34.90 Malignant neoplasm of unspecified part of unspecified bronchus or lung (principal); I62.9 Nontraumatic intracranial hemorrhage, unspecified; R40.0 Somnolence; J44.9 Chronic obstructive pulmonary disease, unspecified; K21.9 Gastro-esophageal reflux disease without esophagitis; E78.5 Hyperlipidemia, unspecified; I10 Essential (primary) hypertension; G25.81 Restless legs syndrome; Z87.891 Personal history of nicotine dependence; Z79.82 Long term (current) use of aspirin; Z79.51 Long term (current) use of inhaled steroids; Z79.899 Other long term (current) drug therapy; Z79.52 Long term (current) use of systemic steroids; Z20.828 Contact with and (suspected) exposure to other viral communicable diseases; Z91.041 Radiographic dye allergy status; Z85.79 Personal history of other malignant neoplasms of lymphoid, hematopoietic and related tissues
CPT/HCPCS: 36415; 70450; 71046; 80053; 82140; 83605; 83880; 84484; 85025; 85610; 85730; 87040; 87635; 93005; 94640; 99285